=== PATIENT | female | born 1950 | race Caucasian/White ===

== ENCOUNTER 2021-05-24 07:11 | Inpatient (IN) | payer MEDICARE, OTHER ==
[2021-05-24 07:36] LABS: Glucose,Whole Blood 184 mg/dL (75-99)
--- NOTE | 2021-05-24 07:40 | ED ---
General Adult HPI - General Chief complaint: Weakness Stated complaint: L side numbness Time Seen by Provider: 05/24/21 07:21 Source: patient Mode of arrival: ambulatory Limitations: no limitations - History of Present Illness Initial comments: Dictation was produced using [employer] dictation software. please excuse any grammatical, word or spelling errors. Chief Complaint: 71-year-old female presents to the emergency department left-s ided weakness and paresthesias History of Present Illness: 71-year-old female she states she has history of stroke she suffered 2018. She states she was admitted to the ICU back in 2018 at [facility]. She states that last several days she has not been feeling well. This morning patient woke up 2 hours ago when she felt weakness to her left side. Shows complains of overlying paresthesias to the left upper extremity left lower extremity. Patient states she went to bed normal last nig ht at 12 AM. She denies any pain complaints at this time. The last couple days she's been having feelings of weakness mild episodes of headache intermittently. Patient denies any pain at this time. She states she has some very mild weakness residually from stroke in 2018 but nothing this bad. The ROS documented in this emergency department record has been reviewed and confirmed by me. Those systems with pertinent positive or negative responses have been documented in the HPI. All other systems are other negative and/or noncontributory. PHYSICAL EXAM: General Impression: Alert and oriented x3, not in acute distress HEENT: Normocephalic atraumatic, extra-ocular movements intact, pupils equal and reactive to light bilaterally, mucous membranes moist. Cardiovascular: Heart regular rate and rhythm Chest: Able to complete full sentences, no retractions, no tachypnea Abdomen: abdomen soft, non-tender, non-distended, no organomegaly Musculoskeletal: Pulses present and equal in all extremities, no peripheral edema Motor: no focal deficits noted Neurological: Mild left lower facial weakness, no movement towards gravity of the left lower extremity, no drift of left upper extremity, sensory abnormality to the left side of her body. Skin: Intact with no visualized rashes Psych: Normal affect and mood ED course: 71-year-old female with past medical history of stroke presents with strokelike symptoms. Patient woke up with symptoms. Vital signs upon arrival are within acceptable limits. NIH score of 6. Last known normal was 7-1/2 hours ago. Patient not a TPA candidate. Laboratory evaluation obtained. CBC, coag panel, both panels within acceptable limits. CT brain and CT angios of the head and neck shows no acute processes. Stroke neurologist did not have any specific recommendations. Patient given aspirin. She'll be admitted with neurology consultation. Patient reevaluated at bedside at 9 AM found to be stable medical condition. EKG interpretation: Ventricular rate 67, normal sinus rhythm, KS interval 146, QRS 86, QTC 443. No KS prolongation, no QTC prolongation, no ST or T-wave changes noted.. Overall, this EKG is unremarkable - Related Data Home Medications Medication Instructions Recorded Confirmed Ascorbic Acid [Vitamin C] 1,000 mg PO DAILY 05/24/21 05/24/21 Aspirin EC [Ecotrin Low Dose] 81 mg PO DAILY 05/24/21 05/24/21 Atorvastatin Calcium [Lipitor] 40 mg PO DAILY 05/24/21 05/24/21 Carvedilol [Coreg] 6.25 mg PO BID 05/24/21 05/24/21 Dailyvite 1 tab PO DAILY 05/24/21 05/24/21 Furosemide [Lasix] 80 mg PO DAILY 05/24/21 05/24/21 Isosorbide Mononitrate ER [Imdur] 60 mg PO DAILY 05/24/21 05/24/21 Levothyroxine Sodium [Synthroid] 75 mcg PO DAILY 05/24/21 05/24/21 Losartan Potassium 100 mg PO DAILY 05/24/21 05/24/21 Allergies Allergy/AdvReac Type Severity Reaction Status Date / Time Armenian walnut Allergy Anaphylaxis Verified 05/24/21 07:17 Sulfa (Sulfonamide AdvReac mouth sores Verified 05/24/21 07:17 Antibiotics) Review of Systems ROS Statement: Those systems with pertinent positive or pertinent negative responses have been documented in the HPI. ROS Other: All systems not noted in ROS Statement are negative. Past Medical History Past Medical History: Cancer, COPD, CVA/TIA, GERD/Reflux, Hypertension, Myocardial Infarction ([place]), Thyroid Disorder Additional Past Medical History / Comment(s): hx. cervical cancer, SOB w/activity, restless leg, TIA x 3 2012, tia 2014, personality disorder Last Myocardial Infarction Date:: February 26 2015 History of Any Multi-Drug Resistant Organisms: None Reported Past Surgical History: Section, Heart Catheterization, Tonsillectomy Additional Past Surgical History / Comment(s): cyst removed from ovary Past Anesthesia/Blood Transfusion Reactions: Postoperative Nausea & Vomiting (PONV) Past Psychological History: Anxiety, Depression Smoking Status: Never smoker Past Alcohol Use History: Occasional Past Drug Use History: None Reported - Past Family History Mother Family Medical History: Cancer Additional Family Medical History / Comment(s): aneurysm General Exam Limitations: no limitations Course Vital Signs 05/24/21 05/24/21 05/24/21 07:15 07:25 07:40 Temperature 98.2 F 99.1 F 99.1 F Pulse Rate 69 68 63 Respiratory 20 16 16 Rate Blood Pressure 150/86 150/91 149/93 O2 Sat by Pulse 96 98 97 Oximetry 05/24/21 05/24/21 05/24/21 07:55 08:00 08:01 Temperature 98.9 F 98.9 F Pulse Rate 63 60 60 Respiratory 16 16 16 Rate Blood Pressure 163/86 143/84 143/84 O2 Sat by Pulse 93 L 96 96 Oximetry 05/24/21 05/24/21 05/24/21 08:15 08:30 08:45 Temperature 98.9 F 98.8 F 98.8 F Pulse Rate 59 L 66 63 Respiratory 16 16 16 Rate Blood Pressure 138/83 135/83 140/82 O2 Sat by Pulse 96 98 94 L Oximetry Medical Decision Making - Lab Data Result diagrams: 05/24/21 07:27 05/24/21 07:27 Lab Results 05/24/21 05/24/21 05/24/21 Range/Units 07:27 07:27 07:27 WBC 7.2 (3.8-10.6) k/uL RBC 4.21 (3.80-5.40) m/uL Hgb 13.3 (11.4-16.0) gm/dL Hct 38.2 (34.0-46.0) % MCV 90.8 (80.0-100.0) fL MCH 31.6 (25.0-35.0) pg MCHC 34.7 (31.0-37.0) g/dL RDW 13.1 (11.5-15.5) % Plt Count 236 (150-450) k/uL MPV 6.9 Neutrophils % 55 % Lymphocytes % 35 % Monocytes % 5 % Eosinophils % 3 % Basophils % 1 % Neutrophils # 3.9 (1.3-7.7) k/uL Lymphocytes # 2.5 (1.0-4.8) k/uL Monocytes # 0.3 (0-1.0) k/uL Eosinophils # 0.2 (0-0.7) k/uL Basophils # 0.1 (0-0.2) k/uL PT 9.6 (9.0-12.0) sec INR 0.9 (<1.2) APTT 22.2 (22.0-30.0) sec Sodium 140 (137-145) mmol/L Potassium 3.8 (3.5-5.1) mmol/L Chloride 105 (98-107) mmol/L Carbon Dioxide 27 (22-30) mmol/L Anion Gap 8 mmol/L BUN 36 H (7-17) mg/dL Creatinine 0.98 (0.52-1.04) mg/dL Est GFR (CKD-EPI)AfAm 68 (>60 ml/min/1.73 sqM) Est GFR (CKD-EPI)NonAf 59 (>60 ml/min/1.73 sqM) Glucose 158 H (74-99) mg/dL POC Glucose (mg/dL) (75-99) mg/dL POC Glu Cdl Instructor ID Calcium 9.9 (8.4-10.2) mg/dL Total Bilirubin 0.2 (0.2-1.3) mg/dL AST 49 H (14-36) U/L ALT 52 H (4-34) U/L Alkaline Phosphatase 73 (38-126) U/L Troponin I (0.000-0.034) ng/mL Total Protein 6.6 (6.3-8.2) g/dL Albumin 4.0 (3.5-5.0) g/dL 05/24/21 05/24/21 Range/Units 07:27 07:30 WBC (3.8-10.6) k/uL RBC (3.80-5.40) m/uL Hgb (11.4-16.0) gm/dL Hct (34.0-46.0) % MCV (80.0-100.0) fL MCH (25.0-35.0) pg MCHC (31.0-37.0) g/dL RDW (11.5-15.5) % Plt Count (150-450) k/uL MPV Neutrophils % % Lymphocytes % % Monocytes % % Eosinophils % % Basophils % % Neutrophils # (1.3-7.7) k/uL Lymphocytes # (1.0-4.8) k/uL Monocytes # (0-1.0) k/uL Eosinophils # (0-0.7) k/uL Basophils # (0-0.2) k/uL PT (9.0-12.0) sec INR (<1.2) APTT (22.0-30.0) sec Sodium (137-145) mmol/L Potassium (3.5-5.1) mmol/L Chloride (98-107) mmol/L Carbon Dioxide (22-30) mmol/L Anion Gap mmol/L BUN (7-17) mg/dL Creatinine (0.52-1.04) mg/dL Est GFR (CKD-EPI)AfAm (>60 ml/min/1.73 sqM) Est GFR (CKD-EPI)NonAf (>60 ml/min/1.73 sqM) Glucose (74-99) mg/dL POC Glucose (mg/dL) 184 H (75-99) mg/dL POC Glu Cdl Instructor ID Sandra Harris Calcium (8.4-10.2) mg/dL Total Bilirubin (0.2-1.3) mg/dL AST (14-36) U/L ALT (4-34) U/L Alkaline Phosphatase (38-126) U/L Troponin I <0.012 (0.000-0.034) ng/mL Total Protein (6.3-8.2) g/dL Albumin (3.5-5.0) g/dL Critical Care Time Critical Care Time: Yes Total Critical Care Time: 33 Disposition Clinical Impression: Neurological deficit present Disposition: ADMITTED IP TO THIS [facility] Condition: Fair Referrals: None,Stated [Primary Care Provider] - 1-2 days
[2021-05-24 07:48] LABS: Basophils # (A) 0.1 k/uL (0-0.2); Basophils % (A) 1 %; Eosinophils # (A) 0.2 k/uL (0-0.7); Eosinophils % (A) 3 %; HCT 38.2 % (34.0-46.0); HGB 13.3 gm/dL (11.4-16.0); Lymphocytes # (A) 2.5 k/uL (1.0-4.8); Lymphocytes % (A) 35 %; MCH 31.6 pg (25.0-35.0); MCHC 34.7 g/dL (31.0-37.0); MCV 90.8 fL (80.0-100.0); Mean Platelet Volume 6.9; Monocytes # (A) 0.3 k/uL (0-1.0); Monocytes % (A) 5 %; Neutrophils # (A) 3.9 k/uL (1.3-7.7); Neutrophils % (A) 55 %; Platelet Count 236 k/uL (150-450); RBC 4.21 m/uL (3.80-5.40); RDW 13.1 % (11.5-15.5); WBC 7.2 k/uL (3.8-10.6)
[2021-05-24 07:53] LABS: Calcium 9.9 mg/dL (8.4-10.2); Potassium 3.8 mmol/L (3.5-5.1); Total Bilirubin 0.2 mg/dL (0.2-1.3); Total Protein 6.6 g/dL (6.3-8.2)
[2021-05-24 08:03] LABS: INR 0.9 (<1.2); Partial Thromboplastin Time 22.2 sec (22.0-30.0); Prothrombin Time 9.6 sec (9.0-12.0)
--- NOTE | 2021-05-24 08:15 | CT ---
EXAMINATION TYPE: CT brain wo con for TPA DATE OF EXAM: 05/24/2021 COMPARISON: 08/19/2015 HISTORY: 71-year-old female Left sided weakness TECHNIQUE: Examination was done in axial plane without intravenous contrast. Coronal and sagittal r econstructions performed. CT DLP: 1071.8 mGycm Automated exposure control for dose reduction was used. FINDINGS: There is no evidence of acute intracranial hemorrhage, acute ischemic changes, mass, mass-effect, or extra-axial fluid collection. There is no effacement of cerebral sulci or basal subarachnoid cister ns. There is no hydrocephalus. There is no midline shift. Medrano-white matter distinction is preserv ed. Mild patchy white matter hypodensities in both cerebral hemispheres. Stable mild fusiform prominence mid basilar artery at 5 mm compared back to 2014. Trace mucosal thickening left maxillary sinus. Mastoid air cells well pneumatized. Orbits and globes are intact. IMPRESSION: No acute intracranial abnormality seen. Mild patchy burden with chronic small vessel ischemic disease .
--- NOTE | 2021-05-24 08:22 | XR ---
EXAMINATION TYPE: XR chest 2V DATE OF EXAM: 05/24/2021 COMPARISON: 08/19/2015 HISTORY: Altered mental status TECHNIQUE: Frontal and lateral views of the chest are obtained. FINDINGS: Low lung volumes. Heart size is stable. No pleural effusion, focal consolidation or pneumo thorax. IMPRESSION: 1. No acute pulmonary disease.
--- NOTE | 2021-05-24 08:52 | CT ---
EXAMINATION TYPE: CT angio head neck DATE OF EXAM: 05/24/2021 COMPARISON: CT brain same day HISTORY: 71-year-old female Left sided weakness, left facial droop TECHNIQUE: Contiguous axial scanning of the head and neck performed with IV Contrast, patient injecte d with 65 mL of Isovue 370. Coronal/sagittal MIP reconstructions performed. 3-D reconstructions gener ated on a dedicated workstation. CT DLP: 517.8 mGycm Automated exposure control for dose reduction was used. FINDINGS: NECK: Conventional arch vessel branching anatomy. Both vertebral artery origins are patent. The vessels are codominant and patent throughout the course . The right common carotid artery is patent. Mild atherosclerotic change at the right bifurcation with mild, less than 40% narrowing by NASCET cri teria. Remainder of the right ICA is patent. Left common carotid artery is patent. Very mild eccentric atherosclerotic plaque and calcification causing mild, less than 25% narrowing at the level of the carotid bulb. Remainder of the left ICA is patent. HEAD: Mild atherosclerotic calcification proximal basilar artery with mild fusiform prominence at 5 mm note d to be unchanged from 2015. Bilateral posterior to indicating arteries are visualized. The internal carotid arteries are patent with mild atherosclerotic calcifications. The remainder of t he anterior circulation is patent. Otherwise, no saccular aneurysmal change is seen. IMPRESSION: 1. NECK: MILD ATHEROSCLEROTIC CHANGE AT THE RIGHT GREATER THAN LEFT CAROTID BIFURCATIONS WITH MILD, L ESS THAN 40% PROXIMAL RIGHT ICA NARROWING AND MINIMAL, LESS THAN 25% PROXIMAL LEFT ICA NARROWING. NO HEMODYNAMICALLY SIGNIFICANT ICA STENOSIS ON EITHER SIDE. 2. HEAD: NO LARGE VESSEL INTRACRANIAL ARTERIAL OCCLUSION OR SIGNIFICANT STENOSIS SEEN.
[2021-05-24] MEDS ORDERED: ASPIRIN 81 MG PO STA (09:05)
--- NOTE | 2021-05-24 10:50 | P.HPIM ---
<Poli Garcia - Last Filed: 05/24/21 11:02> History of Present Illness H&P Date: 05/24/21 History of Presenting Illness: Patient is a very pleasant 71-year-old female with a past medical history of CAD with previous ND, chronic diastolic heart failure, hypertension, hyperlipidemia, previous CVA in 2018 that resulted in left-sided deficits, history of PE, and COPD. Patient presented to the emergency department with reports of increased left-sided weakness. Patient states over the past 2-3 days she has been experiencing increased left-sided weakness, numbness, and a pins and needles tingling sensation throughout her left cheek, left arm, and left leg accompanied by intermittent blurred vision, headache, and photophobia. Patient states she first noticed this about 2-3 days ago when she felt as though her left leg was dragging and she was having intermittent paresthesias throughout her left leg. Patient states upon awakening this morning she was unable to move her left leg and felt increased paresthesias so she called a cab to take her to the ER for further evaluation. She denied having any recent infections or exposure to known ill contacts, fevers, chills, diaphoresis, difficulty with her changes in her speech, dysphasia, chest pain or palpitations, shortness of breath, dyspnea with exertion, abdominal pain, nausea, vomiting, or any difficulties with her changes in urinary or bowel function. Full workup was completed in the ED. CTA neck revealing mild atherosclerotic change at the right greater than left carotid bifurcations with mild less than 40% proximal right ICA narrowing and minimal less than 25% proximal left ICA narrowing, no significant ICA stenosis on either side. CTA head showing no large vessel intercranial arterial occlusion or sign ificant stenosis noted. Chest x-ray negative for acute cardiopulmonary process. EKG revealing normal sinus rhythm at 67 bpm with no noted T-wave or ST abnormality, showing no signs of acute ischemia. Initial NIH score of 6, patient not a TPA candidate. Patient given aspirin 325 mg in ED. Patient admitted under our services with consultation to neurology. Review of systems: Pertinent positives and negatives as discussed in HPI, a complete review of systems was performed and all other systems are negative. Physical exam: General: non toxic, no distress, appears at stated age Derm: warm, dry Head: atraumatic, normocephalic, symmetric Eyes: Pupils equal, round and reactive. EOMI, no lid lag, anicteric sclera Mouth: no lip lesion, mucus membranes moist Cardiovascular: S1-S2 normal with regular rate and rhythm. No murmurs, gallops, or rubs noted. Posterior tibial pulses palpated bilaterally. Cap refill less than 2 seconds. Lungs: Respirations even, regular, and unlabored on room air. Lungs clear to auscultation bilaterally with no wheezes, rhonchi, or rales noted. No accessory muscle usage. Abdominal: soft, nontender to palpation, no guarding, no appreciable organomegaly Ext: no gross muscle atrophy, no edema, no contractures Neuro: GCS 15. Speech clear. No facial droop noted. CN II-XI grossly intact, no arm drift. Patient did have abnormal finger to nose with left, positive weakness and inability to perform heel to harp with left lower extremity and reports of decreased sensation to left lower extremity. Psych: Alert, oriented, appropriate affect Assessment and Plan of Care: CVA with left-sided deficits -Initial NIH score of 6 -CT brain without contrast revealing no acute intercranial abnormality revealing only mild patchy white matter densities with chronic small vessel ischemic disease. -CTA neck revealing mild atherosclerotic change at the right greater than left carotid bifurcations with mild less than 40% proximal right ICA narrowing and minimal less than 25% proximal left ICA narrowing, no significant ICA stenosis on either side. CTA head showing no large vessel intercranial arterial occlusion or significant stenosis noted. -Consult neurology -MRI brain without contrast -Echocardiogram -Lipid profile and Hgb A1c -NIH stroke scale with neuro checks every 4 hours and as needed -Daily aspirin and atorvastatin. -PT/OT consult -Swallow evaluation. -Fall precautions and provide pt with assistance as needed. Hypertension -Resume BP medications this evening, as we will allow for permissive hypertension over next 12 hours. Hyperlipidemia -Continue daily medication regimen with atorvastatin -Lipid profile with a.m. labs Chronic diastolic heart failure -Continue daily medication regimen with Lasix. -We will obtain an echocardiogram this admission. History of PE -DVT prophylaxis with Lovenox History of CAD with previous ND -Continue daily medication regimen with aspirin, atorvastatin, carvedilol, Lasix, isosorbide mononitrate, and losartan Hypothyroidism -Continue daily medication management with Synthroid The patient is admitted with an anticipated greater than 2 midnight stay for evaluation of a CVA CODE STATUS: DO NOT RESUSCITATE/DO NOT INTUBATE DVT prophylaxis: Lovenox Discussed with: Patient and RN Anticipated discharge date: Clinical course to determine Anticipated discharge place: Home with home care versus SNF A total of 45 minutes was spent on the care of this complex patient more than 50% of the time was spent in counseling and care coordination. Past Medical History Past Medical History: Cancer, COPD, CVA/TIA, GERD/Reflux, Hypertension, Myocardial Infarction ([place]), Thyroid Disorder Additional Past Medical History / Comment(s): hx. cervical cancer, SOB w/activity, restless leg, TIA x 3 2012, tia 2014, personality disorder Last Myocardial Infarction Date:: February 26 2015 History of Any Multi-Drug Resistant Organisms: None Reported Past Surgical History: Section, Heart Catheterization, Tonsillectomy Additional Past Surgical History / Comment(s): cyst removed from ovary Past Anesthesia/Blood Transfusion Reactions: Postoperative Nausea & Vomiting (PONV) Past Psychological History: Anxiety, Depression Smoking Status: Never smoker Past Alcohol Use History: Occasional Past Drug Use History: None Reported - Past Family History Mother Family Medical History: Cancer Additional Family Medical History / Comment(s): aneurysm Medications and Allergies Home Medications Medication Instructions Recorded Confirmed Type Ascorbic Acid [Vitamin C] 1,000 mg PO DAILY 05/24/21 05/24/21 History Aspirin EC [Ecotrin Low Dose] 81 mg PO DAILY 05/24/21 05/24/21 History Atorvastatin Calcium [Lipitor] 40 mg PO DAILY 05/24/21 05/24/21 History Carvedilol [Coreg] 6.25 mg PO BID 05/24/21 05/24/21 History Dailyvite 1 tab PO DAILY 05/24/21 05/24/21 History Furosemide [Lasix] 80 mg PO DAILY 05/24/21 05/24/21 History Isosorbide Mononitrate ER [Imdur] 60 mg PO DAILY 05/24/21 05/24/21 History Levothyroxine Sodium [Synthroid] 75 mcg PO DAILY 05/24/21 05/24/21 History Losartan Potassium 100 mg PO DAILY 05/24/21 05/24/21 History Allergies Allergy/AdvReac Type Severity Reaction Status Date / Time Italian walnut Allergy Anaphylaxis Verified 05/24/21 07:17 Sulfa (Sulfonamide AdvReac mouth sores Verified 05/24/21 07:17 Antibiotics) Physical Exam Vitals: Vital Signs Temp Pulse Resp BP Pulse Ox 05/24/21 09:46 97.8 F 60 16 140/89 100 05/24/21 08:45 98.8 F 63 16 140/82 94 L 05/24/21 08:30 98.8 F 66 16 135/83 98 05/24/21 08:15 98.9 F 59 L 16 138/83 96 05/24/21 08:01 60 16 143/84 96 05/24/21 08:00 98.9 F 60 16 143/84 96 05/24/21 07:55 98.9 F 63 16 163/86 93 L 05/24/21 07:40 99.1 F 63 16 149/93 97 05/24/21 07:25 99.1 F 68 16 150/91 98 05/24/21 07:15 98.2 F 69 20 150/86 96 Intake and Output 05/23/21 05/24/21 05/24/21 22:59 06:59 14:59 Other: Weight 79.379 kg Results CBC & Chem 7: 05/24/21 07:27 05/24/21 07:27 Labs: Abnormal Lab Results - Last 24 Hours (Table) 05/24/21 05/24/21 Range/Units 07:27 07:30 BUN 36 H (7-17) mg/dL Glucose 158 H (74-99) mg/dL POC Glucose (mg/dL) 184 H (75-99) mg/dL AST 49 H (14-36) U/L ALT 52 H (4-34) U/L <Eddie Sena - Last Filed: 05/24/21 16:15> History of Present Illness Patient seen and examined independently. Patient was also seen by Poli Garcia NP and case was discussed. I am in agreement with subjective, physical exam, assessment and plan as written above and amended below. General: non toxic, no distress, appears at stated age, obese Derm: no unusual rashes/lesions no unusual ecchymoses, warm, dry Head: atraumatic, normocephalic, symmetric Eyes: EOMI, no lid lag, anicteric sclera, pupils equal round reactive to light ENT: Nose and ears atraumatic, no thrush, no pharyngeal erythema Neck: No thyromegaly, no cervical lymphadenopathy, trachea midline, supple Mouth: no lip lesion, mucus membranes moist Cardiovascular: S1S2 reg, no murmur, positive posterior tibial pulse bilateral, no edema, capillary refill less than 2 seconds Lungs: CTA bilateral, no rhonchi, no rales , no accessory muscle use Abdominal: soft, nontender to palpation, no guarding, no appreciable organomegaly, normal bowel sounds Ext: no gross muscle atrophy, muscle strength 3 out of 5 of left lower extre mity, strength 5 out of 5 in all other extremities, no contractures, Neuro: CN II-XI grossly intact, light touch intact all 4 extremities, finger to nose abnormal, left pronator drift noted Psych: Alert, oriented, appropriate affect Physical Exam Vitals: Vital Signs Temp Pulse Resp BP Pulse Ox 05/24/21 15:14 64 18 149/84 97 05/24/21 13:30 97.8 F 64 18 149/84 97 05/24/21 12:30 75 16 153/91 95 05/24/21 11:30 73 16 139/100 96 05/24/21 09:46 97.8 F 60 16 140/89 100 05/24/21 08:45 98.8 F 63 16 140/82 94 L 05/24/21 08:30 98.8 F 66 16 135/83 98 05/24/21 08:15 98.9 F 59 L 16 138/83 96 05/24/21 08:01 60 16 143/84 96 05/24/21 08:00 98.9 F 60 16 143/84 96 05/24/21 07:55 98.9 F 63 16 163/86 93 L 05/24/21 07:40 99.1 F 63 16 149/93 97 05/24/21 07:25 99.1 F 68 16 150/91 98 05/24/21 07:15 98.2 F 69 20 150/86 96 Intake and Output 05/24/21 05/24/21 05/24/21 06:59 14:59 22:59 Other: Weight 79.379 kg Results CBC & Chem 7: 05/24/21 07:27 05/24/21 07:27 Labs: Abnormal Lab Results - Last 24 Hours (Table) 05/24/21 05/24/21 05/24/21 Range/Units 07: 07:30 13:15 BUN 36 H (7-17) mg/dL Glucose 158 H (74-99) mg/dL POC Glucose (mg/dL) 184 H (75-99) mg/dL AST 49 H (14-36) U/L ALT 52 H (4-34) U/L TSH (0.465-4.680) mIU/L Ur Specific [place] >1.050 H (1.001-1.035) Urine Protein Trace H (Negative) Ur Leukocyte Esterase Moderate H (Negative) Urine WBC 7 H (0-5) /hpf Urine Bacteria Rare H (None) /hpf Urine Mucus Rare H (None) /hpf 05/24/21 Range/Units 14:42 BUN (7-17) mg/dL Glucose (74-99) mg/dL POC Glucose (mg/dL) (75-99) mg/dL AST (14-36) U/L ALT (4-34) U/L TSH 12.300 H (0.465-4.680) mIU/L Ur Specific [place] (1.001-1.035) Urine Protein (Negative) Ur Leukocyte Esterase (Negative) Urine WBC (0-5) /hpf Urine Bacteria (None) /hpf Urine Mucus (None) /hpf
[2021-05-24 14:23] LABS: Appearance,Urine Clear (Clear); Bacteria,Urine Rare /hpf; Bilirubin,Urine Negative (Negative); Blood,Urine Negative (Negative); Color,Urine Yellow; Glucose,Urine (UA) Negative (Negative); Ketones,Urine Negative (Negative); Leukocyte Esterase,Urine Moderate (Negative); Mucus,Urine Rare /hpf; Nitrite,Urine Negative (Negative); Protein,Urine Trace (Negative); RBC,Urine 4 /hpf (0-5); Squamous Epithelial Cell,Urine 2 /hpf (0-4); Urobilinogen,Urine <2.0 mg/dL (<2.0); WBC,Urine 7 /hpf (0-5)
[2021-05-24 14:30] LABS: Specific Gravity,Urine >1.050 (1.001-1.035)
[2021-05-24] MEDS ORDERED: CLOPIDOGREL 75 MG TAB PO STA (14:32)
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
[2021-05-24 17:05] LABS: T4, Free (Free Thyroxine) 0.86 ng/dL (0.78-2.19)
--- NOTE | 2021-05-24 19:19 | MR ---
EXAMINATION TYPE: MR brain wo con DATE OF EXAM: 05/24/2021 COMPARISON: None HISTORY: Left sided weakness, and left sided facial droop. Prior stroke. Evaluate for CVA. There is diffuse cerebral atrophy. There is no mass effect nor midline shift. The diffusion images sh ow no evidence of an acute infarct. Brainstem is intact. There is mild thinning of the corpus callosu m. There is fairly normal signal pattern of the periventricular white matter. There is no evidence of cerebral edema. Sella turcica appears normal. There is no evidence of a posterior fossa mass. IMPRESSION: There is cerebral atrophy. No acute intracranial abnormality.
[2021-05-24] MEDS: carvediloL 6.25 MG TAB PO SCH (20:54)
[2021-05-25] MEDS: LEVOTHYROXINE 75 MCG TAB PO SCH (06:05)
[2021-05-25 07:57] LABS: HCT 36.6 % (34.0-46.0); HGB 12.7 gm/dL (11.4-16.0); MCH 31.5 pg (25.0-35.0); MCHC 34.7 g/dL (31.0-37.0); MCV 90.9 fL (80.0-100.0); Mean Platelet Volume 6.9; Platelet Count 217 k/uL (150-450); RBC 4.03 m/uL (3.80-5.40); RDW 13.4 % (11.5-15.5); WBC 7.6 k/uL (3.8-10.6)
--- NOTE | 2021-05-25 07:58 | ECHOF ---
Referral Reason: MEASUREMENTS -------- HEIGHT: 157.5 cm WEIGHT: 79.4 kg BP: 140/89 RVIDd: 3.0 cm (< 3.3) IVSd: 1.4 cm (0.6 - 1.1) LVIDd: 3.3 cm (3.9 - 5.3) LVPWd: 1.3 cm (0.6 - 1.1) IVSs: 1.8 cm LVIDs: 2.0 cm LVPWs: 1.8 cm LAESV Index (A-L): 21.61 ml/m Ao Diam: 3.0 cm (2.0 - 3.7) AV Cusp: 1.7 cm (1.5 - 2.6) LA Diam: 4.6 cm (2.7 - 3.8) MV EXCURSION: 11.432 mm (> 18.000) MV EF SLOPE: 51 mm/s (70 - 150) EPSS: 0.8 cm MV E Khoa: 0.88 m/s MV DecT: 254 ms MV A Khoa: 0.93 m/s MV E/A Ratio: 0.95 RAP: 5.00 mmHg RVSP: 16.15 mmHg FINDINGS -------- Sinus rhythm. This was a technically difficult study with suboptimal views. The left ventricular size is normal. There is mild concentric left ventricular hypertrophy. Overa ll left ventricular systolic function is normal with, an EF between 55 - 60 %. The diastolic fillin g pattern is normal for the age of the patient 13.18. The right ventricle is normal in size. Normal LA size by volume 22+/-6 ml/m2. The right atrium was not well visualized. Lumason used Interatrial and interventricular septum intact. There is mild aortic valve sclerosis. There is no evidence of aortic regurgitation. There is no e vidence of aortic stenosis. Mild mitral annular calcification present. There is trace mitral regurgitation. Mild tricuspid regurgitation present. Right ventricular systolic pressure is normal at < 35 mmHg. The right ventricular systolic pressure, as measured by Doppler, is 16.15mmHg. The pulmonic valve was not well visualized. There is no pulmonic regurgitation present. The aortic root size is normal. IVC Not well visulized. There is no pericardial effusion. CONCLUSIONS -------- 1. This was a technically difficult study with suboptimal views. 2. There is mild concentric left ventricular hypertrophy. 3. Overall left ventricular systolic function is normal with, an EF between 55 - 60 %. 4. Normal LA size by volume 22+/-6 ml/m2. 5. There is mild aortic valve sclerosis. 6. There is trace mitral regurgitation. 7. Mild tricuspid regurgitation present. AOC DIRECTOR COMBAT PLANS OFFICER: Joelle Cobb RDCS
[2021-05-25 08:17] LABS: Calcium 9.3 mg/dL (8.4-10.2); Potassium 4.2 mmol/L (3.5-5.1)
[2021-05-25] MEDS: ATORVASTATIN 40 MG TAB PO SCH (10:06)
[2021-05-25] MEDS: CLOPIDOGREL 75 MG TAB PO SCH (10:06)
[2021-05-25] MEDS: ASCORBIC ACID 500 MG TAB PO SCH (10:06)
[2021-05-25] MEDS: ASPIRIN 81 MG PO SCH (10:06)
[2021-05-25] MEDS: ENOXAPARIN 40 MG/0.4 ML SYRINGE SQ SCH (10:07)
[2021-05-25] MEDS: LOSARTAN 50 MG TAB PO SCH (10:07)
[2021-05-25] MEDS: carvediloL 6.25 MG TAB PO SCH ×2 (10:07→20:27)
[2021-05-25] MEDS: ISOSORBIDE MONONITRATE ER 60 MG TAB.ER.24H PO SCH (10:07)
[2021-05-25] MEDS: FUROSEMIDE 80 MG TAB PO SCH (10:07)
--- NOTE | 2021-05-25 10:23 | P.PN ---
Subjective Progress Note Date: 05/25/21 History of Presenting Illness: Patient is a very pleasant 71-year-old female with a past medical history of CAD with previous ME, chronic diastolic heart failure, hypertension, hyperlipidemia, previous CVA in 2018 that resulted in left-sided deficits, history of PE, and COPD. Patient presented to the emergency department with reports of increased left-sided weakness. Patient states over the past 2-3 days she has been experiencing increased left-sided weakness, numbness, and a pins and needles tingling sensation throughout her left cheek, left arm, and left leg accompanied by intermittent blurred vision, headache, and photophobia. Patient states she first noticed this about 2-3 days ago when she felt as though her left leg was dragging and she was having intermittent paresthesias throughout her left leg. Patient states upon awakening this morning she was unable to move her left leg and felt increased paresthesias so she called a cab to take her to the ER for further evaluation. She denied having any recent infections or exposure to known ill contacts, fevers, chills, diaphoresis, difficulty with her changes in her speech, dysphasia, chest pain or palpitations, shortness of breath, dyspnea with exertion, abdominal pain, nausea, vomiting, or any difficulties with her changes in urinary or bowel function. Full workup was completed in the ED. CTA neck revealing mild atherosclerotic change at the right greater than left carotid bifurcations with mild less than 40% proximal right ICA narrowing and minimal less than 25% proximal left ICA narrowing, no significant ICA stenosis on either side. CTA head showing no large vessel intercranial arterial occlusion or significant stenosis noted. Chest x-ray negative for acute cardiopulmonary pr ocess. EKG revealing normal sinus rhythm at 67 bpm with no noted T-wave or ST abnormality, showing no signs of acute ischemia. Initial NIH score of 6, patient not a TPA candidate. Patient given aspirin 325 mg in ED. Patient admitted under our services with consultation to neurology. Physical exam: Patient was seen and fully evaluated at the bedside this morning. She reports previously reported paresthesias to her Left cheek, left arm, and left leg have resolved and she has regained sensation in her left lower extremity. However, she reports her left hip is very sore and she is still having increased weakness in her left lower extremity And unable to lift leg. Patient denies having any falls or injuries. Order placed for x-ray of left hip and [place] for pain management. Patient denies having headache, lightheadedness, dizziness, chest pain, palpitations, shortness of breath, or any other complaints at this time. General: non toxic, no distress, appears at stated age Derm: warm, dry Head: atraumatic, normocephalic, symmetric Eyes: Pupils equal, round and reactive. EOMI, no lid lag, anicteric sclera Mouth: no lip lesion, mucus membranes moist Cardiovascular: S1-S2 normal with regular rate and rhythm. No murmurs, gallops, or rubs noted. Posterior tibial pulses palpated bilaterally. Cap refill less than 2 seconds. Lungs: Respirations even, regular, and unlabored on room air. Lungs clear to auscultation bilaterally with no wheezes, rhonchi, or rales noted. No accessory muscle usage. Abdominal: soft, nontender to palpation, no guarding, no appreciable organomegaly Ext: no gross muscle atrophy, no edema, no contractures Neuro: GCS 15. Speech clear. No facial droop noted. CN II-XI grossly intact, no arm drift. Positive weakness and inability to perform heel to harp with left lower extremity. Sensation intact. Psych: Alert, oriented, appropriate affect Assessment and Plan of Care: Increased left-sided weakness with Paresthesias -Initial NIH score of 6 -CT brain without contrast revealing no acute intercranial abnormality revealing only mild patchy white matter densities with chronic small vessel ischemic disease. -CTA neck revealing mild atherosclerotic change at the right greater than left carotid bifurcations with mild less than 40% proximal right ICA narrowing and minimal less than 25% proximal left ICA narrowing, no significant ICA stenosis on either side. CTA head showing no large vessel intercranial arterial occlusion or significant stenosis noted. -MRI showing diffuse cerebral atrophy and is negative for acute intercranial abnormality. -Neurology following and appreciate further recommendations -Echocardiogram Showing normal EF of 55-60% with no significant valvular abnormalities. -Lipid profile and Hgb A1c Pending -Daily aspirin and atorvastatin. -PT/OT consult -Fall precautions and provide pt with assistance as needed. Hypertension -Monitor vital signs and continue daily medication management. Hyperlipidemia -Continue daily medication regimen with atorvastatin -Lipid profile with a.m. labs Chronic diastolic heart failure -Continue daily medication regimen with Lasix. -We will obtain an echocardiogram this admission. History of PE -DVT prophylaxis with Lovenox History of CAD with previous ME -Continue daily medication regimen with aspirin, atorvastatin, carvedilol, Lasix, isosorbide mononitrate, and losartan Hypothyroidism -Continue daily medication management with Synthroid -TSH 12.300 with free T4 of 0.86. CODE STATUS: DO NOT RESUSCITATE/DO NOT INTUBATE DVT prophylaxis: Lovenox Discussed with: Patient and RN Anticipated discharge date: Clinical course to determine Anticipated discharge place: Home with home care versus SNF A total of 45 minutes was spent on the care of this complex patient more than 50% of the time was spent in counseling and care coordination Objective - Vital Signs Vital signs: Vital Signs Temp 98.1 F 05/25/21 03:50 Pulse 61 05/25/21 03:50 Resp 17 05/25/21 03:50 BP 133/78 05/25/21 03:50 Pulse Ox 96 05/25/21 03:50 Intake & Output 05/24/21 05/25/21 05/25/21 18:59 06:59 18:59 Intake Total 260 Balance 260 Weight 79.379 kg 84.9 kg Intake: Oral 260 Other: Voiding Method Toilet # Voids 1 1 - Labs CBC & Chem 7: 05/25/21 07:28 05/25/21 07:28 Labs: Abnormal Lab Results - Last 24 Hours (Table) 05/24/21 05/24/21 05/25/21 Range/Units 13:15 14:42 07:28 BUN 28 H (7-17) mg/dL Glucose 101 H (74-99) mg/dL TSH 12.300 H (0.465-4.680) mIU/L Ur Specific [place] >1.050 H (1.001-1.035) Urine Protein Trace H (Negative) Ur Leukocyte Esterase Moderate H (Negative) Urine WBC 7 H (0-5) /hpf Urine Bacteria Rare H (None) /hpf Urine Mucus Rare H (None) /hpf
[2021-05-25] MEDS: HYDROcodone/APAP 5-325MG 1 EACH TAB PO PRN ×2 (12:09→17:23)
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
[2021-05-25 13:00] LABS: Chol/HDL Ratio 3.91; LDL Cholesterol,Calculated 97.6 mg/dL (0.0-131.0); VLDL Calculation 36.4 mg/dL (5.00-40.00)
--- NOTE | 2021-05-25 15:12 | XR ---
EXAMINATION TYPE: XR Hip LT and AP Pelvis DATE OF EXAM: 05/25/2021 COMPARISON: NONE HISTORY: Left hip pain TECHNIQUE: A single AP view of the pelvis is obtained. Two views of the left hip are obtained. FINDINGS: No evidence of fracture or dislocation of the left hip. There is moderate to severe osteoarthritis of the left hip with joint space narrowing and subchondral sclerosis of the acetabulum. Subchondral cys tic changes are seen at the left femoral head and acetabulum. Single view of the pelvis shows no acut e fracture. Milder degenerative changes of the right hip suggestive of osteoporosis. Degenerative asad nges of lower lumbar spine. IMPRESSION: 1. Moderate to severe osteoarthritis of the left hip. Subchondral cystic changes at the left femoral head and acetabulum. Consider early avascular necrosis.
[2021-05-25 19:11] LABS: Hemoglobin A1C 5.9 % (4.0-6.0)
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
[2021-05-26] MEDS: HYDROcodone/APAP 5-325MG 1 EACH TAB PO PRN ×2 (03:49→13:28)
[2021-05-26] MEDS: LEVOTHYROXINE 75 MCG TAB PO SCH (06:49)
[2021-05-26 09:46] VITALS: BP 139/73; PULSE 62; RESP 16; TEMP 98
[2021-05-26] MEDS: ATORVASTATIN 40 MG TAB PO SCH (09:55)
[2021-05-26] MEDS: FUROSEMIDE 80 MG TAB PO SCH (09:55)
[2021-05-26] MEDS: ASPIRIN 81 MG PO SCH (09:55)
[2021-05-26] MEDS: carvediloL 6.25 MG TAB PO SCH (09:55)
[2021-05-26] MEDS: CLOPIDOGREL 75 MG TAB PO SCH (09:55)
[2021-05-26] MEDS: ENOXAPARIN 40 MG/0.4 ML SYRINGE SQ SCH (09:55)
[2021-05-26] MEDS: ISOSORBIDE MONONITRATE ER 60 MG TAB.ER.24H PO SCH (09:56)
[2021-05-26] MEDS: LOSARTAN 50 MG TAB PO SCH (09:56)
[2021-05-26] MEDS: ASCORBIC ACID 500 MG TAB PO SCH (09:56)
--- NOTE | 2021-05-26 13:31 | P.DS ---
Providers Date of admission: 05/24/21 09:03 Expected date of discharge: 05/26/21 Attending physician: Eddie Sena MD Consults: 05/24/21 09:04 Consult Physician Routine Consulting Provider: Lv Gong Consult Reason/Comments: cva Do you want consulting provider notified?: Yes 05/25/21 09:09 Consult Physician Routine Consulting Provider: Domenic Lovett Consult Reason/Comments: psychosomatic stroke symptoms Do you want consulting provider notified?: Yes Primary care physician: Stated None Hospital Course: Left sided weakness with paresthesias HTN HLD CAD Chronic Diastolic Heart Failure Hx of PE Hypothyroidism Patient is a very pleasant 71-year-old female with a past medical history of CAD with previous WI, chronic diastolic heart failure, hypertension, hyperlipidemia, previous CVA in 2018 that resulted in left-sided deficits, history of PE, and COPD. Patient presented to the emergency department with reports of increased left-sided weakness. Full workup was completed in the ED. CTA neck revealing mild atherosclerotic change at the right greater than left carotid bifurcations with mild less than 40% proximal right ICA narrowing and minimal less than 25% proximal left ICA narrowing, no significant ICA stenosis on either side. CTA head showing no large vessel intercranial arterial occlusion or significant st enosis noted. Chest x-ray negative for acute cardiopulmonary process. EKG revealing normal sinus rhythm at 67 bpm with no noted T-wave or ST abnormality, showing no signs of acute ischemia. Initial NIH score of 6, patient not a TPA candidate. Patient given aspirin 325 mg in ED. Patient admitted under our services with consultation to neurology. Pt was started on ASA and Plavix with plan to continue DAPT for 21 days, then plavix 75mg daily in perpetuity. Patient was also seen by psychiatry in case of conversion component to left sided weakness, but this was not favored in lieu of organic cause. Patient was discharged home with PCP and neurology follow up. I spent 32 minutes coordinating this complex discharge. Assessment: Gen: awake, alert HEENT: normocephalic, atraumatic, good hearing acuity, moist mucous membranes Resp: good air exchange, breathing comfortably with no accessory muscle use CVS: good distal perfusion x 4, GI: soft, NTTP, ND : no SPT, no CVAT, marroquin catheter not present MSK: no pitting edema, no clubbing Neuro: non-focal, moving all extremities Psych: cooperative, euthymic mood Patient Condition at Discharge: Good Plan - Discharge Summary Discharge Rx Participant: No New Discharge Prescriptions: New Clopidogrel [Plavix] 75 mg PO DAILY #30 tab Continue Carvedilol [Coreg] 6.25 mg PO BID Furosemide [Lasix] 80 mg PO DAILY Isosorbide Mononitrate ER [Imdur] 60 mg PO DAILY Dailyvite 1 tab PO DAILY Ascorbic Acid [Vitamin C] 1,000 mg PO DAILY Atorvastatin Calcium [Lipitor] 40 mg PO DAILY Levothyroxine Sodium [Synthroid] 75 mcg PO DAILY Losartan Potassium 100 mg PO DAILY Aspirin EC [Ecotrin Low Dose] 81 mg PO DAILY 19 Days #0 Discharge Medication List Ascorbic Acid [Vitamin C] 1,000 mg PO DAILY 05/24/21 [History] Atorvastatin Calcium [Lipitor] 40 mg PO DAILY 05/24/21 [History] Carvedilol [Coreg] 6.25 mg PO BID 05/24/21 [History] Dailyvite 1 tab PO DAILY 05/24/21 [History] Furosemide [Lasix] 80 mg PO DAILY 05/24/21 [History] Isosorbide Mononitrate ER [Imdur] 60 mg PO DAILY 05/24/21 [History] Levothyroxine Sodium [Synthroid] 75 mcg PO DAILY 05/24/21 [History] Losartan Potassium 100 mg PO DAILY 05/24/21 [History] Aspirin EC [Ecotrin Low Dose] 81 mg PO DAILY 19 Days #0 05/26/21 [Rx] Clopidogrel [Plavix] 75 mg PO DAILY #30 tab 05/26/21 [Rx] Follow up Appointment(s)/Referral(s): Elmer Yarbrough MD [REFERRING] - 05/27/21 2:15 pm [facility], [NON-STAFF] - Activity/Diet/Wound Care/Special Instructions: Home care will follow at your home after you see Dr. Yarbrough in the office Discharge Disposition: HOME WITH HOME HEALTH SERVICES
== END 2021-05-26 14:20 | disposition home health service (06) | DRG 68 ==
LOC: EC 07:11 → 3SCARD 09:03
PROVIDERS: ADMIT Internal Medicine; ATTEND Internal Medicine
DX: I65.21 Occlusion and stenosis of right carotid artery (principal); I50.32 Chronic diastolic (congestive) heart failure; I69.354 Hemiplegia and hemiparesis following cerebral infarction affecting left non-dominant side; E03.9 Hypothyroidism, unspecified; E78.5 Hyperlipidemia, unspecified; F32.9 Major depressive disorder, single episode, unspecified; F43.10 Post-traumatic stress disorder, unspecified; F44.81 Dissociative identity disorder; F60.9 Personality disorder, unspecified; G25.81 Restless legs syndrome; I11.0 Hypertensive heart disease with heart failure; I25.10 Atherosclerotic heart disease of native coronary artery without angina pectoris; I25.2 Old myocardial infarction; Z86.711 Personal history of pulmonary embolism; Z85.41 Personal history of malignant neoplasm of cervix uteri; Z79.899 Other long term (current) drug therapy; Z79.890 Hormone replacement therapy; Z79.82 Long term (current) use of aspirin; Z66 Do not resuscitate; Z62.810 Personal history of physical and sexual abuse in childhood; J44.9 Chronic obstructive pulmonary disease, unspecified; R29.706 NIHSS score 6; K21.9 Gastro-esophageal reflux disease without esophagitis
CPT/HCPCS: 36415; 70450; 70496; 70498; 70551; 71046; 73502; 80048; 80053; 80061; 81001; 83036; 84439; 84443; 84484; 85025; 85027; 85610; 85730; 93005; 93306; 99285

== ENCOUNTER → 2021-06-21 | Outpatient (CLI) | payer MEDICARE, OTHER ==
--- NOTE | 2021-06-21 17:54 | XR ---
EXAMINATION TYPE: XR lumbosacral spine 5 views DATE OF EXAM: 06/21/2021 Comparison: 10/04/2015 Clinical History: 71-year-old female 715.90, M19.90 Findings: 5 lumbar type vertebral bodies. Moderate to advanced dislocation of the degenerative changes especial ly towards the left at L3-L4, progressed from 2014. There is vacuum phenomenon and endplate sclerosis and spondylosis here at this level. Mild degenerative disc disease at additional levels. Facet arthr opathy mid to lower lumbar spine. No pars interarticularis defect. Vertebral body heights are preserv ed and alignment is maintained. Impression: Moderate to advanced disc/endplate degenerative change especially towards the left at L3-L4, progress ed from 2014. Mild degenerative disc disease elsewhere within the lumbar spine and facet arthropathy mid to lower lumbar spine.
== END | disposition home or self-care (01) ==
LOC: RADXRMAIN 16:03
PROVIDERS: ATTEND Family Medicine
DX: M51.36 Other intervertebral disc degeneration, lumbar region (principal); M46.96 Unspecified inflammatory spondylopathy, lumbar region; M19.90 Unspecified osteoarthritis, unspecified site
CPT/HCPCS: 72110

== ENCOUNTER → 2021-06-24 | Outpatient (CLI) | payer MEDICARE, OTHER ==
--- NOTE | 2021-06-25 10:13 | US ---
EXAMINATION TYPE: US thyroid st tissue head/neck DATE OF EXAM: 06/24/2021 COMPARISON: Recent CT, 05/24/2021 CLINICAL HISTORY: R59.0 LYMPHADENOPATHY. Pt states swelling left supraclavicular area No abnormality visualized to account for pt's supraclavicular swelling IMPRESSION: 1. Negative soft tissue ultrasound
== END | disposition home or self-care (01) ==
LOC: RADUSWWP 16:15
PROVIDERS: ATTEND Family Medicine
DX: R59.0 Localized enlarged lymph nodes (principal)
CPT/HCPCS: 76536

== ENCOUNTER → 2021-07-19 | Outpatient (CLI) | payer MEDICARE, OTHER ==
--- NOTE | 2021-07-19 15:49 | XR ---
EXAMINATION TYPE: XR Hip Complete LT DATE OF EXAM: 07/19/2021 CLINICAL HISTORY: pain TECHNIQUE: AP and frogleg views of the left hip are obtained. COMPARISON: None. FINDINGS: There is no acute fracture/dislocation evident. The joint space appears moderate degener ative narrowing left hip joint space. The overlying soft tissue appears unremarkable. IMPRESSION: 1. There is no acute fracture or dislocation.ICD 10 NO FRACTURE, INITIAL EVALUATION
== END | disposition home or self-care (01) ==
LOC: RADXRMAIN 15:04
PROVIDERS: ATTEND Family Medicine
DX: M25.552 Pain in left hip (principal)
CPT/HCPCS: 73502

== ENCOUNTER → 2021-07-22 | Outpatient (CLI) | payer MEDICARE, OTHER ==
[2021-07-22 13:26] LABS: Prothrombin Time 10.3 sec (9.0-12.0)
[2021-07-22 15:34] LABS: Appearance,Urine Cloudy (Clear); Bilirubin,Urine Negative (Negative); Blood,Urine Negative (Negative); Color,Urine Yellow; Glucose,Urine (UA) Negative (Negative); Hyaline Casts,Urine 1 /lpf (0-2); Ketones,Urine Negative (Negative); Leukocyte Esterase,Urine Large (Negative); Mucus,Urine Rare /hpf; Nitrite,Urine Negative (Negative); Protein,Urine Trace (Negative); RBC,Urine 1 /hpf (0-5); Specific Gravity,Urine 1.022 (1.001-1.035); Squamous Epithelial Cell,Urine 4 /hpf (0-4); Urobilinogen,Urine <2.0 mg/dL (<2.0); WBC,Urine 29 /hpf (0-5)
[2021-07-22 21:19] LABS: Basophils # (A) 0.02 X 10*3/uL (0.00-0.10); Basophils % (A) 0.3 %; Eosinophils # (A) 0.06 X 10*3/uL (0.04-0.35); Eosinophils % (A) 0.8 %; HCT 40.6 % (37.2-46.3); HGB 13.5 g/dL (12.0-15.0); Lymphocytes # (A) 2.04 X 10*3/uL (0.90-5.00); Lymphocytes % (A) 26.4 %; MCH 30.9 pg (27.0-32.0); MCHC 33.3 g/dL (32.0-37.0); MCV 92.9 fL (80.0-97.0); Mean Platelet Volume 10.3 fL (9.5-12.2); Monocytes # (A) 0.32 X 10*3/uL (0.20-1.00); Monocytes % (A) 4.1 %; Neutrophils # (A) 5.26 X 10*3/uL (1.80-7.70); Neutrophils % (A) 68.1 %; Platelet Count 238 X 10*3/uL (140-440); RBC 4.37 X 10*6/uL (4.10-5.20); RDW 12.3 % (11.5-14.5); WBC 7.72 X 10*3/uL (4.50-10.00)
[2021-07-23 10:08] LABS: Protein C (Activity) >150 % (71-138)
[2021-07-23 11:29] LABS: Anti-Thrombin III Antigen 104 % (80 - 120); Protein S Antigen 105 % (50 - 140)
[2021-07-23 13:35] LABS: APTT 39 Sec(s) (<43); Dilute Russell Viper Venom 36 Sec(s) (<44)
== END | disposition home or self-care (01) ==
LOC: LABWHC1 11:43
PROVIDERS: ATTEND Psychiatry & Neurology Neurology
DX: I63.9 Cerebral infarction, unspecified (principal)
CPT/HCPCS: 36415; 80053; 81001; 81291; 85025; 85301; 85303; 85305; 85306; 85610; 85613; 85730; 87086

== ENCOUNTER → 2021-08-04 | Outpatient (CLI) | payer MEDICARE, OTHER | END | disposition home or self-care (01) | LOC: LABPAT 10:50 | PROVIDERS: ATTEND Orthopaedic Surgery | DX: Z01.812 Encounter for preprocedural laboratory examination (principal); M16.12 Unilateral primary osteoarthritis, left hip; Z22.322 Carrier or suspected carrier of Methicillin resistant Staphylococcus aureus | CPT/HCPCS: 87070 ==

== ENCOUNTER 2021-08-16 11:01 | Day surgery (SDC) | payer MEDICARE, OTHER ==
[2021-08-12 10:29] VITALS: BMI 31.1
--- NOTE | 2021-08-15 10:52 | HP ---
HISTORY AND PHYSICAL DATE OF SURGERY: 08/16/2021 Jennifer Manjarrez is a 71-year-old patient seen with symptomatic left hip osteoarthritis. We discussed options for treatment. She elected to proceed with left total hip arthroplasty. Consent regarding the procedure was obtained. Medical clearance was provided by Dr. Saenz. PAST MEDICAL HISTORY: Hypertension, hypothyroidism, hyperlipidemia. PAST SURGICAL HISTORY: Foot surgery. DAILY MEDICATIONS: Atorvastatin, carvedilol, furosemide, gabapentin, isosorbide, levothyroxine, losartan. ALLERGIES: NONE. SOCIAL HISTORY: She denies tobacco use. PHYSICAL EVALUATION OF THE LEFT HIP: There is diffuse tenderness about the hip girdle. Very limited range of motion. Severe pain. Positive hip impingement sign. Straight-leg raise is negative. Distal neurovascular exam is intact. RADIOGRAPHS: Left hip radiographs reveal severe osteoarthritic changes. IMPRESSION: 1. Left hip osteoarthritis. 2. Hypertension. 3. Hyperlipidemia. 4. Hypothyroidism. PLAN: Direct anterior left total hip arthroplasty. MMODL / IJN: [id number] /
[~2021-08-16 11:01] MED LIST: ACETAMINOPHEN TAB 500 MG TAB PO PRN; DEXAMETHASONE SOD PHOSPHATE 4 MG/ML 1 ML VIAL IV ONE; HYDROmorphone 0.5 MG/0.5 ML SYRINGE IVP PRN; LACTATED RINGERS 1,000 ML IV SCH; LIDOCAINE 1% (10MG/ML) FOR IV START INTRADERMA PRN; MELOXICAM 7.5 MG TAB PO PRN; MIDAZOLAM 2 MG/2 ML VIAL IV PRN; ONDANSETRON 4 MG/2 ML VIAL IVP ONE; ROPIVACAINE/EPI/CLONIDINE/KET 50 ML SYRINGE MISCELLANE PRN; TRANEXAMIC ACID 1,000 MG in SODIUM CHLORIDE 0.9% 100 ML IVPB PRN
[2021-08-16] MEDS ORDERED: SCOPOLAMINE 1.5MG/72HR PATCH TRANSDERM ONE (12:09)
[2021-08-16] MEDS ORDERED: ceFAZolin 1,000 MG in SODIUM CHLORIDE 0.9% 1,000 ML IRRIGATION ONE (13:26)
[2021-08-16] MEDS ORDERED: HYDROmorphone 0.2 MG/1 ML SYRINGE IVP PRN (14:36)
[2021-08-16] MEDS ORDERED: NALOXONE 0.4 MG/ML 1 ML VIAL IV PRN (14:36)
[2021-08-16] MEDS ORDERED: HYDROmorphone 0.5 MG/0.5 ML SYRINGE IVP PRN ×2 (14:36)
[2021-08-16] MEDS ORDERED: HYDROcodone/APAP 5-325MG 1 EACH TAB PO PRN ×2 (14:36)
[2021-08-16] MEDS ORDERED: traMADol 50 MG TAB PO PRN (14:36)
[2021-08-16] MEDS ORDERED: ONDANSETRON 4 MG/2 ML VIAL IVP PRN (14:36)
--- NOTE | 2021-08-16 14:36 | P.OP ---
Date of Procedure: 08/16/21 Preoperative Diagnosis: Left hip osteoarthritis Postoperative Diagnosis: Left hip osteoarthritis Procedure(s) Performed: Direct anterior left total hip arthroplasty Implants: 1. Depuy Corail KA size 12 standard collar press-fit femoral stem 2. Depuy pinnacle multi hole 54 mm press-fit acetabular shell 3. Depuy pinnacle neutral polyethylene acetabular liner 36 mm ID 54 mm OD 4. Biolox delta ceramic femoral head +1.5 36 mm Anesthesia: local, spinal Surgeon: Abbe Tabor Tool Design Draftsperson #1: Jony Melendez Estimated Blood Loss (ml): 195 Pathology: other (Femoral head) Condition: stable Disposition: PACU Indications for Procedure: 71-year-old patient seen with symptomatic left hip osteoarthritis. After having treatment options discussed, she elected to proceed with direct anterior left total hip arthroplasty. Operative Findings: see description of procedure Description of Procedure: The patient was taken to the operative suite. Patient underwent a spinal anes thetic by the department of anesthesia. Patient was then transferred to the Convoy table. Patient was given preoperative IV antibiotics and TXA. Both lower extremities were placed in standard leg spars. The hip was then prepped and draped in the normal sterile orthopedic fashion. A standard anterior incision was made beginning 3 cm lateral and 1 cm distal to the ASIS extending 10 cm. Dissection was then carried down through the subcutaneous soft tissues down to the fascia overlying the tensor fascia shabana. An incision was now made through the fascia. Careful dissection was taken down exposing the tensor fascia shabana muscle. A Cobra retractor was now placed along the medial femoral neck and a second one along the lateral femoral neck. The venous circumflex vessels were now identified, cauterized and clipped. We identified the anterior hip capsule. An incision was made through the hip capsule along the lateral border. I performed a partial anterior capsulectomy. Retractors were now placed around the femoral neck itself. A femoral neck cut was now made with a sagittal saw. It was completed with an osteotome at the lateral neck area. The femoral head was now removed without difficulty. The extremity was now rotated to 60 of external rotation. It was locked in position. Residual labrum was now debrided out. Serial reaming was performed of the acetabulum while Norm MIRZA assisted holding an anterior retractor for exposure. Once we reached the appropriate size and a trial was position and fit nicely. The appropriate size was now chosen opened and made available. It was introduced into the acetabulum without difficulty. The C-arm/fluoroscopy was now brought into the operative field. We made sure we had a true AP pelvic view. We now under direct C-arm /fluoroscopy introduced into the acetabular component with appropriate version and inclination. I held the cup in appropriate position well Norm MIRZA used a mallet to seat the acetabular component. I noted the component now to be well seated and stable. Acetabular cup introduce her was removed. The C-arm was pulled back. An appropriate liner was introduced and clicked into position. It was felt to be stable. At this point retractors were removed. The extremity was now placed into 135 external rotation with no traction. The leg was now dropped to the ground and adducted. Appropriate retractors were now positioned along the proximal femur. We also placed our femoral look into position. Additional capsular releasing was performed to gain access to the proximal femur. We now used a box osteotome. A canal finder was now utilized. Serial broaching was now performed with the assistance of Norm MIRZA tapping the broaches down with a mallet while held the broach in appropriate rotation and position. This was done until we reached the appropriate size with good overall rotational stability. Appropriate calcar planing was performed. A trial head/neck was placed into position. The hip was now reduced. The C- arm/fluoroscopy was brought back into the operative field. I can't AP pelvis demonstrating reasonable leg length alignment along with adequate sizing of the trial components The C-arm/fluoroscopy was pulled back. Retractors were repositioned and the hip was dislocated. The leg was again taken down to the ground and adducted. Appropriate retractors were repositioned as well as the femoral hook. All trial components were removed. The femoral implant was opened along with the femoral head. The femoral implant was introduced on the appropriate handle into our pre-broached area. I held the component position well Norm MIRZA used a mallet to seat the femoral component. The femoral component was now noted to be well seated and stable.. The femoral head was introduced with good positioning and fixation noted. Retractors were now removed. The hip was now reduced. There appeared be good positioning of the hip confirmed on intraoperative fluoroscopy. Spot films were obtained to document this. A second gram of TXA was given. The deep and superficial soft tissues were infiltrated with local analgesic. Bipolar cautery had been ut ilized intermittently through the procedure for hemostasis. The wound was irrigated copiously with pulse lavage mechanical irrigation. The fascia was repaired with Vicryl suture. The subcutaneous soft tissues were repaired in layers with Vicryl suture. The skin was approximated with pernio/Dermabond. Sterile dressings were applied. Patient was then awakened, transferred to a bed and taken to recovery in stable condition. Norm MIRZA assisted with the complex procedure.
--- NOTE | 2021-08-16 15:07 | XR ---
Fluoroscopy INDICATION: Pain FINDINGS: Fluoroscopy time: 13 seconds. Images obtained: 2. IMPRESSIONS: 1. Documentation of fluoroscopy.
[2021-08-16] MEDS: LACTATED RINGERS 1,000 ML IV SCH (16:20)
[2021-08-16] MEDS ORDERED: SENNOSIDES-DOCUSATE SODIUM 1 EACH TAB PO SCH (21:00)
--- NOTE | 2021-08-16 23:52 | P.CONS ---
History of Present Illness - Reason for Consult Consult date: 08/16/21 - History of Present Illness The patient is a 71-year-old female with a PMH of hypertension, hyperlipidemia, hypothyroidism, chronic diastolic CHF, hx of CVA who was admitted for an elective left total hip replacement which the patient underwent earlier today no immediate postoperative complications. The patient was seen in the surgical unit. She reported excellent control of her pain, currently is 0 out of 10. She reports being out of bed and having used the restroom to pass urine. Denied having a bowel movement as of yet or having passed gas. Further denied any additional complaints. She denied chest discomfort, shortness of breath, fever, chills, cough, nausea, vomiting, abdominal pain. Reports compliance with her medications at home. Review of systems: Pertinent positives and negatives as discussed in HPI, a complete review of systems was performed and all other systems are negative. Physical examination: General: non toxic, no distress, appears at stated age, obese Derm: no unusual rashes/lesions no unusual ecchymoses, warm, dry Head: atraumatic, normocephalic, symmetric Eyes: EOMI, no lid lag, anicteric sclera, pupils equal round reactive to light ENT: Nose and ears atraumatic, no thrush, no pharyngeal erythema Neck: No thyromegaly, no cervical lymphadenopathy, trachea midline, supple Mouth: no lip lesion, mucus membranes moist Cardiovascular: S1S2 reg, no murmur, positive posterior tibial pulse bilateral, no edema, capillary refill less than 2 seconds Lungs: CTA bilateral, no rhonchi, no rales , no accessory muscle use Abdominal: soft, nontender to palpation, no guarding, no appreciable organomegaly, normal bowel sounds Ext: no gross muscle atrophy, muscle strength 5 out of 5 in all 4 extremities grossly except left lower extremity postoperatively, no contractures, left hip postsurgical dressing intact and clean and dry Neuro: CN II-XI grossly intact, light touch intact all 4 extremities, finger to nose within normal limits, Psych: Alert, oriented, appropriate affect Assessment/plan Status post left total hip arthroplasty -Defer management including pain control to the surgery service Chronic conditions: Hypertension, hyperlipidemia, hx of CVA, chronic diastlic CHF, hypothyroidism -The patient was advised by her surgeons to stop plavix in preparation for surgery. She reportedly does NOT take ASA at home. -Will defer restarting of Plavix to the primary Orthopedics team -Resume remaining medications Past Medical History Past Medical History: Cancer, Heart Failure, COPD, CVA/TIA, GERD/Reflux, Hypertension, Myocardial Infarction ([place]), Pulmonary Embolus (PE), Thyroid Disorder Additional Past Medical History / Comment(s): hx. cervical cancer, SOB w/activity, restless leg, TIA x 3 2012, tia 2014, personality disorder. CVA and PE 2017. Last Myocardial Infarction Date:: February 26 2015 History of Any Multi-Drug Resistant Organisms: None Reported Past Surgical History: Section, Heart Catheterization, Tonsillectomy Additional Past Surgical History / Comment(s): cyst removed from ovary Past Anesthesia/Blood Transfusion Reactions: Postoperative Nausea & Vomiting (PONV) Past Psychological History: Anxiety, Depression Additional Psychological History / Comment(s): dissociative personality disorder Smoking Status: Never smoker Past Alcohol Use History: Occasional Past Drug Use History: None Reported - Past Family History Mother Family Medical History: Cancer, Congestive Heart Failure (CHF) Additional Family Medical History / Comment(s): aneurysm Medications and Allergies Home Medications Medication Instructions Recorded Confirmed Type Atorvastatin Calcium [Lipitor] 40 mg PO HS 05/24/21 08/16/21 History Carvedilol [Coreg] 6.25 mg PO BID 05/24/21 08/16/21 History Furosemide [Lasix] 80 mg PO DAILY 05/24/21 08/16/21 History Isosorbide Mononitrate ER [Imdur] 60 mg PO DAILY 05/24/21 08/16/21 History Losartan Potassium 100 mg PO DAILY 05/24/21 08/16/21 History Aspirin EC [Ecotrin Low Dose] 81 mg PO DAILY 19 Days #0 05/26/21 08/16/21 Rx Clopidogrel [Plavix] 75 mg PO DAILY #30 tab 05/26/21 08/16/21 Rx Gabapentin [Neurontin] 200 mg PO TID 08/12/21 08/16/21 History Inhaler(Name Unknown) 1 puff IH DIRECTED PRN 08/12/21 08/16/21 History Levothyroxine Sodium [Synthroid] 88 mcg PO DAILY 08/12/21 08/16/21 History Nitroglycerin Sl Tabs [Nitrostat] 0.4 mg SUBLINGUAL Q5M PRN 08/12/21 08/16/21 History Allergies Allergy/AdvReac Type Severity Reaction Status Date / Time Cambodian walnut Allergy Anaphylaxis Verified 08/16/21 11:26 walnut Allergy Anaphylaxis Verified 08/16/21 11:26 Sulfa (Sulfonamide AdvReac mouth sores Verified 08/16/21 11:26 Antibiotics) Physical Exam Vitals: Vital Signs Temp Pulse Resp BP Pulse Ox 08/16/21 19:43 97.6 F 81 15 107/63 92 L 08/16/21 17:30 79 122/76 08/16/21 17:15 90 08/16/21 17:00 77 08/16/21 16:45 55 L 116/70 91 L 08/16/21 16:30 97.5 F L 57 L 17 113/68 94 L 08/16/21 16:00 56 L 16 131/67 96 08/16/21 15:45 54 L 14 131/68 97 08/16/21 15:30 52 L 14 132/73 97 08/16/21 15:15 54 L 14 119/65 92 L 08/16/21 15:00 49 L 14 119/65 97 08/16/21 14:51 97.1 F L 50 L 16 116/65 6 L 08/16/21 11:38 98.0 F 66 18 135/77 95 Intake and Output 08/16/21 08/16/21 08/17/21 14:59 22:59 06:59 Intake Total 651 Output Total 195 Balance 456 Intake: IV 651 Output: Estimated Blood Loss 195 Other: # Voids 1 Weight 84.1 kg 84.1 kg
[2021-08-17] MEDS: carvediloL 6.25 MG TAB PO SCH ×2 (01:27→07:50)
[2021-08-17] MEDS: LACTATED RINGERS 1,000 ML IV SCH (01:30)
[2021-08-17] MEDS ORDERED: LEVOTHYROXINE 88 MCG TAB PO SCH (06:30)
[2021-08-17 08:25] LABS: African American GFR (CKD) 66 (>60 ml/min/1.73 sqM); Anion Gap 9 mmol/L; Blood Urea Nitrogen 24 mg/dL (7-17); Calcium 8.7 mg/dL (8.4-10.2); Carbon Dioxide 23 mmol/L (22-30); Chloride 103 mmol/L (98-107); Glucose 102 mg/dL (74-99); Non-African American GFR(CKD) 58 (>60 ml/min/1.73 sqM); Potassium 3.7 mmol/L (3.5-5.1); Sodium 135 mmol/L (137-145)
[2021-08-17 08:29] VITALS: PULSE 65; RESP 16; TEMP 98.2
[2021-08-17] MEDS ORDERED: ISOSORBIDE MONONITRATE ER 60 MG TAB.ER.24H PO SCH (09:00)
[2021-08-17] MEDS ORDERED: FUROSEMIDE 80 MG TAB PO SCH (09:00)
[2021-08-17] MEDS ORDERED: ENOXAPARIN 40 MG/0.4 ML SYRINGE SQ SCH (09:00)
[2021-08-17] MEDS ORDERED: MELOXICAM 7.5 MG TAB PO SCH (09:00)
[2021-08-17] MEDS ORDERED: LOSARTAN 50 MG TAB PO SCH (09:00)
[2021-08-17 09:50] LABS: Basophils # (A) 0.02 X 10*3/uL (0.00-0.10); Basophils % (A) 0.2 %; Eosinophils # (A) 0.01 X 10*3/uL (0.04-0.35); Eosinophils % (A) 0.1 %; HCT 33.5 % (37.2-46.3); HGB 11.6 g/dL (12.0-15.0); Lymphocytes # (A) 2.27 X 10*3/uL (0.90-5.00); Lymphocytes % (A) 17.9 %; MCH 31.6 pg (27.0-32.0); MCHC 34.6 g/dL (32.0-37.0); MCV 91.3 fL (80.0-97.0); Mean Platelet Volume 10.4 fL (9.5-12.2); Monocytes # (A) 0.87 X 10*3/uL (0.20-1.00); Monocytes % (A) 6.9 %; Neutrophils # (A) 9.43 X 10*3/uL (1.80-7.70); Neutrophils % (A) 74.4 %; Platelet Count 226 X 10*3/uL (140-440); RBC 3.67 X 10*6/uL (4.10-5.20); WBC 12.66 X 10*3/uL (4.50-10.00)
--- NOTE | 2021-08-17 10:41 | P.PN ---
Subjective Progress Note Date: 08/17/21 Principal diagnosis: Status post direct anterior left total hip arthroplasty Patient doing very well today, she is resting in her hospital bed. She's been ambulating well with a walker. She's passed all requested task with physical therapy. She currently denies any headaches, lightheadedness, chest pain or shortness of breath. Objective - Vital Signs Vital signs: Vital Signs Temp 98.2 F 08/17/21 08:00 Pulse 65 08/17/21 08:00 Resp 16 08/17/21 08:00 BP 139/80 08/17/21 08:00 Pulse Ox 95 08/17/21 08:00 Intake & Output 08/16/21 08/17/21 08/17/21 18:59 06:59 18:59 Intake Total 651 Output Total 195 Balance 456 Weight 84.1 kg Intake: IV 651 Output: Estimated Blood Loss 195 Other: # Voids 1 - Exam Left lower extremity: Incision is clean, dry, and intact. The foam dressing is in good condition. There is minimal soft tissue swelling and ecchymosis surrounding the medial and lateral aspects of the incision. Calf is soft, no tenderness with palpation. Plantar flexion, dorsiflexion, EHL, FHL are intact. Sensory exam to light touch throughout the extremity is intact, dorsal pedis pulses 2+. - Labs CBC & Chem 7: 08/17/21 06:06 08/17/21 06:06 Labs: Abnormal Lab Results - Last 24 Hours (Table) 08/17/21 08/17/21 Range/Units 06:06 06:06 WBC 12.66 H (4.50-10.00) X 10*3/uL RBC 3.67 L (4.10-5.20) X 10*6/uL Hgb 11.6 L (12.0-15.0) g/dL Hct 33.5 L (37.2-46.3) % Immature Gran # 0.06 H (0.00-0.04) X 10*3/uL Neutrophils # 9.43 H (1.80-7.70) X 10*3/uL Eosinophils # 0.01 L (0.04-0.35) X 10*3/uL Sodium 135 L (137-145) mmol/L BUN 24 H (7-17) mg/dL Glucose 102 H (74-99) mg/dL Assessment and Plan Assessment: Postoperative day #1 status post left total hip arthroplasty direct anterior approach Plan: Pain control, plan for discharge home on oral medication DVT prophylaxis, she will resume both aspirin and Plavix at discharge Wound care instructions were discussed Encourage incentive spirometer Icing and elevating techniques discussed Home health care after discharge Medical recommendations Discharge planning: Plan for discharge home today Time with Patient: Less than 30
--- NOTE | 2021-08-17 11:05 | P.PN ---
Subjective Patient was seen and evaluated this morning. She was up with physical therapy with no difficulty. No acute events overnight reported by nursing staff. Objective - Vital Signs Vital signs: Vital Signs Temp 98.2 F 08/17/21 08:00 Pulse 65 08/17/21 08:00 Resp 16 08/17/21 08:00 BP 139/80 08/17/21 08:00 Pulse Ox 95 08/17/21 08:00 Intake & Output 08/16/21 08/17/21 08/17/21 18:59 06:59 18:59 Intake Total 651 Output Total 195 Balance 456 Weight 84.1 kg Intake: IV 651 Output: Estimated Blood Loss 195 Other: # Voids 1 - Exam General: The patient is awake and alert, in no distress Eye: there is normal conjunctiva bilaterally. Neck: The neck is supple, there is no JVD. Cardiovascular: Normal S1-S2, no S3-S4, no murmurs. Respiratory: Lungs clear to auscultation bilaterally Gastrointestinal: Abdomen is soft, nontender Musculoskeletal: There is no pedal edema. Neurological:. Speech is normal. Skin: Skin is warm and dry - Labs CBC & Chem 7: 08/17/21 06:06 08/17/21 06:06 Labs: Abnormal Lab Results - Last 24 Hours (Table) 08/17/21 08/17/21 Range/Units 06:06 06:06 WBC 12.66 H (4.50-10.00) X 10*3/uL RBC 3.67 L (4.10-5.20) X 10*6/uL Hgb 11.6 L (12.0-15.0) g/dL Hct 33.5 L (37.2-46.3) % Immature Gran # 0.06 H (0.00-0.04) X 10*3/uL Neutrophils # 9.43 H (1.80-7.70) X 10*3/uL Eosinophils # 0.01 L (0.04-0.35) X 10*3/uL Sodium 135 L (137-145) mmol/L BUN 24 H (7-17) mg/dL Glucose 102 H (74-99) mg/dL Assessment and Plan Assessment: Assessment/plan Status post left total hip arthroplasty -Defer management including pain control to the surgery service Chronic conditions: Hypertension, hyperlipidemia, hx of CVA, chronic diastlic CHF, hypothyroidism Patient is medically cleared for discharge home. Resume home medications. Follow up as directed.
--- NOTE | 2021-08-17 12:17 | P.DS ---
Providers Date of admission: 08/16/2021 Expected date of discharge: 08/17/21 Attending physician: Abbe Tabor Consults: 08/16/21 14:36 Consult Physician Routine Consulting Provider: Nicky Sanders Consult Reason/Comments: Medical management Do you want consulting provider notified?: Yes Primary care physician: Carlos Manuel Dany [facility] Hospital Course: Date of admission: 08/16/2021 Date of discharge: 08/17/2021 Admission diagnosis: Status post direct anterior left total hip arthroplasty Discharge diagnosis: Same Attending physician: Dr. Tabor Surgical procedures: Direct anterior left total hip arthroplasty Brief history: Patient is a 71-year-old female with a history of progressive primary left hip osteoarthritis. At this point patient has failed conservative treatment measures and has opted to proceed with a elective direct anterior left total hip arthroplasty. Hospital course: Details of patient's surgery can be found in operative report. Patient tolerated the procedure well and was subsequently transported to orthopedic floor. Patient's orthopeidc and medical care was provided daily. Patient had daily laboratory tests performed for evaluation of overall blood counts. Patient had daily physical therapy to include strengthening range of motion as well as education with walker ambulation. Patient was treated with Lovenox for their postoperative DVT prophylaxis during their inpatient stay. Patient was noted to have a relatively uneventful postoperative course. Patient reported satisfactory pain control with oral pain medications by postoperative day 0. Patient showed satisfactory progress with physical therapy. Patient moved steadily through the program and had no difficulty meeting the goals by postoperative day 1. Given patient's otherwise satisfactory course and having met physical therapy goals, plan is to discharge patient home on postoperative day 1. Discharge condition/disposition: Patient will be discharged home in stable condition. Discharge medications: Instructions are given on resumption of patient's normal daily medications per primary care recommendation, in addition patient will be prescribed tramadol 50 mg, Colace 100 mg. Discharge instructions: 1. Wound care and infection precautions, keep incision dry and covered while showering, no lotions, creams, moisturizers. No soaking, tubs, pools, hottubs. Do not scrub over the incision. 2. Weight-bear as tolerated with walker / cane until follow-up. 3. Ice and elevate when necessary. Do not exceed 20 minutes per hour with ice pack. 4. Utilize compression sleeve until seen at first follow up appointment. 5. Visiting nursing care. 6. Home physical therapy. 7. Pain meds and anticoagulants per prescription. 8. Pain medication has potential to cause constipation. Increase oral fluid and fiber intake. Contact primary care provider if you have not had a bowel movement within 48 hours after discharge 9. No anti-inflammatory medication until discussed at first post operative visit, this including Motrin, Aleve, Mobic, Diclofenac. 10. Follow up in office at 2 weeks postop with Norm Melendez PA-C/Lonnie Ornelas 11. Follow up with your primary care doctor 7-10 days after discharge. 12. Contact [facility] with any questions, . Procedures: Direct anterior left total hip arthroplasty Patient Condition at Discharge: Good Plan - Discharge Summary Discharge Rx Participant: Yes New Discharge Prescriptions: New traMADol HCl [Ultram] 50 mg PO Q6H PRN #28 tab PRN Reason: Pain Docusate [Colace] 100 mg PO DAILY #21 cap Continue Carvedilol [Coreg] 6.25 mg PO BID Furosemide [Lasix] 80 mg PO DAILY Isosorbide Mononitrate ER [Imdur] 60 mg PO DAILY Clopidogrel [Plavix] 75 mg PO DAILY #30 tab Atorvastatin Calcium [Lipitor] 40 mg PO HS Losartan Potassium 100 mg PO DAILY Aspirin EC [Ecotrin Low Dose] 81 mg PO DAILY 19 Days #0 Levothyroxine Sodium [Synthroid] 88 mcg PO DAILY Nitroglycerin Sl Tabs [Nitrostat] 0.4 mg SUBLINGUAL Q5M PRN PRN Reason: Chest Pain Gabapentin [Neurontin] 200 mg PO TID Inhaler(Name Unknown) 1 puff IH DIRECTED PRN PRN Reason: sob Discharge Medication List Atorvastatin Calcium [Lipitor] 40 mg PO HS 05/24/21 [History] Carvedilol [Coreg] 6.25 mg PO BID 05/24/21 [History] Furosemide [Lasix] 80 mg PO DAILY 05/24/21 [History] Isosorbide Mononitrate ER [Imdur] 60 mg PO DAILY 05/24/21 [History] Losartan Potassium 100 mg PO DAILY 05/24/21 [History] Aspirin EC [Ecotrin Low Dose] 81 mg PO DAILY 19 Days #0 05/26/21 [Rx] Clopidogrel [Plavix] 75 mg PO DAILY #30 tab 05/26/21 [Rx] Gabapentin [Neurontin] 200 mg PO TID 08/12/21 [History] Inhaler(Name Unknown) 1 puff IH DIRECTED PRN 08/12/21 [History] Levothyroxine Sodium [Synthroid] 88 mcg PO DAILY 08/12/21 [History] Nitroglycerin Sl Tabs [Nitrostat] 0.4 mg SUBLINGUAL Q5M PRN 08/12/21 [History] Docusate [Colace] 100 mg PO DAILY #21 cap 08/17/21 [Rx] traMADol HCl [Ultram] 50 mg PO Q6H PRN #28 tab 08/17/21 [Rx] Follow up Appointment(s)/Referral(s): [facility], [NON-STAFF] - As Needed ([facility] will call you to schedule your first visit. Please call them with any home care questions. ) Jony Melendez PAC [PHYSICIAN DEMOLITION HAMMER OPERATOR] - 09/01/21 2:30 pm () Carlos Manuel Saenz [Primary Care Provider] - 08/24/21 4:00 pm Patient Instructions/Handouts: *Surgery [facility] - Scopalamine Patch Instructions, Anterior Hip Replacement (DC) Activity/Diet/Wound Care/Special Instructions: Orthopedic Discharge Instructions: 1. Wound care and infection precautions, keep incision dry and covered while showering, no lotions, creams, moisturizers. No soaking, pools, hot tubs. Do not scrub over incision. 2. Weight-bear as tolerated with walker / cane until follow-up. 3. Ice and elevate when necessary. Do not exceed 20 minutes per hour with ice pack. 4. Utilize compression sleeve until seen at first follow up appointment. 5. Pain meds and anticoagulants per prescription. 6. Pain medication has potential to cause constipation. Increase oral fluid and fiber intake. Contact primary care provider if you have not had a bowel movement within 48 hours after discharge. 7. No anti-inflammatory medication until discussed at first post operative visit, this including Motrin, Aleve, Mobic, Diclofenac. 8. Follow up in office at 2 weeks postop with Norm Melendez PA-C/Lonnie Augustine PA-C 9. Follow up with your primary care doctor 7-10 days after discharge. 10. Contact [facility] with any questions, . Dressing instructions: 1. Ok to remove foam dressing on 08/20/2021 2. Utilize basic gauze bandage over dressing 3. Incision covered and dry while showering Discharge Disposition: HOME WITH HOME HEALTH SERVICES
[2021-08-17 14:30] VITALS: BP 102/66
[2021-08-17] MEDS ORDERED: ATORVASTATIN 40 MG TAB PO SCH (21:00)
== END 2021-08-17 14:24 | disposition home health service (06) ==
LOC: OR 11:01 → 4SSUR 14:27 → OR 08-17 14:24
PROVIDERS: ATTEND Orthopaedic Surgery
DX: M16.12 Unilateral primary osteoarthritis, left hip (principal); E03.9 Hypothyroidism, unspecified; E78.5 Hyperlipidemia, unspecified; G25.81 Restless legs syndrome; I11.0 Hypertensive heart disease with heart failure; I25.2 Old myocardial infarction; I50.32 Chronic diastolic (congestive) heart failure; I50.9 Heart failure, unspecified; J44.9 Chronic obstructive pulmonary disease, unspecified; K21.9 Gastro-esophageal reflux disease without esophagitis; M25.552 Pain in left hip; R06.02 Shortness of breath; R07.9 Chest pain, unspecified; Z79.02 Long term (current) use of antithrombotics/antiplatelets; Z79.82 Long term (current) use of aspirin; Z82.49 Family history of ischemic heart disease and other diseases of the circulatory system; Z85.41 Personal history of malignant neoplasm of cervix uteri; Z86.711 Personal history of pulmonary embolism; Z86.73 Personal history of transient ischemic attack (TIA), and cerebral infarction without residual deficits; Z88.2 Allergy status to sulfonamides; Z90.721 Acquired absence of ovaries, unilateral
CPT/HCPCS: 27130; 97161; 86900; 86901; 80048; 85025; 86850; 87635; 73501; J1100; J0690 ×3; J2405; J1650

== ENCOUNTER → 2021-12-21 | Outpatient (CLI) | payer MEDICARE, OTHER ==
--- NOTE | 2021-12-22 09:11 | MM ---
Reason for exam: clinical finding. Last mammogram was performed 16 years and 3 months ago. History: Patient is postmenopausal and has history of endometrial cancer at age 23. Excisional biopsy of the right breast, 2016. Took hormonal contraceptives for 10 years. Physical Findings: Nurse did not find any significant physical abnormalities on exam. MG 3D Diag Mammo W/Cad TALIA Bilateral CC and MLO view(s) were taken. Prior study comparison: July 20, 2012, mammogram, performed at [facility]. July 12, 2011, mammogram, performed at [facility]. The breast tissue is heterogeneously dense. This may lower the sensitivity of mammography. There are benign appearing round calcifications bilaterally. There is no discrete abnormality. These results were verbally communicated with the patient and result sheet given to the patient on 12/21/21. ASSESSMENT: Benign, BI-RAD 2 RECOMMENDATION: Routine screening mammogram of both breasts in 1 year.
== END | disposition home or self-care (01) ==
LOC: RADMAMWWP 13:36
PROVIDERS: ATTEND Family Medicine
DX: Z00.00 Encounter for general adult medical examination without abnormal findings (principal); I10 Essential (primary) hypertension; N63.20 Unspecified lump in the left breast, unspecified quadrant; N63.10 Unspecified lump in the right breast, unspecified quadrant; E03.9 Hypothyroidism, unspecified
CPT/HCPCS: 77066; G0279; 77062

== ENCOUNTER 2022-02-02 19:42 | Observation (INO) | payer MEDICARE, OTHER ==
[2022-02-02] MEDS ORDERED: ASPIRIN 81 MG PO STA (20:06)
--- NOTE | 2022-02-02 20:12 | ED ---
General Adult HPI - General Chief complaint: Chest Pain Stated complaint: chest pain Time Seen by Provider: 02/02/22 19:52 Source: patient, RN notes reviewed Mode of arrival: ambulatory Limitations: no limitations - History of Present Illness Initial comments: Patient is a pleasant 71-year-old female presenting to the emergency department with complaints of chest discomfort. Onset of symptoms was an hour ago. Discomfort was sharp however now is more like pressure. Symptoms improved with 2 nitro glycerin. Patient does have nausea. No dyspnea. No diaphoresis. Patient does have history of similar symptoms previously. Patient has had previous heart attack. No leg pain or swelling. - Related Data Home Medications Medication Instructions Recorded Confirmed Atorvastatin Calcium [Lipitor] 40 mg PO HS 05/24/21 02/02/22 Carvedilol [Coreg] 6.25 mg PO BID 05/24/21 02/02/22 Furosemide [Lasix] 80 mg PO DAILY 05/24/21 02/02/22 Isosorbide Mononitrate ER [Imdur] 60 mg PO DAILY 05/24/21 02/02/22 Losartan Potassium 100 mg PO DAILY 05/24/21 02/02/22 Gabapentin [Neurontin] 200 mg PO TID PRN 08/12/21 02/02/22 Levothyroxine Sodium [Synthroid] 88 mcg PO DAILY 08/12/21 02/02/22 Nitroglycerin Sl Tabs [Nitrostat] 0.4 mg SUBLINGUAL Q5M PRN 08/12/21 02/02/22 Ascorbic Acid [Vitamin C] 500 mg PO DAILY 02/02/22 02/02/22 Clopidogrel [Plavix] 75 mg PO HS 02/02/22 02/02/22 Pantoprazole Sodium [Protonix] 20 mg PO HS 02/02/22 02/02/22 Allergies Allergy/AdvReac Type Severity Reaction Status Date / Time Lao walnut Allergy Anaphylaxis Verified 02/02/22 21:04 walnut Allergy Anaphylaxis Verified 02/02/22 21:04 Sulfa (Sulfonamide AdvReac mouth sores Verified 02/02/22 21:04 Antibiotics) Review of Systems ROS Statement: Those systems with pertinent positive or pertinent negative responses have been documented in the HPI. ROS Other: All systems not noted in ROS Statement are negative. Constitutional: Denies: fever Eyes: Denies: eye pain ENT: Denies: ear pain Respiratory: Denies: cough Cardiovascular: Reports: chest pain Endocrine: Denies: fatigue Gastrointestinal: Reports: nausea. Denies: abdominal pain Genitourinary: Denies: dysuria Musculoskeletal: Denies: back pain Skin: Denies: rash Neurological: Denies: headache Past Medical History Past Medical History: Cancer, Heart Failure, COPD, CVA/TIA, GERD/Reflux, Hypertension, Myocardial Infarction ([place]), Pulmonary Embolus (PE), Thyroid Disorder Additional Past Medical History / Comment(s): hx. cervical cancer, SOB w/activity, restless leg, TIA x 3 2012, tia 2014, personality disorder. CVA and PE 2018. Last Myocardial Infarction Date:: February 26 2015 History of Any Multi-Drug Resistant Organisms: None Reported Past Surgical History: Section, Heart Catheterization, Tonsillectomy Additional Past Surgical History / Comment(s): cyst removed from ovary Past Anesthesia/Blood Transfusion Reactions: Postoperative Nausea & Vomiting (PONV) Past Psychological History: Anxiety, Depression Smoking Status: Never smoker Past Alcohol Use History: Occasional Past Drug Use History: None Reported - Past Family History Mother Family Medical History: Cancer, Congestive Heart Failure (CHF) Additional Family Medical History / Comment(s): aneurysm General Exam Limitations: no limitations General appearance: alert, in no apparent distress Head exam: Present: normocephalic Eye exam: Present: normal appearance Neck exam: Present: normal inspection Respiratory exam: Present: normal lung sounds bilaterally Cardiovascular Exam: Present: regular rate, normal rhythm Expanded Peripheral pulses: 2+: Radial (R), Radial (L), Posterior Tibialis (R), Posterior Tibialis (L) GI/Abdominal exam: Present: soft. Absent: tenderness Extremities exam: Present: normal inspection. Absent: pedal edema, calf tenderness Neurological exam: Present: alert Psychiatric exam: Present: normal affect, normal mood Skin exam: Present: normal color Course Vital Signs 02/02/22 02/02/22 02/02/22 19:46 20:15 20:30 Temperature 98.3 F Pulse Rate 68 67 64 Respiratory 16 18 18 Rate Blood Pressure 173/94 152/87 143/92 O2 Sat by Pulse 96 97 95 Oximetry 02/02/22 02/02/22 02/02/22 20:45 21:00 21:15 Temperature Pulse Rate 63 70 65 Respiratory 16 16 16 Rate Blood Pressure 144/104 162/81 158/129 O2 Sat by Pulse 97 96 96 Oximetry EKG Findings - EKG Comments: EKG Findings:: Sinus rhythm 66. TN 155. QRS 98. QT 408. QTC 41. Normal axis. Normal QRS. No acute ST change. Medical Decision Making - Medical Decision Making Case discussed with Dr. rosalio vuong, who will admit, Dr. Rhodes. Patient is made aware. - Lab Data Result diagrams: 02/02/22 20:19 02/02/22 20:19 Lab Results 02/02/22 02/02/22 02/02/22 Range/Units 20:19 20:19 20:19 WBC 9.4 (3.8-10.6) k/uL RBC 4.57 (3.80-5.40) m/uL Hgb 13.7 (11.4-16.0) gm/dL Hct 40.9 (34.0-46.0) % MCV 89.6 (80.0-100.0) fL MCH 30.0 (25.0-35.0) pg MCHC 33.5 (31.0-37.0) g/dL RDW 14.0 (11.5-15.5) % Plt Count 271 (150-450) k/uL MPV 7.1 Neutrophils % 59 % Lymphocytes % 33 % Monocytes % 4 % Eosinophils % 1 % Basophils % 0 % Neutrophils # 5.5 (1.3-7.7) k/uL Lymphocytes # 3.1 (1.0-4.8) k/uL Monocytes # 0.4 (0-1.0) k/uL Eosinophils # 0.1 (0-0.7) k/uL Basophils # 0.0 (0-0.2) k/uL PT 10.2 (9.0-12.0) sec INR 0.9 (<1.2) APTT 22.7 (22.0-30.0) sec D-Dimer 2.06 H (<0.60) mg/L FEU Sodium 140 (137-145) mmol/L Potassium 3.6 (3.5-5.1) mmol/L Chloride 100 (98-107) mmol/L Carbon Dioxide 31 H (22-30) mmol/L Anion Gap 9 mmol/L BUN 21 H (7-17) mg/dL Creatinine 1.20 H (0.52-1.04) mg/dL Est GFR (CKD-EPI)AfAm 53 (>60 ml/min/1.73 sqM) Est GFR (CKD-EPI)NonAf 46 (>60 ml/min/1.73 sqM) Glucose 96 (74-99) mg/dL Calcium 9.5 (8.4-10.2) mg/dL Magnesium 1.9 (1.6-2.3) mg/dL Total Bilirubin 0.6 (0.2-1.3) mg/dL AST 24 (14-36) U/L ALT 12 (4-34) U/L Alkaline Phosphatase 84 (38-126) U/L Troponin I (0.000-0.034) ng/mL Total Protein 7.8 (6.3-8.2) g/dL Albumin 4.4 (3.5-5.0) g/dL 02/02/22 Range/Units 20:19 WBC (3.8-10.6) k/uL RBC (3.80-5.40) m/uL Hgb (11.4-16.0) gm/dL Hct (34.0-46.0) % MCV (80.0-100.0) fL MCH (25.0-35.0) pg MCHC (31.0-37.0) g/dL RDW (11.5-15.5) % Plt Count (150-450) k/uL MPV Neutrophils % % Lymphocytes % % Monocytes % % Eosinophils % % Basophils % % Neutrophils # (1.3-7.7) k/uL Lymphocytes # (1.0-4.8) k/uL Monocytes # (0-1.0) k/uL Eosinophils # (0-0.7) k/uL Basophils # (0-0.2) k/uL PT (9.0-12.0) sec INR (<1.2) APTT (22.0-30.0) sec D-Dimer (<0.60) mg/L FEU Sodium (137-145) mmol/L Potassium (3.5-5.1) mmol/L Chloride (98-107) mmol/L Carbon Dioxide (22-30) mmol/L Anion Gap mmol/L BUN (7-17) mg/dL Creatinine (0.52-1.04) mg/dL Est GFR (CKD-EPI)AfAm (>60 ml/min/1.73 sqM) Est GFR (CKD-EPI)NonAf (>60 ml/min/1.73 sqM) Glucose (74-99) mg/dL Calcium (8.4-10.2) mg/dL Magnesium (1.6-2.3) mg/dL Total Bilirubin (0.2-1.3) mg/dL AST (14-36) U/L ALT (4-34) U/L Alkaline Phosphatase (38-126) U/L Troponin I <0.012 (0.000-0.034) ng/mL Total Protein (6.3-8.2) g/dL Albumin (3.5-5.0) g/dL - Radiology Data Radiology results: report reviewed (CT chest shows no pulmonary embolism), image reviewed (Chest x-ray shows atelectasis.) Disposition Clinical Impression: Chest pain Disposition: ADMITTED IP TO THIS HOSP Is patient prescribed a controlled substance at d/c from ED?: No Referrals: Carlos Manuel Saenz [Primary Care Provider] - 1-2 days Decision Time: 22:24
[2022-02-02 20:29] LABS: Basophils % (A) 0 %; Eosinophils # (A) 0.1 k/uL (0-0.7); Eosinophils % (A) 1 %; HCT 40.9 % (34.0-46.0); HGB 13.7 gm/dL (11.4-16.0); Lymphocytes # (A) 3.1 k/uL (1.0-4.8); Lymphocytes % (A) 33 %; MCHC 33.5 g/dL (31.0-37.0); MCV 89.6 fL (80.0-100.0); Mean Platelet Volume 7.1; Monocytes # (A) 0.4 k/uL (0-1.0); Monocytes % (A) 4 %; Neutrophils # (A) 5.5 k/uL (1.3-7.7); Neutrophils % (A) 59 %; Platelet Count 271 k/uL (150-450); RBC 4.57 m/uL (3.80-5.40); WBC 9.4 k/uL (3.8-10.6)
[2022-02-02 20:38] LABS: Albumin 4.4 g/dL (3.5-5.0); Calcium 9.5 mg/dL (8.4-10.2); Magnesium 1.9 mg/dL (1.6-2.3); Potassium 3.6 mmol/L (3.5-5.1); Total Bilirubin 0.6 mg/dL (0.2-1.3); Total Protein 7.8 g/dL (6.3-8.2)
[2022-02-02 20:41] LABS: INR 0.9 (<1.2); Partial Thromboplastin Time 22.7 sec (22.0-30.0); Prothrombin Time 10.2 sec (9.0-12.0)
--- NOTE | 2022-02-02 20:48 | XR ---
EXAMINATION TYPE: XR chest 2V DATE OF EXAM: 02/02/2022 COMPARISON: 06/03/2021 HISTORY: Chest pain TECHNIQUE: FINDINGS: There is some linear density right lung base. The other lung porras are clear. Heart and me diastinum are normal. There are no hilar masses. There is no pleural effusion. Bony thorax appears in tact. IMPRESSION: There is some mild atelectasis at the right lung base that appears new compared to old ex am. Normal heart.
--- NOTE | 2022-02-02 22:11 | CT ---
EXAMINATION TYPE: CT angio chest DATE OF EXAM: 02/02/2022 COMPARISON: None HISTORY: Chest pain, Hx [place], PE CT DLP: 345 mGycm Automated exposure control for dose reduction was used. CONTRAST: Performed with IV Contrast, patient injected with 80 mL of Isovue 370. There are Three-D postprocessed images. There is some mild interstitial infiltrate in the posterior lung porras with subsegmental atelectasis . Heart size is normal. There is no pericardial effusion. There is no mediastinal adenopathy. There a re no hilar masses. There is normal contrast opacification of the pulmonary arteries. There are no fi lling defects. There is 3.9 cm ascending aorta. The thoracic spine is intact. There is no compression fracture. There is degenerative spurring in the lower thoracic spine. IMPRESSION: No evidence of pulmonary embolism. There is some mild atelectasis at the posterior lung bases. Border line aneurysm of the ascending aorta.
[2022-02-02] MEDS ORDERED: NALOXONE 0.4 MG/ML 1 ML VIAL IV PRN (22:24)
[2022-02-02] MEDS ORDERED: NITROGLYCERIN SL TABS 0.4 MG TAB SUBLINGUAL PRN (22:26)
--- NOTE | 2022-02-03 02:08 | P.HPIM ---
History of Present Illness H&P Date: 02/02/22 The patient is 71-year-old female with a PMH of diastolic CHF, hyperlipidemia, CVA with residual left-sided weakness, coronary artery disease status post multiple stents, COPD, hypertension, and hypothyroid rhythm who presents to the emergency room with complaints of chest discomfort. The patient reports that her pain started suddenly at around 7 PM when she was at home sitting on the couch. The pain was sharp and heavy, substernal, 8 out of 10, with associated left arm numbness, with no alleviating or exacerbating features, nonpleuritic in nature, with associated shortness of breath and nausea. She reports the pain lasted for roughly 30 minutes and then gradually improved. Reports no chest discomfort at the time of interview but stated it 10 out of 10 diffuse headache. Denied fever, chills, cough, abdominal pain, diarrhea. Chest CTA was negative for PE. EKG reveals sinus rhythm at 66 bpm. Chest x-ray was unremarkable. Laboratory evaluation was unremarkable for BUN 21, creatinine 1.0, troponin less than 0.012. Review of systems: Pertinent positives and negatives as discussed in HPI, a complete review of systems was performed and all other systems are negative. Physical examination: General: non toxic, no distress, appears at stated age, obese Derm: no unusual rashes/lesions no unusual ecchymoses, warm, dry Head: atraumatic, normocephalic, symmetric Eyes: EOMI, no lid lag, anicteric sclera, pupils equal round reactive to light ENT: Nose and ears atraumatic, no thrush, no pharyngeal erythema Neck: No thyromegaly, no cervical lymphadenopathy, trachea midline, supple Mouth: no lip lesion, mucus membranes moist Cardiovascular: S1S2 reg, grade 3 systolic murmur appreciated, positive posterior tibial pulse bilateral, no edema, capillary refill less than 2 seconds Lungs: CTA bilateral, no rhonchi, no rales , no accessory muscle use Abdominal: soft, nontender to palpation, no guarding, no appreciable organomegaly, normal bowel sounds Ext: no gross muscle atrophy, muscle strength 4 out of 5 of left upper and lower extremities, strength 5 out of 5 on the right side grossly, no contractures, Neuro: CN II-XI grossly intact, light touch intact all 4 extremities, finger to nose within normal limits, Psych: Alert, oriented, appropriate affect Assessment/plan Chest pain, rule out ACS -Cardiac monitoring -Cardiology consult -Trend troponin -Continue with aspirin Chronic conditions: Chronic CHF, hyperlipidemia, history of CVA, hypertension -Continue with home meds DVT prophylaxis -Heparin subcu The patient is admitted with an anticipated less than 2 midnight stay for evaluation of chest pain CODE STATUS: Full Code Discussed with: Patient Anticipated discharge date: in am Anticipated discharge place: Home Past Medical History Past Medical History: Cancer, Heart Failure, COPD, CVA/TIA, GERD/Reflux, Hypertension, Myocardial Infarction ([place]), Pulmonary Embolus (PE), Thyroid Disorder Additional Past Medical History / Comment(s): hx. cervical cancer, SOB w/activity, restless leg, TIA x 3 2012, tia 2014, personality disorder. CVA and PE 2017. Last Myocardial Infarction Date:: February 26 2015 History of Any Multi-Drug Resistant Organisms: None Reported Past Surgical History: Section, Heart Catheterization, Tonsillectomy Additional Past Surgical History / Comment(s): cyst removed from ovary Past Anesthesia/Blood Transfusion Reactions: Postoperative Nausea & Vomiting (PONV) Past Psychological History: Anxiety, Depression Smoking Status: Never smoker Past Alcohol Use History: Occasional Past Drug Use History: None Reported - Past Family History Mother Family Medical History: Cancer, Congestive Heart Failure (CHF) Additional Family Medical History / Comment(s): aneurysm Medications and Allergies Home Medications Medication Instructions Recorded Confirmed Type Atorvastatin Calcium [Lipitor] 40 mg PO HS 05/24/21 02/02/22 History Carvedilol [Coreg] 6.25 mg PO BID 05/24/21 02/02/22 History Furosemide [Lasix] 80 mg PO DAILY 05/24/21 02/02/22 History Isosorbide Mononitrate ER [Imdur] 60 mg PO DAILY 05/24/21 02/02/22 History Losartan Potassium 100 mg PO DAILY 05/24/21 02/02/22 History Gabapentin [Neurontin] 200 mg PO TID PRN 08/12/21 02/02/22 History Levothyroxine Sodium [Synthroid] 88 mcg PO DAILY 08/12/21 02/02/22 History Nitroglycerin Sl Tabs [Nitrostat] 0.4 mg SUBLINGUAL Q5M PRN 08/12/21 02/02/22 History Ascorbic Acid [Vitamin C] 500 mg PO DAILY 02/02/22 02/02/22 History Clopidogrel [Plavix] 75 mg PO HS 02/02/22 02/02/22 History Pantoprazole Sodium [Protonix] 20 mg PO HS 02/02/22 02/02/22 History Allergies Allergy/AdvReac Type Severity Reaction Status Date / Time Czech walnut Allergy Anaphylaxis Verified 02/02/22 21:04 walnut Allergy Anaphylaxis Verified 02/02/22 21:04 Sulfa (Sulfonamide AdvReac mouth sores Verified 02/02/22 21:04 Antibiotics) Physical Exam Vitals: Vital Signs Temp Pulse Resp BP Pulse Ox 02/02/22 23:10 58 L 22 126/84 96 02/02/22 23:00 59 L 17 114/89 95 02/02/22 22:45 58 L 16 140/99 95 02/02/22 22:30 60 16 159/112 97 02/02/22 22:00 63 16 158/98 95 02/02/22 21:30 64 16 155/115 96 02/02/22 21:15 65 16 158/129 96 02/02/22 21:00 70 16 162/81 96 02/02/22 20:45 63 16 144/104 97 02/02/22 20:30 64 18 143/92 95 02/02/22 20:15 67 18 152/87 97 02/02/22 19:46 98.3 F 68 16 173/94 96 Intake and Output 02/02/22 02/02/22 02/03/22 14:59 22:59 06:59 Other: Weight 79.379 kg Results CBC & Chem 7: 02/02/22 20:19 02/02/22 20:19 Labs: Abnormal Lab Results - Last 24 Hours (Table) 02/02/22 02/02/22 Range/Units 20:19 20:19 D-Dimer 2.06 H (<0.60) mg/L FEU Carbon Dioxide 31 H (22-30) mmol/L BUN 21 H (7-17) mg/dL Creatinine 1.20 H (0.52-1.04) mg/dL
[2022-02-03] MEDS ORDERED: GABAPENTIN 100 MG CAP PO PRN (03:00)
[2022-02-03] MEDS ORDERED: LEVOTHYROXINE 88 MCG TAB PO SCH (06:30)
[2022-02-03] MEDS ORDERED: carvediloL 6.25 MG TAB PO SCH (07:30)
[2022-02-03 07:39] VITALS: RESP 18
[2022-02-03] MEDS ORDERED: HEPARIN SODIUM,PORCINE/PF 5,000 UNIT/0.5 ML SYRINGE SQ SCH (08:00)
[2022-02-03] MEDS ORDERED: ISOSORBIDE MONONITRATE ER 60 MG TAB.ER.24H PO SCH (09:00)
[2022-02-03] MEDS ORDERED: LOSARTAN 50 MG TAB PO SCH (09:00)
[2022-02-03] MEDS ORDERED: ASCORBIC ACID 500 MG TAB PO SCH (09:00)
[2022-02-03] MEDS ORDERED: FUROSEMIDE 40 MG TAB PO SCH (09:00)
[2022-02-03] MEDS ORDERED: ASPIRIN 325 MG TAB PO SCH (09:00)
[2022-02-03] MEDS ORDERED: TRIAMTERENE-HCTZ 37.5-25MG 1 EACH TAB PO SCH (09:00)
[2022-02-03 09:07] LABS: Chol/HDL Ratio 3.58 Ratio; LDL Cholesterol,Calculated 94.8 mg/dL (0.0-131.0)
--- NOTE | 2022-02-03 12:10 | US ---
EXAMINATION TYPE: US renal artery duplex complet DATE OF EXAM: 02/03/2022 COMPARISON: NONE CLINICAL HISTORY: uncontrolled bp. MEASUREMENTS: RENAL SIZE: Rt Kidney: 10.3 x 4.2 x 4.5cm Lt Kidney: 9.8 x 4.5 x 4.4cm RESISTANCE INDEX Right: 0.56 Left: 0.61 RA/AO RATIO (< 3.5 ) Right: 1.7 Left: 2.0 RA VELOCITY ( < 180 cm/s) Right: 111cm/s Left: 123cm/s Patient of large body habitus, extensive overlying bowel gas on left. Left middle renal artery obscur ed by overlying bowel gas. No ultrasound evidence of renal artery stenosis on today's somewhat limite d study. IMPRESSION: No evidence for renal artery stenosis at this time.
--- NOTE | 2022-02-03 13:07 | P.DS ---
Providers Date of admission: 02/02/22 22:25 Expected date of discharge: 02/03/22 Attending physician: Eddie Sena MD Consults: 02/02/22 22:25 Consult Physician Urgent Consulting Provider: Rey Valle Consult Reason/Comments: cp Do you want consulting provider notified?: Yes Primary care physician: Carlos Manuel Dany [facility] Course: Discharge Diagnosis: Atypical chest pain, resolved. Acute coronary event ruled out. Prediabetes- A1C 6.1 History of CAD with stents, continue cardiac medication regimen and follow up outpatient with senior electronics technician as recommended. Hypertension, additional blood pressure medication added Maxide Hyperlipidemia Diastolic heart failure with EF of 55-60% History of CVA with left-sided residual deficits COPD Hypothyroidism Hospital Course: Patient is a very pleasant 71-year-old female with a past medical history of CAD status post multiple stents, hypertension, hyperlipidemia, diastolic heart failure with previously known EF of 55-60%, CVA with left-sided residual deficits, COPD, and hypothyroidism. She presented to the emergency department with a chief complaint of chest pain. Patient reports that her pain began to midsternal chest around 7 PM while she was at home sitting on the couch. Patient describes this pain as sharp and heavy to midsternal chest radiating into left arm with numbness and tingling. Patient denied anything making this pain better or worse but did report associated symptoms of shortness of breath and nausea. Patient reports this pain lasted approximately 30 minutes prior to spontaneously subsiding. Patient was fully evaluated in the emergency department. EKG showing normal sinus rhythm at 66 bpm with no noted T-wave or ST abnormalities. Troponin less than 0.012. D-dimer was slightly elevated at 2.06. CTA negative for PE revealing mild atelectasis at the posterior lung bases and borderline aneurysm of the ascending aorta. Patient was admitted under our services with consultation to cardiology. Troponins were trended and remained negative at less than 0.0123 draws. Hemoglobin A1c was drawn resulting at 6.1. Lipid profile unremarkable. Cardiology evaluated patient and recommending outpatient workup for her hypertension that she presented with upon arrival to the hospital. Initial blood pressure was 173/94. Patient underwent a renal artery duplex which revealed no evidence for renal artery stenosis. Cardiology added Maxide on to patient's daily medication regimen along with carvedilol, furosemide, isosorbide mononitrate, and losartan. Prescription sent to pharmacy and patient being sent home with prescription for repeat CMP to be completed in 3 days to monitor renal function and electrolytes as patient is already taking Lasix in addition to new diuretic being prescribed. Patient has had significant improvement in her blood pressure which is currently 126/77 with a heart rate of 54 and respiratory rate of 18. Patient is medically stable and reports continued full resolution of chest pain since arrival to the hospital. She denies having any headache, lightheadedness, dizziness, palpitations, shortness of breath, nausea, abdominal pain, back pain, or experiencing any numbness/tingling/weakness/swelling in her extremities. Patient is medically stable for discharge home at this time. Patient to follow up with PCP and cardiology as recommended. Physical examination: Vital signs reviewed and stable. General: Nontoxic, no distress and appears stated age. Derm: Skin warm and dry, normal coloration for ethnicity. Head: Atraumatic, normocephalic and symmetric. Eyes: EOMs intact, no lid lag, and anicteric sclera Mouth: no lip lesions, mucus membranes moist Cardiovascular: regular rate and rhythm with normal S1S2, systolic murmur, positive posterior tibial pulses bilaterally, and cap refill < 2 seconds. Lungs: Respirations even, regular, and unlabored on room air. Lungs CTA bilaterally, no rhonchi, no rales, no wheezing, and no accessory muscle usage. Abdominal: soft, nontender to palpation, no guarding, no appreciable organomegaly Ext: ROM intact. No gross muscle atrophy, no edema, no contractures Neuro: Speech clear, face symmetrical and CN II-XII grossly intact with no noted focal neuro deficits Psych: Alert and oriented to person, place, time, and situation. Appropriate and pleasant affect. A total of 41 minutes of time were spent preparing this complex discharge summary. Poli Garcia NP rendered care for this patient independently, reviewed the findings and plan as documented in the note above. I did not physically speak with or examine the patient on this date. added prediabetes. WIll communicate with PCP recommend repeat testing in 3 months. Patient Condition at Discharge: Stable Plan - Discharge Summary Discharge Rx Participant: Yes New Discharge Prescriptions: New Triamterene-Hctz 37.5-25Mg [Maxzide 37.5-25] 1 each PO DAILY 30 Days #30 tab Continue Carvedilol [Coreg] 6.25 mg PO BID Furosemide [Lasix] 80 mg PO DAILY Isosorbide Mononitrate ER [Imdur] 60 mg PO DAILY Clopidogrel [Plavix] 75 mg PO HS Atorvastatin Calcium [Lipitor] 40 mg PO HS Losartan Potassium 100 mg PO DAILY Levothyroxine Sodium [Synthroid] 88 mcg PO DAILY Nitroglycerin Sl Tabs [Nitrostat] 0.4 mg SUBLINGUAL Q5M PRN PRN Reason: Chest Pain Gabapentin [Neurontin] 200 mg PO TID PRN PRN Reason: restless legs Ascorbic Acid [Vitamin C] 500 mg PO DAILY Pantoprazole Sodium [Protonix] 20 mg PO HS Discharge Medication List Atorvastatin Calcium [Lipitor] 40 mg PO HS 05/24/21 [History] Carvedilol [Coreg] 6.25 mg PO BID 05/24/21 [History] Furosemide [Lasix] 80 mg PO DAILY 05/24/21 [History] Isosorbide Mononitrate ER [Imdur] 60 mg PO DAILY 05/24/21 [History] Losartan Potassium 100 mg PO DAILY 05/24/21 [History] Gabapentin [Neurontin] 200 mg PO TID PRN 08/12/21 [History] Levothyroxine Sodium [Synthroid] 88 mcg PO DAILY 08/12/21 [History] Nitroglycerin Sl Tabs [Nitrostat] 0.4 mg SUBLINGUAL Q5M PRN 08/12/21 [History] Ascorbic Acid [Vitamin C] 500 mg PO DAILY 02/02/22 [History] Clopidogrel [Plavix] 75 mg PO HS 02/02/22 [History] Pantoprazole Sodium [Protonix] 20 mg PO HS 02/02/22 [History] Triamterene-Hctz 37.5-25Mg [Maxzide 37.5-25] 1 each PO DAILY 30 Days #30 tab 02/03/22 [Rx] Follow up Appointment(s)/Referral(s): Carlos Manuel Saenz [Primary Care Provider] - 1-2 days Justus Siddiqui MD [STAFF PHYSICIAN] - 1 Week Ambulatory/Diagnostic Orders: Comprehensive Metabolic Panel [LAB.AMB] Time Frame: 3 Days, Location: None Selected Activity/Diet/Wound Care/Special Instructions: Activity: As tolerated. Take breaks as needed. Diet: Heart healthy and carb consistent diet. Avoid salts, or foods with hidden salts such as canned or boxed foods and frozen dinners. Extra salt makes your heart work harder and traps the fluid in your body for longer. Special Instructions: Take all of your medications as directed and remember to keep all of your doctor's appointments and follow-up as needed. Thank you for allowing us to participate in your care, it was truly a pleasure having you for our patient!!! Discharge Disposition: HOME SELF-CARE
[2022-02-03 15:11] VITALS: BP 112/71; PULSE 65; TEMP 98
--- NOTE | 2022-02-03 18:28 | P.CRDCN ---
History of Present Illness History of present illness: This is Dr. Siddiqui dictating a consult on Jennifer Loki The patient was interviewed and examined IMPRESSION / ASSESSMENT: Uncontrolled hypertension with fluctuating blood pressures associated with headache and twinges of chest pain for the last 3 days History of CVA/TIA in the past and on Plavix No evidence for acute myocardial infarction at this to PLAN: Add Maxide 37.5/25 g daily Continue losartan and carvedilol line renal artery Dopplers Serum metanephrines, serum cortisol Serum aldosterone and plasma renin activity, evaluate for secondary causes of hypertension Continue statins Lipid panel Hemoglobin A1c HPI Patient presented with chest discomfort starting 1 hour back, sharp, improvement 2 nitroglycerin associated nausea no shortness of breath no diaphoresis States she's had a previous PR Elevated blood pressure 173/90 452/87 and 143/92 mmHg normal heart rates afebril e on admission ROS: No fever chills or rigors, no cough, phlegm or expectoration, no nausea, vomiting or diarrhea, no hematuria, dysuria, no musculoskeletal complaints, no strokes or seizures, no skin lesions. EXAMINATION: Elevated blood pressure readings Normal heart sounds Normal breath sounds No carotid bruits Abdomen is soft Extremities warm REVIEW OF LABS, ECG & MEDICAL DATA CT of the chest no pulmonary embolism Mild aneurysm ascending aorta Twelve-lead EKG shows sinus rhythm normal ST segments normal ME interval narrow QRS Normal cardiac enzymes 3 Past Medical History Past Medical History: Cancer, Heart Failure, COPD, CVA/TIA, GERD/Reflux, Hypertension, Myocardial Infarction ([place]), Pulmonary Embolus ([place]), Thyroid Dis order Additional Past Medical History / Comment(s): hx. cervical cancer, SOB w/activity, restless leg, TIA x 3 2012, tia 2014, personality disorder. CVA and PE 2018. Last Myocardial Infarction Date:: February 26 2015 History of Any Multi-Drug Resistant Organisms: None Reported Past Surgical History: Section, Heart Catheterization, Tonsillectomy Additional Past Surgical History / Comment(s): cyst removed from ovary Past Anesthesia/Blood Transfusion Reactions: Postoperative Nausea & Vomiting (PONV) Past Psychological History: Anxiety, Depression Smoking Status: Never smoker Past Alcohol Use History: Occasional Past Drug Use History: None Reported - Past Family History Mother Family Medical History: Cancer, Congestive Heart Failure (CHF) Additional Family Medical History / Comment(s): aneurysm Medications and Allergies Home Medications Medication Instructions Recorded Confirmed Type Atorvastatin Calcium [Lipitor] 40 mg PO HS 05/24/21 02/02/22 History Carvedilol [Coreg] 6.25 mg PO BID 05/24/21 02/02/22 History Furosemide [Lasix] 80 mg PO DAILY 05/24/21 02/02/22 History Isosorbide Mononitrate ER [Imdur] 60 mg PO DAILY 05/24/21 02/02/22 History Losartan Potassium 100 mg PO DAILY 05/24/21 02/02/22 History Gabapentin [Neurontin] 200 mg PO TID PRN 08/12/21 02/02/22 History Levothyroxine Sodium [Synthroid] 88 mcg PO DAILY 08/12/21 02/02/22 History Nitroglycerin Sl Tabs [Nitrostat] 0.4 mg SUBLINGUAL Q5M PRN 08/12/21 02/02/22 History Ascorbic Acid [Vitamin C] 500 mg PO DAILY 02/02/22 02/02/22 History Clopidogrel [Plavix] 75 mg PO HS 02/02/22 02/02/22 History Pantoprazole Sodium [Protonix] 20 mg PO HS 02/02/22 02/02/22 History Triamterene-Hctz 37.5-25Mg 1 each PO DAILY 30 Days #30 tab 02/03/22 Rx [Maxzide 37.5-25] Allergies Allergy/AdvReac Type Severity Reaction Status Date / Time [place] Allergy Anaphylaxis Verified 02/02/22 21:04 walnut Allergy Anaphylaxis Verified 02/02/22 21:04 Sulfa (Sulfonamide AdvReac mouth sores Verified 02/02/22 21:04 Antibiotics) Physical Exam Vitals: Vital Signs Temp Pulse Pulse Resp BP BP Pulse Ox 02/03/22 07:00 97.9 F 54 L 18 126/77 97 02/03/22 02:00 55 L 14 02/03/22 00:15 97.7 F 55 L 14 136/81 96 02/02/22 23:10 58 L 22 126/84 96 02/02/22 23:00 59 L 17 114/89 95 02/02/22 22:45 58 L 16 140/99 95 02/02/22 22:30 60 16 159/112 97 02/02/22 22:00 63 16 158/98 95 02/02/22 21:30 64 16 155/115 96 02/02/22 21:15 65 16 158/129 96 02/02/22 21:00 70 16 162/81 96 02/02/22 20:45 63 16 144/104 97 02/02/22 20:30 64 18 143/92 95 02/02/22 20:15 67 18 152/87 97 02/02/22 19:46 98.3 F 68 16 173/94 96 Intake and Output 02/02/22 02/03/22 02/03/22 22:59 06:59 14:59 Other: # Voids 3 Weight 79.379 kg 79.379 kg Results 02/02/22 20:19 02/02/22 20:19 Cardiac Enzymes 02/02/22 02/02/22 02/02/22 Range/Units 20:19 20:19 22:49 AST 24 (14-36) U/L Troponin I <0.012 <0.012 (0.000-0.034) ng/mL 02/03/22 Range/Units 01:29 AST (14-36) U/L Troponin I <0.012 (0.000-0.034) ng/mL Coagulation 02/02/22 Range/Units 20:19 PT 10.2 (9.0-12.0) sec APTT 22.7 (22.0-30.0) sec CBC 02/02/22 Range/Units 20:19 WBC 9.4 (3.8-10.6) k/uL RBC 4.57 (3.80-5.40) m/uL Hgb 13.7 (11.4-16.0) gm/dL Hct 40.9 (34.0-46.0) % Plt Count 271 (150-450) k/uL Comprehensive Metabolic Panel 02/02/22 Range/Units 20:19 Sodium 140 (137-145) mmol/L Potassium 3.6 (3.5-5.1) mmol/L Chloride 100 (98-107) mmol/L Carbon Dioxide 31 H (22-30) mmol/L BUN 21 H (7-17) mg/dL Creatinine 1.20 H (0.52-1.04) mg/dL Glucose 96 (74-99) mg/dL Calcium 9.5 (8.4-10.2) mg/dL AST 24 (14-36) U/L ALT 12 (4-34) U/L Alkaline Phosphatase 84 (38-126) U/L Total Protein 7.8 (6.3-8.2) g/dL Albumin 4.4 (3.5-5.0) g/dL Current Medications Generic Name Dose Route Start Last Admin Trade Name Freq PRN Reason Stop Dose Admin Ascorbic Acid 500 mg 02/03/22 09:00 Ascorbic Acid 500 Mg Tab PO DAILY [facility] Aspirin 325 mg 02/03/22 09:00 Aspirin 325 Mg Tab PO DAILY [facility] Atorvastatin Calcium 40 mg 02/03/22 21:00 Atorvastatin 40 Mg Tab PO HS [facility] Carvedilol 6.25 mg 02/03/22 07:30 Carvedilol 6.25 Mg Tab PO BID-W/MEALS [facility] Clopidogrel Bisulfate 75 mg 02/03/22 21:00 Clopidogrel 75 Mg Tab PO HS [facility] Furosemide 80 mg 02/03/22 09:00 Furosemide 40 Mg Tab PO DAILY [facility] Gabapentin 200 mg 02/03/22 03:00 Gabapentin 100 Mg Cap PO TID PRN restless legs Heparin Sodium (Porcine) 5,000 unit 02/03/22 08:00 Heparin Sodium,Porcine/Pf 5,000 Unit/0.5 Ml Syringe SQ Q8HR [facility] Isosorbide Mononitrate 60 mg 02/03/22 09:00 Isosorbide Mononitrate Er 60 Mg Tab.Er.24h PO DAILY [facility] Levothyroxine Sodium 88 mcg 02/03/22 06:30 02/03/22 05:33 Levothyroxine 88 Mcg Tab PO 88 mcg DAILY@0630 [facility] Administration Losartan Potassium 100 mg 02/03/22 09:00 Losartan 50 Mg Tab PO DAILY [facility] Naloxone HCl 0.2 mg 02/02/22 22:24 Naloxone 0.4 Mg/Ml 1 Ml Vial IV Q2M PRN Opioid Reversal Nitroglycerin 0.4 mg 02/02/22 22:26 Nitroglycerin Sl Tabs 0.4 Mg Tab SUBLINGUAL Q5M PRN Chest Pain Pantoprazole Sodium 40 mg 02/03/22 21:00 Pantoprazole 40 Mg Tablet PO HS [facility] Intake and Output 02/02/2222 02/03/22 22:59 06:59 14:59 Other: # Voids 3 Weight 79.379 kg 79.379 kg 02/02/22 20:19 02/02/22 20:19
[2022-02-03] MEDS ORDERED: CLOPIDOGREL 75 MG TAB PO SCH (21:00)
[2022-02-03] MEDS ORDERED: PANTOPRAZOLE 40 MG TABLET PO SCH (21:00)
[2022-02-03] MEDS ORDERED: ATORVASTATIN 40 MG TAB PO SCH (21:00)
== END 2022-02-03 15:20 | disposition home or self-care (01) ==
LOC: EC 19:42 → 6NMEDSUR 22:25
PROVIDERS: ADMIT Internal Medicine; ATTEND Internal Medicine
DX: R07.89 Other chest pain (principal); R11.0 Nausea; R20.0 Anesthesia of skin; R07.2 Precordial pain; R51.9 Headache, unspecified; R73.03 Prediabetes; I25.2 Old myocardial infarction; J44.9 Chronic obstructive pulmonary disease, unspecified; K21.9 Gastro-esophageal reflux disease without esophagitis; I11.0 Hypertensive heart disease with heart failure; I50.32 Chronic diastolic (congestive) heart failure; I25.10 Atherosclerotic heart disease of native coronary artery without angina pectoris; E03.9 Hypothyroidism, unspecified; E78.5 Hyperlipidemia, unspecified; I71.2 Thoracic aortic aneurysm, without rupture; G25.81 Restless legs syndrome; I69.354 Hemiplegia and hemiparesis following cerebral infarction affecting left non-dominant side; F60.9 Personality disorder, unspecified; F32.A Depression, unspecified; F41.9 Anxiety disorder, unspecified; E66.9 Obesity, unspecified; Z68.32 Body mass index [BMI] 32.0-32.9, adult; Z79.899 Other long term (current) drug therapy; Z79.890 Hormone replacement therapy; Z88.2 Allergy status to sulfonamides; Z91.018 Allergy to other foods; Z86.711 Personal history of pulmonary embolism; Z85.41 Personal history of malignant neoplasm of cervix uteri; Z95.5 Presence of coronary angioplasty implant and graft; Z82.49 Family history of ischemic heart disease and other diseases of the circulatory system; Z80.9 Family history of malignant neoplasm, unspecified
CPT/HCPCS: 96372; 99285; 36415; 93005; 85379; 80061; 80053; 82533; 83735; 84484 ×2; 85025; 85610; 85730; 83036; 71046; 93975; 71275; G0378 ×2; Q9967; J1644

== ENCOUNTER 2022-02-08 16:48 | Observation (INO) | payer MEDICARE, OTHER ==
[2022-02-08 17:11] LABS: Glucose,Whole Blood 160 mg/dL (75-99)
--- NOTE | 2022-02-08 18:26 | ED ---
General Adult HPI - General Chief complaint: Chest Pain Stated complaint: hypotension, Dizziness, chest pain Time Seen by Provider: 02/08/22 17:54 Source: patient, EMS Mode of arrival: EMS - History of Present Illness Initial comments: Dictation was produced using [employer] dictation software. please excuse any grammatical, word or spelling errors. Chief Complaint: 71-year-old female presents to the emergency department for dizziness History of Present Illness: Patient is a 71-year-old female she was sent here from primary care physician's office per she had a follow-up appointment after being recently admitted for hypertensive urgency. She was started on new blood pressure medications that her last admission. She was discharged 5 days ago. He says since being discharged she is felt fine. She is was started on a new blood pressure medication for the last 4 days. She's felt fine up until today when she felt like she was feeling dizzy. She went to her primary care doctor and had low blood pressure. She does have some sharp pain to her left anterior chest. States that does not radiate. Associated with nausea, no diaphoresis. The ROS documented in this emergency department record has been reviewed and confirmed by me. Those systems with pertinent positive or negative responses have been documented in the HPI. All other systems are other negative and/or noncontributory. PHYSICAL EXAM: General Impression: Alert and oriented x3, not in acute distress HEENT: Normocephalic atraumatic, extra-ocular movements intact, pupils equal and reactive to light bilaterally, mucous membranes moist. Cardiovascular: Heart regular rate and rhythm Chest: Able to complete full sentences, no retractions, no tachypnea Abdomen: abdomen soft, non-tender, non-distended, no organomegaly Musculoskeletal: Pulses present and equal in all extremities, no peripheral edema Motor: no focal deficits noted Neurological: CN II-XII grossly intact, no focal motor or sensory deficits noted Skin: Intact with no visualized rashes Psych: Normal affect and mood ED course: 71-year-old female presents to the emergency department for low blood pressure chest pain. Vital signs upon arrival shows blood pressure 90/51, rest of vital signs within acceptable limits. Laboratory evaluation obtained. CBC unremarkable. Coag panel is negative. Creatinine is 2.09 which is increased compared to 5 days ago. Rest of metabolic panel is unremarkable. Troponins negative. Patient is given IV fluids. Her blood pressure improved slightly. Disposition options were discussed with patient she still feeling very dizzy and would prefer to be admitted to observation overnight. Patient be admitted to [facility]. Patient given fluids. She will need her renal markers were checked. EKG interpretation: Ventricular rate 56, sinus bradycardia,. 156, QS 105, QTc 434. No [place] prolongation, no QTC prolongation, no ST or T-wave changes noted. EKG compared to 02/02/2022 showing no changes. Overall, this EKG is unremarkable - Related Data Home Medications Medication Instructions Recorded Confirmed Atorvastatin Calcium [Lipitor] 40 mg PO HS 05/24/21 02/08/22 Carvedilol [Coreg] 6.25 mg PO BID 05/24/21 02/08/22 Furosemide [Lasix] 80 mg PO DAILY 05/24/21 02/08/22 Isosorbide Mononitrate ER [Imdur] 60 mg PO DAILY 05/24/21 02/08/22 Losartan Potassium 100 mg PO DAILY 05/24/21 02/08/22 Gabapentin [Neurontin] 200 mg PO TID PRN 08/12/21 02/08/22 Levothyroxine Sodium [Synthroid] 88 mcg PO DAILY 08/12/21 02/08/22 Nitroglycerin Sl Tabs [Nitrostat] 0.4 mg SUBLINGUAL Q5M PRN 08/12/21 02/08/22 Ascorbic Acid [Vitamin C] 500 mg PO DAILY 02/02/22 02/08/22 Clopidogrel [Plavix] 75 mg PO HS 02/02/22 02/08/22 Pantoprazole Sodium [Protonix] 20 mg PO HS 02/02/22 02/08/22 Triamterene-Hctz 37.5-25Mg 1 tab PO DAILY 02/08/22 02/08/22 [Maxzide 37.5-25] Allergies Allergy/AdvReac Type Severity Reaction Status Date / Time [place] walnut Allergy Anaphylaxis Verified 02/08/22 19:09 walnut Allergy Anaphylaxis Verified 02/08/22 19:09 Sulfa (Sulfonamide AdvReac mouth sores Verified 02/08/22 19:09 Antibiotics) Review of Systems ROS Statement: Those systems with pertinent positive or pertinent negative responses have been documented in the HPI. ROS Other: All systems not noted in ROS Statement are negative. Past Medical History Past Medical History: Cancer, Heart Failure, COPD, CVA/TIA, GERD/Reflux, Hypertension, Myocardial Infarction ([place]), Pulmonary Embolus ([place]), Thyroid Disorder Additional Past Medical History / Comment(s): hx. cervical cancer, SOB w/activity, restless leg, TIA x 3 2012, tia 2014, personality disorder. CVA and PE 2018. Last Myocardial Infarction Date:: February 26 2015 History of Any Multi-Drug Resistant Organisms: None Reported Past Surgical History: Section, Heart Catheterization, Tonsillectomy Additional Past Surgical History / Comment(s): cyst removed from ovary Past Anesthesia/Blood Transfusion Reactions: Postoperative Nausea & Vomiting (PONV) Past Psychological History: Anxiety, Depression Smoking Status: Never smoker Past Alcohol Use History: Occasional Past Drug Use History: None Reported - Past Family History Mother Family Medical History: Cancer, Congestive Heart Failure (CHF) Additional Family Medical History / Comment(s): aneurysm Course Vital Signs 02/08/22 02/08/22 02/08/22 17:10 19:47 21:06 Temperature 98.2 F Pulse Rate 60 55 L 55 L Respiratory 16 16 16 Rate Blood Pressure 93/51 94/62 105/62 O2 Sat by Pulse 96 96 99 Oximetry Medical Decision Making - Lab Data Result diagrams: 02/08/22 18:22 02/08/22 18:22 Lab Results 02/08/22 02/08/22 02/08/22 Range/Units 17:10 18:22 18:22 WBC 7.4 (3.8-10.6) k/uL RBC 4.40 (3.80-5.40) m/uL Hgb 13.5 (11.4-16.0) gm/dL Hct 40.0 (34.0-46.0) % MCV 90.9 (80.0-100.0) fL MCH 30.7 (25.0-35.0) pg MCHC 33.8 (31.0-37.0) g/dL RDW 13.4 (11.5-15.5) % Plt Count 260 (150-450) k/uL MPV 7.5 Neutrophils % 64 % Lymphocytes % 28 % Monocytes % 4 % Eosinophils % 1 % Basophils % 1 % Neutrophils # 4.7 (1.3-7.7) k/uL Lymphocytes # 2.1 (1.0-4.8) k/uL Monocytes # 0.3 (0-1.0) k/uL Eosinophils # 0.1 (0-0.7) k/uL Basophils # 0.1 (0-0.2) k/uL PT (9.0-12.0) sec INR (<1.2) APTT (22.0-30.0) sec Sodium 137 (137-145) mmol/L Potassium 3.8 (3.5-5.1) mmol/L Chloride 102 (98-107) mmol/L Carbon Dioxide 29 (22-30) mmol/L Anion Gap 6 mmol/L BUN 35 H (7-17) mg/dL Creatinine 2.09 H (0.52-1.04) mg/dL Est GFR (CKD-EPI)AfAm 27 (>60 ml/min/1.73 sqM) Est GFR (CKD-EPI)NonAf 24 (>60 ml/min/1.73 sqM) Glucose 161 H (74-99) mg/dL POC Glucose (mg/dL) 160 H (75-99) mg/dL POC Glu Otolaryngology Teacher ID Gladys Hatch Calcium 9.3 (8.4-10.2) mg/dL Troponin I (0.000-0.034) ng/mL 02/08/22 02/08/22 Range/Units 18:22 18:22 WBC (3.8-10.6) k/uL RBC (3.80-5.40) m/uL Hgb (11.4-16.0) gm/dL Hct (34.0-46.0) % MCV (80.0-100.0) fL MCH (25.0-35.0) pg MCHC (31.0-37.0) g/dL RDW (11.5-15.5) % Plt Count (150-450) k/uL MPV Neutrophils % % Lymphocytes % % Monocytes % % Eosinophils % % Basophils % % Neutrophils # (1.3-7.7) k/uL Lymphocytes # (1.0-4.8) k/uL Monocytes # (0-1.0) k/uL Eosinophils # (0-0.7) k/uL Basophils # (0-0.2) k/uL PT 10.7 (9.0-12.0) sec INR 1.0 (<1.2) APTT 22.7 (22.0-30.0) sec Sodium (137-145) mmol/L Potassium (3.5-5.1) mmol/L Chloride (98-107) mmol/L Carbon Dioxide (22-30) mmol/L Anion Gap mmol/L BUN (7-17) mg/dL Creatinine (0.52-1.04) mg/dL Est GFR (CKD-EPI)AfAm (>60 ml/min/1.73 sqM) Est GFR (CKD-EPI)NonAf (>60 ml/min/1.73 sqM) Glucose (74-99) mg/dL POC Glucose (mg/dL) (75-99) mg/dL POC Glu Otolaryngology Teacher ID Calcium (8.4-10.2) mg/dL Troponin I <0.012 (0.000-0.034) ng/mL Disposition Clinical Impression: NATA (acute kidney injury), Hypotension Disposition: ADMITTED IP TO THIS HOSP Condition: Fair Referrals: Carlos Manuel Saenz [Primary Care Provider] - 1-2 days
[2022-02-08 18:29] LABS: Basophils # (A) 0.1 k/uL (0-0.2); Basophils % (A) 1 %; Eosinophils # (A) 0.1 k/uL (0-0.7); Eosinophils % (A) 1 %; HGB 13.5 gm/dL (11.4-16.0); Lymphocytes # (A) 2.1 k/uL (1.0-4.8); Lymphocytes % (A) 28 %; MCH 30.7 pg (25.0-35.0); MCHC 33.8 g/dL (31.0-37.0); MCV 90.9 fL (80.0-100.0); Mean Platelet Volume 7.5; Monocytes # (A) 0.3 k/uL (0-1.0); Monocytes % (A) 4 %; Neutrophils # (A) 4.7 k/uL (1.3-7.7); Neutrophils % (A) 64 %; Platelet Count 260 k/uL (150-450); RDW 13.4 % (11.5-15.5); WBC 7.4 k/uL (3.8-10.6)
[2022-02-08 18:43] LABS: Calcium 9.3 mg/dL (8.4-10.2); Potassium 3.8 mmol/L (3.5-5.1)
[2022-02-08 18:44] LABS: Partial Thromboplastin Time 22.7 sec (22.0-30.0); Prothrombin Time 10.7 sec (9.0-12.0)
[2022-02-08] MEDS ORDERED: SODIUM CHLORIDE 0.9% 1,000 ML IV STA (19:28)
[2022-02-08] MEDS ORDERED: NALOXONE 0.4 MG/ML 1 ML VIAL IV PRN (21:11)
[2022-02-08] MEDS: SODIUM CHLORIDE 0.9% 1,000 ML IV SCH (21:46)
[2022-02-08] MEDS ORDERED: GABAPENTIN 100 MG CAP PO PRN (23:36)
--- NOTE | 2022-02-08 23:37 | P.HPIM ---
History of Present Illness H&P Date: 02/08/22 The patient is a 71-year-old female with a PMH of diastolic CHF, CVA with residual left hemiparesis, hyperlipidemia, CAD status post stents, hypertension, hypothyroidism, and COPD who presents to the emergency room for hypotension. The patient reports that following her discharge from the hospital roughly one week ago, that she gradually began feeling worse. She reports initiating her new diuretic triamterene-HCTZ in combination along with her Lasix. She reports feeling lightheaded, nauseous, and fatigued over the past 3-4 days, for which she was seen at her PCPs office earlier today where her blood pressure was noted to be low, and the patient was subsequently sent to the emergency room. In the emergency room, upon presentation the patient's BP was 93/51, pulse 60, respiratory rate 16, and SpO2 of 96% on room air. At time of interview, the patient reported feeling somewhat better since her presentation. She reports mild continued fatigue but denied any additional complaints. She denied experiencing chest discomfort, shortness of breath, abdominal pain, diarrhea, fever, chills, cough, focal weakness, numbness, or tingling. Laboratory evaluation also revealed a creatinine of 2.09, up from 1.20. EKG reveals sinus bradycardia at 56 bpm with no acute ST/T-wave changes noted as reviewed by me aside from flattened T waves in precordial leads V3 to V6. The patient was given 1 L IV fluids normal saline bolus in the emergency room and is being admitted for further management. Review of systems: Pertinent positives and negatives as discussed in HPI, a complete review of sy stems was performed and all other systems are negative. Physical examination: General: non toxic, no distress, appears at stated age, obese Derm: no unusual rashes/lesions no unusual ecchymoses, warm, dry Head: atraumatic, normocephalic, symmetric Eyes: EOMI, no lid lag, anicteric sclera, pupils equal round reactive to light ENT: Nose and ears atraumatic, no thrush, no pharyngeal erythema Neck: No thyromegaly, no cervical lymphadenopathy, trachea midline, supple Mouth: no lip lesion, mucus membranes moist Cardiovascular: S1S2 reg, no murmur, positive posterior tibial pulse bilateral, no edema, capillary refill less than 2 seconds Lungs: CTA bilateral, no rhonchi, no rales , no accessory muscle use Abdominal: soft, nontender to palpation, no guarding, no appreciable organomegaly, normal bowel sounds Ext: no gross muscle atrophy, muscle strength 4 out of 5 of LUE and LLE with 5/5 strength of R side grossly, no contractures, Neuro: CN II-XI grossly intact, light touch intact all 4 extremities, finger to nose within normal limits, Psych: Alert, oriented, appropriate affect Assessment/plan Symptomatic hypotension, likely secondary to combined diuretic use -Hold off on antihypertensives at this time and restart as needed -Cardiology consult -Fall precautions -Cardiac monitoring -IV fluids NATA, likely secondary to overdiuresis -Continue IV fluids and monitor BMP Chronic conditions: Chronic CHF, CVA, hypertension, hyperlipidemia, hypothyroidism, CAD, COPD -Continue with home meds DVT prophylaxis -Heparin subq The patient is admitted with an anticipated less than 2 midnight stay for evaluation of hypotension CODE STATUS: Full Code Discussed with: Patient Anticipated discharge date: in am Anticipated discharge place: Home Past Medical History Past Medical History: Cancer, Heart Failure, COPD, CVA/TIA, GERD/Reflux, Hypertension, Myocardial Infarction ([place]), Pulmonary Embolus ([place]), Thyroid Disorder Additional Past Medical History / Comment(s): hx. cervical cancer, SOB w/activity, restless leg, TIA x 3 2012, tia 2014, personality disorder. CVA and PE 2017. Last Myocardial Infarction Date:: February 26 2015 History of Any Multi-Drug Resistant Organisms: None Reported Past Surgical History: Section, Heart Catheterization, Tonsillectomy Additional Past Surgical History / Comment(s): cyst removed from ovary Past Anesthesia/Blood Transfusion Reactions: Postoperative Nausea & Vomiting (PONV) Past Psychological History: Anxiety, Depression Smoking Status: Never smoker Past Alcohol Use History: Occasional Past Drug Use History: None Reported - Past Family History Mother Family Medical History: Cancer, Congestive Heart Failure (CHF) Additional Family Medical History / Comment(s): aneurysm Medications and Allergies Home Medications Medication Instructions Recorded Confirmed Type Atorvastatin Calcium [Lipitor] 40 mg PO HS 05/24/21 02/08/22 History Carvedilol [Coreg] 6.25 mg PO BID 05/24/21 02/08/22 History Furosemide [Lasix] 80 mg PO DAILY 05/24/21 02/08/22 History Isosorbide Mononitrate ER [Imdur] 60 mg PO DAILY 05/24/21 02/08/22 History Losartan Potassium 100 mg PO DAILY 05/24/21 02/08/22 History Gabapentin [Neurontin] 200 mg PO TID PRN 08/12/21 02/08/22 History Levothyroxine Sodium [Synthroid] 88 mcg PO DAILY 08/12/21 02/08/22 History Nitroglycerin Sl Tabs [Nitrostat] 0.4 mg SUBLINGUAL Q5M PRN 08/12/21 02/08/22 History Ascorbic Acid [Vitamin C] 500 mg PO DAILY 02/02/22 02/08/22 History Clopidogrel [Plavix] 75 mg PO HS 02/02/22 02/08/22 History Pantoprazole Sodium [Protonix] 20 mg PO HS 02/02/22 02/08/22 History Triamterene-Hctz 37.5-25Mg 1 tab PO DAILY 02/08/22 02/08/22 History [Maxzide 37.5-25] Allergies Allergy/AdvReac Type Severity Reaction Status Date / Time [place] wal[place] Allergy Anaphylaxis Verified 02/08/22 19:09 [place] Allergy Anaphylaxis Verified 02/08/22 19:09 Sulfa (Sulfonamide AdvReac mouth sores Verified 02/08/22 19:09 Antibiotics) Physical Exam Vitals: Vital Signs Temp Pulse Resp BP Pulse Ox 02/08/22 21:06 55 L 16 105/62 99 02/08/22 19:47 55 L 16 94/62 96 02/08/22 17:10 98.2 F 60 16 93/51 96 Intake and Output 02/08/22 02/08/22 02/08/22 06:59 14:59 22:59 Other: Weight 81.193 kg Results CBC & Chem 7: 02/08/22 18:22 02/08/22 18:22 Labs: Abnormal Lab Results - Last 24 Hours (Table) 02/08/22 02/08/22 Range/Units 17:10 18: BUN 35 H (7-17) mg/dL Creatinine 2.09 H (0.52-1.04) mg/dL Glucose 161 H (74-99) mg/dL POC Glucose (mg/dL) 160 H (75-99) mg/dL
[2022-02-09] MEDS: HEPARIN SODIUM,PORCINE/PF 5,000 UNIT/0.5 ML SYRINGE SQ SCH ×4 (01:31→23:44)
[2022-02-09] MEDS: SODIUM CHLORIDE 0.9% 1,000 ML IV SCH ×3 (04:42→22:09)
[2022-02-09] MEDS: LEVOTHYROXINE 88 MCG TAB PO SCH (05:41)
[2022-02-09 07:29] LABS: Glucose,Whole Blood 99 mg/dL (75-99)
[2022-02-09] MEDS: INSULIN ASPART (NovoLOG) 100 UNIT/ML VIAL SQ SCH ×4 (07:50→22:10)
[2022-02-09 09:34] LABS: HCT 34.9 % (37.2-46.3); HGB 11.4 g/dL (12.0-15.0); MCH 29.8 pg (27.0-32.0); MCHC 32.7 g/dL (32.0-37.0); MCV 91.1 fL (80.0-97.0); Mean Platelet Volume 10.4 fL (9.5-12.2); NRBC Per 100 WBC 0 /100 WBCS (0.0-0.0); Platelet Count 211 X 10*3/uL (140-440); RBC 3.83 X 10*6/uL (4.10-5.20); RDW 13.8 % (11.5-14.5); WBC 6.59 X 10*3/uL (4.50-10.00)
[2022-02-09 09:51] LABS: African American GFR (CKD) 35.3 (60.0-200.0); Anion Gap 10.4 mmol/L (10.00-18.00); BUN/Creat Ratio 18.81 Ratio (12.00-20.00); Blood Urea Nitrogen 31.6 mg/dL (9.0-27.0); Carbon Dioxide 25.5 mmol/L (20.0-27.5); Non-African American GFR(CKD) 30.5 (60.0-200.0); Potassium 3.9 mmol/L (3.5-5.5)
--- NOTE | 2022-02-09 10:30 | P.CRDCN ---
History of Present Illness History of present illness: HISTORY OF PRESENTING ILLNESS This is a pleasant 71-year-old female past medical history significant for CVA 2018, multiple TIAs, hypothyroidism, hypertension, dyslipidemia. 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 Has seen Dr. Drummond in 2014. We have been asked to see in consultation for hypotension. Patient presents to the emergency department with complaints of dizziness, nausea, fatigue for the past 34 days. She states that she was seen by her PCP and was noted to have a low blood pressure and subsequently was sent to the emergency department. Patient was recently in the hospital on . At that time she was evaluated by cardiology for chest pain and hypertension. Acute coronary syndrome was ruled out. Patient was started on Maxzide 3 7. 525 daily and she was also on Lasix 80 mg daily, losartan 100 mg daily, carvedilol 6.25 mg twice a day. On admission patient was hypotensive with blood pressure 93/51, heart rate in the 60s. Patient seen at bedside, no acute distress. She denies any chest pain. Her dizziness has improved. No syncope or loss of consciousness. She denies symptoms of orthopnea or PND. DIAGNOSTICS EKG reveals sinus bradycardia, heart rate 56, no acute ST-T wave abnormalities. Patient not on telemetry Laboratory reviewed, WBC 6.5, hemoglobin 11.4, platelets 211, sodium 142, potassium 3.9, BUN 31, serum creatinine 1.7, troponin negative Current cardiac medications include Plavix 75 mg daily, atorvastatin 40 mg nightly, Maxzide 37.525 mg daily, losartan 100 mg daily, Synthroid, Imdur 60 mg daily, Lasix 80 mg daily, carvedilol 6.25 mg twice a day patient had an abnormal stress echo underwent cardiac catheterization wh ich revealed normal coronary arteries Echocardiogram 05/2021 revealed EF 5560%, trace mitral regurgitation, mild tricuspid regurgitation REVIEW OF SYSTEMS At the time of my exam: CONSTITUTIONAL: Denies fever or chills. CARDIOVASCULAR: Denies chest pain, shortness of breath, orthopnea, PND or palpi tations. RESPIRATORY: Denies cough. GASTROINTESTINAL: Denies abdominal pain, diarrhea, constipation, nausea or vomiting. MUSCULOSKELETAL: Denies myalgias. NEUROLOGIC: Denies numbness, tingling, headacbe or weakness. ENDOCRINE: Denies fatigue, weight change, polydipsia or polyurina. GENITOURINARY: Denies burning, hematuria or urgency with micturation. HEMATOLOGIC: Denies history of anemia or bleeding. PHYSICAL EXAMINATION Blood pressure 109/61, heart rate 55, afebrile, saturation 95% on room air CONSTITUTIONAL: No apparent distress. HEENT: Head is normocephalic. Pupils are equal, round. Sclerae anicteric. Mucous membranes of the mouth are moist. No JVD. No carotid bruit. CHEST EXAMINATION: Lungs are clear to auscultation. No chest wall tenderness is noted on palpation or with deep breathing. HEART EXAMINATION: Regular rate and rhythm. S1, S2 heard. No murmurs, gallops or rub. ABDOMEN: Soft, nontender. Positive bowel sounds. EXTREMITIES: 2+ peripheral pulses, no lower extremity edema and no calf tenderness. NEUROLOGIC EXAMINATION: Patient is awake, alert and oriented x3. ASSESSMENT Dizziness, likely related to hypotension and dehydration Acute kidney injury Hypotension History of CVA History of multiple TIAs History of hypertension Hypothyroidism PLAN Hold antihypertensive and diuretics and monitor BP Agree with IV fluids Obtain 2D echocardiogram and doppler study to assess cardiac structure and function. Monitor on telemetry Further recommendations based on clinical course Nurse practitioner note has been reviewed by physician. Signing provider agrees with the documented findings, assessment, and plan of care. Past Medical History Past Medical History: Cancer, Heart Failure, COPD, CVA/TIA, GERD/Reflux, Hypertension, Myocardial Infarction ([place]), Pulmonary Embolus ([place]), Thyroid Disorder Additional Past Medical History / Comment(s): hx. cervical cancer, SOB w/activity, restless leg, TIA x 3 2012, tia 2014, personality disorder. CVA and PE 2018. Last Myocardial Infarction Date:: February 26 2015 History of Any Multi-Drug Resistant Organisms: None Reported Past Surgical History: Section, Heart Catheterization, Tonsillectomy Additional Past Surgical History / Comment(s): cyst removed from ovary Past Anesthesia/Blood Transfusion Reactions: Postoperative Nausea & Vomiting (PONV) Past Psychological History: Anxiety, Depression Additional Psychological History / Comment(s): dissociative personality disorder Smoking Status: Never smoker Past Alcohol Use History: Occasional Past Drug Use History: None Reported - Past Family History Mother Family Medical History: Cancer, Congestive Heart Failure (CHF) Additional Family Medical History / Comment(s): aneurysm Medications and Allergies Home Medications Medication Instructions Recorded Confirmed Type Atorvastatin Calcium [Lipitor] 40 mg PO HS 05/24/21 02/08/22 History Carvedilol [Coreg] 6.25 mg PO BID 05/24/21 02/08/22 History Furosemide [Lasix] 80 mg PO DAILY 05/24/21 02/08/22 History Isosorbide Mononitrate ER [Imdur] 60 mg PO DAILY 05/24/21 02/08/22 History Losartan Potassium 100 mg PO DAILY 05/24/21 02/08/22 History Gabapentin [Neurontin] 200 mg PO TID PRN 08/12/21 02/08/22 History Levothyroxine Sodium [Synthroid] 88 mcg PO DAILY 08/12/21 02/08/22 History Nitroglycerin Sl Tabs [Nitrostat] 0.4 mg SUBLINGUAL Q5M PRN 08/12/21 02/08/22 History Ascorbic Acid [Vitamin C] 500 mg PO DAILY 02/02/22 02/08/22 History Clopidogrel [Plavix] 75 mg PO HS 02/02/22 02/08/22 History Pantoprazole Sodium [Protonix] 20 mg PO HS 02/02/22 02/08/22 History Triamterene-Hctz 37.5-25Mg 1 tab PO DAILY 02/08/22 02/08/22 History [Maxzide 37.5-25] Allergies Allergy/AdvReac Type Severity Reaction Status Date / Time [place] walnut Allergy Anaphylaxis Verified 02/08/22 19:09 walnut Allergy Anaphylaxis Verified 02/08/22 19:09 Sulfa (Sulfonamide AdvReac mouth sores Verified 02/08/22 19:09 Antibiotics) Physical Exam Vitals: Vital Signs Temp Pulse Pulse Resp BP BP Pulse Ox 02/09/22 07:00 97.6 F 55 L 18 109/61 95 02/09/22 04:00 97.9 F 60 16 123/77 96 02/09/22 03:48 97.3 F L 63 18 113/72 02/09/22 03:00 62 18 116/70 02/09/22 00:00 58 L 18 121/80 93 L 02/08/22 23:44 64 18 110/60 97 02/08/22 21:06 55 L 16 105/62 99 02/08/22 19:47 55 L 16 94/62 96 02/08/22 17:10 98.2 F 60 16 93/51 96 Intake and Output 02/08/22 02/09/22 02/09/22 22:59 06:59 14:59 Intake Total 120 Balance 120 Intake: Oral 120 Other: Weight 81.193 kg 81.193 kg Results 02/09/22 06:16 02/09/22 06:16 Cardiac Enzymes 02/08/22 Range/Units 18: Troponin I <0.012 (0.000-0.034) ng/mL Coagulation 02/08/22 Range/Units 18:22 PT 10.7 (9.0-12.0) sec APTT 22.7 (22.0-30.0) sec CBC 02/08/22 02/09/22 Range/Units 18: 06:16 WBC 7.4 6.59 (3.8-10.6) k/uL RBC 4.40 3.83 L (3.80-5.40) m/uL Hgb 13.5 11.4 L (11.4-16.0) gm/dL Hct 40.0 34.9 L (34.0-46.0) % Plt Count 260 211 (150-450) k/uL Comprehensive Metabolic Panel 02/08/22 02/09/22 Range/Units 18:22 06:16 Sodium 137 142 (137-145) mmol/L Potassium 3.8 3.9 (3.5-5.1) mmol/L Chloride 102 106 (98-107) mmol/L Carbon Dioxide 29 25.5 (22-30) mmol/L BUN 35 H 31.6 H (7-17) mg/dL Creatinine 2.09 H 1.7 H (0.52-1.04) mg/dL Glucose 161 H 104 (74-99) mg/dL Calcium 9.3 9.0 (8.4-10.2) mg/dL Current Medications Generic Name Dose Route Start Last Admin Trade Name Freq PRN Reason Stop Dose Admin Atorvastatin Calcium 40 mg 02/09/22 21:00 Atorvastatin 40 Mg Tab PO HS FRANCY Clopidogrel Bisulfate 75 mg 02/09/22 21:00 Clopidogrel 75 Mg Tab PO HS FRANCY Gabapentin 200 mg 02/08/22 23:36 02/09/22 01:02 Gabapentin 100 Mg Cap PO 200 mg TID PRN Administration restless legs Heparin Sodium (Porcine) 5,000 unit 02/09/22 00:00 02/09/22 08:05 Heparin Sodium,Porcine/Pf 5,000 Unit/0.5 Ml Syringe SQ 5,000 unit Q8HR FRANCY Administration Sodium Chloride 1,000 mls @ 130 mls/hr 02/08/22 21:15 02/09/22 04:42 Saline 0.9% IV Not Given .Q7H42M [facility] Insulin Aspart 0 unit 02/09/22 07:30 02/09/22 07:50 Insulin Aspart (Novolog) 100 Unit/Ml Vial SQ Not Given ACHS [facility] Protocol Levothyroxine Sodium 88 mcg 02/09/22 06:30 02/09/22 05:41 Levothyroxine 88 Mcg Tab PO 88 mcg 0630 FRANCY Administration Naloxone HCl 0.2 mg 02/08/22 21:11 Naloxone 0.4 Mg/Ml 1 Ml Vial IV Q2M PRN Opioid Reversal Pantoprazole Sodium 40 mg 02/09/22 21:00 Pantoprazole 40 Mg Tablet PO HS [facility] Intake and Output 02/08/22 02/09/22 02/09/22 22:59 06:59 14:59 Intake Total 120 Balance 120 Intake: Oral 120 Other: Weight 81.193 kg 81.193 kg 02/09/22 06:16 02/09/22 06:16
[2022-02-09 12:01] LABS: Glucose,Whole Blood 113 mg/dL (75-99)
[2022-02-09 15:34] LABS: African American GFR (CKD) 41 (>60 ml/min/1.73 sqM); Anion Gap 6 mmol/L; Blood Urea Nitrogen 28 mg/dL (7-17); Calcium 8.5 mg/dL (8.4-10.2); Carbon Dioxide 26 mmol/L (22-30); Chloride 106 mmol/L (98-107); Glucose 91 mg/dL (74-99); Non-African American GFR(CKD) 36 (>60 ml/min/1.73 sqM); Sodium 138 mmol/L (137-145)
--- NOTE | 2022-02-09 16:27 | P.PN ---
Subjective Progress Note Date: 02/09/22 Hospital course: The patient is a 71-year-old female with a PMH of diastolic CHF, CVA with residual left hemiparesis, hyperlipidemia, CAD status post stents, hypertension, hypothyroidism, and COPD who presents to the emergency room for dizziness and hypotension. The patient reports that following her discharge from the hospital roughly one week ago, that she gradually began feeling worse. She reports initiating her new diuretic triamterene-HCTZ in combination along with her Lasi x. She reports feeling lightheaded, nauseous, and fatigued over the past 3-4 days, for which she was seen at her PCPs office earlier today where her blood pressure was noted to be low, and the patient was subsequently sent to the emergency room. In the emergency room, upon presentation the patient's BP was 93/51, pulse 60, respiratory rate 16, and SpO2 of 96% on room air. At time of interview, the patient reported feeling somewhat better since her presentation. She reports mild continued fatigue but denied any additional complaints. She denied experiencing chest discomfort, shortness of breath, abdominal pain, diarrhea, fever, chills, cough, focal weakness, numbness, or tingling. Labor atory evaluation also revealed a creatinine of 2.09, up from 1.20. EKG reveals sinus bradycardia at 56 bpm with no acute ST/T-wave changes noted as reviewed by me aside from flattened T waves in precordial leads V3 to V6. The patient was given 1 L IV fluids normal saline bolus in the emergency room and is being admitted for further management. Physical examination: Patient seen and fully evaluated at bedside this morning. She reports dizziness/lightheadedness has resolved and denies having any other complaints including chest pain, palpitations, shortness of breath, or experiencing any nu mbness/T-wave/weakness in her extremities. Blood pressure and renal function improving. We will repeat BMP this afternoon to monitor for further improvement and plans for discharge home. Upon reevaluation this afternoon, renal function continues to improve with IV fluid hydration and holding of antihypertensives and diuretics however blood pressure remains slightly soft with blood pressure of 99/59 despite hydration and holding of these medications. We will continue to monitor patient overnight for improvement of renal function and blood pressure. Echocardiogram was completed and currently pending results. Vital signs reviewed and stable. General: Nontoxic, no distress and appears stated age. Derm: Skin warm and dry, normal coloration for ethnicity. Head: Atraumatic, normocephalic and symmetric. Eyes: EOMs intact, no lid lag, and anicteric sclera Mouth: no lip lesions, mucus membranes moist Cardiovascular: regular rate and rhythm with normal S1S2, systolic murmur, positive posterior tibial pulses bilaterally, and cap refill < 2 seconds. Lungs: Respirations even, regular, and unlabored on room air. Lungs CTA bilaterally, no rhonchi, no rales, no wheezing, and no accessory muscle usage. Abdominal: soft, nontender to palpation, no guarding, no appreciable organomegaly Ext: ROM intact. No gross muscle atrophy, no edema, no contractures Neuro: Speech clear, face symmetrical and CN II-XII grossly intact with no noted focal neuro deficits Psych: Alert and oriented to person, place, time, and situation. Appropriate and pleasant affect. Assessment/plan Symptomatic hypotension, likely secondary to combined diuretic use -Hold off on antihypertensives at this time and restart as needed -Cardiology following, appreciate further recommendations. -Fall precautions -Cardiac monitoring -IV fluids NATA, likely secondary to overdiuresis, improving with IV fluid hydration -Continue IV fluids and monitor BMP Chronic conditions: Chronic CHF, CVA, hypertension, hyperlipidemia, hypothyroidism, CAD, COPD -Continue with home meds DVT prophylaxis: Heparin subq CODE STATUS: Full Code Discussed with: Patient and RN Anticipated discharge date: Likely tomorrow morning as patient was going to be discharged this afternoon however blood pressure remains slightly low despite hydration and holding of antihypertensive and diuretics Anticipated discharge place: Home Objective - Vital Signs Vital signs: Vital Signs Temp 97.6 F 02/09/22 07:00 Pulse 55 L 02/09/22 07:00 Resp 18 02/09/22 07:00 BP 109/61 02/09/22 07:00 Pulse Ox 95 02/09/22 07:00 Intake & Output 02/08/22 02/09/22 02/09/22 18:59 06:59 18:59 Intake Total 120 Balance 120 Weight 81.193 kg 81.193 kg Intake: Oral 120 - Labs CBC & Chem 7: 02/09/22 06:16 02/09/22 15:02 Labs: Abnormal Lab Results - Last 24 Hours (Table) 02/08/22 02/08/22 02/09/22 Range/Units 17:10 18:22 06:16 RBC 3.83 L (4.10-5.20) X 10*6/uL Hgb 11.4 L (12.0-15.0) g/dL Hct 34.9 L (37.2-46.3) % BUN 35 H (7-17) mg/dL Creatinine 2.09 H (0.52-1.04) mg/dL Est GFR (CKD-EPI)AfAm (60.0-200.0) Est GFR (CKD-EPI)NonAf (60.0-200.0) Glucose 161 H (74-99) mg/dL POC Glucose (mg/dL) 160 H (75-99) mg/dL 02/09/22 Range/Units 06:16 RBC (4.10-5.20) X 10*6/uL Hgb (12.0-15.0) g/dL Hct (37.2-46.3) % BUN 31.6 H (7-17) mg/dL Creatinine 1.7 H (0.52-1.04) mg/dL Est GFR (CKD-EPI)AfAm 35.3 L (60.0-200.0) Est GFR (CKD-EPI)NonAf 30.5 L (60.0-200.0) Glucose (74-99) mg/dL POC Glucose (mg/dL) (75-99) mg/dL
[2022-02-09 17:10] LABS: Glucose,Whole Blood 95 mg/dL (75-99)
[2022-02-09 20:31] LABS: Glucose,Whole Blood 124 mg/dL (75-99)
[2022-02-09 20:46] VITALS: PULSE 67
[2022-02-09] MEDS ORDERED: PANTOPRAZOLE 40 MG TABLET PO SCH (21:00)
[2022-02-09] MEDS ORDERED: ATORVASTATIN 40 MG TAB PO SCH (21:00)
[2022-02-09] MEDS ORDERED: CLOPIDOGREL 75 MG TAB PO SCH (21:00)
[2022-02-10] MEDS: LEVOTHYROXINE 88 MCG TAB PO SCH (05:31)
[2022-02-10] MEDS: SODIUM CHLORIDE 0.9% 1,000 ML IV SCH (05:31)
--- NOTE | 2022-02-10 07:13 | ECHOF ---
Referral Reason:LV function MEASUREMENTS -------- HEIGHT: 157.5 cm WEIGHT: 81.2 kg BP: RVIDd: 3.3 cm (< 3.3) IVSd: 1.2 cm (0.6 - 1.1) LVIDd: 3.1 cm (3.9 - 5.3) LVPWd: 1.0 cm (0.6 - 1.1) IVSs: 1.9 cm LVIDs: 1.8 cm LVPWs: 1.6 cm Ao Diam: 3.3 cm (2.0 - 3.7) AV Cusp: 1.5 cm (1.5 - 2.6) LA Diam: 3.1 cm (2.7 - 3.8) MV EXCURSION: 10.090 mm (> 18.000) MV EF SLOPE: 68 mm/s (70 - 150) EPSS: 0.5 cm MV E Khoa: 0.63 m/s MV DecT: 216 ms MV A Khoa: 0.75 m/s MV E/A Ratio: 0.84 RAP: 5.00 mmHg RVSP: 22.98 mmHg FINDINGS -------- This was a technically difficult study with suboptimal views. The left ventricular size is normal. There is mild concentric left ventricular hypertrophy. Overa ll left ventricular systolic function is normal with, an EF between 55 - 60 %. The right ventricle is mildly enlarged. The left atrial size is normal. The right atrial size is normal. The aortic valve is trileaflet and appears structurally normal. The mitral valve is normal. There is trace mitral regurgitation. The tricuspid valve appears structurally normal. Trace tricuspid regurgitation present. Right issa tricular systolic pressure is normal at < 35 mmHg. The pulmonic valve was not well visualized. The aortic root size is normal. Normal inferior vena cava with normal inspiratory collapse consistent with estimated right atrial pre ssure of 5 mmHg. There is no pericardial effusion. CONCLUSIONS -------- 1. The left ventricular size is normal. 2. There is mild concentric left ventricular hypertrophy. 3. Overall left ventricular systolic function is normal with, an EF between 55 - 60 %. 4. The right ventricle is mildly enlarged. 5. There is trace mitral regurgitation. 6. Trace tricuspid regurgitation present. 7. There is no pericardial effusion. PLASTIC FIXTURE BUILDER: Jen Doe RDCS
[2022-02-10 07:33] LABS: Glucose,Whole Blood 92 mg/dL (75-99)
[2022-02-10] MEDS: INSULIN ASPART (NovoLOG) 100 UNIT/ML VIAL SQ SCH ×2 (07:57→12:10)
[2022-02-10] MEDS: HEPARIN SODIUM,PORCINE/PF 5,000 UNIT/0.5 ML SYRINGE SQ SCH (09:03)
[2022-02-10 09:08] LABS: HCT 35.3 % (37.2-46.3); HGB 11.6 g/dL (12.0-15.0); MCHC 32.9 g/dL (32.0-37.0); MCV 91.2 fL (80.0-97.0); Mean Platelet Volume 10.4 fL (9.5-12.2); NRBC Per 100 WBC 0 /100 WBCS (0.0-0.0); Platelet Count 181 X 10*3/uL (140-440); RBC 3.87 X 10*6/uL (4.10-5.20); RDW 13.4 % (11.5-14.5); WBC 6.75 X 10*3/uL (4.50-10.00)
[2022-02-10 09:13] VITALS: RESP 16; TEMP 97.7
[2022-02-10 09:26] LABS: ALT 9 U/L (8-44); AST 10 U/L (13-35); African American GFR (CKD) 66.1 (60.0-200.0); Albumin 3.4 g/dL (3.8-4.9); Albumin/Globulin Ratio 1.79 (1.60-3.17); Alkaline Phosphatase 74 U/L (41-126); Blood Urea Nitrogen 19.8 mg/dL (9.0-27.0); Calcium 8.8 mg/dL (8.7-10.3); Carbon Dioxide 23.2 mmol/L (20.0-27.5); Chloride 110 mmol/L (96-109); Globulin 1.9 g/dL (1.6-3.3); Glucose 92 mg/dL (70-110); Potassium 3.7 mmol/L (3.5-5.5); Sodium 142 mmol/L (135-145); Total Bilirubin <0.15 mg/dL (0.30-1.20); Total Protein 5.3 g/dL (6.2-8.2)
--- NOTE | 2022-02-10 10:13 | P.DS ---
Providers Date of admission: 02/08/22 21:12 Expected date of discharge: 02/10/22 Attending physician: Eddie Sena MD Consults: 02/08/22 23:36 Consult Physician Urgent Consulting Provider: Rey Valle Consult Reason/Comments: Hypotension, CHF Do you want consulting provider notified?: Yes Primary care physician: Carlos Manuel [facility] Hospital Course: Discharge Diagnosis: Symptomatic hypotension, likely secondary to combined diuretic use. Diuretics discontinued and blood pressure medication changes were made. -Patient started back on blood pressure medication regimen with carvedilol and isosorbide mononitrate. She was also started on losartan 25 mg daily which was decreased from previous dose of 100 mg daily. Lasix and Maxide discontinued at this time. NATA, likely secondary to overdiuresis, resolved after IV fluid hydration Chronic diastolic CHF with EF 55-60%. CVA Hypertension Hyperlipidemia Hypothyroidism CAD COPD Hospital Course: The patient is a 71-year-old female with a PMH of diastolic CHF, CVA with residual left hemiparesis, hyperlipidemia, CAD status post stents, hypertension, hypothyroidism, and COPD who presents to the emergency room for dizziness and hypotension. The patient reports that following her discharge from the hospital roughly one week ago, that she gradually began feeling worse. She reports initiating her new diuretic triamterene-HCTZ in combination along with her Lasix. She reports feeling lightheaded, nauseous, and fatigued over the past 3- 4 days, for which she was seen at her PCPs office earlier today where her blood pressure was noted to be low, and the patient was subsequently sent to the emergency room. In the emergency room, upon presentation the patient's BP was 93/51, pulse 60, respiratory rate 16, and SpO2 of 96% on room air. At time of interview, the patient reported feeling somewhat better since her presentation. She reports mild continued fatigue but denied any additional complaints. She denied experiencing chest discomfort, shortness of breath, abdominal pain, diarrhea, fever, chills, cough, focal weakness, numbness, or tingling. Laboratory evaluation also revealed a creatinine of 2.09, up from 1.20. EKG reveals sinus bradycardia at 56 bpm with no acute ST/T-wave changes noted as reviewed by me aside from flattened T waves in precordial leads V3 to V6. The patient was given 1 L IV fluids normal saline bolus in the emergency room and was admitted under our services with consult to cardiology for continued medical management. Diuretics and blood pressure medications initially held. Echocardiogram was completed revealing a normal EF between 55 and 60% with no significant valvular abnormalities. Acute kidney injury fully resolved and patient back to baseline creatinine levels. Electrolytes unremarkable. Patient started back on blood pressure medication regimen with carvedilol and isosorbide mononitrate. She was also started on losartan 25 mg daily which was decreased from previous dose of 100 mg daily. Lasix and Maxide discontinued at this time. Patient's vital signs reviewed and stabilized. Patient reports full resolution of lightheadedness, nausea, and fatigue. Patient reports feeling great and denies having any chest pain, palpitations, or shortness of breath. Patient is medically stable for discharge home at this time and recommended to follow up outpatient with PCP in 1-2 days and cardiology in 1 week. Physical examination: Vital signs reviewed and stable. General: Nontoxic, no distress and appears stated age. Derm: Skin warm and dry, normal coloration for ethnicity. Head: Atraumatic, normocephalic and symmetric. Eyes: EOMs intact, no lid lag, and anicteric sclera Mouth: no lip lesions, mucus membranes moist Cardiovascular: regular rate and rhythm with normal S1S2, systolic murmur, positive posterior tibial pulses bilaterally, and cap refill < 2 seconds. Lungs: Respirations even, regular, and unlabored on room air. Lungs CTA bilaterally, no rhonchi, no rales, no wheezing, and no accessory muscle usage. Abdominal: soft, nontender to palpation, no guarding, no appreciable organomegaly Ext: ROM intact. No gross muscle atrophy, no edema, no contractures Neuro: Speech clear, face symmetrical and CN II-XII grossly intact with no noted focal neuro deficits Psych: Alert and oriented to person, place, time, and situation. Appropriate and pleasant affect. A total of 35 minutes of time were spent preparing this complex discharge summary. Patient Condition at Discharge: Stable Plan - Discharge Summary New Discharge Prescriptions: New Losartan [Cozaar] 25 mg PO DAILY 30 Days #30 tab Continue Carvedilol [Coreg] 6.25 mg PO BID Isosorbide Mononitrate ER [Imdur] 60 mg PO DAILY Clopidogrel [Plavix] 75 mg PO HS Atorvastatin Calcium [Lipitor] 40 mg PO HS Levothyroxine Sodium [Synthroid] 88 mcg PO DAILY Nitroglycerin Sl Tabs [Nitrostat] 0.4 mg SUBLINGUAL Q5M PRN PRN Reason: Chest Pain Gabapentin [Neurontin] 200 mg PO TID PRN PRN Reason: restless legs Ascorbic Acid [Vitamin C] 500 mg PO DAILY Pantoprazole Sodium [Protonix] 20 mg PO HS Discontinued Furosemide [Lasix] 80 mg PO DAILY Losartan Potassium 100 mg PO DAILY Triamterene-Hctz 37.5-25Mg [Maxzide 37.5-25] 1 tab PO DAILY Discharge Medication List Atorvastatin Calcium [Lipitor] 40 mg PO HS 05/24/21 [History] Carvedilol [Coreg] 6.25 mg PO BID 05/24/21 [History] Isosorbide Mononitrate ER [Imdur] 60 mg PO DAILY 05/24/21 [History] Gabapentin [Neurontin] 200 mg PO TID PRN 08/12/21 [History] Levothyroxine Sodium [Synthroid] 88 mcg PO DAILY 08/12/21 [History] Nitroglycerin Sl Tabs [Nitrostat] 0.4 mg SUBLINGUAL Q5M PRN 08/12/21 [History] Ascorbic Acid [Vitamin C] 500 mg PO DAILY 02/02/22 [History] Clopidogrel [Plavix] 75 mg PO HS 02/02/22 [History] Pantoprazole Sodium [Protonix] 20 mg PO HS 02/02/22 [History] Losartan [Cozaar] 25 mg PO DAILY 30 Days #30 tab 02/10/22 [Rx] Follow up Appointment(s)/Referral(s): Reji Drummond MD [STAFF PHYSICIAN] - 1 Week Carlos Manuel Saenz [Primary Care Provider] - 1-2 days Activity/Diet/Wound Care/Special Instructions: Activity: As tolerated. Take breaks as needed. Diet: Heart healthy and carb consistent diet. Avoid salts, or foods with hidden salts such as canned or boxed foods and frozen dinners. Extra salt makes your heart work harder and traps the fluid in your body for longer. Special Instructions: Take all of your medications as directed and remember to keep all of your doctor's appointments and follow-up as needed. Thank you for allowing us to participate in your care, it was truly a pleasure having you for our patient!!! Discharge Disposition: HOME SELF-CARE
[2022-02-10] MEDS ORDERED: LOSARTAN 25 MG TAB PO SCH (10:30)
[2022-02-10] MEDS ORDERED: carvediloL 6.25 MG TAB PO SCH (10:30)
[2022-02-10] MEDS ORDERED: ISOSORBIDE MONONITRATE ER 60 MG TAB.ER.24H PO SCH (10:30)
--- NOTE | 2022-02-10 11:31 | PN ---
PROGRESS NOTE FOLLOW-UP NOTE: Jennifer is a 71-year-old lady who is admitted to hospital with dizziness and hypotension secondary to over-diuresis and aggressive treatment of her hypertension. We held her diuretics and blood pressure medications. This morning she is doing well. Blood pressure has improved. She is on IV fluids, which I am going to stop, Hep-Lock her IV and observe her. She is already back on her Lipitor, Plavix, Synthroid. Will continue to hold the Maxzide on discharge. Please hold the Imdur. We can resume the Coreg at 3.25 b.i.d. and the losartan can be resumed as an outpatient, probably at a lower dose of 25 mg, and gradually escalate the dose as needed. On exam, comfortable at rest. Vital signs are stable. Chest exam reveals good air entry bilaterally. Heart exam reveals first and second heart sounds. No gallop. No murmur. No rub. Abdomen is soft, nontender. Examination of extremities did not reveal any edema. Peripheral pulses are felt. Echocardiogram shows normal LV systolic function. ASSESSMENT AND PLAN: Dizziness and hypotension secondary to over-diuresis and aggressive treatment of the blood pressures. Will hold her medications at this time and resume them as tolerated in the outpatient setup. MMODL / IJN: [id number] /
[2022-02-10 12:01] LABS: Glucose,Whole Blood 88 mg/dL (75-99)
[2022-02-10 12:56] VITALS: BP 122/72
== END 2022-02-10 13:34 | disposition home or self-care (01) ==
LOC: EC 16:48 → 6NMEDSUR 21:12
PROVIDERS: ADMIT Internal Medicine; ATTEND Internal Medicine
DX: I95.9 Hypotension, unspecified (principal); N17.9 Acute kidney failure, unspecified; I11.0 Hypertensive heart disease with heart failure; I50.32 Chronic diastolic (congestive) heart failure; E78.5 Hyperlipidemia, unspecified; E03.9 Hypothyroidism, unspecified; I25.10 Atherosclerotic heart disease of native coronary artery without angina pectoris; E86.0 Dehydration; I69.354 Hemiplegia and hemiparesis following cerebral infarction affecting left non-dominant side; J44.9 Chronic obstructive pulmonary disease, unspecified; R00.1 Bradycardia, unspecified; K21.9 Gastro-esophageal reflux disease without esophagitis; I25.2 Old myocardial infarction; G25.81 Restless legs syndrome; F41.9 Anxiety disorder, unspecified; F32.A Depression, unspecified; F44.9 Dissociative and conversion disorder, unspecified; E66.9 Obesity, unspecified; Z68.32 Body mass index [BMI] 32.0-32.9, adult; Z95.5 Presence of coronary angioplasty implant and graft; Z86.711 Personal history of pulmonary embolism; Z85.41 Personal history of malignant neoplasm of cervix uteri; Z79.899 Other long term (current) drug therapy; Z79.01 Long term (current) use of anticoagulants; Z79.890 Hormone replacement therapy; Z88.2 Allergy status to sulfonamides; Z91.018 Allergy to other foods; Z82.49 Family history of ischemic heart disease and other diseases of the circulatory system; Z80.9 Family history of malignant neoplasm, unspecified
CPT/HCPCS: 96361 ×4; 96372 ×3; 96360; 99285; 36415; 93005; 93306; 80053; 80048 ×2; 83735; 84484; 85025; 85027 ×2; 85610; 85730; G0378 ×3; J1644 ×2

== ENCOUNTER 2022-02-14 23:19 | Emergency (ER) | payer MEDICARE, OTHER ==
[2022-02-15 00:10] VITALS: BP 170/85; PULSE 70; RESP 18; TEMP 98.7
--- NOTE | 2022-02-15 00:18 | ED ---
General Adult HPI - General Chief complaint: Recheck/Abnormal Lab/Rx Stated complaint: High BP Time Seen by Provider: 02/15/22 00:14 Source: patient, RN notes reviewed Mode of arrival: ambulatory - History of Present Illness Initial comments: 71-year-old female presents to the emergency department for evaluation of hypertension. Patient states she checks her blood pressure periodically throughout the day and found it to be elevated earlier with a reading of 200/114. Patient states she does take her blood pressure medication twice daily and has not missed a dose. Upon arrival, patient denies any symptoms including fever, chills, headache, dizziness, chest discomfort, shortness of breath, difficulty breathing, abdominal pain, nausea, vomiting, diarrhea, or dysuria. - Related Data Home Medications Medication Instructions Recorded Confirmed Atorvastatin Calcium [Lipitor] 40 mg PO HS 05/24/21 02/08/22 Carvedilol [Coreg] 6.25 mg PO BID 05/24/21 02/08/22 Isosorbide Mononitrate ER [Imdur] 60 mg PO DAILY 05/24/21 02/08/22 Gabapentin [Neurontin] 200 mg PO TID PRN 08/12/21 02/08/22 Levothyroxine Sodium [Synthroid] 88 mcg PO DAILY 08/12/21 02/08/22 Nitroglycerin Sl Tabs [Nitrostat] 0.4 mg SUBLINGUAL Q5M PRN 08/12/21 02/08/22 Ascorbic Acid [Vitamin C] 500 mg PO DAILY 02/02/22 02/08/22 Clopidogrel [Plavix] 75 mg PO HS 02/02/22 02/08/22 Pantoprazole Sodium [Protonix] 20 mg PO HS 02/02/22 02/08/22 Previous Rx's Medication Instructions Recorded Losartan [Cozaar] 25 mg PO DAILY 30 Days #30 tab 02/10/22 Allergies Allergy/AdvReac Type Severity Reaction Status Date / Time Japanese walnut Allergy Anaphylaxis Verified 02/15/22 00:11 walnut Allergy Anaphylaxis Verified 02/15/22 00:11 Sulfa (Sulfonamide AdvReac mouth sores Verified 02/15/22 00:11 Antibiotics) Review of Systems ROS Statement: Those systems with pertinent positive or pertinent negative responses have been documented in the HPI. ROS Other: All systems not noted in ROS Statement are negative. Past Medical History Past Medical History: Cancer, Heart Failure, COPD, CVA/TIA, GERD/Reflux, Hypertension, Myocardial Infarction ([place]), Pulmonary Embolus ([place]), Thyroid Disorder Additional Past Medical History / Comment(s): hx. cervical cancer, SOB w/activity, restless leg, TIA x 3 2012, tia 2014, personality disorder. CVA and PE 2018. Last Myocardial Infarction Date:: February 26 2015 History of Any Multi-Drug Resistant Organisms: None Reported Past Surgical History: Section, Heart Catheterization, Tonsillectomy Additional Past Surgical History / Comment(s): cyst removed from ovary Past Anesthesia/Blood Transfusion Reactions: Postoperative Nausea & Vomiting (PONV) Past Psychological History: Anxiety, Depression Smoking Status: Never smoker Past Alcohol Use History: Occasional Past Drug Use History: None Reported - Past Family History Mother Family Medical History: Cancer, Congestive Heart Failure (CHF) Additional Family Medical History / Comment(s): aneurysm General Exam Limitations: no limitations (Well-developed, well-nourished female in no acute distress. Initial temperature 98.7, pulse 70, respirations 18, blood pressure 170/85, pulse ox 98% on room air.) General appearance: alert, in no apparent distress Eye exam: Present: normal appearance, PERRL, EOMI. Absent: scleral icterus, conjunctival injection, periorbital swelling Neck exam: Present: normal inspection. Absent: tenderness, meningismus, lymphadenopathy Respiratory exam: Present: normal lung sounds bilaterally. Absent: respiratory distress, wheezes, rales, rhonchi, stridor Cardiovascular Exam: Present: regular rate, normal rhythm, normal heart sounds. Absent: systolic murmur, diastolic murmur, rubs, gallop, clicks GI/Abdominal exam: Present: soft, normal bowel sounds. Absent: distended, tenderness, guarding, rebound, rigid Neurological exam: Present: alert, oriented X3, CN II-XII intact Psychiatric exam: Present: normal affect, normal mood Skin exam: Present: warm, dry, intact, normal color. Absent: rash Course Vital Signs 02/15/22 00:06 Temperature 98.7 F Pulse Rate 70 Respiratory 18 Rate Blood Pressure 170/85 O2 Sat by Pulse 98 Oximetry Medical Decision Making - Medical Decision Making 71-year-old female with a past medical history of CVA and hypertension presents to the emergency department for evaluation of elevated blood pressure reading per her home monitor. Upon exam, patient is well-appearing and in no acute distress. Initial blood pressure is 170/85. Patient states that this blood pressure is excellent for her. Her physical exam findings are unremarkable. She does not have a headache, blurry vision, weakness, chest pain, difficulty breathing, or any other concerning findings. Discussed further workup versus discharge home with careful monitoring and strict return precautions. Patient elects discharge home. Encouraged to continue monitoring and logging blood pressure readings at home. Instructed to keep appointment with cardiology as scheduled for this week. Return parameters were discussed in detail. Patient verbalizes understanding and agrees with this plan. Attending: Yousif. Disposition Clinical Impression: Hypertension Disposition: HOME SELF-CARE Condition: Stable Instructions (If sedation given, give patient instructions): Chronic Hypertension (ED) Additional Instructions: Continue taking your home medications as prescribed. Consider moving your evening dose up 2 to 3 hours. 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 Check your blood pressure 2-3 times daily and log those readings. Return to the emergency department with any new, worsening, or concerning symptoms. Is patient prescribed a controlled substance at d/c from ED?: No Referrals: Carlos Manuel Saenz [Primary Care Provider] - 1-2 days Time of Disposition: 00:18
== END 2022-02-15 00:48 | disposition home or self-care (01) ==
LOC: EC 23:19
DX: I10 Essential (primary) hypertension (principal); J44.9 Chronic obstructive pulmonary disease, unspecified; K21.9 Gastro-esophageal reflux disease without esophagitis; Z79.1 Long term (current) use of non-steroidal anti-inflammatories (NSAID); Z86.73 Personal history of transient ischemic attack (TIA), and cerebral infarction without residual deficits; Z91.018 Allergy to other foods; Z88.2 Allergy status to sulfonamides
CPT/HCPCS: 99283

== ENCOUNTER → 2022-06-08 | Outpatient (CLI) | payer MEDICARE, OTHER ==
--- NOTE | 2022-06-08 13:44 | P.BASOAP ---
Subjective Progress Note Date: 06/08/22 He has bilateral foot boots. He lost 20 pounds in 1 year. This is his lowest weight. Hgb 4.8. Diabetes type II. Satisfied with results. Lost 100 pounds. Assessment/Plan Plan: Date: Initial Weight: Initial BMI: Current Weight: Current BMI: Type of Surgery: Total Volume in Band: Previous Volume: Volume Removed: Volume Added: Band Size:
[2022-06-08 14:53] VITALS: BP 130/82; PULSE 70; TEMP 98.3; BMI 34.7
--- NOTE | 2022-06-08 15:21 | P.HPBAR ---
Bariatric H&P - History & Physicial H&P Date: 06/08/22 History & Physicial: Visit/CC: new patient Patient initial contact: Initial weight: Initial weight in pounds: Height: 5 ft 1.25 in Initial BMI: Last weight: Current weight: 83.915 kg Current weight in pounds: 185.00 Current BMI: 34.7 [place] body weight (based on NIH guidelines): 48.194 kg Excess body weight loss: The patient is a 72 year-old F who presents for Bariatric Assessment. She lost 50 pounds. She wants panniculectomy. She reports panniculitis. No troubles with grooming. She wants to lose another 20 pounds. Highest weight 235 pounds. No prior treatment. She has not seen a cardiographer. ERx Nystatin, get labs. Six months for treatment. Past Medical History Past Medical History: Cancer, Heart Failure, COPD, CVA/TIA, GERD/Reflux, Hypertension, Myocardial Infarction ([place]), Pulmonary Embolus ([place]), Thyroid Disorder Additional Past Medical History / Comment(s): hx. cervical cancer, SOB w/activity, restless leg, TIA x 3 2012, tia 2014, personality disorder. CVA and PE 2017. Last Myocardial Infarction Date:: February 26 2015 History of Any Multi-Drug Resistant Organisms: None Reported Past Surgical History: Section, Heart Catheterization, Tonsillectomy Additional Past Surgical History / Comment(s): cyst removed from ovary Past Anesthesia/Blood Transfusion Reactions: Postoperative Nausea & Vomiting (PONV) Past Psychological History: Anxiety, Depression Additional Psychological History / Comment(s): dissociative personality disorder Smoking Status: Never smoker Past Alcohol Use History: Occasional Past Drug Use History: None Reported - Past Family History Mother Family Medical History: Cancer, Congestive Heart Failure (CHF) Additional Family Medical History / Comment(s): aneurysm Surgical - Exam Vital Signs Temp Pulse BP 98.3 F 70 130/82 06/08/22 14:43 06/08/22 14:43 06/08/22 14:43 Bariatric Checklist Checklist: Plan: Checklist: EGD: 1. Hiatal hernia: 2. H. Pylori: HgbA1c: Vitamin D: Smoking: Never smoker Primary care physician referral: Dr. Gallegos Psychiatry clearance: Cardiology clearance: Sleep study: Diet journal: VTE risk score: VTE risk level: Rehab needs at discharge:
== END | disposition home or self-care (01) ==
LOC: BARWHC3 13:59
PROVIDERS: ATTEND Surgery Plastic and Reconstructive Surgery
DX: Z48.814 Encounter for surgical aftercare following surgery on the teeth or oral cavity (principal)
CPT/HCPCS: 99211

== ENCOUNTER → 2022-06-24 | Outpatient (CLI) | payer MEDICARE, OTHER ==
--- NOTE | 2022-06-24 13:21 | US ---
EXAMINATION TYPE: US thyroid st tissue head/neck DATE OF EXAM: 06/24/2022 COMPARISON: Prior neck ultrasound June 24, 2021 CLINICAL HISTORY: D48.1 NEOPLASM SOFT TISSUE. Bulge in left lat neck/ shoulder area, recently diagnos ed with cancer No obvious abnormalities seen on today's exam. Right contralateral area scanned no obvious abnormalit ies seen. IMPRESSION: Bilateral neck scanned, no evidence of concerning mass or lymphadenopathy. No significa nt change from prior. Patient noted to have same day CT neck exam with contrast scheduled. This is mo re sensitive than ultrasound to evaluate.
--- NOTE | 2022-06-24 14:53 | CT ---
EXAMINATION TYPE: CT soft tissue neck w con CT DLP: 643.50 mGycm, Automated exposure control for dose reduction was used. DATE OF EXAM: 06/24/2022 2:42 PM COMPARISON: None. CLINICAL INDICATION:Female, 72 years old with history of D48.1 NEOPLASM SOFT TISSUE; , lump on both s ides of neck. TECHNIQUE: Standard enhanced CT of the neck. Axial sections with coronal and sagittal reformats were obtained. Palpable markers placed at the discretion of the patient. Contrast used:70 mL of Isovue 300 with IV Contrast, Oral contrast used: None FINDINGS: Brain: Visualized portions are grossly unremarkable. Orbits: Unremarkable Sinuses: Grossly unremarkable. Spaces of the neck: Clear and symmetric. Musculoskeletal: No acute osseous pathology. Degenerative disc disease changes of the visualized spin e are present. Lymph nodes: Multiple nonenlarged lymph nodes are seen along both anterior chains of the neck. Vascular structures: Patent with atherosclerotic plaque of the internal carotid arteries at the bifur cation. Thoracic Inlet/airway: Airway is patent. The lung apices are clear. Soft tissues/Thyroid: Soft tissue markers correlate with normal subcutaneous soft tissues including l ipomatous tissues. No organizing fluid collection, mass or enlarged lymph nodes in these areas of pal pable abnormality. Thyroid and remainder of the soft tissues are unremarkable. Other: none. IMPRESSION Palpable abnormality correlates with normal appearing underlying subcutaneous tissues including lipom atous tissue without definitive lipoma as vessels cross through these palpable areas. No organizing f luid collection, no mass or adenopathy.
== END | disposition home or self-care (01) ==
LOC: RADUSWWP 12:22
PROVIDERS: ATTEND Surgery Plastic and Reconstructive Surgery
DX: D48.1 Neoplasm of uncertain behavior of connective and other soft tissue (principal)
CPT/HCPCS: 82565; 84520; 76536; 70491; 36415; Q9967

== ENCOUNTER 2023-03-16 07:38 | Day surgery (SDC) | payer MEDICARE, OTHER ==
[2023-03-10 16:22] VITALS: BMI 31.1
--- NOTE | 2023-03-16 07:08 | P.GSHP ---
History of Present Illness H&P Date: 03/16/23 CHIEF COMPLAINT: GERD HISTORY OF PRESENT ILLNESS: The patient is a 72-year-old female who presents reports gastroesophageal reflux disease. Upper endoscopy was offered for further evaluation and management. PAST MEDICAL HISTORY: Please see list. PAST SURGICAL HISTORY: Please see list. MEDICATIONS: Please see list. ALLERGIES: Please see list. SOCIAL HISTORY: No illicit drug use FAMILY HISTORY: No reports of Crohn disease or ulcerative colitis. REVIEW OF ORGAN SYSTEMS: CONSTITUTIONAL: No reports of fevers or chills. GI: Denies any blood in stools or constipation. PHYSICAL EXAM: VITAL SIGNS: Stable GENERAL: Well-developed and pleasant in no acute distress. HEENT: No scleral icterus. Extraocular movements grossly intact. Moist buccal mucosa. NECK: Supple without lymphadenopathy. CHEST: Unlabored respirations. Equal bilateral excursions. CARDIOVASCULAR: Regular rate and rhythm. Distal 2+ pulses. ABDOMEN: Soft, nondistended. MUSCULOSKELETAL: No clubbing, cyanosis, or edema. ASSESSMENT: 1. Gastroesophageal reflux disease PLAN: 1. Recommend proceeding with an upper endoscopy Past Medical History Past Medical History: Cancer, Heart Failure, COPD, CVA/TIA, GERD/Reflux, Hypertension, Myocardial Infarction ([place]), Pulmonary Embolus ([place]), Thyroid Disorder Additional Past Medical History / Comment(s): hx. cervical cancer, SOB w/activity, restless leg, TIA x 3 2012, tia 2014, personality disorder, CVA and PE 2018 Last Myocardial Infarction Date:: 2017 History of Any Multi-Drug Resistant Organisms: None Reported Past Surgical History: Section, Heart Catheterization, Tonsillectomy Additional Past Surgical History / Comment(s): cyst removed from ovary, left hip replacement 2020, bilateral catarct removal, cancer removed from chest in june 2022 Past Anesthesia/Blood Transfusion Reactions: Postoperative Nausea & Vomiting (PONV) Past Psychological History: Anxiety, Depression Additional Psychological History / Comment(s): dissociative personality disorder Smoking Status: Never smoker Past Alcohol Use History: None Reported Past Drug Use History: None Reported - Past Family History Mother Family Medical History: Cancer, Congestive Heart Failure (CHF) Additional Family Medical History / Comment(s): aneurysm Medications and Allergies Home Medications Medication Instructions Recorded Confirmed Type Atorvastatin Calcium [Lipitor] 40 mg PO HS 05/24/21 03/10/23 History Isosorbide Mononitrate ER [Imdur] 60 mg PO DAILY 05/24/21 03/10/23 History carvediloL [Coreg] 6.25 mg PO BID 05/24/21 03/10/23 History Gabapentin [Neurontin] 300 mg PO TID PRN 08/12/21 03/10/23 History Levothyroxine Sodium [Synthroid] 88 mcg PO DAILY 08/12/21 03/10/23 History Nitroglycerin Sl Tabs [Nitrostat] 0.4 mg SUBLINGUAL Q5M PRN 08/12/21 03/10/23 History Ascorbic Acid [Vitamin C] 500 mg PO DAILY 02/02/22 03/10/23 History Clopidogrel [Plavix] 75 mg PO HS 02/02/22 03/10/23 History Pantoprazole Sodium [Protonix] 20 mg PO HS 02/02/22 03/10/23 History Cholecalciferol (Vitamin D3) 75 mcg PO HS 01/10/23 03/10/23 History [Vitamin D3 (3000 Iu)] Triamterene/Hydrochlorothiazid 1 cap PO DAILY 01/10/23 03/10/23 History [Triamterene-Hctz 37.5-25 mg Cp] Losartan [Cozaar] 50 mg PO HS 30 Days #60 tab 01/12/23 03/10/23 Rx Allergies Allergy/AdvReac Type Severity Reaction Status Date / Time walnut Allergy Anaphylaxis Verified 03/10/23 16:16 walnut Allergy Anaphylaxis Verified 03/10/23 16:16 Sulfa (Sulfonamide AdvReac mouth sores Verified 03/10/23 16:16 Antibiotics)
[2023-03-16] MEDS ORDERED: LACTATED RINGERS 1,000 ML IV ONE (08:04)
[2023-03-16] MEDS ORDERED: LACTATED RINGERS 1,000 ML IV SCH (08:05)
[2023-03-16 08:20] VITALS: TEMP 97.8
[2023-03-16] MEDS ORDERED: PROPOFOL 10 MG/ML 20 ML VIAL IV ONE (09:39)
[2023-03-16] MEDS ORDERED: LIDOCAINE 2% INJ 20 MG/ML (2 ML VIAL) ONE (09:39)
[2023-03-16 10:31] VITALS: BP 118/73; PULSE 63; RESP 16
--- NOTE | 2023-03-16 10:35 | P.PCN ---
Date of Procedure: 03/16/23 Description of Procedure: PREOPERATIVE DIAGNOSIS: Gastroesophageal reflux disease Dysphagia POSTOPERATIVE DIAGNOSIS: Upper esophageal stenosis Diaphragmatic hiatal hernia Gastritis OPERATION: Esophagogastroduodenoscopy with rigid dilator over the guidewire 51 Fr with dilation Esophagogastroduodenoscopy with cold forceps biopsies stomach/antrum and duodenum SURGEON: Emilie Riggs MD ANESTHESIA: MAC. INDICATIONS: The patient is a 72-year-old female who presents with gastroesophageal reflux d isease with abdominal pain. Benefits and risks of the procedure were described. Informed consent was obtained. DESCRIPTION: The patient was brought into the endoscopy suite and laid in the left lateral decubitus position. After a timeout was confirmed, the procedure was initiated. An Olympus gastroscope was passed into the posterior oropharynx where an upper esophageal stenosis was identified. The scope was passed down to the distal esophagus. To address the upper esophageal stenosis, rigid dilator over guidewire was selected. Next using an Luxembourger rigid dilator, a guidewire was placed through the gastroscope. Next the scope was withdrawn. A 51-[place] rigid Luxembourger dilator was passed carefully along the posterior oropharynx to 45 cm and left in place for 2-3 minutes stretch. The dilator was withdrawn including the guidewire. The scope was reentered along the posterior oropharynx with no findings of full- thickness tear of the upper esophageal sphincter. Additional findings below. Within the stomach, acute gastritis were identified along the body of the stomach with cold forceps biopsies obtained. The large esophageal valve was evaluated with Hill grade 2 lower esophageal valve. LA grade A erosive esophagitis was identified. No full-thickness injury was encountered. The GI tract was desufflated. The patient tolerated the procedure well. FINDINGS: Upper esophageal stenosis dilated 51-[place] rigid dilator Diaphragmatic hiatus at 35 cm from the incisors Squamocolumnar junction 38 cm from the incisors. Gastritis along the gastric body and fundus cold forceps biopsies obtained Duodenum with mild duodenitis LA grade A erosive esophagitis Hill grade 2 lower esophageal valve. RECOMMENDATIONS: Omeprazole 40 mg daily Plan - Discharge Summary Discharge Rx Participant: No New Discharge Prescriptions: Continue carvediloL [Coreg] 6.25 mg PO BID Isosorbide Mononitrate ER [Imdur] 60 mg PO DAILY Clopidogrel [Plavix] 75 mg PO HS Triamterene/Hydrochlorothiazid [Triamterene-Hctz 37.5-25 mg Cp] 1 cap PO DAILY Cholecalciferol (Vitamin D3) [Vitamin D3 (3000 Iu)] 75 mcg PO HS Atorvastatin Calcium [Lipitor] 40 mg PO HS Levothyroxine Sodium [Synthroid] 88 mcg PO DAILY Nitroglycerin Sl Tabs [Nitrostat] 0.4 mg SUBLINGUAL Q5M PRN PRN Reason: Chest Pain Gabapentin [Neurontin] 300 mg PO TID PRN PRN Reason: restless legs Ascorbic Acid [Vitamin C] 500 mg PO DAILY Pantoprazole Sodium [Protonix] 20 mg PO HS Losartan [Cozaar] 50 mg PO HS 30 Days #60 tab Discharge Medication List Atorvastatin Calcium [Lipitor] 40 mg PO HS 05/24/21 [History] Isosorbide Mononitrate ER [Imdur] 60 mg PO DAILY 05/24/21 [History] carvediloL [Coreg] 6.25 mg PO BID 05/24/21 [History] Gabapentin [Neurontin] 300 mg PO TID PRN 08/12/21 [History] Levothyroxine Sodium [Synthroid] 88 mcg PO DAILY 08/12/21 [History] Nitroglycerin Sl Tabs [Nitrostat] 0.4 mg SUBLINGUAL Q5M PRN 08/12/21 [History] Ascorbic Acid [Vitamin C] 500 mg PO DAILY 02/02/22 [History] Clopidogrel [Plavix] 75 mg PO HS 02/02/22 [History] Pantoprazole Sodium [Protonix] 20 mg PO HS 02/02/22 [History] Cholecalciferol (Vitamin D3) [Vitamin D3 (3000 Iu)] 75 mcg PO HS 01/10/23 [History] Triamterene/Hydrochlorothiazid [Triamterene-Hctz 37.5-25 mg Cp] 1 cap PO DAILY 01/10/23 [History] Losartan [Cozaar] 50 mg PO HS 30 Days #60 tab 01/12/23 [Rx] Follow up Appointment(s)/Referral(s): Emilie Riggs MD [STAFF PHYSICIAN] - 04/04/23 4:00 pm Patient Instructions/Handouts: *Surgery [facility] - (Anesthesia) Discharge Instructions Outpatient Surgery, Hiatal Hernia (DC), Esophageal Dilation (GEN) Discharge Disposition: HOME SELF-CARE
== END 2023-03-16 10:53 | disposition home or self-care (01) ==
LOC: ORWHC2ENDO 07:38
PROVIDERS: ATTEND Surgery Plastic and Reconstructive Surgery
DX: K29.50 Unspecified chronic gastritis without bleeding (principal); K22.2 Esophageal obstruction; K21.9 Gastro-esophageal reflux disease without esophagitis; K29.80 Duodenitis without bleeding; K44.9 Diaphragmatic hernia without obstruction or gangrene; I11.0 Hypertensive heart disease with heart failure; I50.9 Heart failure, unspecified; K91.0 Vomiting following gastrointestinal surgery; F41.8 Other specified anxiety disorders; J44.9 Chronic obstructive pulmonary disease, unspecified; I25.2 Old myocardial infarction; E07.9 Disorder of thyroid, unspecified; Z86.73 Personal history of transient ischemic attack (TIA), and cerebral infarction without residual deficits; Z90.89 Acquired absence of other organs; Z95.5 Presence of coronary angioplasty implant and graft; Z98.891 History of uterine scar from previous surgery; Z90.721 Acquired absence of ovaries, unilateral; Z85.43 Personal history of malignant neoplasm of ovary; Z82.49 Family history of ischemic heart disease and other diseases of the circulatory system; Z79.890 Hormone replacement therapy; Z79.899 Other long term (current) drug therapy; Z88.2 Allergy status to sulfonamides; Z91.018 Allergy to other foods
CPT/HCPCS: 88305; 43239; 43248; J2704; J2001; 43249

== ENCOUNTER → 2023-04-05 | Outpatient (CLI) | payer MEDICARE, OTHER ==
[2023-04-05 13:25] VITALS: BP 120/78; PULSE 80; TEMP 98.5; BMI 37.1
--- NOTE | 2023-04-05 14:53 | P.BASOAP ---
Subjective Progress Note Date: 04/05/23 SHe had medical supervised weight loss with her doctors where she was under calories. She reports panniculitis. She has tried OTC weight loss. No prior medication for weight. She has not tried weight watchers. Recommend hiatal hernia repair. She has cardiac clearance from Dec 2022 hospitalization. Recomme nd labs and correction of nutrition. Objective - Vital Signs Vital signs: Vital Signs Temp 98.5 F 04/05/23 13:20 Pulse 80 04/05/23 13:20 Resp BP 120/78 04/05/23 13:20 Pulse Ox FiO2 Intake & Output 04/04/23 04/05/23 04/05/23 18:59 06:59 18:59 Weight 89.267 kg Assessment/Plan Plan: Date: 04/05/23 Initial Weight: Initial BMI: Current Weight: 89.267 kg Current BMI: 37.1 Type of Surgery: Total Volume in Band: Previous Volume: Volume Removed: Volume Added: Band Size:
== END ==
LOC: BARWHC3 13:03
PROVIDERS: ATTEND Surgery Plastic and Reconstructive Surgery
DX: E66.01 Morbid (severe) obesity due to excess calories (principal); Z68.37 Body mass index [BMI] 37.0-37.9, adult; Z91.018 Allergy to other foods; Z88.2 Allergy status to sulfonamides
CPT/HCPCS: 99211

== ENCOUNTER → 2023-04-06 | Outpatient (CLI) | payer MEDICARE, OTHER ==
[2023-04-06 14:43] LABS: Partial Thromboplastin Time 22.4 sec (22.0-30.0); Prothrombin Time 10.4 sec (9.0-12.0)
[2023-04-06 20:52] LABS: HCT 41.7 % (37.2-46.3); HGB 13.3 g/dL (12.0-15.0); MCH 29.4 pg (27.0-32.0); MCHC 31.9 g/dL (32.0-37.0); MCV 92.3 fL (80.0-97.0); Mean Platelet Volume 10.3 fL (9.5-12.2); NRBC Per 100 WBC 0 /100 WBCS (0.0-0.0); Platelet Count 202 X 10*3/uL (140-440); RBC 4.52 X 10*6/uL (4.10-5.20); RDW 12.8 % (11.5-14.5); WBC 8.14 X 10*3/uL (4.50-10.00)
[2023-04-06 21:35] LABS: % Iron Saturation 32.94 (12.00-45.00); ALT 13 U/L (8-44); AST 15 U/L (13-35); African American GFR (CKD) 52.1 (60.0-200.0); Albumin 4.3 g/dL (3.8-4.9); Albumin/Globulin Ratio 1.76 (1.60-3.17); Alkaline Phosphatase 62 U/L (41-126); BUN/Creat Ratio 22.56 Ratio (12.00-20.00); Blood Urea Nitrogen 27.3 mg/dL (9.0-27.0); Calcium 9.9 mg/dL (8.7-10.3); Carbon Dioxide 26.5 mmol/L (20.0-27.5); Chloride 102 mmol/L (96-109); Ferritin 63.8 ng/mL (10.0-291.0); Globulin 2.4 g/dL (1.6-3.3); Glucose 112 mg/dL (70-110); Iron 107 ug/dL (50-170); Magnesium 2.1 mg/dL (1.5-2.4); Phosphorus 3.5 mg/dL (2.4-5.1); Potassium 4.5 mmol/L (3.5-5.5); Sodium 140 mmol/L (135-145); Total Iron Binding Capacity 325 ug/dL (228-460); Total Protein 6.7 g/dL (6.2-8.2)
[2023-04-06 21:56] LABS: Chol/HDL Ratio 3.02 Ratio; LDL Cholesterol,Calculated 83.4 mg/dL (0.0-131.0); Prealbumin 27.8 mg/dL (18.0-42.0)
[2023-04-06 22:54] LABS: Urine Alcohol Negative (Negative); Urine Barbiturate Negative (Negative); Urine Cocaine Negative (Negative); Urine Methadone Negative (Negative); Urine Opiates Negative (Negative); Urine Phencyclidine Negative (Negative)
[2023-04-07 12:46] LABS: Zinc, Serum 64 ug/dL (60-130)
== END | disposition home or self-care (01) ==
LOC: LABWHC1 13:30
PROVIDERS: ATTEND Surgery Plastic and Reconstructive Surgery
DX: Z71.51 Drug abuse counseling and surveillance of drug abuser (principal); E66.01 Morbid (severe) obesity due to excess calories; E89.1 Postprocedural hypoinsulinemia; D50.8 Other iron deficiency anemias; K91.2 Postsurgical malabsorption, not elsewhere classified; E44.0 Moderate protein-calorie malnutrition; E44.1 Mild protein-calorie malnutrition; E45 Retarded development following protein-calorie malnutrition; E46 Unspecified protein-calorie malnutrition; E55.9 Vitamin D deficiency, unspecified; K74.1 Hepatic sclerosis; N19 Unspecified kidney failure; T56.894A Toxic effect of other metals, undetermined, initial encounter; K50.90 Crohn's disease, unspecified, without complications
CPT/HCPCS: 84255; 84134; 84425; 80061; 80053; 82607; 82728; 82525; 82746; 83540; 83550; 83735; 84100; 84443; 84590; 84630; 85027; 85610; 85730; 82306; 80306; 83970; 83036; 36415; G0480; 80323

== ENCOUNTER → 2023-07-12 | Outpatient (CLI) | payer MEDICARE, OTHER ==
--- NOTE | 2023-07-12 20:24 | XR ---
EXAMINATION TYPE: XR chest 2V DATE OF EXAM: 07/12/2023 COMPARISON: 01/10/2023 INDICATION: Breath TECHNIQUE: Frontal and lateral views of the chest are obtained. FINDINGS: The heart size is normal. The pulmonary vasculature is normal. The lungs are clear. IMPRESSION: 1. No acute pulmonary process.
== END | disposition home or self-care (01) ==
LOC: RADXRMAIN 12:43
PROVIDERS: ATTEND Internal Medicine
DX: J45.20 Mild intermittent asthma, uncomplicated (principal)
CPT/HCPCS: 71046

== ENCOUNTER → 2023-08-02 | Outpatient (CLI) | payer MEDICARE, OTHER ==
[2023-08-02 15:34] LABS: Basophils % (A) 0 %; Eosinophils # (A) 0.1 k/uL (0-0.7); Eosinophils % (A) 2 %; HCT 40.3 % (34.0-46.0); HGB 13.4 gm/dL (11.4-16.0); Lymphocytes # (A) 2.9 k/uL (1.0-4.8); Lymphocytes % (A) 36 %; MCH 30.4 pg (25.0-35.0); MCHC 33.2 g/dL (31.0-37.0); MCV 91.6 fL (80.0-100.0); Mean Platelet Volume 7.2; Monocytes # (A) 0.3 k/uL (0-1.0); Monocytes % (A) 4 %; Neutrophils # (A) 4.6 k/uL (1.3-7.7); Neutrophils % (A) 56 %; Platelet Count 213 k/uL (150-450); WBC 8.2 k/uL (3.8-10.6)
[2023-08-02 15:43] LABS: ALT 13 U/L (4-34); AST 21 U/L (14-36); African American GFR (CKD) 62 (>60 ml/min/1.73 sqM); Albumin/Globulin Ratio 1.3; Alkaline Phosphatase 63 U/L (38-126); Anion Gap 5 mmol/L; Blood Urea Nitrogen 22 mg/dL (7-17); Calcium 9.5 mg/dL (8.4-10.2); Carbon Dioxide 28 mmol/L (22-30); Chloride 106 mmol/L (98-107); Creatine Kinase 76 U/L (30-135); Glucose 97 mg/dL (74-99); Non-African American GFR(CKD) 54 (>60 ml/min/1.73 sqM); Potassium 4.7 mmol/L (3.5-5.1); Sodium 139 mmol/L (137-145); Total Bilirubin 0.4 mg/dL (0.2-1.3)
== END | disposition home or self-care (01) ==
LOC: LABWHC1 14:35
PROVIDERS: ATTEND Nurse Practitioner Family
DX: R07.89 Other chest pain (principal); Z86.711 Personal history of pulmonary embolism
CPT/HCPCS: 36415; 80053; 82550; 84484; 85025; 85379

== ENCOUNTER 2023-10-30 03:59 | Observation (INO) | payer MEDICARE, OTHER ==
--- NOTE | 2023-10-30 04:16 | ED ---
Chest Pain HPI - General Chief Complaint: Chest Pain Stated Complaint: Chest pain Time Seen by Provider: 10/30/23 04:10 Source: patient, EMS Mode of arrival: EMS Limitations: no limitations - History of Present Illness Initial Comments: This patient is 73-year-old woman who presents to have evaluation for constellation of symptoms that started last night into this morning. The patient states that she was trying to go to sleep and noticed that her left arm was feeling "funny." She tried to sleep but was not able she then began having pressure feeling in the upper chest. She felt nauseated as well. MD Complaint: chest pain -: hour(s) Onset: during rest Pain Location: substernal Pain Radiation: LUE Severity: mild Quality: tightness Consistency: now resolved Improves With: nothing Worsens With: nothing Anginal Symptoms: nausea Treatments Prior to Arrival: aspirin, oxygen, other (Antiemetic) - Related Data Home Medications Medication Instructions Recorded Confirmed Isosorbide Mononitrate ER [Imdur] 60 mg PO DAILY 05/24/21 10/30/23 carvediloL [Coreg] 6.25 mg PO BID 05/24/21 10/30/23 Gabapentin [Neurontin] 300 mg PO TID 08/12/21 10/30/23 Levothyroxine Sodium [Synthroid] 88 mcg PO DAILY 08/12/21 10/30/23 Nitroglycerin Sl Tabs [Nitrostat] 0.4 mg SUBLINGUAL Q5M PRN 08/12/21 10/30/23 Ascorbic Acid [Vitamin C] 500 mg PO DAILY 02/02/22 10/30/23 Clopidogrel [Plavix] 75 mg PO HS 02/02/22 10/30/23 Pantoprazole Sodium [Protonix] 20 mg PO HS 02/02/22 10/30/23 Triamterene/Hydrochlorothiazid 1 cap PO DAILY 01/10/23 10/30/23 [Triamterene-Hctz 37.5-25 mg Cp] Citalopram Hydrobromide [CeleXA] 10 mg PO DAILY 10/30/23 10/30/23 Losartan Potassium 50 mg PO HS 10/30/23 10/30/23 Rosuvastatin Calcium [Crestor] 40 mg PO HS 10/30/23 10/30/23 Allergies Allergy/AdvReac Type Severity Reaction Status Date / Time [place] walnut Allergy Anaphylaxis Verified 10/30/23 06:47 walnut Allergy Anaphylaxis Verified 10/30/23 06:47 Sulfa (Sulfonamide AdvReac mouth sores Verified 10/30/23 06:47 Antibiotics) Review of Systems ROS Statement: Those systems with pertinent positive or pertinent negative responses have been documented in the HPI. ROS Other: All systems not noted in ROS Statement are negative. Constitutional: Denies: fever, chills Respiratory: Denies: cough, dyspnea, wheezes Cardiovascular: Reports: chest pain. Denies: palpitations, orthopnea, edema, syncope Gastrointestinal: Reports: nausea. Denies: abdominal pain, vomiting Genitourinary: Denies: dysuria, hematuria Musculoskeletal: Denies: back pain Skin: Denies: rash Neurological: Denies: headache, weakness, numbness EKG Findings - EKG Results: EKG: interpreted by HERMAN, sinus rhythm, normal axis, normal QRS EKG shows: bradycardia (Rate 54 bpm) - Blocks, [place], Hypertrophy, ST Abn: Repolarization changes or abnormalities: nonspecific abnormality, ST segment, and/or T wave Past Medical History Past Medical History: Cancer, Heart Failure, COPD, CVA/TIA, GERD/Reflux, Hypertension, Myocardial Infarction ([place]), Pulmonary Embolus (PE), Thyroid Disorder Additional Past Medical History / Comment(s): hx. cervical cancer, SOB w/activity, restless leg, TIA x 3 2012, tia 2014, personality disorder. CVA and PE 2017. Last Myocardial Infarction Date:: 2017 History of Any Multi-Drug Resistant Organisms: None Reported Past Surgical History: Section, Heart Catheterization, Tonsillectomy Additional Past Surgical History / Comment(s): cyst removed from ovary, left hip replacement 2020, bilateral catarct removal, cancer removed from chest in june 2022 Past Anesthesia/Blood Transfusion Reactions: Postoperative Nausea & Vomiting (PONV) Past Psychological History: Anxiety, Depression Smoking Status: Never smoker Past Alcohol Use History: Rare Past Drug Use History: None Reported - Past Family History Mother Family Medical History: Cancer, Congestive Heart Failure (CHF) Additional Family Medical History / Comment(s): aneurysm General Exam Limitations: no limitations General appearance: alert, in no apparent distress Head exam: Present: atraumatic, normocephalic Eye exam: Present: normal appearance. Absent: scleral icterus, conjunctival injection ENT exam: Present: normal oropharynx Neck exam: Present: normal inspection Respiratory exam: Present: normal lung sounds bilaterally. Absent: respiratory distress, wheezes, rales, rhonchi, stridor Cardiovascular Exam: Present: regular rate, normal rhythm, normal heart sounds. Absent: systolic murmur, diastolic murmur, rubs, gallop GI/Abdominal exam: Present: soft. Absent: distended, tenderness, guarding, rebound, rigid, mass Extremities exam: Present: normal inspection, normal capillary refill. Absent: pedal edema, calf tenderness Back exam: Present: normal inspection. Absent: CVA tenderness (R), CVA tenderness (L) Neurological exam: Present: alert Skin exam: Present: warm, dry, intact, normal color. Absent: rash Course Vital Signs 10/30/23 10/30/23 10/30/23 04:00 06:03 07:56 Temperature 98.1 F 97.8 F Pulse Rate 64 61 52 L Respiratory 18 18 17 Rate Blood Pressure 99/70 111/92 107/69 O2 Sat by Pulse 94 L 94 L 95 Oximetry Disposition Clinical Impression: Chest pain Disposition: ADMITTED IP TO THIS HOSP Condition: Fair Is patient prescribed a controlled substance at d/c from ED?: No
[2023-10-30 04:20] LABS: Basophils % (A) 0 %; Eosinophils # (A) 0.1 k/uL (0-0.7); Eosinophils % (A) 1 %; HCT 38.5 % (34.0-46.0); HGB 13.4 gm/dL (11.4-16.0); Lymphocytes # (A) 3.2 k/uL (1.0-4.8); Lymphocytes % (A) 31 %; MCH 30.9 pg (25.0-35.0); MCHC 34.9 g/dL (31.0-37.0); MCV 88.5 fL (80.0-100.0); Mean Platelet Volume 7.6; Monocytes # (A) 0.6 k/uL (0-1.0); Monocytes % (A) 6 %; Neutrophils # (A) 6.3 k/uL (1.3-7.7); Neutrophils % (A) 61 %; Platelet Count 215 k/uL (150-450); RBC 4.35 m/uL (3.80-5.40); RDW 12.5 % (11.5-15.5); WBC 10.3 k/uL (3.8-10.6)
[2023-10-30 04:40] LABS: INR 0.9 (<1.2); Prothrombin Time 10.4 sec (10.0-12.5)
[2023-10-30 04:46] LABS: ALT 15 U/L (4-34); AST 21 U/L (14-36); African American GFR (CKD) 60 (>60 ml/min/1.73 sqM); Alkaline Phosphatase 67 U/L (38-126); Anion Gap 9 mmol/L; Blood Urea Nitrogen 40 mg/dL (7-17); Calcium 9.6 mg/dL (8.4-10.2); Carbon Dioxide 30 mmol/L (22-30); Chloride 99 mmol/L (98-107); Glucose 95 mg/dL (74-99); Magnesium 2.2 mg/dL (1.6-2.3); Non-African American GFR(CKD) 52 (>60 ml/min/1.73 sqM); Potassium 3.2 mmol/L (3.5-5.1); Sodium 138 mmol/L (137-145); Total Bilirubin 0.4 mg/dL (0.2-1.3); Total Protein 6.9 g/dL (6.3-8.2)
[2023-10-30 05:19] LABS: Partial Thromboplastin Time 21.6 sec (22.0-30.0)
[2023-10-30] MEDS ORDERED: NITROGLYCERIN SL TABS 0.4 MG TAB SUBLINGUAL PRN ×2 (06:58→10:58)
[2023-10-30] MEDS ORDERED: diazePAM 5 MG TAB PO STA (08:05)
--- NOTE | 2023-10-30 08:22 | XR ---
EXAM: XR Chest, 2 Views CLINICAL HISTORY: Chest pain TECHNIQUE: Frontal and lateral views of the chest. COMPARISON: No relevant prior studies available. FINDINGS: Lungs: Scarring or atelectasis seen in the right lung base. No evidence of airspace consolidation. No pulmonary edema. Pleural space: Unremarkable. No pneumothorax. Heart: Unremarkable. No cardiomegaly. Mediastinum: Unremarkable. Normal mediastinal contour. Bones/joints: Unremarkable. No acute fracture. IMPRESSION: There is no evidence of acute cardiopulmonary abnormality.
[2023-10-30] MEDS ORDERED: POTASSIUM CHLORIDE ER 20 MEQ TAB.ER PO STA (08:27)
[2023-10-30] MEDS ORDERED: carvediloL 6.25 MG TAB PO SCH (09:00)
--- NOTE | 2023-10-30 09:43 | CT ---
CT CHEST FOR PULMONARY EMBOLISM. EXAMINATION TYPE: CT angio chest DATE OF EXAM: 10/30/2023 INDICATION: Elevated d-dimer, chest pain, hx IA, PE, stroke. CT DLP: 382 mGycm, Automated exposure control for dose reduction was used. CONTRAST: Patient injected with 80 mL of Isovue 370. COMPARISON: 02/02/2022 TECHNIQUE: CT of the chest is performed on a spiral scan at 2 mm thick sections. Study is performed with intravenous contrast timed for evaluation for pulmonary embolism. This will limit additional po rtions of the evaluation. 3-D MIP images reconstructed by the technologist are reviewed on the compu ter in the coronal and sagittal planes. FINDINGS: No persistent filling defects are evident to suggest an acute pulmonary embolism. No mediastinal or hilar adenopathy enlarged by CT criteria is evident. The ascending aorta diameter at the level of the main pulmonary artery is 3.7 cm. The main pulmonary artery diameter at the bifur cation is 3.4 cm. Lung windows are clear. Limited CT section through the upper abdomen are unremarkable. IMPRESSION: 1. No acute pulmonary embolism. 2. No acute pulmonary process.
--- NOTE | 2023-10-30 11:02 | P.CRDCN ---
History of Present Illness Consult date: 10/30/23 Consult reason: chest pain History of present illness: History of present illness: This is a 73 year old female patient of Dr. Siddiqui with past medical history of uncontrolled hypertension, dyslipidemia, prediabetes, carotid atherosclerosis, history of CVA in 2018 on Plavix, history of pulmonary embolism. We have been asked to evaluate the patient for chest pain. Patient states that she has been feeling poorly for the past week starting with increased lightheadedness and dizziness. She states she saw her PCP last week for the same and also happen again last night. It starts with tingling and needles and pins in her left arm. She also has experienced chest pain but this is gone right now. Patient complains of nausea. She states at home her blood pressure was 182/102. She states she has chronic shortness of breath and can only walk one block. She states she had a hospitalization in February and her blood pressure was fluctuating at that time. Patient states that she has been taking all of her medications as directed and has not taken any extra medications. Patient is seen today in the emergency center waiting for a bed on the observation unit. Blood pressure readings have been on the soft side. Heart rate is in the 50s. She states she has very rare alcohol intake, no marijuana use, no smoking history. EKG sinus rhythm, low voltage Chest x-ray: No acute finding CTA of the chest: No acute pulmonary embolism. No acute pulmonary process. CBC within normal limits. INR 0.9. D-dimer 0.74. Potassium 3.2 and was replaced otherwise electrolytes are normal. BUN 40 creatinine 1.07. Liver function tests are normal. Troponin negative 2. Home cardiac medications: Coreg 6.25 mg twice daily, Plavix 75 mg daily, Imdur extended milligrams daily, losartan 50 mg daily, Nitrostat as needed, Crestor 40 mg at bedtime. Also on levothyroxine 88 g daily. Review Of Systems: At the time of my exam: CONSTITUTIONAL: Denies fever or chills. CARDIOVASCULAR: Denies chest pain, Denies shortness of breath, no orthopnea, PND or palpitations. RESPIRATORY: Denies cough. GASTROINTESTINAL: Denies abdominal pain, diarrhea, constipation, + nausea, no vomiting. MUSCULOSKELETAL: Denies myalgias. NEUROLOGIC: Denies numbness, tingling or weakness. ENDOCRINE: Denies fatigue, weight change, polydipsia or polyurina. GENITOURINARY: Denies burning, hematuria or urgency with micturation. HEMATOLOGIC: Denies history of anemia or bleeding. Physical examination: Gen: This is a 73-year-old female. She is resting in the ER and appears to be comfortable. VS: reviewed HEENT: Head is atraumatic, normocephalic. Pupils equal, round. Sclerae is anicteric. NECK: Supple. No JVD. LUNGS: Clear to auscultation. No wheezes or rhonchi. No intercostal retractions. HEART: Regular rate and rhythm. No murmur. ABDOMEN: Soft No tenderness. EXTREMITIES: No pedal edema. No calf tenderness. NEUROLOGICAL: Patient is awake, alert and oriented x3. Assessment: Chest pain acute coronary syndrome ruled out Hypertension, accelerated hypertension Dyslipidemia History of CVA History of multiple TIAs History of hypertension Hypothyroidism Plan: Resume patient's home cardiac medications of atorvastatin, Plavix Hold Coreg, Imdur, losartan due to hypotension Monitor blood pressure closely. Obtain third troponin Obtain TSH and free T4 Obtain 2-D echocardiogram and Doppler study to assess cardiac structure and function Further recommendations to follow based upon clinical course Thank you kindly for this consultation. Nurse practitioner note has been reviewed, I agree with documented findings and plan of care. Patient was seen and examined. Past Medical History Past Medical History: Cancer, Heart Failure, COPD, CVA/TIA, GERD/Reflux, Hypertension, Myocardial Infarction ([place]), Pulmonary Embolus (PE), Thyroid Disorder Additional Past Medical History / Comment(s): hx. cervical cancer, SOB w/activity, restless leg, TIA x 3 2012, tia 2014, personality disorder. CVA and PE 2018. Last Myocardial Infarction Date:: 2018 History of Any Multi-Drug Resistant Organisms: None Reported Past Surgical History: Section, Heart Catheterization, Tonsillectomy Additional Past Surgical History / Comment(s): cyst removed from ovary, left hip replacement 2020, bilateral catarct removal, cancer removed from chest in june 2022 Past Anesthesia/Blood Transfusion Reactions: Postoperative Nausea & Vomiting (PONV) Past Psychological History: Anxiety, Depression Smoking Status: Never smoker Past Alcohol Use History: Rare Past Drug Use History: None Reported - Past Family History Mother Family Medical History: Cancer, Congestive Heart Failure (CHF) Additional Family Medical History / Comment(s): aneurysm Medications and Allergies Home Medications Medication Instructions Recorded Confirmed Type Isosorbide Mononitrate ER [Imdur] 60 mg PO DAILY 05/24/21 10/30/23 History carvediloL [Coreg] 6.25 mg PO BID 05/24/21 10/30/23 History Gabapentin [Neurontin] 300 mg PO TID 08/12/21 10/30/23 History Levothyroxine Sodium [Synthroid] 88 mcg PO DAILY 08/12/21 10/30/23 History Nitroglycerin Sl Tabs [Nitrostat] 0.4 mg SUBLINGUAL Q5M PRN 08/12/21 10/30/23 History Ascorbic Acid [Vitamin C] 500 mg PO DAILY 02/02/22 10/30/23 History Clopidogrel [Plavix] 75 mg PO HS 02/02/22 10/30/23 History Pantoprazole Sodium [Protonix] 20 mg PO HS 02/02/22 10/30/23 History Triamterene/Hydrochlorothiazid 1 cap PO DAILY 01/10/23 10/30/23 History [Triamterene-Hctz 37.5-25 mg Cp] Citalopram Hydrobromide [CeleXA] 10 mg PO DAILY 10/30/23 10/30/23 History Losartan Potassium 50 mg PO HS 10/30/23 10/30/23 History Rosuvastatin Calcium [Crestor] 40 mg PO HS 10/30/23 10/30/23 History Allergies Allergy/AdvReac Type Severity Reaction Status Date / Time [place] walnut Allergy Anaphylaxis Verified 10/30/23 06:47 walnut Allergy Anaphylaxis Verified 10/30/23 06:47 Sulfa (Sulfonamide AdvReac mouth sores Verified 10/30/23 06:47 Antibiotics) Physical Exam Vitals: Vital Signs Temp Pulse Resp BP Pulse Ox 10/30/23 07:56 97.8 F 52 L 17 107/69 95 10/30/23 06:03 61 18 111/92 94 L 10/30/23 04:00 98.1 F 64 18 99/70 94 L Intake and Output 10/29/23 10/30/23 10/30/23 22:59 06:59 14:59 Other: Weight 77.111 kg Results 10/30/23 04:14 10/30/23 04:14 Cardiac Enzymes 10/30/23 10/30/23 Range/Units 04:14 04:14 AST 21 (14-36) U/L Troponin I <0.012 (0.000-0.034) ng/mL Coagulation 10/30/23 Range/Units 04:14 PT 10.4 (10.0-12.5) sec APTT 21.6 L (22.0-30.0) sec CBC 10/30/23 Range/Units 04:14 WBC 10.3 (3.8-10.6) k/uL RBC 4.35 (3.80-5.40) m/uL Hgb 13.4 (11.4-16.0) gm/dL Hct 38.5 (34.0-46.0) % Plt Count 215 (150-450) k/uL Comprehensive Metabolic Panel 10/30/23 Range/Units 04:14 Sodium 138 (137-145) mmol/L Potassium 3.2 L (3.5-5.1) mmol/L Chloride 99 (98-107) mmol/L Carbon Dioxide 30 (22-30) mmol/L BUN 40 H (7-17) mg/dL Creatinine 1.07 H (0.52-1.04) mg/dL Glucose 95 (74-99) mg/dL Calcium 9.6 (8.4-10.2) mg/dL AST 21 (14-36) U/L ALT 15 (4-34) U/L Alkaline Phosphatase 67 (38-126) U/L Total Protein 6.9 (6.3-8.2) g/dL Albumin 4.0 (3.5-5.0) g/dL Current Medications Generic Name Dose Route Start Last Admin Trade Name Freq PRN Reason Stop Dose Admin Aspirin 325 mg 10/31/23 09:00 Aspirin 325 Mg Tab PO DAILY FRANCY Carvedilol 6.25 mg 10/30/23 09:00 Carvedilol 6.25 Mg Tab PO BID FRANCY Clopidogrel Bisulfate 75 mg 10/30/23 21:00 Clopidogrel 75 Mg Tab PO HS FRANCY Nitroglycerin 0.4 mg 10/30/23 06:58 Nitroglycerin Sl Tabs 0.4 Mg Tab SUBLINGUAL Q5M PRN Chest Pain Non-Formulary Medication 40 mg 10/30/23 21:00 Rosuvastatin Calcium [Crestor] PO HS [facility] Intake and Output 10/29/23 10/30/23 10/30/23 22:59 06:59 14:59 Other: Weight 77.111 kg 10/30/23 04:14 10/30/23 04:14
[2023-10-30] MEDS: GABAPENTIN 300 MG CAP PO SCH ×3 (11:23→21:16)
[2023-10-30] MEDS: CITALOPRAM HYDROBROMIDE 10 MG TAB PO SCH (11:23)
--- NOTE | 2023-10-30 15:01 | P.HPIM ---
History of Present Illness H&P Date: 10/30/23 HISTORY OF PRESENT ILLNESS This is a 73-year-old female with past medical history of mild intermittent asthma, ALLERGIC rhinitis, CVA, coronary arteriosclerosis, hyperlipidemia, pulmonary embolism. Patient states that she has been feeling poorly for the past week starting with increased lightheadedness and dizziness. She states she saw her PCP last week for the same and also happen again last night. It starts with tingling and needles and pins in her left arm. She also has experienced chest pain but this is gone right now. Patient complains of nausea. She states at home her blood pressure was 182/102. She states she has chronic shortness of breath and can only walk one block. She states she had a hospitalization in February and her blood pressure was fluctuating at that time. Patient states that she has been taking all of her medications as directed and has not taken any extra medications. Patient is seen today in the emergency center waiting for a bed on the observation unit. Blood pressure readings have been on the soft side. Heart rate is in the 50s. EKG sinus rhythm, low voltage. Chest x-ray: No acute finding. CTA of the chest: No acute pulmonary embolism. No acute pul monary process. CBC within normal limits. INR 0.9. D-dimer 0.74. Potassium 3.2 and was replaced otherwise electrolytes are normal. BUN 40 creatinine 1.07. Liver function tests are normal. Troponin negative 2. She has been seen by cardiology and advised to hold antihypertensives as patient's blood pressures are now soft. REVIEW OF SYSTEMS Constitutional: No fever, no chills, no night sweats. No weight change. No weakness, fatigue or lethargy. No daytime sleepiness. EENT: No headache. No blurred vision or double vision, no loss of vision. No loss of Hearing, no ringing in the ears, + dizziness. No nasal drainage or congestion. No epistaxis. No sore throat. Lungs: No shortness of breath, cough, no sputum production. No wheezing. Cardiovascular: + chest pain, no lower extremity edema. No palpitations. No paroxysmal nocturnal dyspnea. No orthopnea. + lightheadedness or dizziness. No syncopal episodes. Abdominal: No abdominal pain. + nausea, no vomiting. No diarrhea. No constipation. No bloody or tarry stools. No loss of appetite. Genitourinary: No dysuria, increased frequency, urgency. No urinary retention. Musculoskeletal: No myalgias. No muscle weakness, no gait dysfunction, no frequent falls. No back pain. No neck pain. Integumentary: No wounds, no lesions. No rash or pruritus. No unusual bruising. No change in hair or nails. Neurologic: No aphasia. No facial droop. No change in mentation. No head injury. No headache. No paralysis. No paresthesia. Psychiatric: No depression. No anxiety. No mood swings. Endocrine: No abnormal blood sugars. No weight change. No excessive sweating or thirst. No cold intolerance. MEDICAL HISTORY Mild intermittent asthma ALLERGIC rhinitis CVA Coronary arteriosclerosis Hyperlipidemia Pulmonary embolism SURGICAL HISTORY Bilateral cataract removal and intraocular lens implant in 2020 Left hip replacement 2020 tonsillectomy Tubal ligation D&C Left heart catheterization 2014 Squamous cell cancer right chest resection SOCIAL HISTORY Patient has no smoking history, no marijuana use. She drinks alcohol rarely. FAMILY HISTORY father at age 88 from urinary tract infection and sepsis. Mother at age 77 status post 3 brain aneurysm, tobacco use. Patient has 4 brothers with no major medical problems. 2 sisters and one has hypothyroidism. Patient has one daughter with brain aneurysm. PHYSICAL EXAMINATION Gen: This is a 3-year-old female. She is resting on ER stretcher and appears to be comfortable and in no acute distress. HEENT: Head is atraumatic, normocephalic. Pupils equal, round. Sclerae is anicteric. NECK: Supple. No JVD. No lymphadenopathy. No thyromegaly. LUNGS: Clear to auscultation. No wheezes or rhonchi. No intercostal retractions. HEART: Regular rate and rhythm. 2/6 systolic murmur at the left sternal border. ABDOMEN: Soft. Bowel sounds are present. No masses. No tenderness. EXTREMITIES: No pedal edema. No calf tenderness. dorsalis pedis +2 bilaterally. NEUROLOGICAL: Patient is awake, alert and oriented x3. Cranial nerves 2 through 12 are grossly intact. ASSESSMENT AND PLAN 1. Chest pain. Acute coronary syndrome has been ruled out. Cardiology consult is appreciated. 2-D echocardiogram is pending. 2. Hypertension with labile blood pressure readings. Coreg,Imdur, Losartan are on hold. Continue to monitor blood pressure closely. 3. Mild intermittent asthmastable without exacerbation. Suspect better 4. History of CVA. No new symptoms. Continue patient on statin, Plavix.. 5. Coronary arteriosclerosis. Continue patient on atorvastatin 40 mg at bedtime, Plavix 75 mg daily. 6. Hyperlipidemia. Continue statin. 7. History of pulmonary embolism. CTA of the chest negative. 8. GI prophylaxis and GERD. Continue Protonix 40 mg at bedtime. 9. DVT prophylaxis. Lovenox 400 mg subcu daily. Patient will be admitted to the hospital for a minimum of 2 night stay. DISCHARGE PLAN return home. Impression and plan of care have been directed as dictated by the signing physician. Fernanda Montgomery nurse practitioner acting as scribe for signing physician. Past Medical History Past Medical History: Cancer, Heart Failure, COPD, CVA/TIA, GERD/Reflux, Hypertension, Myocardial Infarction ([place]), Pulmonary Embolus (PE), Thyroid Disorder Additional Past Medical History / Comment(s): hx. cervical cancer, SOB w/activity, restless leg, TIA x 3 2012, tia 2014, personality disorder. CVA and PE 2018. Last Myocardial Infarction Date:: 2017 History of Any Multi-Drug Resistant Organisms: None Reported Past Surgical History: Section, Heart Catheterization, Tonsillectomy Additional Past Surgical History / Comment(s): cyst removed from ovary, left hip replacement 2020, bilateral catarct removal, cancer removed from chest in june 2022 Past Anesthesia/Blood Transfusion Reactions: Postoperative Nausea & Vomiting (PONV) Past Psychological History: Anxiety, Depression Smoking Status: Never smoker Past Alcohol Use History: Rare Past Drug Use History: None Reported - Past Family History Mother Family Medical History: Cancer, Congestive Heart Failure (CHF) Additional Family Medical History / Comment(s): aneurysm Medications and Allergies Home Medications Medication Instructions Recorded Confirmed Type Isosorbide Mononitrate ER [Imdur] 60 mg PO DAILY 05/24/21 10/30/23 History carvediloL [Coreg] 6.25 mg PO BID 05/24/21 10/30/23 History Gabapentin [Neurontin] 300 mg PO TID 08/12/21 10/30/23 History Levothyroxine Sodium [Synthroid] 88 mcg PO DAILY 08/12/21 10/30/23 History Nitroglycerin Sl Tabs [Nitrostat] 0.4 mg SUBLINGUAL Q5M PRN 08/12/21 10/30/23 History Ascorbic Acid [Vitamin C] 500 mg PO DAILY 02/02/22 10/30/23 History Clopidogrel [Plavix] 75 mg PO HS 02/02/22 10/30/23 History Pantoprazole Sodium [Protonix] 20 mg PO HS 02/02/22 10/30/23 History Triamterene/Hydrochlorothiazid 1 cap PO DAILY 01/10/23 10/30/23 History [Triamterene-Hctz 37.5-25 mg Cp] Citalopram Hydrobromide [CeleXA] 10 mg PO DAILY 10/30/23 10/30/23 History Losartan Potassium 50 mg PO HS 10/30/23 10/30/23 History Rosuvastatin Calcium [Crestor] 40 mg PO HS 10/30/23 10/30/23 History Allergies Allergy/AdvReac Type Severity Reaction Status Date / Time [place] Allergy Anaphylaxis Verified 10/30/23 06:47 [place]nut Allergy Anaphylaxis Verified 10/30/23 06:47 Sulfa (Sulfonamide AdvReac mouth sores Verified 10/30/23 06:47 Antibiotics) Physical Exam Vitals: Vital Signs Temp Pulse Resp BP Pulse Ox 10/30/23 07:56 97.8 F 52 L 17 107/69 95 10/30/23 06:03 61 18 111/92 94 L 10/30/23 04:00 98.1 F 64 18 99/70 94 L Intake and Output 10/29/23 10/30/23 10/30/23 22:59 06:59 14:59 Other: Weight 77.111 kg Results CBC & Chem 7: 10/30/23 04:14 10/30/23 04:14 Labs: Abnormal Lab Results - Last 24 Hours (Table) 10/30/23 10/30/23 10/30/23 Range/Units 04:14 04:14 04:32 APTT 21.6 L (22.0-30.0) sec D-Dimer 0.74 H (<0.60) mg/L FEU Potassium 3.2 L (3.5-5.1) mmol/L BUN 40 H (7-17) mg/dL Creatinine 1.07 H (0.52-1.04) mg/dL
[2023-10-30] MEDS: ATORVASTATIN 40 MG TAB PO SCH (20:12)
[2023-10-30] MEDS: PANTOPRAZOLE 40 MG TABLET PO SCH (20:12)
[2023-10-30] MEDS: CLOPIDOGREL 75 MG TAB PO SCH (20:12)
[2023-10-30] MEDS ORDERED: ATORVASTATIN 80 MG TAB PO SCH (21:00)
[2023-10-31] MEDS: LEVOTHYROXINE 88 MCG TAB PO SCH (05:42)
[2023-10-31] MEDS: ENOXAPARIN 40 MG/0.4 ML SYRINGE SQ SCH (08:23)
[2023-10-31] MEDS: ASPIRIN 81 MG PO SCH (08:23)
[2023-10-31] MEDS: GABAPENTIN 300 MG CAP PO SCH ×3 (08:23→20:06)
[2023-10-31] MEDS ORDERED: LOSARTAN 25 MG TAB PO SCH (09:00)
[2023-10-31] MEDS ORDERED: ASPIRIN 325 MG TAB PO SCH (09:00)
[2023-10-31] MEDS: CITALOPRAM HYDROBROMIDE 10 MG TAB PO SCH (09:10)
--- NOTE | 2023-10-31 10:29 | P.PN ---
Subjective Progress Note Date: 10/31/23 History of present illness: This is a 73 year old female patient of Dr. Siddiqui with past medical history of uncontrolled hypertension, dyslipidemia, prediabetes, carotid atherosclerosis, history of CVA in 2018 on Plavix, history of pulmonary embolism. We have been asked to evaluate the patient for chest pain. Patient states that she has been feeling poorly for the past week starting with increased lightheadedness and dizziness. She states she saw her PCP last week for the same and also happen again last night. It starts with tingling and needles and pins in her left arm. She also has experienced chest pain but this is gone right now. Patient complains of nausea. She states at home her blood pressure was 182/102. She states she has chronic shortness of breath and can only walk one block. She states she had a hospitalization in February and her blood pressure was fluctuating at that time. Patient states that she has been taking all of her medications as directed and has not taken any extra medications. Patient is seen today in the emergency center waiting for a bed on the observation unit. Blood pressure readings have been on the soft side. Heart rate is in the 50s. She states she has very rare alcohol intake, no marijuana use, no smoking history. EKG sinus rhythm, low voltage Chest x-ray: No acute finding CTA of the chest: No acute pulmonary embolism. No acute pulmonary process. CBC within normal limits. INR 0.9. D-dimer 0.74. Potassium 3.2 and was replaced otherwise electrolytes are normal. BUN 40 creatinine 1.07. Liver function tests are normal. Troponin negative 2. Home cardiac medications: Coreg 6.25 mg twice daily, Plavix 75 mg daily, Imdur extended milligrams daily, losartan 50 mg daily, Nitrostat as needed, Crestor 40 mg at bedtime. Also on levothyroxine 88 g daily. 10/31 Patient is seen today in follow-up. Heart rate is in the 50s, blood pressure is improving but still on the lower side. Patient states she is feeling very tired but denies any other symptoms. Echocardiogram is pending. Physical examination: Gen: This is a 73-year-old female. She is resting in the ER and appears to be comfortable. VS: reviewed HEENT: Head is atraumatic, normocephalic. Pupils equal, round. Sclerae is anicteric. NECK: Supple. No JVD. LUNGS: Clear to auscultation. No wheezes or rhonchi. No intercostal retractions. HEART: Regular rate and rhythm. No murmur. ABDOMEN: Soft No tenderness. EXTREMITIES: No pedal edema. No calf tenderness. NEUROLOGICAL: Patient is awake, alert and oriented x3. Assessment: Chest pain acute coronary syndrome ruled out Hypertension, presented with hypotension T[place]gling left arm Dyslipidemia History of CVA History of multiple TIAs History of hypertension Hypothyroidism Plan: Resume patient's home cardiac medications of atorvastatin, Plavix Hold Coreg, Imdur, Resume losartan and a lower dose 25 mg daily to start this morning Obtain orthostatic vital signs after patient receives losartan Obtain echocardiogram report Plan for 7 day event monitor from [facility]. This requires preau thorization from her insurance and [facility] will contact her when this is available. Recommend consult with neurology Further recommendations to follow based upon clinical course Nurse practitioner note has been reviewed, I agree with documented findings and plan of care. Patient was seen and examined. Objective - Vital Signs Vital signs: Vital Signs Temp 97.8 F 10/31/23 05:28 Pulse 54 L 10/31/23 05:30 Resp 19 10/31/23 05:28 BP 125/77 10/31/23 05:28 Pulse Ox 98 10/31/23 05:28 FiO2 Intake & Output 10/30/23 10/31/23 10/31/23 18:59 06:59 18:59 Weight 77.111 kg Other: # Voids 1 - Labs CBC & Chem 7: 10/30/23 04:14 10/30/23 04:14
[2023-10-31 11:29] LABS: Chol/HDL Ratio 2.93 Ratio; LDL Cholesterol,Calculated 65.6 mg/dL (0.0-131.0)
--- NOTE | 2023-10-31 11:52 | CA ---
Transthoracic Echo Report Name: Jennifer Manjarrez Age: 73 Gender: F : 1950 Exam Date: 10/30/2023 15:32 Exam Location: [facility] Ht (in): 62 Wt (lb): 170 Ordering Physician: Fernanda Montgomery Attending/Referring Phys: [id number], [employer] Viral Blunt Procedure CPT: Indications: LVF Cardiac Hx: Technical Quality: Technically difficult study Contrast 1: Definity Total Dose (mL): 2 Contrast 2: Total Dose (mL): MEASUREMENTS (Male / Female) Normal Values 2D ECHO LV Diastolic Diameter PLAX 3.4 cm 4.2 - 5.9 / 3.9 - 5.3 cm LV Systolic Diameter PLAX 2.6 cm IVS Diastolic Thickness 1.3 cm 0.6 - 1.0 / 0.6 - 0.9 cm LVPW Diastolic Thickness 1.0 cm 0.6 - 1.0 / 0.6 - 0.9 cm LV Relative Wall Thickness 0.7 RV Internal Dim ED PLAX 2.7 cm LVOT Diameter 2.0 cm Aortic Root Diameter 3.0 cm LA Systolic Diameter LX 2.8 cm 3.0 - 4.0 / 2.7 - 3.8 cm LV Diastolic Volume MOD BP 46.6 cm??? 67 - 155 / 56 - 104 cm??? LV Systolic Volume MOD BP 18.5 cm??? 22 - 58 / 19 - 49 cm??? LV Ejection Fraction MOD BP 60.4 % >= 55 % LV Cardiac Index MOD BP 785.3 cm???/min???m??? LV Diastolic Volume MOD 4C 50.6 cm??? LV Systolic Volume MOD 4C 21.1 cm??? LV Ejection Fraction MOD 4C 58.2 % LV Cardiac Index MOD 4C 820.8 cm???/min???m??? LV Diastolic Length 4C 6.5 cm LV Systolic Length 4C 5.5 cm LV Diastolic Volume MOD 2C 40.7 cm??? LV Systolic Volume MOD 2C 15.5 cm??? LV Ejection Fraction MOD 2C 62.0 % LV Cardiac Index MOD 2C 704.6 cm???/min???m??? LV Diastolic Length 2C 6.1 cm LV Systolic Length 2C 5.3 cm LA Volume 37.6 cm??? 18 - 58 / 22 - 52 cm??? LA Volume Index 20.2 cm???/m??? 16 - 28 cm???/m??? DOPPLER AV Peak Velocity 141.3 cm/s AV Peak Gradient 8.0 mmHg LVOT Peak Velocity 111.0 cm/s LVOT Peak Gradient 4.9 mmHg LVOT Velocity Time Integral 31.4 cm LVOT Stroke Volume 102.9 cm??? LVOT Stroke Volume Index 57.7 ml/m??? LVOT Cardiac Index 2867.9 cm???/min???m??? AV Area Cont Eq pk 2.6 cm??? MV Peak Velocity 117.0 cm/s MV Peak Gradient 5.5 mmHg MV Mean Velocity 50.8 cm/s MV Mean Gradient 1.3 mmHg MV Velocity Time Integral 43.6 cm MR Peak Velocity 331.0 cm/s MR Peak Gradient 43.8 mmHg Mitral E Point Velocity 95.0 cm/s Mitral A Point Velocity 92.8 cm/s Mitral E to A Ratio 1.0 MV Deceleration Time 246.2 ms TR Peak Velocity 102.6 cm/s TR Peak Gradient 4.2 mmHg Right Ventricular Systolic Press 9.2 mmHg PV Peak Velocity 87.9 cm/s PV Peak Gradient 3.1 mmHg FINDINGS Left Ventricle Normal LV size and wall thickness. Left ventricular ejection fraction is estimated at 55-60 %. No obvious regional wall motion abnormality. No significant diastolic dysfunction dysfunction Right Ventricle Normal right ventricular size. Right Atrium Normal right atrial size. Left Atrium Normal left atrial size. LA volume index= 21ml/m2 Mitral Valve Mild mitral annulus calcification. Trace MR. Aortic Valve Aortic valve not well visualized. No aortic regurgitation. No aortic stenosis. Tricuspid Valve Structurally normal tricuspid valve. Trace TR. Pulmonic Valve Pulmonic valve not well visualized. No pulmonic regurgitation. Pericardium Normal pericardium. Aorta Normal size aortic root. CONCLUSIONS Normal LV size and wall thickness. Left ventricular ejection fraction is estimated at 55-60 %. No obvious regional wall motion abnormality. No significant diastolic dysfunction dysfunction Normal chamber size and no significant valvular dysfunction No pericardial effusion RVSP estimated less than 25 mmHg Previewed by: Dr Mika Wang (Electronically Signed) Final Date: 31 October 2023 11:51
[2023-10-31] MEDS: ACETAMINOPHEN TAB 325 MG TAB PO PRN ×2 (12:55→20:06)
--- NOTE | 2023-10-31 16:56 | P.PN ---
Subjective Progress Note Date: 10/31/23 HISTORY OF PRESENT ILLNESS This is a 73-year-old female with past medical history of mild intermittent ast hma, ALLERGIC rhinitis, CVA, coronary arteriosclerosis, hyperlipidemia, pulmonary embolism. Patient states that she has been feeling poorly for the past week starting with increased lightheadedness and dizziness. She states she saw her PCP last week for the same and also happen again last night. It starts with tingling and needles and pins in her left arm. She also has experienced chest pain but this is gone right now. Patient complains of nausea. She states at home her blood pressure was 182/102. She states she has chronic shortness of breath and can only walk one block. She states she had a hospitalization in February and her blood pressure was fluctuating at that time. Patient states that she has been taking all of her medications as directed and has not taken any extra medications. Patient is seen today in the emergency center waiting for a bed on the observation unit. Blood pressure readings have been on the soft side. Heart rate is in the 50s. EKG sinus rhythm, low voltage. Chest x-ray: No acute finding. CTA of the chest: No acute pulmonary embolism. No acute pulmonar y process. CBC within normal limits. INR 0.9. D-dimer 0.74. Potassium 3.2 and was replaced otherwise electrolytes are normal. BUN 40 creatinine 1.07. Liver function tests are normal. Troponin negative 2. She has been seen by cardiology and advised to hold antihypertensives as patient's blood pressures are now soft. 10/31: patient has been seen by cardiology and advised to hold Coreg and Imdur. Losartan was resumed at a lower dose of 25 mg daily. heart rate has been in the 50s, blood pressure 122/75, pulse ox 95% on room air. echocardiogram reveals EF 55-60%, RVSP 25 mmHg, no pericardial effusion. patient is feeling tired today but other symptoms have resolved. Consult was added for neurology. REVIEW OF SYSTEMS Constitutional: No fever, no chills, no night sweats. No weight change. No weakness, fatigue or lethargy. No daytime sleepiness. EENT: No headache. No blurred vision or double vision, no loss of vision. No loss of Hearing, no ringing in the ears, + dizziness. No nasal drainage or congestion. No epistaxis. No sore throat. Lungs: No shortness of breath, cough, no sputum production. No wheezing. Cardiovascular: + chest pain, no lower extremity edema. No palpitations. No paroxysmal nocturnal dyspnea. No orthopnea. + lightheadedness or dizziness. No syncopal episodes. Abdominal: No abdominal pain. + nausea, no vomiting. No diarrhea. No constipation. No bloody or tarry stools. No loss of appetite. Genitourinary: No dysuria, increased frequency, urgency. No urinary retention. Musculoskeletal: No myalgias. No muscle weakness, no gait dysfunction, no frequent falls. No back pain. No neck pain. Integumentary: No wounds, no lesions. No rash or pruritus. No unusual bruising. Neurologic: No aphasia. No facial droop. No change in mentation. No head injury. No headache. No paralysis. No paresthesia. Psychiatric: No depression. No anxiety. No mood swings. Endocrine: No abnormal blood sugars. No weight change. No excessive sweating or thirst. No cold intolerance. PHYSICAL EXAMINATION Gen: This is a 3-year-old female. She is resting on ER stretcher and appears to be comfortable and in no acute distress. HEENT: Head is atraumatic, normocephalic. Pupils equal, round. Sclerae is anicteric. NECK: Supple. No JVD. No lymphadenopathy. No thyromegaly. LUNGS: Clear to auscultation. No wheezes or rhonchi. No intercostal retractions. HEART: Regular rate and rhythm. 2/6 systolic murmur at the left sternal border. ABDOMEN: Soft. Bowel sounds are present. No masses. No tenderness. EXTREMITIES: No pedal edema. No calf tenderness. dorsalis pedis +2 bilaterally. NEUROLOGICAL: Patient is awake, alert and oriented x3. Cranial nerves 2 through 12 are grossly intact. ASSESSMENT AND PLAN 1. Chest pain. Acute coronary syndrome has been ruled out. Cardiology consult is appreciated. 2-D echocardiogram is pending. 2. Hypertension with labile blood pressure readings. Coreg,Imdur on hold. losartan resumed at 25 mg daily. Continue to monitor blood pressure closely. 3. tingling in the left arm concerning for TIA. Consult with neurology.continue patient on aspirin 81 mg daily, atorvastatin 40 mg daily, Lasix 75 mg daily. 4. Mild intermittent asthmastable without exacerbation. 5. History of CVA. No new symptoms. Continue patient on statin, Plavix. 6. Coronary arteriosclerosis. Continue patient on atorvastatin 40 mg at bedtime, Plavix 75 mg daily. 7. Hyperlipidemia. Continue statin. 8. History of pulmonary embolism. CTA of the chest negative. 9. GI prophylaxis and GERD. Continue Protonix 40 mg at bedtime. 10. DVT prophylaxis. Lovenox 400 mg subcu daily. DISCHARGE PLAN return home. Impression and plan of care have been directed as dictated by the signing physician. Fernanda Montgomery nurse practitioner acting as scribe for signing physician. Objective - Vital Signs Vital signs: Vital Signs Temp 97.8 F 10/31/23 05:28 Pulse 80 10/31/23 10:25 Resp 19 10/31/23 08:00 BP 109/76 10/31/23 10:25 Pulse Ox 98 10/31/23 05:28 FiO2 Intake & Output 10/30/23 10/31/23 10/31/23 18:59 06:59 18:59 Weight 77.111 kg Other: # Voids 1 1 - Labs CBC & Chem 7: 10/30/23 04:14 10/30/23 04:14
[2023-10-31] MEDS: ATORVASTATIN 40 MG TAB PO SCH (20:06)
[2023-10-31] MEDS: CLOPIDOGREL 75 MG TAB PO SCH (20:06)
[2023-10-31] MEDS: PANTOPRAZOLE 40 MG TABLET PO SCH (20:07)
[2023-11-01] MEDS: LEVOTHYROXINE 88 MCG TAB PO SCH (05:50)
[2023-11-01] MEDS: ENOXAPARIN 40 MG/0.4 ML SYRINGE SQ SCH (07:57)
[2023-11-01] MEDS: CITALOPRAM HYDROBROMIDE 10 MG TAB PO SCH (07:58)
[2023-11-01] MEDS: ASPIRIN 81 MG PO SCH (07:58)
[2023-11-01] MEDS: GABAPENTIN 300 MG CAP PO SCH (08:03)
[2023-11-01] MEDS ORDERED: FOLIC ACID 1 MG TAB PO SCH (12:15)
--- NOTE | 2023-11-01 14:26 | MR ---
EXAMINATION TYPE: MR brain wo con DATE OF EXAM: 11/01/2023 COMPARISON: 05/24/2021 HISTORY: Left side numbness, dizziness CONTRAST: Performed utilizing 0 mL intravenous Gadavist gadolinium contrast. TECHNIQUE: Multiplanar, multiecho imaging on a 3.0 Sara magnet is performed through the brain. Stud y is performed within 24 hours of arrival to the hospital. The craniovertebral junction is normal. The pituitary is normal. Optic chiasm is visualized is norm al. Diffusion-weighted imaging is performed. No abnormal hyperintensity is present to suggest an acute i ntracranial infarct or acute ischemic change. Is a punctate hyperintensity within the centrum semiovale on the left. This is nonspecific and relate d to microvascular ischemic change. No significant interval change is evident. Ventricles and sulci are appropriate for the patient age. Mucosal thickening is within maxillary sinuses and mild mucosal thickening within ethmoid air cells. Correlate for chronic sinusitis. Remaining paranasal sinuses and mastoid air cells are clear IMPRESSION: 1. Minimal nonspecific white matter ischemic-type change. Correlate for microvascular ischemic change , migraine headaches, vasculitis within the differential.
[2023-11-01 14:35] VITALS: BP 147/81; PULSE 63; RESP 19; TEMP 98
--- NOTE | 2023-11-01 14:47 | P.CNNES ---
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 Patient states that her symptoms started on Monday night 10/29/2023, as she developed some weakness and pain in the left arm, could not raise it up. Also noticed tingling in the left side of the face, that also lasted for about 2 or 3 hours. Her symptoms went away. Monday morning, 2 days ago, she woke up due to symptoms of her restless legs, and legs are bothering, but also noticed her left arm was hurting, blurred vision, nausea. Also noticed numbness of the left arm, left facial numbness, did not feel right. As the symptoms reappeared, she decided to come to the hospital. She also felt some pressure in the chest. She also felt off balance. She denied any symptoms in the lower extremities. As per EMS flow sheet, when they arrived, patient was sitting upright in chair. Patient states she has been experiencing "chest tightness" for 2 hours. Patient also complains of nausea, left arm pain. Patient was alert and oriented 4 upon arrival. EKG shows normal sinus rhythm. Patient was given aspirin 324 mg. One dose of nitro 0.5 mg sublingual. Vital signs at the scene was blood pressure 132/68, pulse rate 61 respirations 16, saturation 95%. EKG shows sinus bradycardia with heart rate of 54. Chest x-ray normal. CTA of the chest was negative for pulmonary embolism or any acute process. At present patient states she still feels slightly nauseous, she gets blurred vision which is out of focus in and out bilaterally. Also noticing some intermittent diplopia. She still has headache 4/10 involving the right back of the head which also comes and goes. She denies any numbness or tingling or weakness of the extremities. No further facial numbness. Speech is back to normal. Patient has been seen by myself on 01/12/2023 for acute onset of cephalgia, left arm paresthesias, chest pain likely due to accelerated hypertension. Rule out TIA. Patient also has hypertension, hyperlipidemia and previous history of CVA with very minimal left-sided residual weakness. Patient has prediabetes.. Patient has hypertension, hyperlipidemia, borderline diabetes, never smoked. Patient's home medications include Coreg, isosorbide, levothyroxine, and n itroglycerin, gabapentin 300 mg 3 times a day, Protonix, Plavix 75 mg, triamterene/HCTZ, Crestor 40 mg, Celexa 10 mg and losartan. Review of Systems Constitutional: Reports weight loss (Intentional), Denies chills, Denies fever Eyes: bilateral blurred vision, bilateral diplopia (off and on), denies loss of peripheral vision, denies loss of vision Ears: deny: decreased hearing, ear discharge Ears, nose, mouth and throat: Reports headache, Denies sinus pressure, Denies sore throat Cardiovascular: Reports shortness of breath, Denies chest pain (not now but gets it) Respiratory: Denies cough, Denies excessive sputum Gastrointestinal: Reports nausea, Denies abdominal pain, Denies diarrhea, Denies vomiting Genitourinary: Denies dysuria, Denies hematuria, Denies mixed incontinence, Denies urinary frequency Musculoskeletal: Denies low back pain, Denies myalgias, Denies neck pain Integumentary: Denies pruritus, Denies rash Neurological: Reports as per HPI Psychiatric: Reports depression, Denies anxiety Endocrine: Reports fatigue, Reports weight change Hematologic/Lymphatic: Reports easy bruising, Denies easy bleeding Past Medical History Past Medical History: Cancer, Heart Failure, COPD, CVA/TIA, GERD/Reflux, Hypertension, Myocardial Infarction (IA), Pulmonary Embolus (PE), Thyroid D isorder Additional Past Medical History / Comment(s): hx. cervical cancer, SOB w/activity, restless leg, TIA x 3 2012, tia 2014, personality disorder. CVA and PE 2018. Last Myocardial Infarction Date:: 2018 History of Any Multi-Drug Resistant Organisms: None Reported Past Surgical History: Section, Heart Catheterization, Tonsillectomy Additional Past Surgical History / Comment(s): cyst removed from ovary, left hip replacement 2020, bilateral catarct removal, cancer removed from chest in june 2022 Past Anesthesia/Blood Transfusion Reactions: Postoperative Nausea & Vomiting (PONV) Past Psychological History: Anxiety, Depression Smoking Status: Never smoker Past Alcohol Use History: Rare Past Drug Use History: None Reported - Past Family History Mother Family Medical History: Cancer, Congestive Heart Failure (CHF) Additional Family Medical History / Comment(s): aneurysm Medications and Allergies Home Medications Medication Instructions Recorded Confirmed Type Isosorbide Mononitrate ER [Imdur] 60 mg PO DAILY 05/24/21 10/30/23 History carvediloL [Coreg] 6.25 mg PO BID 05/24/21 10/30/23 History Gabapentin [Neurontin] 300 mg PO TID 08/12/21 10/30/23 History Levothyroxine Sodium [Synthroid] 88 mcg PO DAILY 08/12/21 10/30/23 History Nitroglycerin Sl Tabs [Nitrostat] 0.4 mg SUBLINGUAL Q5M PRN 08/12/21 10/30/23 History Ascorbic Acid [Vitamin C] 500 mg PO DAILY 02/02/22 10/30/23 History Clopidogrel [Plavix] 75 mg PO HS 02/02/22 10/30/23 History Pantoprazole Sodium [Protonix] 20 mg PO HS 02/02/22 10/30/23 History Triamterene/Hydrochlorothiazid 1 cap PO DAILY 01/10/23 10/30/23 History [Triamterene-Hctz 37.5-25 mg Cp] Citalopram Hydrobromide [CeleXA] 10 mg PO DAILY 10/30/23 10/30/23 History Losartan Potassium 50 mg PO HS 10/30/23 10/30/23 History Rosuvastatin Calcium [Crestor] 40 mg PO HS 10/30/23 10/30/23 History Allergies Allergy/AdvReac Type Severity Reaction Status Date / Time [place] walnut Allergy Anaphylaxis Verified 10/30/23 06:47 walnut Allergy Anaphylaxis Verified 10/30/23 06:47 Sulfa (Sulfonamide AdvReac mouth sores Verified 10/30/23 06:47 Antibiotics) Physical Examination - Vital Signs Vital Signs: Vital Signs Temp Pulse Pulse Pulse Pulse Resp BP 11/01/23 08:00 67 65 57 L 52 L 18 11/01/23 07:00 97.8 F 67 65 57 L 18 147/84 11/01/23 02:00 97.8 F 52 L 16 10/31/23 20:00 98.1 F 60 18 10/31/23 15:15 98.3 F 62 16 10/31/23 14:00 57 L 80 57 L 62 16 BP BP BP Pulse Ox 11/01/23 08:00 11/01/23 07:00 153/90 144/75 97 11/01/23 02:00 146/84 94 L 10/31/23 20:00 107/50 94 L 10/31/23 15:15 126/78 95 10/31/23 14:00 Intake and Output 10/31/23 11/01/23 11/01/23 22:59 06:59 14:59 Intake Total 180 Balance 180 Intake: Oral 180 Other: Voiding Method Toilet Toilet # Voids 1 2 Patient is an elderly female, in no acute distress. Patient is alert awake oriented to time place and person. Speech and language functions are normal. Patient can name and repeat very well. No aphasia or dysarthria. Attention, concentration and fund of knowledge is adequate. On cranial nerve examination, pupils are equal, round and reacting to light, visual porras are full on confrontation, with no neglect on double simultaneous stimulation. Extraocular muscles are intact with no nystagmus. Face is symmetric, tongue protrudes to the midline. Palatal elevation and sensation normal, hearing and shoulder shrug normal, facial sensation normal. On muscle strength testing, there is very mild left pronator drift about 20. The muscle strength is (right/left) deltoid 5/5-, biceps 5/5-4+, triceps 5/5- with a lot of give way weakness on the left, test clerk 5/5-, hip flexion 5/4 (left hip pain from previous replacement), ankle dorsiflexion 5/4+, toe extension 5/5 Deep tendon reflexes are symmetric biceps 1+, brachioradialis 2+, knees 3, ankles 2+ and plantars downgoing bilaterally Sensory to touch was decreased in the left arm and left leg as compared to the right side but equal on the face. Temperature sensation was decreased in the left lower extremity as compared to the right, but equal in the upper extremities. There is no neglect on double simultaneous stimulation. Cerebellar function showed no ataxia for [id number] testing. No dysdiado chokinesia. No ataxia for [id number] testing on either side. Tone and bulk of muscles normal. Gait deferred.. On general examination, there is no carotid bruit or murmur, S1-S2 audible. Chest is clear on consultation. Abdomen is soft nontender. No organomegaly, bowel sounds present. Peripheral pulses are present. No peripheral edema. Results - Laboratory Findings CBC and BMP: 10/30/23 04:14 10/30/23 04:14 Abnormal Lab Findings: Abnormal Labs 10/30/23 10/30/23 10/30/23 04:14 04:14 04:32 APTT 21.6 L D-Dimer 0.74 H Potassium 3.2 L BUN 40 H Creatinine 1.07 H Assessment and Plan Assessment: * Possible stroke/TIA, manifesting with visual disturbance, nausea, left arm weakness and left facial brachial numbness. Examination reveals quite giveaway weakness on the left side. Uncertain if new or old. * Hypertension * Hyperlipidemia * Previous history of CVA 2017, with very minimal left-sided residual weakness * Prediabetes * History of folate deficiency Plan: * MRI of the brain without contrast, evaluate for an acute stroke * Patient was taking Plavix 75 mg daily, recommend adding aspirin 81 mg daily. Continue DAPT. * 2-D echo revealed normal left ventricular size, wall thickness and EF 55-60%. No obvious regional wall motion abnormality. No significant diastolic dysfunction. Left atrium and right atrial size normal. * Carotid Doppler showed no significant flow limiting stenosis. Antegrade flow in both vertebral arteries. * Hemoglobin A1c 6.1 on 04/06/2023 * Lipid panel with cholesterol 136, LDL 65, HDL 46 and triglycerides 120. Continue Lipitor 40 mg daily. * B12 444, folate 8.70. We will start folate 1 mg daily. * Neurologically clear, then MRI of the brain comes back normal. * Thank you for the consult. Addendum: MRI of the brain revealed minimal nonspecific white matter ischemic Change. Correlate for microvascular ischemic change, migraine headache, vasculitis within the differential. I personally reviewed MRI, agree with the findings. No evidence of an acute or subacute, or chronic CVA or any acute process. Neurologically clear for discharge.
[2023-11-01] MEDS ORDERED: LOSARTAN 25 MG TAB PO SCH (21:00)
--- NOTE | 2023-11-02 14:22 | P.DS ---
Providers Date of admission: 10/30/23 06:59 Expected date of discharge: 11/01/23 Attending physician: Zoey Salazar Consults: 10/30/23 06:58 Consult Physician Routine Consulting Provider: Ronda Valenzuela Consult Reason/Comments: chest pain Do you want consulting provider notified?: Yes 10/31/23 10:25 Consult Physician Routine Consulting Provider: Lv Gong Consult Reason/Comments: tingling in left arm, r/o TIA, hx CVA Do you want consulting provider notified?: Yes Primary care physician: Zoey Salazar Hospital Course: HISTORY OF PRESENT ILLNESS This is a 73-year-old female with past medical history of mild intermittent asthma, ALLERGIC rhinitis, CVA, coronary arteriosclerosis, hyperlipidemia, pulmonary embolism. Patient states that she has been feeling poorly for the past week starting with increased lightheadedness and dizziness. She states she saw her PCP last week for the same and also happen again last night. It starts with tingling and needles and pins in her left arm. She also has experienced chest pain but this is gone right now. Patient complains of nausea. She states at home her blood pressure was 182/102. She states she has chronic shortness of breath and can only walk one block. She states she had a hospitalization in February and her blood pressure was fluctuating at that time. Patient states that she has been taking all of her medications as directed and has not taken any extra medications. Patient is seen today in the emergency center waiting for a bed on the observation unit. Blood pressure readings have been on the soft side. Heart rate is in the 50s. EKG sinus rhythm, low voltage. Chest x-ray: No acute finding. CTA of the chest: No acute pulmonary embolism. No acute pulmonary process. CBC within normal limits. INR 0.9. D-dimer 0.74. Potassium 3.2 and was replaced otherwise electrolytes are normal. BUN 40 creatinine 1.07. Liver function tests are normal. Troponin negative 2. She has been seen by cardiology and advised to hold antihypertensives as patient's blood pressures are now soft. 10/31: patient has been seen by cardiology and advised to hold Coreg and Imdur. Losartan was resumed at a lower dose of 25 mg daily. heart rate has been in the 50s, blood pressure 122/75, pulse ox 95% on room air. echocardiogram reveals EF 55-60%, RVSP 25 mmHg, no pericardial effusion. patient is feeling tired today bu t other symptoms have resolved. Consult was added for neurology. 11/01: Orthostatic vital signs performed this morning are negative. Heart rate remains in the 50s and 60s, afebrile, pulse ox 97% on room air. Blood pressure supine is 144/75. elkin of the brain revealed minimal nonspecific white matter ischemic type change. Correlate for microvascular ischemic change, migraine headaches, vasculitis within the differential. Patient has been seen by neurology and cleared for discharge. Patient will be discharged home today in stable condition. ASSESSMENT AND PLAN 1. Chest pain. Acute coronary syndrome has been ruled out. 2. Hypertension with labile blood pressure readings. 3. Tingling in the left arm concerning for TIA. 4. Mild intermittent asthmastable without exacerbation. 5. History of CVA. 6. Coronary arteriosclerosis. 7. Hyperlipidemia. 8. History of pulmonary embolism. DISCHARGE PLAN return home. Greater than 35 minutes was utilized and coordinating patient's discharge. Impression and plan of care have been directed as dictated by the signing physician. Fernanda Montgomery nurse practitioner acting as scribe for signing physician. Patient Condition at Discharge: Stable Plan - Discharge Summary New Discharge Prescriptions: New Aspirin 81 mg PO DAILY #0 tab Folic Acid 1 mg PO DAILY tab Continue Clopidogrel [Plavix] 75 mg PO HS Citalopram Hydrobromide [CeleXA] 10 mg PO DAILY Levothyroxine Sodium [Synthroid] 88 mcg PO DAILY Nitroglycerin Sl Tabs [Nitrostat] 0.4 mg SUBLINGUAL Q5M PRN PRN Reason: Chest Pain Gabapentin [Neurontin] 300 mg PO TID Ascorbic Acid [Vitamin C] 500 mg PO DAILY Pantoprazole Sodium [Protonix] 20 mg PO HS Changed Losartan Potassium 25 mg PO HS #0 Discontinued carvediloL [Coreg] 6.25 mg PO BID Isosorbide Mononitrate ER [Imdur] 60 mg PO DAILY Triamterene/Hydrochlorothiazid [Triamterene-Hctz 37.5-25 mg Cp] 1 cap PO DAILY Rosuvastatin Calcium [Crestor] 40 mg PO HS Discharge Medication List Gabapentin [Neurontin] 300 mg PO TID 08/12/21 [History] Levothyroxine Sodium [Synthroid] 88 mcg PO DAILY 08/12/21 [History] Nitroglycerin Sl Tabs [Nitrostat] 0.4 mg SUBLINGUAL Q5M PRN 08/12/21 [History] Ascorbic Acid [Vitamin C] 500 mg PO DAILY 02/02/22 [History] Clopidogrel [Plavix] 75 mg PO HS 02/02/22 [History] Pantoprazole Sodium [Protonix] 20 mg PO HS 02/02/22 [History] Citalopram Hydrobromide [CeleXA] 10 mg PO DAILY 10/30/23 [History] Aspirin 81 mg PO DAILY #0 tab 11/01/23 [Rx] Folic Acid 1 mg PO DAILY tab 11/01/23 [Rx] Losartan Potassium 25 mg PO HS #0 11/01/23 [Rx] Follow up Appointment(s)/Referral(s): Justus Siddiqui MD [STAFF PHYSICIAN] - 2 Weeks Zoey Salazar MD [Primary Care Provider] - 1 Week Discharge Disposition: HOME SELF-CARE
== END 2023-11-01 15:10 | disposition home or self-care (01) ==
LOC: EC 03:59 → 6NMEDSUR 06:59 → 5NMEDONC 21:16 → 6NMEDSUR 21:18
PROVIDERS: ADMIT Internal Medicine; ATTEND Internal Medicine
DX: R07.89 Other chest pain (principal); I11.0 Hypertensive heart disease with heart failure; J45.20 Mild intermittent asthma, uncomplicated; I50.9 Heart failure, unspecified; I25.10 Atherosclerotic heart disease of native coronary artery without angina pectoris; E78.5 Hyperlipidemia, unspecified; K21.9 Gastro-esophageal reflux disease without esophagitis; R73.03 Prediabetes; I65.29 Occlusion and stenosis of unspecified carotid artery; E03.9 Hypothyroidism, unspecified; R20.2 Paresthesia of skin; M79.602 Pain in left arm; R11.0 Nausea; R00.1 Bradycardia, unspecified; R20.0 Anesthesia of skin; H53.2 Diplopia; J30.9 Allergic rhinitis, unspecified; I69.954 Hemiplegia and hemiparesis following unspecified cerebrovascular disease affecting left non-dominant side; G25.81 Restless legs syndrome; E53.8 Deficiency of other specified B group vitamins; I25.2 Old myocardial infarction; F41.9 Anxiety disorder, unspecified; F60.9 Personality disorder, unspecified; F32.A Depression, unspecified; Z79.02 Long term (current) use of antithrombotics/antiplatelets; Z79.890 Hormone replacement therapy; Z79.899 Other long term (current) drug therapy; Z88.2 Allergy status to sulfonamides; Z91.018 Allergy to other foods; Z86.711 Personal history of pulmonary embolism; Z85.41 Personal history of malignant neoplasm of cervix uteri; Z98.42 Cataract extraction status, left eye; Z98.41 Cataract extraction status, right eye; Z96.1 Presence of intraocular lens; Z96.642 Presence of left artificial hip joint; Z98.51 Tubal ligation status; Z87.42 Personal history of other diseases of the female genital tract; Z98.891 History of uterine scar from previous surgery; Z98.890 Other specified postprocedural states; Z82.49 Family history of ischemic heart disease and other diseases of the circulatory system; Z80.9 Family history of malignant neoplasm, unspecified; Z83.1 Family history of other infectious and parasitic diseases; Z83.49 Family history of other endocrine, nutritional and metabolic diseases; Z81.2 Family history of tobacco abuse and dependence
CPT/HCPCS: 96372 ×2; 99285; 36415; 93005; 85379; 80061; 80053; 84443; 83735; 84484; 85025; 85610; 85730; 71046; 71275; 70551; G0378 ×3; C8929; J1650 ×2; Q9957; Q9967; 93306

== ENCOUNTER → 2023-11-30 | Outpatient (CLI) | payer MEDICARE, OTHER ==
[~2023-11-30] MED LIST changes: -ACETAMINOPHEN TAB 500 MG TAB PO PRN; -DEXAMETHASONE SOD PHOSPHATE 4 MG/ML 1 ML VIAL IV ONE; -HYDROmorphone 0.5 MG/0.5 ML SYRINGE IVP PRN; -LACTATED RINGERS 1,000 ML IV SCH; -LIDOCAINE 1% (10MG/ML) FOR IV START INTRADERMA PRN; -MELOXICAM 7.5 MG TAB PO PRN; -MIDAZOLAM 2 MG/2 ML VIAL IV PRN; -ONDANSETRON 4 MG/2 ML VIAL IVP ONE; +REGADENOSON 0.4 MG/5 ML SYRINGE IV PRN; -ROPIVACAINE/EPI/CLONIDINE/KET 50 ML SYRINGE MISCELLANE PRN; -TRANEXAMIC ACID 1,000 MG in SODIUM CHLORIDE 0.9% 100 ML IVPB PRN
--- NOTE | 2023-11-30 12:10 | CA ---
Lexiscan Nuclear Stress Test Report Name: Jennifer Manjarrez Exam Date: 11/30/2023 11:01 Exam Location: [facility] Ht (in): 62 Wt (lb): 180 BSA: 1.83 Ordering Phys: Zoey Salazar MD Referring Phys: Zoey Salazar MD Technologist: Brayan Lund Age: 73 Gender: F : 1950 Procedure CPT: Indications: I63.39 HEART DISEASE ICD-10 Codes: Patient History: DIFFICULTY IN BREATHING, PALPITATIONS, ANGINA, NUMBNESS IN FACE/NECK, HTN, CVA, ELEVATED CHOLESTEROL LEVELS, FAMILY HX OF HEART DISEASE, COPD, ASTHMA Medications: F???L???, LEVOTHYROXINE Meds past 24 hrs: Pretest Chest Pain: STRESS TEST Lexiscan Protocol Exercise Duration (min:sec): 01:[address] Depressions (mm): Angina Score: Clemens Score: Resting HR (bpm): 61 Peak HR (bpm): 85 Resting BP (mmHg): 144 / 93 Peak BP (mmHg): 146 / 88 MPHR: 148 Target HR: 126 % MPHR: 57 METS: 1.0 Total Dose: Peak Dose: Atropine: Double Product: 37708 BP Response: Stress Termination: INFUSION COMPLETE Stress Symptoms: HEADACHE Stress Summary: ECG ANALYSIS Resting ECG: Normal sinus rhythm normal normal interval Stress ECG: Negative stress test by EKG criteria CONCLUSIONS Negative stress test Cardiolite portion of the stress test will be reported separately Dr. Reji Drummond MD (Electronically Signed) Final Date: 30 November 2023 12:10
--- NOTE | 2023-12-01 12:56 | NM ---
EXAMINATION TYPE: NM stress lexiscan cardiolite DATE OF EXAM: 11/30/2023 COMPARISON: None HISTORY: Heart disease TECHNIQUE: After the intravenous administration of 9.9 mCi Tc 99m Sestamibi - Cardiolite resting SPE CT images acquired 45 minutes post injection. At peak stress 25.2 mCi Tc 99m Sestamibi - Stress images obtained 90 minutes post injection The patient was stressed with 0.4mg Lexiscan. FINDINGS: Some mild stress-induced ischemic change with diminished radiotracer stress images were reversal on r esting images may be within the distal anterior wall. Polar maps however do not identify this defect. Small reversible apical defect may be present over maps. There is dyskinesia of the cardiac apex. Ejection fraction is calculated to be 59 %. IMPRESSION: 1. Small area of Stress-induced ischemic change along the distal anterior wall near cardiac apex. Str ess-induced ischemic change at the cardiac apex is also present. There is dyskinesia of the cardiac a pex.
== END | disposition home or self-care (01) ==
LOC: RADNMMAIN 08:46
PROVIDERS: ATTEND Internal Medicine
DX: I63.39 Cerebral infarction due to thrombosis of other cerebral artery (principal); I25.10 Atherosclerotic heart disease of native coronary artery without angina pectoris; G24.9 Dystonia, unspecified; I10 Essential (primary) hypertension; E78.00 Pure hypercholesterolemia, unspecified; J44.89 Other specified chronic obstructive pulmonary disease; R00.2 Palpitations; R06.02 Shortness of breath
CPT/HCPCS: 93017; 78452; A9500; J2785

== ENCOUNTER → 2023-12-01 | Outpatient (CLI) | payer MEDICARE, OTHER ==
--- NOTE | 2023-12-02 20:34 | US ---
EXAMINATION TYPE: US carotid duplex BILAT DATE OF EXAM: 12/01/2023 COMPARISON: NONE CLINICAL INDICATION: Female, 73 years old with history of I63.39 CEREBRAL INFARCTION; h/o stroke, MS, PE's, no symptoms today TECHNIQUE: Carotid duplex ultrasound examination. Indirect Doppler criteria was utilized. FINDINGS: EXAM MEASUREMENTS: RIGHT: Peak Systolic Velocity (PSV) cm/sec ----- Right CCA: 41.3 ----- Right ICA: 82.8 ----- Right ECA: 96.6 ICA/CCA ratio: 2.0 RIGHT: End Diastole cm/sec ----- Right CCA: 15.4 ----- Right ICA: 29.9 ----- Right ECA: 9.8 LEFT: Peak Systolic Velocity (PSV) cm/sec ----- Left CCA: 51.5 ----- Left ICA: 87.2 ----- Left ECA: 51.5 ICA/CCA ratio: 1.7 LEFT: End Diastole cm/sec ----- Left CCA: 12.1 ----- Left ICA: 31.6 ----- Left ECA: 10.2 VERTEBRALS (direction of flow): Right Vertebral: Antegrade Left Vertebral: Antegrade Rhythm: Normal MARGIN ANALYST NOTES: Heterogeneous plaque seen bilaterally, no significant stenosis, tortuous left ICA IMPRESSION: Atheromatous plaquing without significant flow-limiting stenosis based on velocities. Criteria for Assigning % of Stenosis / Diameter reduction (Estimation based on the indirect measurements of the internal carotid artery velocities (ICA PSV). 1. Normal (no stenosis)=ICA PSV < 125 cm/s: ratio < 2.0: ICA EDV<40 cm/s. 2. Less than 50% stenosis=ICA PSV < 125 cm/s: ratio < 2.0: ICA EDV<40 cm/s. 3. 50 to 69% stenosis=ICA PSV of 125 to 230 cm/s: ration 2.0 ? 4.0: ICA EDV 40-100 cm/s. 4. Greater than 70% stenosis to near occlusion= ICA PSV > 230 cm/s: ratio > 4.0: ICA EDV > 100 cm/s. 5. Near occlusion= ICA PSV velocities may be low or undetectable: variable ratio and ICA EDV. 6. Total occlusion=unable to detect flow.
== END | disposition home or self-care (01) ==
LOC: RADUSWWP 14:09
PROVIDERS: ATTEND Internal Medicine
DX: I65.23 Occlusion and stenosis of bilateral carotid arteries (principal); M85.851 Other specified disorders of bone density and structure, right thigh; I63.39 Cerebral infarction due to thrombosis of other cerebral artery
CPT/HCPCS: 93880

== ENCOUNTER 2023-12-10 10:48 | Emergency (ER) | payer MEDICARE, OTHER ==
--- NOTE | 2023-12-10 11:47 | ED ---
Recheck HPI - General Chief Complaint: Recheck/Abnormal Lab/Rx Stated Complaint: high blood pressure Time Seen by Provider: 12/10/23 11:35 Source: patient, RN notes reviewed Mode of arrival: EMS Limitations: no limitations - History of Present Illness Initial Comments: Patient is a 73-year-old female presented ER with a chief complaint of hypertension. Past medical history of VT, CVA and pulmonary embolism. Patient states she woke up this morning with epistaxis. Patient also states that she had a tightness sensation in her chest and mild shortness of breath. She is scheduled for cardiac catheterization on 12/12/[address] Drummond with a known blockage. She states that she is taking Coreg, losartan, Plavix. She reports her BP has been high lately running high 170-180s systolic and high 90-low 100s diastolic. She states bleeding is now controlled at this time and it did not last long. Patient also reports she is feeling dizzy which brought her to the ER. She is also report mild peripheral edema. Patient denies any fevers, chills, night sweats, abdominal pain. - Related Data Home Medications Medication Instructions Recorded Confirmed Gabapentin [Neurontin] 300 mg PO TID 08/12/21 10/30/23 Levothyroxine Sodium [Synthroid] 88 mcg PO DAILY 08/12/21 10/30/23 Nitroglycerin Sl Tabs [Nitrostat] 0.4 mg SUBLINGUAL Q5M PRN 08/12/21 10/30/23 Ascorbic Acid [Vitamin C] 500 mg PO DAILY 02/02/22 10/30/23 Clopidogrel [Plavix] 75 mg PO HS 02/02/22 10/30/23 Pantoprazole Sodium [Protonix] 20 mg PO HS 02/02/22 10/30/23 Citalopram Hydrobromide [CeleXA] 10 mg PO DAILY 10/30/23 10/30/23 Previous Rx's Medication Instructions Recorded Aspirin 81 mg PO DAILY #0 tab 11/01/23 Folic Acid 1 mg PO DAILY tab 11/01/23 Losartan Potassium 25 mg PO HS #0 11/01/23 Allergies Allergy/AdvReac Type Severity Reaction Status Date / Time Czech walnut Allergy Anaphylaxis Verified 12/10/23 11:27 walnut Allergy Anaphylaxis Verified 12/10/23 11:27 Sulfa (Sulfonamide AdvReac mouth sores Verified 12/10/23 11:27 Antibiotics) Review of Systems ROS Statement: Those systems with pertinent positive or pertinent negative responses have been documented in the HPI. ROS Other: All systems not noted in ROS Statement are negative. Past Medical History Past Medical History: Cancer, Heart Failure, COPD, CVA/TIA, GERD/Reflux, Hype rtension, Myocardial Infarction (VT), Pulmonary Embolus (PE), Thyroid Disorder Additional Past Medical History / Comment(s): hx. cervical cancer, SOB w/activity, restless leg, TIA x 3 2012, tia 2014, personality disorder. CVA and PE 2018. Last Myocardial Infarction Date:: 2018 History of Any Multi-Drug Resistant Organisms: None Reported Past Surgical History: Section, Heart Catheterization, Tonsillectomy Additional Past Surgical History / Comment(s): cyst removed from ovary, left hip replacement 2020, bilateral catarct removal, cancer removed from chest in [facility] 2021 Past Anesthesia/Blood Transfusion Reactions: Postoperative Nausea & Vomiting (PONV) Past Psychological History: Anxiety, Depression Smoking Status: Never smoker Past Alcohol Use History: Rare Past Drug Use History: None Reported - Past Family History Mother Family Medical History: Cancer, Congestive Heart Failure (CHF) Additional Family Medical History / Comment(s): aneurysm General Exam Limitations: no limitations General appearance: alert, in no apparent distress Head exam: Present: atraumatic, normocephalic, normal inspection ENT exam: Present: normal exam, normal oropharynx, mucous membranes moist Respiratory exam: Present: normal lung sounds bilaterally. Absent: respiratory distress, wheezes, rales, rhonchi, stridor Cardiovascular Exam: Present: regular rate, normal rhythm, normal heart sounds. Absent: systolic murmur, diastolic murmur, rubs, gallop, clicks GI/Abdominal exam: Present: soft, normal bowel sounds. Absent: distended, tenderness, guarding, rebound, rigid Extremities exam: Present: normal inspection, full ROM, normal capillary refill, other (mild non pitting pretibial edema bilaterally). Absent: tenderness, pedal edema, joint swelling, calf tenderness Neurological exam: Present: alert, oriented X3, CN II-XII intact Psychiatric exam: Present: normal affect, normal mood Skin exam: Present: warm, dry, intact, normal color. Absent: rash Course Vital Signs 12/10/23 11:21 Temperature 98.1 F Pulse Rate 75 Respiratory 20 Rate Blood Pressure 173/98 O2 Sat by Pulse 95 Oximetry Medical Decision Making - Medical Decision Making Was pt. sent in by a medical professional or institution (, PA, ONLINE SERVICES MANAGER, urgent care, hospital, or skilled nursing...) When possible be specific @ -No Did you speak to anyone other than the patient for history (EMS, parent, family, police, friend...)? What history was obtained from this source @ -No Did you review nursing and triage notes (agree or disagree)? Why? @ -I reviewed and agree with nursing and triage notes Were old charts reviewed (outside hosp., previous admission, EMS record, old EKG, old radiological studies, urgent care reports/EKG's, skilled nursing records)? Report findings @ -No old charts were reviewed Differential Diagnosis (chest pain, altered mental status, abdominal pain women, abdominal pain men, vaginal bleeding, weakness, fever, dyspnea, syncope, headache, dizziness, GI bleed, back pain, seizure, CVA, palpatations, mental health, musculoskeletal)? @ -Differential Chest Pain: Stable Angina, Unstable Angina, STEMI, NSTEMI Aortic Dissection, Pneumothorax, Musculoskeletal, Esophageal Spasm GERD, Chol ecystitis, Pancreatitis, Zoster, this is not meant to be an all-inclusive list. EKG interpreted by me (3pts min.). @ -As above X-rays interpreted by me (1pt min.). @ -Chest x-ray interpreted by me shows no acute cardiopulmonary process. CT interpreted by me (1pt min.). @ -None done U/S interpreted by me (1pt. min.). @ -None done What testing was considered but not performed or refused? (CT, X-rays, U/S, labs )? Why? @ -None What meds were considered but not given or refused? Why? @ -None Did you discuss the management of the patient with other professionals (professionals i.e. , HERMES, ONLINE SERVICES MANAGER, lab, RT, psych nurse, social media editor, special education administrator, teacher, infantry officer, piano case and bench assembler)? Give summary @ -No Was smoking cessation discussed for >3mins.? @ -No Was critical care preformed (if so, how long)? @ -No Were there social determinants of health that impacted care today? How? (Homelessness, low income, unemployed, alcoholism, drug addiction, transportation, low edu. Level, literacy, decrease access to med. care, assisted, rehab)? @ -No Was there de-escalation of care discussed even if they declined (Discuss DNR or withdrawal of care, Hospice)? DNR status @ -No What co-morbidities impacted this encounter? (DM, HTN, Smoking, COPD, CAD, Cancer, CVA, ARF, Chemo, Hep., AIDS, mental health diagnosis, sleep apnea, morbid obesity)? @ -Hypertension, CAD, thyroid disorder Was patient admitted / discharged? Hospital course, mention meds given and route, prescriptions, significant lab abnormalities, going to OR and other pertinent info. @ -Discharge. Patient is 73-year-old female presented ER with chief complaint epistaxis and hypertension. Upon examination, BP was 173/98, vitals otherwise stable. History and physical exam were completed. Patient was in no signs of acute distress. Bleeding controlled at this time. Labs obtained in the ER unremarkable. troponin <0.012, BNP 361. EKG without signs of acute ischemia or infarct. Chest xray shows no signs of acute process. Patient received PO tylenol for symptom control. I discussed lab and imaging findings with patient. I advised her to follow-up with Dr. Drummond on 12/12/23 as scheduled. Strict return parameters were discussed. I advised to her continue to take her medication as prescribed. Patient will be discharged in stable condition with follow-up to PCP/ Dr. Drummond. Patient expressed understanding and agreement with care plan. Undiagnosed new problem with uncertain prognosis? @ -No Drug Therapy requiring intensive monitoring for toxicity (Heparin, Nitro, Insulin, Cardizem)? @ -No Were any procedures done? @ -No Diagnosis/symptom? @ -Epistaxis, hypertension Acute, or Chronic, or Acute on Chronic? @ -Acute Uncomplicated (without systemic symptoms) or Complicated (systemic symptoms)? @ -Uncomplicated Side effects of treatment? @ -No Exacerbation, Progression, or Severe Exacerbation? @ -No Poses a threat to life or bodily function? How? (Chest pain, USA, VT, pneumonia, PE, COPD, DKA, ARF, appy, cholecystitis, CVA, Diverticulitis, Homicidal, Suicidal, threat to staff... and all critical care pts) @ -No - Lab Data Result diagrams: 12/10/23 11:51 12/10/23 11:51 Lab Results 12/10/23 12/10/23 12/10/23 Range/Units 11:51 11:51 11:51 WBC 5.9 (3.8-10.6) k/uL RBC 4.42 (3.80-5.40) m/uL Hgb 13.9 (11.4-16.0) gm/dL Hct 40.0 (34.0-46.0) % MCV 90.6 (80.0-100.0) fL MCH 31.5 (25.0-35.0) pg MCHC 34.8 (31.0-37.0) g/dL RDW 13.0 (11.5-15.5) % Plt Count 175 (150-450) k/uL MPV 7.6 Neutrophils % 64 % Lymphocytes % 28 % Monocytes % 4 % Eosinophils % 2 % Basophils % 1 % Neutrophils # 3.8 (1.3-7.7) k/uL Lymphocytes # 1.7 (1.0-4.8) k/uL Monocytes # 0.2 (0-1.0) k/uL Eosinophils # 0.1 (0-0.7) k/uL Basophils # 0.0 (0-0.2) k/uL PT 10.4 (10.0-12.5) sec INR 0.9 (<1.2) APTT 23.2 (22.0-30.0) sec Sodium 141 (137-145) mmol/L Potassium 4.1 (3.5-5.1) mmol/L Chloride 110 H (98-107) mmol/L Carbon Dioxide 26 (22-30) mmol/L Anion Gap 5 mmol/L BUN 20 H (7-17) mg/dL Creatinine 0.80 (0.52-1.04) mg/dL Est GFR (CKD-EPI)AfAm 85 (>60 ml/min/1.73 sqM) Est GFR (CKD-EPI)NonAf 74 (>60 ml/min/1.73 sqM) Glucose 108 H (74-99) mg/dL Calcium 9.4 (8.4-10.2) mg/dL Magnesium 2.1 (1.6-2.3) mg/dL Total Bilirubin 0.5 (0.2-1.3) mg/dL AST 21 (14-36) U/L ALT 14 (4-34) U/L Alkaline Phosphatase 58 (38-126) U/L Troponin I (0.000-0.034) ng/mL NT-Pro-B Natriuret Pep 361 pg/mL Total Protein 6.5 (6.3-8.2) g/dL Albumin 3.8 (3.5-5.0) g/dL 12/10/23 Range/Units 11:51 WBC (3.8-10.6) k/uL RBC (3.80-5.40) m/uL Hgb (11.4-16.0) gm/dL Hct (34.0-46.0) % MCV (80.0-100.0) fL MCH (25.0-35.0) pg MCHC (31.0-37.0) g/dL RDW (11.5-15.5) % Plt Count (150-450) k/uL MPV Neutrophils % % Lymphocytes % % Monocytes % % Eosinophils % % Basophils % % Neutrophils # (1.3-7.7) k/uL Lymphocytes # (1.0-4.8) k/uL Monocytes # (0-1.0) k/uL Eosinophils # (0-0.7) k/uL Basophils # (0-0.2) k/uL PT (10.0-12.5) sec INR (<1.2) APTT (22.0-30.0) sec Sodium (137-145) mmol/L Potassium (3.5-5.1) mmol/L Chloride (98-107) mmol/L Carbon Dioxide (22-30) mmol/L Anion Gap mmol/L BUN (7-17) mg/dL Creatinine (0.52-1.04) mg/dL Est GFR (CKD-EPI)AfAm (>60 ml/min/1.73 sqM) Est GFR (CKD-EPI)NonAf (>60 ml/min/1.73 sqM) Glucose (74-99) mg/dL Calcium (8.4-10.2) mg/dL Magnesium (1.6-2.3) mg/dL Total Bilirubin (0.2-1.3) mg/dL AST (14-36) U/L ALT (4-34) U/L Alkaline Phosphatase (38-126) U/L Troponin I <0.012 (0.000-0.034) ng/mL NT-Pro-B Natriuret Pep pg/mL Total Protein (6.3-8.2) g/dL Albumin (3.5-5.0) g/dL - EKG Data -: EKG Interpreted by Me EKG Comments: EKG taken at 12:46 shows normal sinus rhythm with no acute ST segment or T-wave abnormalities. Ventricular rate 64, [place] interval 164, QRS duration 85, QT/QTC 402/412. - Radiology Data Radiology results: report reviewed, image reviewed Disposition Clinical Impression: Chest pain Disposition: HOME SELF-CARE Condition: Stable Additional Instructions: Please return to the ER for any new or worsening symptoms. Follow-up with Dr. Drummond as scheduled. Is patient prescribed a controlled substance at d/c from ED?: No Referrals: Zoey Salazar MD [Primary Care Provider] - 1-2 days Reji Drummnod MD [STAFF PHYSICIAN] - 1-2 days Time of Disposition: 13:02
[2023-12-10 12:21] LABS: INR 0.9 (<1.2); Partial Thromboplastin Time 23.2 sec (22.0-30.0); Prothrombin Time 10.4 sec (10.0-12.5)
--- NOTE | 2023-12-10 12:22 | XR ---
EXAMINATION TYPE: XR chest 2V DATE OF EXAM: 12/10/2023 COMPARISON: 10/30/2023 HISTORY: Chest pain TECHNIQUE: Frontal and lateral views of the chest are obtained. FINDINGS: There is no focal air space opacity, pleural effusion, or pneumothorax seen. The cardiac silhouette size is within normal limits. The osseous structures are intact. IMPRESSION: No acute cardiopulmonary process.
[2023-12-10 12:26] LABS: Basophils % (A) 1 %; Eosinophils # (A) 0.1 k/uL (0-0.7); Eosinophils % (A) 2 %; HGB 13.9 gm/dL (11.4-16.0); Lymphocytes # (A) 1.7 k/uL (1.0-4.8); Lymphocytes % (A) 28 %; MCH 31.5 pg (25.0-35.0); MCHC 34.8 g/dL (31.0-37.0); MCV 90.6 fL (80.0-100.0); Mean Platelet Volume 7.6; Monocytes # (A) 0.2 k/uL (0-1.0); Monocytes % (A) 4 %; Neutrophils # (A) 3.8 k/uL (1.3-7.7); Neutrophils % (A) 64 %; Platelet Count 175 k/uL (150-450); RBC 4.42 m/uL (3.80-5.40); WBC 5.9 k/uL (3.8-10.6)
[2023-12-10 12:31] LABS: ALT 14 U/L (4-34); AST 21 U/L (14-36); African American GFR (CKD) 85 (>60 ml/min/1.73 sqM); Albumin 3.8 g/dL (3.5-5.0); Alkaline Phosphatase 58 U/L (38-126); Anion Gap 5 mmol/L; Blood Urea Nitrogen 20 mg/dL (7-17); Calcium 9.4 mg/dL (8.4-10.2); Carbon Dioxide 26 mmol/L (22-30); Chloride 110 mmol/L (98-107); Glucose 108 mg/dL (74-99); Magnesium 2.1 mg/dL (1.6-2.3); Non-African American GFR(CKD) 74 (>60 ml/min/1.73 sqM); Potassium 4.1 mmol/L (3.5-5.1); Sodium 141 mmol/L (137-145); Total Bilirubin 0.5 mg/dL (0.2-1.3); Total Protein 6.5 g/dL (6.3-8.2)
[2023-12-10 12:36] LABS: NT-Pro-B-Type Natriuretic Pept 361 pg/mL
[2023-12-10] MEDS ORDERED: ACETAMINOPHEN TAB 325 MG TAB PO STA (13:00)
[2023-12-10] MEDS ORDERED: LOSARTAN 25 MG TAB PO STA (14:11)
[2023-12-10 14:37] VITALS: BP 186/110; PULSE 69; RESP 18; TEMP 97.8
== END 2023-12-10 14:24 | disposition home or self-care (01) ==
LOC: EC 10:48
DX: R07.89 Other chest pain (principal); R04.0 Epistaxis; I50.9 Heart failure, unspecified; I11.0 Hypertensive heart disease with heart failure; J44.9 Chronic obstructive pulmonary disease, unspecified; I25.2 Old myocardial infarction; E07.9 Disorder of thyroid, unspecified; F41.9 Anxiety disorder, unspecified; F32.A Depression, unspecified; K21.9 Gastro-esophageal reflux disease without esophagitis; Z86.73 Personal history of transient ischemic attack (TIA), and cerebral infarction without residual deficits; Z86.711 Personal history of pulmonary embolism; Z79.890 Hormone replacement therapy; Z79.899 Other long term (current) drug therapy; Z79.01 Long term (current) use of anticoagulants; Z88.2 Allergy status to sulfonamides; Z91.018 Allergy to other foods
CPT/HCPCS: 36415; 71046; 80053; 83735; 83880; 84484; 85025; 85610; 85730; 93005; 99284

== ENCOUNTER 2023-12-12 06:19 | Day surgery (SDC) | payer MEDICARE, OTHER ==
[~2023-12-12 06:19] MED LIST changes: +ALPRAZolam 0.25 MG TAB PO PRN; +ALPRAZolam 0.5 MG TAB PO PRN; +ASPIRIN 325 MG TAB PO STA; +NITROGLYCERIN SL TABS 0.4 MG TAB SUBLINGUAL PRN; -REGADENOSON 0.4 MG/5 ML SYRINGE IV PRN; +SODIUM CHLORIDE 0.9% 1,000 ML in EMPTY BAG 1 BAG IV SCH
[2023-12-12 06:59] VITALS: RESP 18; TEMP 97.9
[2023-12-12] MEDS ORDERED: LIDOCAINE 1% INJ 10MG/ML (20 ML MDV) ONE (07:15)
[2023-12-12] MEDS ORDERED: fentaNYL (PF) 50 MCG/ML 2 ML AMP ONE (07:15)
[2023-12-12] MEDS ORDERED: VERAPAMIL 2.5 MG/ML 2 ML AMP ONE (07:15)
[2023-12-12] MEDS ORDERED: fentaNYL (PF) 50 MCG/ML 2 ML AMP IVP ONE (07:40)
[2023-12-12] MEDS ORDERED: LIDOCAINE 1% INJ 10MG/ML (10 ML MDV) SQ ONE (07:40)
[2023-12-12] MEDS ORDERED: MIDAZOLAM 2 MG/2 ML VIAL IVP ONE (07:40)
[2023-12-12] MEDS ORDERED: VERAPAMIL 2.5 MG/ML 4 ML VIAL INTRAARTER ONE (07:43)
[2023-12-12] MEDS ORDERED: HEPARIN SODIUM 1,000 UN/ML (10ML VL) ONE (07:43)
[2023-12-12] MEDS ORDERED: HEPARIN SODIUM 1,000 UN/ML (10ML VL) IVP ONE (07:44)
[2023-12-12] MEDS ORDERED: IOPAMIDOL-370 50ML BTL IVP ONE (07:56)
[2023-12-12] MEDS ORDERED: RX INFO: IV CONTRAST WAS GIVEN 1 EACH MISC MISCELLANE PRN (07:59)
[2023-12-12] MEDS ORDERED: SODIUM CHLORIDE 0.9% 1,000 ML IV SCH (08:00)
--- NOTE | 2023-12-12 08:36 | CC ---
CARDIAC CATHETERIZATION REPORT INDICATIONS: Chest pain with abnormal stress test showing ischemia in LAD distribution. PROCEDURE NOTE: After obtaining informed consent, left heart catheterization and coronary angiogram were performed via the right radial artery using standard Oh catheters. The patient tolerated the procedure well without any obvious immediate complications. The patient received moderate conscious sedation. Total sedation time was 15 minutes. Right radial artery access was obtained using Seldinger technique. A 6-Tunisian sheath was placed. Catheters and wires were floated into the ascending aorta under fluoroscopic guidance. The patient received verapamil and heparin per protocol. FINDINGS: 1. Hemodynamics: Left ventricular end-diastolic pressure is 18 mm. There is no significant gradient across the aortic valve. 2. Left ventriculogram: Left ventriculogram is not performed. 3. Angiographic data: a.Right coronary artery: Right coronary artery is a small nondominant vessel and is free of significant stenosis. Left main coronary artery is a short vessel and is free of disease, divides into left anterior descending coronary artery and circumflex coronary artery. LAD and its branches are free of significant stenosis. Circumflex coronary artery is a large dominant vessel that shows mild atherosclerotic plaque in its proximal portion. The arteries look unchanged compared to cardiac catheterization in 2015. CONCLUSION: 1. Mild nonobstructive disease involving circumflex coronary artery. 2. False-positive stress test. PLAN: I reviewed angiographic data with the patient and told her that her management is going to be in the form of risk factor modification. MMRAMONL / IJN: [id number] /
[2023-12-12] MEDS ORDERED: ACETAMINOPHEN TAB 325 MG TAB ONE (11:06)
[2023-12-12 11:14] VITALS: BP 157/81; PULSE 54
== END 2023-12-12 11:51 | disposition home or self-care (01) ==
LOC: CATHCVL 06:19
PROVIDERS: ATTEND Internal Medicine Cardiovascular Disease
DX: I25.10 Atherosclerotic heart disease of native coronary artery without angina pectoris (principal); I10 Essential (primary) hypertension; E78.5 Hyperlipidemia, unspecified; Z86.73 Personal history of transient ischemic attack (TIA), and cerebral infarction without residual deficits; Z86.711 Personal history of pulmonary embolism; Z79.899 Other long term (current) drug therapy; Z79.02 Long term (current) use of antithrombotics/antiplatelets; Z88.1 Allergy status to other antibiotic agents; Z88.2 Allergy status to sulfonamides
CPT/HCPCS: 93458; C1769; C1894; J2250; J3010; J1644; J2001; Q9967

== ENCOUNTER 2024-02-04 12:27 | Emergency (ER) | payer MEDICARE, OTHER ==
[2024-02-04 12:52] VITALS: TEMP 98.4
--- NOTE | 2024-02-04 13:09 | ED ---
General Adult HPI - General Chief complaint: Recheck/Abnormal Lab/Rx Stated complaint: High blood pressure Time Seen by Provider: 02/04/24 12:45 Source: patient, RN notes reviewed, old records reviewed Mode of arrival: ambulatory Limitations: no limitations - History of Present Illness Initial comments: This is a 73-year-old female who presents to the emergency department complaining that her blood pressures been high lately and she just had her blood pressure medicines increased recently but today her blood pressure was high she was having some blurred vision and some right-sided headache so she came to the emergency department. Patient denies any chest pain difficulty breathing or shortness of breath. Patient denies any recent fever chills or cough or patient has abdominal pain patient has nausea vomiting or diarrhea. - Related Data Home Medications Medication Instructions Recorded Confirmed Gabapentin [Neurontin] 300 mg PO TID 08/12/21 12/12/23 Levothyroxine Sodium [Synthroid] 88 mcg PO QAM 08/12/21 12/12/23 Nitroglycerin Sl Tabs [Nitrostat] 0.4 mg SUBLINGUAL Q5M PRN 08/12/21 12/12/23 Ascorbic Acid [Vitamin C] 500 mg PO QAM 02/02/22 12/12/23 Clopidogrel [Plavix] 75 mg PO HS 02/02/22 12/12/23 Pantoprazole Sodium [Protonix] 20 mg PO HS 02/02/22 12/12/23 Citalopram Hydrobromide [CeleXA] 10 mg PO QAM 10/30/23 12/12/23 Aspirin 81 mg PO QAM 12/11/23 12/12/23 Folic Acid 1 mg PO QAM 12/11/23 12/12/23 carvediloL [Coreg] 3.125 mg PO HS 12/11/23 12/12/23 Atorvastatin [Lipitor] 80 mg PO HS 12/12/23 12/12/23 Previous Rx's Medication Instructions Recorded Losartan Potassium 25 mg PO HS #0 11/01/23 Allergies Allergy/AdvReac Type Severity Reaction Status Date / Time Guatemalan walnut Allergy Anaphylaxis Verified 02/04/24 12:36 walnut Allergy Anaphylaxis Verified 02/04/24 12:36 Sulfa (Sulfonamide AdvReac mouth sores Verified 02/04/24 12:36 Antibiotics) Review of Systems ROS Statement: Those systems with pertinent positive or pertinent negative responses have been documented in the HPI. ROS Other: All systems not noted in ROS Statement are negative. Past Medical History Past Medical History: Cancer, Heart Failure, COPD, CVA/TIA, GERD/Reflux, Hypertension, Myocardial Infarction (TX), Pulmonary Embolus (PE), Thyroid Disorder Additional Past Medical History / Comment(s): hx. cervical cancer, SOB w/activity, restless leg, TIA x 3 2012, tia 2014, personality disorder. CVA and PE 2018. Last Myocardial Infarction Date:: 2017 History of Any Multi-Drug Resistant Organisms: None Reported Past Surgical History: Section, Heart Catheterization, Tonsillectomy Additional Past Surgical History / Comment(s): cyst removed from ovary, left hip replacement 2020, bilateral catarct removal, cancer removed from chest in june 2022 Past Anesthesia/Blood Transfusion Reactions: Postoperative Nausea & Vomiting (PONV) Past Psychological History: Anxiety, Depression Smoking Status: Never smoker Past Alcohol Use History: None Reported Past Drug Use History: None Reported - Past Family History Mother Family Medical History: Cancer, Congestive Heart Failure (CHF), Vascular Disorde r Additional Family Medical History / Comment(s): aneurysm General Exam - General Exam Comments Initial Comments: GENERAL: Patient is well-developed and well-nourished. Patient is nontoxic and well-hydrated and is in mild distress. ENT: Neck is soft and supple. No significant lymphadenopathy is noted. Oropharynx is clear. Moist mucous membranes. Neck has full range of motion without eliciting any pain. EYES: The sclera were anicteric and conjunctiva were pink and moist. Extraocular movements were intact and pupils were equal round and reactive to light. Eyelids were unremarkable. PULMONARY: Unlabored respirations. Good breath sounds bilaterally. No audible rales rhonchi or wheezing was noted. CARDIOVASCULAR: There is a regular rate and rhythm without any murmurs gallops or rubs. ABDOMEN: Soft and nontender with normal bowel sounds. SKIN: Skin is clear with no lesions or rashes and otherwise unremarkable. NEUROLOGIC: Patient is alert and oriented x3. Cranial nerves II through XII are grossly intact. Motor and sensory are also intact. Normal speech, volume and content. Symmetrical smile. MUSCULOSKELETAL: Normal extremities with adequate strength and full range of motion. No lower extremity swelling or edema. No calf tenderness. LYMPHATICS: No significant lymphadenopathy is noted PSYCHIATRIC: Normal psychiatric evaluation. Limitations: no limitations Course Vital Signs 02/04/24 02/04/24 02/04/24 12:32 12:51 13:00 Temperature 98.4 F Pulse Rate 82 74 74 Respiratory 18 16 16 Rate Blood Pressure 169/95 153/94 144/82 O2 Sat by Pulse 96 95 95 Oximetry 02/04/24 02/04/24 02/04/24 13:15 13:30 13:45 Temperature Pulse Rate 80 72 69 Respiratory 18 18 16 Rate Blood Pressure 136/88 142/80 136/88 O2 Sat by Pulse 96 96 95 Oximetry 02/04/24 14:01 Temperature Pulse Rate 71 Respiratory 18 Rate Blood Pressure 133/80 O2 Sat by Pulse 95 Oximetry Medical Decision Making - Medical Decision Making EKG is interpreted by myself. EKG shows a sinus rhythm at 69 bpm parables 158 QRS is 85 QT interval 362 QTc is 381. Patient's EKG shows no ST segment ovation or depression Was pt. sent in by a medical professional or institution (, PA, [employer], urgent care, hospital, or usp...) When possible be specific @ -No Did you speak to anyone other than the patient for history (EMS, parent, family, police, friend...)? What history was obtained from this source @ -No Did you review nursing and triage notes (agree or disagree)? Why? @ -I reviewed and agree with nursing and triage notes Were old charts reviewed (outside hosp., previous admission, EMS record, old EKG, old radiological studies, urgent care reports/EKG's, usp records)? Report findings @ -I reviewed prior charts on this patient Differential Diagnosis (chest pain, altered mental status, abdominal pain women, abdominal pain men, vaginal bleeding, weakness, fever, dyspnea, syncope, h eadache, dizziness, GI bleed, back pain, seizure, CVA, palpatations, mental health, musculoskeletal)? @ -Differential Headache: Migraine, tension, cluster, carbon monoxide, central venous thrombosis, pension karma temporal arteritis, acute closure glaucoma, intercranial hemorrhage, mastoiditis, sinusitis, head injury, this is not meant to be an all-inclusive list. EKG interpreted by me (3pts min.). @ -As above X-rays interpreted by me (1pt min.). @ -Chest x-ray showed no acute abnormality CT interpreted by me (1pt min.). @ -CT of the brain showed no acute abnormality U/S interpreted by me (1pt. min.). @ -None done What testing was considered but not performed or refused? (CT, X-rays, U/S, labs)? Why? @ -None What meds were considered but not given or refused? Why? @ -None Did you discuss the management of the patient with other professionals (professionals i.e. , PA, [employer], lab, RT, psych nurse, professor of social work, lidder, teacher, sewage reticulation drafting officer, case specialist)? Give summary @ -No Was smoking cessation discussed for >3mins.? @ -No Was critical care preformed (if so, how long)? @ -No Were there social determinants of health that impacted care today? How? (Homelessness, low income, unemployed, alcoholism, drug addiction, transportation, low edu. Level, literacy, decrease access to med. care, long-term, rehab)? @ -No Was there de-escalation of care discussed even if they declined (Discuss DNR or withdrawal of care, Hospice)? DNR status @ -No What co-morbidities impacted this encounter? (DM, HTN, Smoking, COPD, CAD, Cancer, CVA, ARF, Chemo, Hep., AIDS, mental health diagnosis, sleep apnea, morbid obesity)? @ -None Was patient admitted / discharged? Hospital course, mention meds given and route, prescriptions, significant lab abnormalities, going to OR and other pertinent info. @ -Patient received hydralazine and brought her pressure down into a normal range. Patient was feeling much better. Patient will follow-up with the primary medical care doctor Undiagnosed new problem with uncertain prognosis? @ -No Drug Therapy requiring intensive monitoring for toxicity (Heparin, Nitro, Insulin, Cardizem)? @ -No Were any procedures done? @ -No Diagnosis/symptom? @ -Hypertension Acute, or Chronic, or Acute on Chronic? @ -Acute Uncomplicated (without systemic symptoms) or Complicated (systemic symptoms)? @ -Complicated Side effects of treatment? @ -No Exacerbation, Progression, or Severe Exacerbation? @ -No Poses a threat to life or bodily function? How? (Chest pain, [place], [place], pneumonia, PE, COPD, DKA, ARF, appy, cholecystitis, CVA, Diverticulitis, Homicidal, Suicidal, threat to staff... and all critical care pts) @ -No - Lab Data Result diagrams: 02/04/24 13:33 02/04/24 13:33 Lab Results 02/04/24 02/04/24 02/04/24 Range/Units 13:33 13:33 13:33 WBC 7.4 (3.8-10.6) k/uL RBC 4.72 (3.80-5.40) m/uL Hgb 14.3 (11.4-16.0) gm/dL Hct 43.6 (34.0-46.0) % MCV 92.4 (80.0-100.0) fL MCH 30.4 (25.0-35.0) pg MCHC 32.9 (31.0-37.0) g/dL RDW 13.2 (11.5-15.5) % Plt Count 191 (150-450) k/uL MPV 7.4 Neutrophils % 64 % Lymphocytes % 27 % Monocytes % 4 % Eosinophils % 2 % Basophils % 1 % Neutrophils # 4.7 (1.3-7.7) k/uL Lymphocytes # 2.0 (1.0-4.8) k/uL Monocytes # 0.3 (0-1.0) k/uL Eosinophils # 0.2 (0-0.7) k/uL Basophils # 0.1 (0-0.2) k/uL PT 10.2 (10.0-12.5) sec INR 0.9 (<1.2) APTT 23.7 (22.0-30.0) sec Sodium 140 (137-145) mmol/L Potassium 4.1 (3.5-5.1) mmol/L Chloride 105 (98-107) mmol/L Carbon Dioxide 27 (22-30) mmol/L Anion Gap 8 mmol/L BUN 20 H (7-17) mg/dL Creatinine 0.97 (0.52-1.04) mg/dL Est GFR (CKD-EPI)AfAm 68 (>60 ml/min/1.73 sqM) Est GFR (CKD-EPI)NonAf 59 (>60 ml/min/1.73 sqM) Glucose 94 (74-99) mg/dL Calcium 9.7 (8.4-10.2) mg/dL Magnesium 2.2 (1.6-2.3) mg/dL Total Bilirubin 0.6 (0.2-1.3) mg/dL AST 24 (14-36) U/L ALT 15 (4-34) U/L Alkaline Phosphatase 76 (38-126) U/L Troponin I (0.000-0.034) ng/mL Total Protein 6.9 (6.3-8.2) g/dL Albumin 4.0 (3.5-5.0) g/dL 02/04/24 Range/Units 13:33 WBC (3.8-10.6) k/uL RBC (3.80-5.40) m/uL Hgb (11.4-16.0) gm/dL Hct (34.0-46.0) % MCV (80.0-100.0) fL MCH (25.0-35.0) pg MCHC (31.0-37.0) g/dL RDW (11.5-15.5) % Plt Count (150-450) k/uL MPV Neutrophils % % Lymphocytes % % Monocytes % % Eosinophils % % Basophils % % Neutrophils # (1.3-7.7) k/uL Lymphocytes # (1.0-4.8) k/uL Monocytes # (0-1.0) k/uL Eosinophils # (0-0.7) k/uL Basophils # (0-0.2) k/uL PT (10.0-12.5) sec INR (<1.2) APTT (22.0-30.0) sec Sodium (137-145) mmol/L Potassium (3.5-5.1) mmol/L Chloride (98-107) mmol/L Carbon Dioxide (22-30) mmol/L Anion Gap mmol/L BUN (7-17) mg/dL Creatinine (0.52-1.04) mg/dL Est GFR (CKD-EPI)AfAm (>60 ml/min/1.73 sqM) Est GFR (CKD-EPI)NonAf (>60 ml/min/1.73 sqM) Glucose (74-99) mg/dL Calcium (8.4-10.2) mg/dL Magnesium (1.6-2.3) mg/dL Total Bilirubin (0.2-1.3) mg/dL AST (14-36) U/L ALT (4-34) U/L Alkaline Phosphatase (38-126) U/L Troponin I <0.012 (0.000-0.034) ng/mL Total Protein (6.3-8.2) g/dL Albumin (3.5-5.0) g/dL Disposition Clinical Impression: Hypertension Disposition: HOME SELF-CARE Condition: Good Instructions (If sedation given, give patient instructions): Hypertension (ED) Additional Instructions: Patient needs to monitor and document her blood pressure. Patient needs to follow-up with Dr. Salazar about her pressures being elevated Is patient prescribed a controlled substance at d/c from ED?: No Referrals: Zoey Salazar MD [Primary Care Provider] - 1-2 days Time of Disposition: 14:47
--- NOTE | 2024-02-04 13:24 | XR ---
EXAMINATION TYPE: XR chest 2V DATE OF EXAM: 02/04/2024 1:10 PM CLINICAL INDICATION:Female, 73 years old with history of Chest Pain; COMPARISON: Chest radiographs from 12/10/2023 TECHNIQUE: XR chest 2V Frontal and lateral views of the chest. FINDINGS: Lungs/Pleura: There is no evidence of pleural effusion, focal consolidation, or pneumothorax. Pulmonary vascularity: Unremarkable. Heart/mediastinum: Cardiomediastinal silhouette is unremarkable. Musculoskeletal: No acute osseous pathology. IMPRESSION: No acute cardiopulmonary disease/process.
--- NOTE | 2024-02-04 13:24 | CT ---
EXAMINATION TYPE: CT brain wo con CT DLP: 1152.4 mGycm, Automated exposure control for dose reduction was used. DATE OF EXAM: 02/04/2024 1:08 PM COMPARISON: 01/10/2023 CLINICAL INDICATION:Female, 73 years old with history of Headache, hypertension, Headache, HTN, recen tly change in meds. TECHNIQUE: Brain: Axial CT images of the brain were obtained with coronal and sagittal reformats created and rev iewed. Contrast used: None. Oral contrast used: None. FINDINGS: Brain: Extra-axial spaces: No abnormal extra-axial fluid collections. Ventricular system: Dilatation in proportion to cerebral atrophy. Cerebral parenchyma: Cerebral atrophy. No acute intraparenchymal hemorrhage or mass effect. The pritchard -white junction is well differentiated. Scattered hypoattenuating areas are seen within the white mat ter. Cerebellum: Unremarkable. Mass effect: No evidence of midline shift. Intracranial vasculature: Atherosclerotic calcifications of the intracranial vessels. Soft tissues: Normal. Calvarium/osseous structures: No depressed skull fracture. Paranasal sinuses and mastoid air cells: Mild scattered paranasal sinus disease. Visualized orbits: Orbital contents are intact. IMPRESSION: 1. No acute intracranial process. 2. Nonspecific white matter changes, likely secondary to chronic small vessel ischemic disease.
[2024-02-04] MEDS: hydrALAZINE HCL 20 MG/ML 1 ML VIAL IVP STA (13:39)
[2024-02-04 13:45] LABS: Basophils # (A) 0.1 k/uL (0-0.2); Basophils % (A) 1 %; Eosinophils # (A) 0.2 k/uL (0-0.7); Eosinophils % (A) 2 %; HCT 43.6 % (34.0-46.0); HGB 14.3 gm/dL (11.4-16.0); Lymphocytes % (A) 27 %; MCH 30.4 pg (25.0-35.0); MCHC 32.9 g/dL (31.0-37.0); MCV 92.4 fL (80.0-100.0); Mean Platelet Volume 7.4; Monocytes # (A) 0.3 k/uL (0-1.0); Monocytes % (A) 4 %; Neutrophils # (A) 4.7 k/uL (1.3-7.7); Neutrophils % (A) 64 %; Platelet Count 191 k/uL (150-450); RBC 4.72 m/uL (3.80-5.40); RDW 13.2 % (11.5-15.5); WBC 7.4 k/uL (3.8-10.6)
[2024-02-04 14:00] LABS: INR 0.9 (<1.2); Partial Thromboplastin Time 23.7 sec (22.0-30.0); Prothrombin Time 10.2 sec (10.0-12.5)
[2024-02-04 14:11] LABS: ALT 15 U/L (4-34); AST 24 U/L (14-36); African American GFR (CKD) 68 (>60 ml/min/1.73 sqM); Alkaline Phosphatase 76 U/L (38-126); Anion Gap 8 mmol/L; Blood Urea Nitrogen 20 mg/dL (7-17); Calcium 9.7 mg/dL (8.4-10.2); Carbon Dioxide 27 mmol/L (22-30); Chloride 105 mmol/L (98-107); Glucose 94 mg/dL (74-99); Magnesium 2.2 mg/dL (1.6-2.3); Non-African American GFR(CKD) 59 (>60 ml/min/1.73 sqM); Potassium 4.1 mmol/L (3.5-5.1); Sodium 140 mmol/L (137-145); Total Bilirubin 0.6 mg/dL (0.2-1.3); Total Protein 6.9 g/dL (6.3-8.2)
[2024-02-04 14:35] VITALS: RESP 18
[2024-02-04 15:09] VITALS: BP 144/85; PULSE 73
== END 2024-02-04 15:00 | disposition home or self-care (01) ==
LOC: EC 12:27
DX: I10 Essential (primary) hypertension (principal); Z88.2 Allergy status to sulfonamides; Z91.018 Allergy to other foods
CPT/HCPCS: 36415; 93005; 80053; 83735; 84484; 85025; 85610; 85730; 71046; 70450; 99284; 96374; J0360

== ENCOUNTER 2024-02-07 16:23 | Inpatient (IN) | payer MEDICARE, OTHER ==
--- NOTE | 2024-02-07 17:24 | ED ---
General Adult HPI - General Chief complaint: Headache Stated complaint: high bp 196/115 Time Seen by Provider: 02/07/24 17:09 Source: patient Mode of arrival: ambulatory Limitations: no limitations - History of Present Illness Initial comments: This 73-year-old female presents with a complaint of high blood pressure. She states that her blood pressure got up to 196/113 earlier today. She was seen 3 days ago for elevated blood pressure and headache as well. She is having a generalized headache once again today. She complains of some left-sided chest pressure. She has had occasional nausea. She states that she feels somewhat foggy in her brain. She denies any difficulty in breathing. She states that she does have chronic high blood pressure. Her losartan was increased from daily to twice daily by primary care about 2 weeks ago. She denies any changes in her diet. She does relate a history of coronary artery disease with history of MN but just had a negative heart catheterization 3 weeks ago. She denies any other complaints or modifying factors. She was unable to get into her primary care until Monday, 3 days from now. No other complaints or modifying factors. - Related Data Home Medications Medication Instructions Recorded Confirmed Gabapentin [Neurontin] 300 mg PO TID 08/12/21 12/12/23 Levothyroxine Sodium [Synthroid] 88 mcg PO QAM 08/12/21 12/12/23 Nitroglycerin Sl Tabs [Nitrostat] 0.4 mg SUBLINGUAL Q5M PRN 08/12/21 12/12/23 Ascorbic Acid [Vitamin C] 500 mg PO QAM 02/02/22 12/12/23 Clopidogrel [Plavix] 75 mg PO HS 02/02/22 12/12/23 Pantoprazole Sodium [Protonix] 20 mg PO HS 02/02/22 12/12/23 Citalopram Hydrobromide [CeleXA] 10 mg PO QAM 10/30/23 12/12/23 Aspirin 81 mg PO QAM 12/11/23 12/12/23 Folic Acid 1 mg PO QAM 12/11/23 12/12/23 carvediloL [Coreg] 3.125 mg PO HS 12/11/23 12/12/23 Atorvastatin [Lipitor] 80 mg PO HS 12/12/23 12/12/23 Previous Rx's Medication Instructions Recorded Losartan Potassium 25 mg PO HS #0 11/01/23 Allergies Allergy/AdvReac Type Severity Reaction Status Date / Time [place] walnut Allergy Anaphylaxis Verified 02/07/24 16:27 walnut Allergy Anaphylaxis Verified 02/07/24 16:27 Sulfa (Sulfonamide AdvReac mouth sores Verified 02/07/24 16:27 Antibiotics) Review of Systems ROS Statement: Those systems with pertinent positive or pertinent negative responses have been documented in the HPI. ROS Other: All systems not noted in ROS Statement are negative. Past Medical History Past Medical History: Cancer, Heart Failure, COPD, CVA/TIA, GERD/Reflux, Hypertension, Myocardial Infarction ([place]), Pulmonary Embolus (PE), Thyroid Disorder Additional Past Medical History / Comment(s): hx. cervical cancer, SOB w/activ ity, restless leg, TIA x 3 2012, tia 2014, personality disorder. CVA and PE 2017. Last Myocardial Infarction Date:: 2017 History of Any Multi-Drug Resistant Organisms: None Reported Past Surgical History: Section, Heart Catheterization, Tonsillectomy Additional Past Surgical History / Comment(s): cyst removed from ovary, left hip replacement 2020, bilateral catarct removal, cancer removed from chest in june 2022 Past Anesthesia/Blood Transfusion Reactions: Postoperative Nausea & Vomiting (PONV) Past Psychological History: Anxiety, Depression Smoking Status: Never smoker Past Alcohol Use History: None Reported Past Drug Use History: None Reported - Past Family History Mother Family Medical History: Cancer, Congestive Heart Failure (CHF), Vascular Disorder Additional Family Medical History / Comment(s): aneurysm General Exam - General Exam Comments Initial Comments: CONSTITUTIONAL: Patient is well-nourished and well-hydrated. No signs of acute distress. Patient is nontoxic appearing. VITAL SIGNS: These are reviewed and documented in the nurse's records. EYES: Pupils are equal round and reactive. Noninjected conjunctiva. HEENT: Head is normocephalic/atraumatic. No external lesions are noted. NECK: Supple. Trachea is midline. No meningeal signs. LUNGS: Clear to auscultation bilaterally. No wheezes. No rhonchi. No rales. CARDIOVASCULAR: Regular rate and rhythm. No murmurs. No peripheral edema. Distal pulses intact. ABDOMEN: Soft and nontender. No palpable masses. No palpable organomegaly. EXTREMITIES: Normal muscle tone. No joint swelling or tenderness. All compartments are soft. NEUROLOGICAL: Facies symmetrical. Tongue is midline. Speech is clear. No lateralizing deficits were appreciated. SKIN: No rashes, petechia, or purpura. Good skin turgor. PSYCHIATRIC: Patient is awake and alert. No acute psychosis. Appropriate behavior and judgment. Limitations: no limitations Course Vital Signs 02/07/24 02/07/24 02/07/24 16:24 18:50 19:00 Temperature 98.8 F Pulse Rate 66 64 62 Respiratory 18 18 18 Rate Blood Pressure 202/116 175/101 165/92 O2 Sat by Pulse 95 94 L 93 L Oximetry Medical Decision Making - Medical Decision Making The patient was seen and examined. All diagnostics reviewed. IV is established patient is placed on the awake overnight monitor. No ectopy is identified. The EKG shows a normal sinus rhythm with occasional PVC. There is no acute ST or T wave changes noted per my interpretation. Intervals are normal. Patient received Zofran, Toradol, and labetalol intravenously. Aspirin also was given. The laboratory does not show any overt significant abnormalities. Chest x-ray is normal per my interpretation and radiologist interpretation. Patient's blood pressure initially does come down nicely and is 142/82 on recheck. She states that her symptoms have resolved. She was going to be discharged home but repeat blood pressures prior to discharge are once again elevated at 174 systolic and 184 systolic. She states that her symptoms are starting to return and she does not feel safe to be discharged home. She appears somewhat anxious on recheck. Ativan 1 mg IV is given. She is strongly requesting to be admitted as she has nobody home with her this evening and is very scared. It is felt as though some of her symptoms may potentially be related to anxiety. Case is discussed with Dr. Salazar and he relates that he sees her on almost a weekly basis and has made significant changes in her medications for blood pressure recently. He is agreeable to admission with cardiology to consult. Was pt. sent in by a medical professional or institution (, [facility], POLITICAL SCIENTIST, urgent care, hospital, or long term...) When possible be specific @ -No Did you speak to anyone other than the patient for history (EMS, parent, family, police, friend...)? What history was obtained from this source @ -No Did you review nursing and triage notes (agree or disagree)? Why? @ -I reviewed and agree with nursing and triage notes Were old charts reviewed (outside hosp., previous admission, EMS record, old EKG, old radiological studies, urgent care reports/EKG's, long term records)? Report findings @ -Old records were reviewed. It appears as though she was just here 3 days ago for similar. Differential Diagnosis (chest pain, altered mental status, abdominal pain women, abdominal pain men, vaginal bleeding, weakness, fever, dyspnea, syncope, headache, dizziness, GI bleed, back pain, seizure, CVA, palpatations, mental health, musculoskeletal)? @ -Hypertension, chest pain, acute coronary syndrome, cephalgia, nausea. EKG interpreted by me (3pts min.). @ -As above X-rays interpreted by me (1pt min.). @ -As above CT interpreted by me (1pt min.). @ -None done U/S interpreted by me (1pt. min.). @ -None done What testing was considered but not performed or refused? (CT, X-rays, U/S, la bs)? Why? @ -None What meds were considered but not given or refused? Why? @ -None Did you discuss the management of the patient with other professionals (professionals i.e. , PA, POLITICAL SCIENTIST, lab, RT, psych nurse, foster care social worker, commodities requirements analyst, teacher, liaison officer, case preparer and liner)? Give summary @ -Case is discussed with her primary care and he is agreeable with admission. Was smoking cessation discussed for >3mins.? @ -No Was critical care preformed (if so, how long)? @ -No Were there social determinants of health that impacted care today? How? (Homelessness, low income, unemployed, alcoholism, drug addiction, transportation, low edu. Level, literacy, decrease access to med. care, prison, rehab)? @ -No Was there de-escalation of care discussed even if they declined (Discuss DNR or withdrawal of care, Hospice)? DNR status @ -No What co-morbidities impacted this encounter? (DM, HTN, Smoking, COPD, CAD, Cancer, CVA, ARF, Chemo, Hep., AIDS, mental health diagnosis, sleep apnea, morbid obesity)? @ -Hypertension Was patient admitted / discharged? Hospital course, mention meds given and route, prescriptions, significant lab abnormalities, going to OR and other pertinent info. @ -Patient was admitted, please see above. Undiagnosed new problem with uncertain prognosis? @ -No Drug Therapy requiring intensive monitoring for toxicity (Heparin, Nitro, Insulin, Cardizem)? @ -No Were any procedures done? @ -No Diagnosis/symptom? @ -Hypertension, chest pain, possible acute coronary syndrome, cephalgia. Acute, or Chronic, or Acute on Chronic? @ -Acute on chronic Uncomplicated (without systemic symptoms) or Complicated (systemic symptoms)? @ -Uncomplicated Side effects of treatment? @ -No Exacerbation, Progression, or Severe Exacerbation? @ -Exacerbation Poses a threat to life or bodily function? How? (Chest pain, [place], [place], pneumonia, PE, COPD, DKA, ARF, appy, cholecystitis, CVA, Diverticulitis, Homicidal, Suicidal, threat to staff... and all critical care pts) @ -No - Lab Data Result diagrams: 02/07/24 18:23 02/07/24 18:23 Lab Results 02/07/24 02/07/24 02/07/24 Range/Units 18:23 18:23 18:23 WBC 7.0 (3.8-10.6) k/uL RBC 4.38 (3.80-5.40) m/uL Hgb 13.3 (11.4-16.0) gm/dL Hct 40.1 (34.0-46.0) % MCV 91.6 (80.0-100.0) fL MCH 30.3 (25.0-35.0) pg MCHC 33.1 (31.0-37.0) g/dL RDW 13.1 (11.5-15.5) % Plt Count 172 (150-450) k/uL MPV 7.3 Neutrophils % 53 % Lymphocytes % 39 % Monocytes % 5 % Eosinophils % 1 % Basophils % 0 % Neutrophils # 3.7 (1.3-7.7) k/uL Lymphocytes # 2.7 (1.0-4.8) k/uL Monocytes # 0.3 (0-1.0) k/uL Eosinophils # 0.1 (0-0.7) k/uL Basophils # 0.0 (0-0.2) k/uL PT 10.3 (10.0-12.5) sec INR 0.9 (<1.2) APTT 24.0 (22.0-30.0) sec Sodium 138 (137-145) mmol/L Potassium 4.1 (3.5-5.1) mmol/L Chloride 106 (98-107) mmol/L Carbon Dioxide 27 (22-30) mmol/L Anion Gap 5 mmol/L BUN 26 H (7-17) mg/dL Creatinine 0.89 (0.52-1.04) mg/dL Est GFR (CKD-EPI)AfAm 75 (>60 ml/min/1.73 sqM) Est GFR (CKD-EPI)NonAf 65 (>60 ml/min/1.73 sqM) Glucose 89 (74-99) mg/dL Calcium 9.3 (8.4-10.2) mg/dL Magnesium 2.0 (1.6-2.3) mg/dL Total Bilirubin 0.4 (0.2-1.3) mg/dL AST 22 (14-36) U/L ALT 14 (4-34) U/L Alkaline Phosphatase 74 (38-126) U/L Troponin I (0.000-0.034) ng/mL Total Protein 6.3 (6.3-8.2) g/dL Albumin 3.7 (3.5-5.0) g/dL 02/07/24 Range/Units 18:23 WBC (3.8-10.6) k/uL RBC (3.80-5.40) m/uL Hgb (11.4-16.0) gm/dL Hct (34.0-46.0) % MCV (80.0-100.0) fL MCH (25.0-35.0) pg MCHC (31.0-37.0) g/dL RDW (11.5-15.5) % Plt Count (150-450) k/uL MPV Neutrophils % % Lymphocytes % % Monocytes % % Eosinophils % % Basophils % % Neutrophils # (1.3-7.7) k/uL Lymphocytes # (1.0-4.8) k/uL Monocytes # (0-1.0) k/uL Eosinophils # (0-0.7) k/uL Basophils # (0-0.2) k/uL PT (10.0-12.5) sec INR (<1.2) APTT (22.0-30.0) sec Sodium (137-145) mmol/L Potassium (3.5-5.1) mmol/L Chloride (98-107) mmol/L Carbon Dioxide (22-30) mmol/L Anion Gap mmol/L BUN (7-17) mg/dL Creatinine (0.52-1.04) mg/dL Est GFR (CKD-EPI)AfAm (>60 ml/min/1.73 sqM) Est GFR (CKD-EPI)NonAf (>60 ml/min/1.73 sqM) Glucose (74-99) mg/dL Calcium (8.4-10.2) mg/dL Magnesium (1.6-2.3) mg/dL Total Bilirubin (0.2-1.3) mg/dL AST (14-36) U/L ALT (4-34) U/L Alkaline Phosphatase (38-126) U/L Troponin I <0.012 (0.000-0.034) ng/mL Total Protein (6.3-8.2) g/dL Albumin (3.5-5.0) g/dL Disposition Clinical Impression: Hypertension, Cephalgia, Nausea, Chest pain, Anxiety Disposition: ADMITTED IP TO THIS HOSP Condition: Good Is patient prescribed a controlled substance at d/c from ED?: No Referrals: Zoey Salazar MD [Primary Care Provider] - 1-2 days Time of Disposition: 19:37 Decision Date: 02/07/24 Decision Time: 20:10
[2024-02-07] MEDS: KETOROLAC 15 MG/ML 1 ML VIAL IVP STA (18:21)
[2024-02-07] MEDS: ONDANSETRON 4 MG/2 ML VIAL IVP STA (18:21)
[2024-02-07] MEDS: LABETALOL 5 MG/ML VIAL MDV IVP STA (18:21)
[2024-02-07] MEDS: ASPIRIN 81 MG PO STA (18:22)
[2024-02-07 18:48] LABS: INR 0.9 (<1.2); Prothrombin Time 10.3 sec (10.0-12.5)
[2024-02-07 18:50] LABS: ALT 14 U/L (4-34); AST 22 U/L (14-36); African American GFR (CKD) 75 (>60 ml/min/1.73 sqM); Albumin 3.7 g/dL (3.5-5.0); Alkaline Phosphatase 74 U/L (38-126); Anion Gap 5 mmol/L; Blood Urea Nitrogen 26 mg/dL (7-17); Calcium 9.3 mg/dL (8.4-10.2); Carbon Dioxide 27 mmol/L (22-30); Chloride 106 mmol/L (98-107); Glucose 89 mg/dL (74-99); Non-African American GFR(CKD) 65 (>60 ml/min/1.73 sqM); Potassium 4.1 mmol/L (3.5-5.1); Sodium 138 mmol/L (137-145); Total Bilirubin 0.4 mg/dL (0.2-1.3); Total Protein 6.3 g/dL (6.3-8.2)
[2024-02-07 18:56] LABS: Basophils % (A) 0 %; Eosinophils # (A) 0.1 k/uL (0-0.7); Eosinophils % (A) 1 %; HCT 40.1 % (34.0-46.0); HGB 13.3 gm/dL (11.4-16.0); Lymphocytes # (A) 2.7 k/uL (1.0-4.8); Lymphocytes % (A) 39 %; MCH 30.3 pg (25.0-35.0); MCHC 33.1 g/dL (31.0-37.0); MCV 91.6 fL (80.0-100.0); Mean Platelet Volume 7.3; Monocytes # (A) 0.3 k/uL (0-1.0); Monocytes % (A) 5 %; Neutrophils # (A) 3.7 k/uL (1.3-7.7); Neutrophils % (A) 53 %; Platelet Count 172 k/uL (150-450); RBC 4.38 m/uL (3.80-5.40); RDW 13.1 % (11.5-15.5)
--- NOTE | 2024-02-07 19:27 | XR ---
EXAMINATION TYPE: XR chest 2V DATE OF EXAM: 02/07/2024 6:26 PM CLINICAL INDICATION:Female, 73 years old with history of Chest Pain; [facility] COMPARISON: 02/04/2024 TECHNIQUE: XR chest 2V. Frontal and lateral views of the chest.. FINDINGS: Lines/Tubes/Devices: No indwelling lines are seen. Heart/mediastinum: Heart size is normal. Mediastinum appears normal. Pulmonary vascularity: Not increased, Lungs/Pleura: Lung volumes are slightly greater than before. There is no evidence of pleural effusion , focal consolidation, or pneumothorax. Musculoskeletal: No acute osseous abnormality demonstrated in the limits of the exam. Other findings: None. IMPRESSION: No acute cardiopulmonary abnormality.
[2024-02-07] MEDS: LORazepam 2 MG/ML INJ IV STA (21:35)
[2024-02-07] MEDS ORDERED: NITROGLYCERIN SL TABS 0.4 MG TAB SUBLINGUAL PRN (23:19)
[2024-02-07] MEDS ORDERED: tiZANidine 4 MG TAB PO PRN (23:19)
[2024-02-07] MEDS ORDERED: ALBUTEROL NEBULIZED 2.5 MG/3 ML INHALATION PRN (23:19)
[2024-02-08] MEDS: NITROGLYCERIN OINT 1 INCH/GM PACKET TOPICAL SCH (00:22)
[2024-02-08] MEDS: ALPRAZolam 0.5 MG TAB PO PRN (03:24)
[2024-02-08] MEDS: LEVOTHYROXINE 88 MCG TAB PO SCH (06:37)
[2024-02-08] MEDS: ASPIRIN 325 MG TAB PO SCH (07:52)
[2024-02-08] MEDS: GABAPENTIN 300 MG CAP PO SCH (07:52)
[2024-02-08] MEDS: FOLIC ACID 1 MG TAB PO SCH (07:52)
[2024-02-08] MEDS: carvediloL 6.25 MG TAB PO SCH (07:52)
[2024-02-08] MEDS: ENOXAPARIN 40 MG/0.4 ML SYRINGE SQ SCH (07:52)
[2024-02-08] MEDS: ASCORBIC ACID 500 MG TAB PO SCH (07:52)
[2024-02-08] MEDS: CITALOPRAM HYDROBROMIDE 20 MG TAB PO SCH (07:52)
[2024-02-08 09:03] LABS: Chol/HDL Ratio 3.34 Ratio; LDL Cholesterol,Calculated 76.7 mg/dL (0.0-131.0)
--- NOTE | 2024-02-08 12:37 | P.CRDCN ---
History of Present Illness History of present illness: HISTORY OF PRESENT ILLNESS: This is a 73-year-old female with a past medical history significant for hypertension, hyperlipidemia, prediabetes, carotid stenosis, CVA, pulmonary embolism, and minimal coronary artery disease. Patient follows in the office with Dr. Siddiqui. We have been asked to see the patient in consultation for hypertension. Patient examined at the bedside. Patient states yesterday at home she was having a severe headache. She states this occurred while she was just sitting down watching TV. She states that she took some Excedrin Migraine and went to lay down for a little bit. When she got up she took her blood pressure which was noted to be 189/73. She presented to the hospital for further evaluation. Blood pressure upon admission was 202/116. The patient was given labetalol and Ativan. Most recent blood pressure is 108/66. She currently denies any chest pain or pressure. She denies any shortness of breath. DIAGNOSTICS: - EKG reveals sinus mechanism with no signs of acute ischemia - Chest xray negative for acute process - Laboratory data: WBC 7.0. Hemoglobin 13.3. Platelet count 172. Sodium 138. Potassium 4.1. BUN 26. Creatinine 0.89. Magnesium 2.0. Troponin negative x 3 - Current home cardiac medications include carvedilol 6.25 mg twice a day, losartan 100 mg at night, Plavix 75 mg daily, Lipitor 40 mg at night, aspirin 81 mg daily. - Most recent echocardiogram obtained in 10/2023 revealing ejection fraction 55 to 60%, trace MR, trace TR - Cardiac catheterization history: November 2023 revealing mild nonobstructive disease involving the left circumflex artery, false positive stress test. REVIEW OF SYSTEMS: At the time of my exam: CONSTITUTIONAL: Denies fever or chills. HEENT: Denies blurred vision, vision changes, or eye pain. Denies hemoptysis CARDIOVASCULAR: Denies chest pain. Denies orthopnea. Denies PND. Denies palpitations RESPIRATORY: Denies shortness of breath. GASTROINTESTINAL: Denies abdominal pain. Denies nausea or vomiting. HEMATOLOGIC: Denies bleeding disorders. GENITOURINARY: Denies any blood in urine. SKIN: Denies pruitis. Denies rash. PHYSICAL EXAM: VITAL SIGNS: Reviewed. GENERAL: Well-developed in no acute distress. HEENT: Head is normocephalic. Pupils are equal, round. Sclerae anicteric. Mucous membranes of the mouth are moist. Neck supple. No JVD or thyromegaly LUNGS: Respirations even and unlabored. Lungs essentially clear to auscultation bilaterally. HEART: Regular rate and rhythm. S1 and S2 heard. ABDOMEN: Soft. Nondistended. Nontender. EXTREMITIES: Normal range of motion. No clubbing or cyanosis. Peripheral pulses intact. No lower extremity edema NEUROLOGIC: Awake and alert. Oriented x 3. ASSESSMENT: Hypertensive emergency, resolved Mild nonobstructive CAD History of hypertension History of hyperlipidemia Prediabetes Carotid atherosclerosis History of CVA, on antiplatelet therapy History of pulmonary embolism PLAN: Continue current cardiac medications Continue to monitor blood pressure Obtain cortisol level. Patient was noted to have cortisol level of 5 in January 2022. If cortisol remains low, patient may require further evaluation for adrenal insufficiency Patient may be discharged home this afternoon if blood pressure remains stable Further recommendations pending patient course Nurse practitioner note has been reviewed by physician. Signing provider agrees with the documented findings, assessment, and plan of care documented by LIGHTING SPECIALIST as a scribe. Past Medical History Past Medical History: Cancer, Heart Failure, COPD, CVA/TIA, GERD/Reflux, Hypertension, Myocardial Infarction ([place]), Pulmonary Embolus (PE), Thyroid Disorder Additional Past Medical History / Comment(s): hx. cervical cancer, SOB w/activity, restless leg, TIA x 3 2012, tia 2014, personality disorder. CVA and PE 2017. Last Myocardial Infarction Date:: 2017 History of Any Multi-Drug Resistant Organisms: None Reported Past Surgical History: Section, Heart Catheterization, Tonsillectomy Additional Past Surgical History / Comment(s): cyst removed from ovary, left hip replacement 2020, bilateral catarct removal, cancer removed from chest in june 2022 Past Anesthesia/Blood Transfusion Reactions: Postoperative Nausea & Vomiting (PONV) Past Psychological History: Anxiety, Depression Additional Psychological History / Comment(s): dissociative personality disorder Smoking Status: Never smoker Past Alcohol Use History: None Reported Past Drug Use History: None Reported - Past Family History Mother Family Medical History: Cancer, Congestive Heart Failure (CHF), Vascular Disorder Additional Family Medical History / Comment(s): aneurysm Medications and Allergies Home Medications Medication Instructions Recorded Confirmed Type Gabapentin [Neurontin] 300 mg PO TID 08/12/21 02/07/24 History Levothyroxine Sodium [Synthroid] 88 mcg PO DAILY 08/12/21 02/07/24 History Nitroglycerin Sl Tabs [Nitrostat] 0.4 mg SL Q5M PRN 08/12/21 02/07/24 History Ascorbic Acid [Vitamin C] 500 mg PO DAILY 02/02/22 02/07/24 History Clopidogrel [Plavix] 75 mg PO HS@1900 02/02/22 02/07/24 History Pantoprazole Sodium [Protonix] 20 mg PO HS@1900 02/02/22 02/07/24 History Aspirin 81 mg PO MOWEFR@0800 12/11/23 02/07/24 History Albuterol Inhaler [Ventolin Hfa 2 puff INHALATION RT-Q4H PRN 02/07/24 02/07/24 History Inhaler] Atorvastatin Calcium [Lipitor] 40 mg PO HS@1900 02/07/24 02/07/24 History Citalopram Hydrobromide [CeleXA] 20 mg PO DAILY 02/07/24 02/07/24 History Folic Acid 0.4 mg PO DAILY 02/07/24 02/07/24 History Losartan Potassium 100 mg PO HS@1900 02/07/24 02/07/24 History Semaglutide [Wegovy] 0.25 mg SQ MO 02/07/24 02/07/24 History carvediloL [Coreg] 6.25 mg PO BID@0800,1900 02/07/24 02/07/24 History tiZANidine [Zanaflex] 4 mg PO DAILY PRN 02/07/24 02/07/24 History Allergies Allergy/AdvReac Type Severity Reaction Status Date / Time [place] walnut Allergy Anaphylaxis Verified 02/07/24 16:27 walnut Allergy Anaphylaxis Verified 02/07/24 16:27 Sulfa (Sulfonamide AdvReac mouth sores Verified 02/07/24 16:27 Antibiotics) Physical Exam Vitals: Vital Signs Temp Pulse Pulse Resp BP BP Pulse Ox 02/08/24 07:49 97.4 F L 62 16 108/66 96 02/08/24 03:47 70 16 106/66 95 02/08/24 00:00 70 16 112/75 91 L 02/07/24 21:59 68 17 154/89 93 L 02/07/24 21:10 147/94 02/07/24 21:00 97.9 F 67 75 16 176/88 184/103 91 L 02/07/24 20:00 66 21 185/104 93 L 02/07/24 19:00 62 18 165/92 93 L 02/07/24 18:50 64 18 175/101 94 L 02/07/24 16:24 98.8 F 66 18 202/116 95 Intake and Output 02/07/24 02/08/24 02/08/24 22:59 06:59 14:59 Intake Total 10 Balance 10 Intake: IV 10 Invasive Line 1 10 Other: Weight 83.915 kg Results 02/07/24 18:23 02/07/24 18:23 Cardiac Enzymes 02/07/24 02/07/24 02/07/24 Range/Units 18:23 18:23 23:23 AST 22 (14-36) U/L Troponin I <0.012 <0.012 (0.000-0.034) ng/mL 02/08/24 Range/Units 04:51 AST (14-36) U/L Troponin I <0.012 (0.000-0.034) ng/mL Coagulation 02/07/24 Range/Units 18:23 PT 10.3 (10.0-12.5) sec APTT 24.0 (22.0-30.0) sec Lipids 02/08/24 Range/Units 04:51 Triglycerides 170.00 H (0.00-149.00) mg/dL Cholesterol 158.00 (0.00-200.00) mg/dL HDL Cholesterol 47.30 (40.00-60.00) mg/dL Cholesterol/HDL Ratio 3.34 Ratio CBC 02/07/24 Range/Units 18:23 WBC 7.0 (3.8-10.6) k/uL RBC 4.38 (3.80-5.40) m/uL Hgb 13.3 (11.4-16.0) gm/dL Hct 40.1 (34.0-46.0) % Plt Count 172 (150-450) k/uL Comprehensive Metabolic Panel 02/07/24 Range/Units 18:23 Sodium 138 (137-145) mmol/L Potassium 4.1 (3.5-5.1) mmol/L Chloride 106 (98-107) mmol/L Carbon Dioxide 27 (22-30) mmol/L BUN 26 H (7-17) mg/dL Creatinine 0.89 (0.52-1.04) mg/dL Glucose 89 (74-99) mg/dL Calcium 9.3 (8.4-10.2) mg/dL AST 22 (14-36) U/L ALT 14 (4-34) U/L Alkaline Phosphatase 74 (38-126) U/L Total Protein 6.3 (6.3-8.2) g/dL Albumin 3.7 (3.5-5.0) g/dL Current Medications Generic Name Dose Route Start Last Admin Trade Name Freq PRN Reason Stop Dose Admin Acetaminophen 650 mg 02/07/24 20:28 Acetaminophen Tab 325 Mg Tab PO Q4HR PRN Pain Albuterol Sulfate 2.5 mg 02/07/24 23:19 Albuterol Nebulized 2.5 Mg/3 Ml INHALATION RT-Q4H PRN Shortness Of Breath Alprazolam 0.5 mg 02/07/24 20:28 02/08/24 03:24 Alprazolam 0.5 Mg Tab PO 0.5 mg QID PRN Administration Anxiety Ascorbic Acid 500 mg 02/08/24 09:00 02/08/24 07:52 Ascorbic Acid 500 Mg Tab PO 500 mg DAILY [facility] Administration Aspirin 81 mg 02/09/24 09:00 Aspirin 81 Mg PO DAILY [facility] Atorvastatin Calcium 40 mg 02/08/24 21:00 Atorvastatin 40 Mg Tab PO HS [facility] Carvedilol 6.25 mg 02/08/24 09:00 02/08/24 07:52 Carvedilol 6.25 Mg Tab PO 6.25 mg BID [facility] Administration Citalopram Hydrobromide 20 mg 02/08/24 09:00 02/08/24 07:52 Citalopram Hydrobromide 20 Mg Tab PO 20 mg DAILY [facility] Administration Clopidogrel Bisulfate 75 mg 02/08/24 21:00 Clopidogrel 75 Mg Tab PO HS [facility] Enoxaparin Sodium 40 mg 02/08/24 09:00 02/08/24 07:52 Enoxaparin 40 Mg/0.4 Ml Syringe SQ 40 mg DAILY [facility] Administration Folic Acid 0.5 mg 02/08/24 09:00 02/08/24 07:52 Folic Acid 1 Mg Tab PO 0.5 mg DAILY [facility] Administration Gabapentin 300 mg 02/08/24 09:00 02/08/24 07:52 Gabapentin 300 Mg Cap PO 300 mg TID [facility] Administration Labetalol HCl 20 mg 02/07/24 20:32 Labetalol 5 Mg/Ml Vial Mdv IVP Q4H PRN Hypertension Levothyroxine Sodium 88 mcg 02/08/24 06:30 02/08/24 06:37 Levothyroxine 88 Mcg Tab PO 88 mcg DAILY@0630 [facility] Administration Losartan Potassium 100 mg 02/08/24 21:00 Losartan 50 Mg Tab PO HS [facility] Nitroglycerin 0.4 mg 02/07/24 23:19 Nitroglycerin Sl Tabs 0.4 Mg Tab SUBLINGUAL Q5M PRN Chest Pain Non-Formulary Medication 0.25 mg 02/12/24 09:00 Semaglutide [Wegovy] SQ MO [facility] Pantoprazole Sodium 40 mg 02/08/24 21:00 Pantoprazole 40 Mg Tablet PO HS [facility] Tizanidine HCl 4 mg 02/07/24 23:19 Tizanidine 4 Mg Tab PO DAILY PRN Muscle Spasm Intake and Output 02/07/24 02/08/24 02/08/24 22:59 06:59 14:59 Intake Total 10 Balance 10 Intake: IV 10 Invasive Line 1 10 Other: Weight 83.915 kg 02/07/24 18:23 02/07/24 18:23
--- NOTE | 2024-02-08 12:58 | CA ---
Transthoracic Echo Report Name: Jennifer Manjarrez Age: 73 Gender: F : 1950 Exam Date: 02/08/2024 08:28 Exam Location: [facility] Ht (in): 62 Wt (lb): 185 Ordering Physician: Dinesh Whipple DO Attending/Referring Phys: GAGE, Sole Engagement Mgr Joelle Cobb RDCS Procedure CPT: Indications: CP Cardiac Hx: Technical Quality: Fair Contrast 1: Total Dose (mL): Contrast 2: Total Dose (mL): MEASUREMENTS (Male / Female) Normal Values 2D ECHO LV Diastolic Diameter PLAX 3.8 cm 4.2 - 5.9 / 3.9 - 5.3 cm LV Systolic Diameter PLAX 1.8 cm IVS Diastolic Thickness 1.2 cm 0.6 - 1.0 / 0.6 - 0.9 cm LVPW Diastolic Thickness 1.1 cm 0.6 - 1.0 / 0.6 - 0.9 cm LV Relative Wall Thickness 0.6 RV Internal Dim ED PLAX 3.7 cm LA Volume 67.4 cm??? 18 - 58 / 22 - 52 cm??? LA Volume Index 34.5 cm???/m??? 16 - 28 cm???/m??? M-MODE Aortic Root Diameter MM 3.4 cm LA Systolic Diameter MM 3.7 cm LA Ao Ratio MM 1.1 AV Cusp Separation MM 1.6 cm DOPPLER AV Peak Velocity 173.8 cm/s AV Peak Gradient 12.1 mmHg AV Mean Velocity 107.2 cm/s AV Mean Gradient 5.4 mmHg AV Velocity Time Integral 35.9 cm LVOT Peak Velocity 109.2 cm/s LVOT Peak Gradient 4.8 mmHg LVOT Velocity Time Integral 26.6 cm MV Area PHT 2.6 cm??? Mitral E Point Velocity 72.4 cm/s Mitral A Point Velocity 100.2 cm/s Mitral E to A Ratio 0.7 MV Deceleration Time 289.6 ms MV E' Velocity 5.1 cm/s Mitral E to MV E' Ratio 14.3 TR Peak Velocity 188.7 cm/s TR Peak Gradient 14.2 mmHg Right Ventricular Systolic Press 19.2 mmHg FINDINGS Left Ventricle Mildly increased left ventricular wall thickness. Left ventricular cavity size normal. Normal left ventricular systolic function. No obvious regional wall motion abnormalities. Left ventricular ejection fraction is estimated at 55-60 %. Right Ventricle Mild right ventricular dilatation. Right ventricular systolic pressure within normal limits. Right Atrium Mild right atrial dilatation. Left Atrium Moderately increased left atrial volume. Mildly increased left atrial area. Mitral Valve Structurally normal mitral valve. Mitral valve thickened. Mild mitral annular calcification. Mmqu-[id number]-[id number] mitral regurgitation. Aortic Valve Trileaflet aortic valve. Thickened aortic valve without stenosis. No aortic valve stenosis or regurgitation. Tricuspid Valve Structurally normal tricuspid valve. Mild tricuspid regurgitation. Pulmonic Valve Structurally normal pulmonic valve. Pericardium No pericardial effusion. Aorta Normal size aortic root and proximal ascending aorta. CONCLUSIONS Left ventricular ejection fraction is estimated at 55-60 %. No obvious regional wall motion abnormalities. Mild concentric LVH Mild RA and RV dilatation. Normal RV systolic function Mild LA dilatation Mild MR, mitral annular calcification Previewed by: Dr Mika Wang (Electronically Signed) Final Date: 08 February 2024 12:57
[2024-02-08 15:41] LABS: Glucose,Whole Blood 113 mg/dL (70-110)
--- NOTE | 2024-02-08 19:11 | P.HPIM ---
History of Present Illness H&P Date: 02/08/24 Chief Complaint: chest pain HISTORY OF PRESENT ILLNESS This is a 73-year-old female with past medical history of mild intermittent asthma, ALLERGIC rhinitis, CVA, coronary arteriosclerosis, hyperlipidemia, pulmonary embolism, hypertension and hypertensive cardiovascular disease, patient recently was having issues with her blood pressure control has been visiting the emergency department at [facility] multiple times, as a matter fact have seen in the office or twice and I adjusted her antihypertensive medication, she is currently on losartan 100 mg once every day, and she has been doing fine up till yesterday when she went home and she was sitting down also an d developed to have a significant headache and all of a sudden had chest pressure across her chest radiating to the back of the neck associated with minimal shortness of breath, so she ended up coming to the emergency department at [facility], she was seen in the ER, she had her blood pressure checked and was around 200/110, she was given labetalol 20 mg IV push, she had a battery of testing including CT scan and chest x-ray and EKG and the blood work that came back all negative, patient blood pressure started to creep up again before the patient was going to be discharged and she was scared about getting discharged, stated that the patient does not have anybody at home and her frien ds are not available so she wanted to stay in the hospital for further evaluation, patient was admitted to the hospital for evaluation and recommendation by cardiology as well. REVIEW OF SYSTEMS Constitutional: No fever, no chills, no night sweats. No weight change. No weakness, fatigue or lethargy. No daytime sleepiness. EENT: positive for headache. No blurred vision positive for double vision, no loss of vision. No loss of Hearing, no ringing in the ears, + dizziness. No nasal drainage or congestion. No epistaxis. No sore throat. Lungs: No shortness of breath, cough, no sputum production. No wheezing. Cardiovascular: + chest pain, no lower extremity edema. No palpitations. No p aroxysmal nocturnal dyspnea. No orthopnea. + lightheadedness or dizziness. No syncopal episodes. Abdominal: No abdominal pain. + nausea, no vomiting. No diarrhea. No constipation. No bloody or tarry stools. No loss of appetite. Genitourinary: No dysuria, increased frequency, urgency. No urinary retention. Musculoskeletal: No myalgias. No muscle weakness, no gait dysfunction, no frequent falls. No back pain. No neck pain. Integumentary: No wounds, no lesions. No rash or pruritus. No unusual bruising. No change in hair or nails. Neurologic: No aphasia. No facial droop. No change in mentation. No head injury. No headache. No paralysis. No paresthesia. Psychiatric: No depression. No anxiety. No mood swings. Endocrine: No abnormal blood sugars. No weight change. No excessive sweating or thirst. No cold intolerance. MEDICAL HISTORY Mild intermittent asthma ALLERGIC rhinitis CVA Coronary arteriosclerosis Hyperlipidemia Pulmonary embolism Hypertension and hypertensive cardiovascular disease. SURGICAL HISTORY Bilateral cataract removal and intraocular lens implant in 2020 Left hip replacement 2020 tonsillectomy Tubal ligation D&C Left heart catheterization 2014 Squamous cell cancer right chest resection SOCIAL HISTORY Patient has no smoking history, no marijuana use. She drinks alcohol rarely. FAMILY HISTORY father at age 88 from urinary tract infection and sepsis. Mother at age 77 status post 3 brain aneurysm, tobacco use. Patient has 4 brothers with no major medical problems. 2 sisters and one has hypothyroidism. Patient has one daughter with brain aneurysm. PHYSICAL EXAMINATION Gen: This is a 73-year-old female. She is resting on ER stretcher and appears to be comfortable and in no acute distress. HEENT: Head is atraumatic, normocephalic. Pupils equal, round. Sclerae is anicteric. NECK: Supple. No JVD. No lymphadenopathy. No thyromegaly. LUNGS: Clear to auscultation. No wheezes or rhonchi. No intercostal re tractions. HEART: Regular rate and rhythm. 2/6 systolic murmur at the left sternal border. ABDOMEN: Soft. Bowel sounds are present. No masses. No tenderness. EXTREMITIES: No pedal edema. No calf tenderness. dorsalis pedis +2 bilaterally. NEUROLOGICAL: Patient is awake, alert and oriented x3. Cranial nerves 2 through 12 are grossly intact. ASSESSMENT AND PLAN 1. Chest pain. Acute coronary syndrome has been ruled out. Cardiology consult is appreciated, this is likely due to uncontrolled hypertension, continue current cardiac medication including losartan 100 mg once every day, carvedilol 6.25 mg orally twice every day, monitor the patient blood pressure very closely. 2. Hypertension and hypertensive cardiovascular disease. Continue losartan 100 mg at bedtime, carvedilol 6.25 mg orally twice every day, monitor the patient blood pressure very closely. 3. Mild intermittent asthmastable without exacerbation. Stable at this time. 4. History of CVA. No new symptoms. Continue patient on atorvastatin 40 mg once every day, as well as Plavix 75 mg once every day for secondary stroke prevention. 5. Coronary arteriosclerosis. Continue patient on atorvastatin 40 mg at bedtim e, Plavix 75 mg daily, continue patient on carvedilol 6.25 mg orally twice every day.. 6. Hyperlipidemia. Continue atorvastatin 40 mg once every day, monitor lipid panel, keep LDL 55-70. 7. History of pulmonary embolism. CTA of the chest negative. 8. GI prophylaxis and GERD. Continue Protonix 40 mg at bedtime. 9. DVT prophylaxis. Lovenox 40 mg subcu daily. 10. Admit to inpatient. Estimated length of stay 2 midnights. 11. Full code. Past Medical History Past Medical History: Cancer, Heart Failure, COPD, CVA/TIA, GERD/Reflux, Hypertension, Myocardial Infarction (CO), Pulmonary Embolus (PE), Thyroid Disorder Additional Past Medical History / Comment(s): hx. cervical cancer, SOB w/activity, restless leg, TIA x 3 2012, tia 2014, personality disorder. CVA and PE 2017. Last Myocardial Infarction Date:: 2017 History of Any Multi-Drug Resistant Organisms: None Reported Past Surgical History: Section, Heart Catheterization, Tonsillectomy Additional Past Surgical History / Comment(s): cyst removed from ovary, left hip replacement 2020, bilateral catarct removal, cancer removed from chest in june 2022 Past Anesthesia/Blood Transfusion Reactions: Postoperative Nausea & Vomiting (P ONV) Past Psychological History: Anxiety, Depression Additional Psychological History / Comment(s): dissociative personality disorder Smoking Status: Never smoker Past Alcohol Use History: None Reported Past Drug Use History: None Reported - Past Family History Mother Family Medical History: Cancer, Congestive Heart Failure (CHF), Vascular Disorder Additional Family Medical History / Comment(s): aneurysm Medications and Allergies Home Medications Medication Instructions Recorded Confirmed Type Gabapentin [Neurontin] 300 mg PO TID 08/12/21 02/07/24 History Levothyroxine Sodium [Synthroid] 88 mcg PO DAILY 08/12/21 02/07/24 History Nitroglycerin Sl Tabs [Nitrostat] 0.4 mg SL Q5M PRN 08/12/21 02/07/24 History Ascorbic Acid [Vitamin C] 500 mg PO DAILY 02/02/22 02/07/24 History Clopidogrel [Plavix] 75 mg PO HS@1900 02/02/22 02/07/24 History Pantoprazole Sodium [Protonix] 20 mg PO HS@1900 02/02/22 02/07/24 History Aspirin 81 mg PO MOWEFR@0800 12/11/23 02/07/24 History Albuterol Inhaler [Ventolin Hfa 2 puff INHALATION RT-Q4H PRN 02/07/24 02/07/24 History Inhaler] Atorvastatin Calcium [Lipitor] 40 mg PO HS@1900 02/07/24 02/07/24 History Citalopram Hydrobromide [CeleXA] 20 mg PO DAILY 02/07/24 02/07/24 History Folic Acid 0.4 mg PO DAILY 02/07/24 02/07/24 History Losartan Potassium 100 mg PO HS@1900 02/07/24 02/07/24 History Semaglutide [Wegovy] 0.25 mg SQ MO 02/07/24 02/07/24 History carvediloL [Coreg] 6.25 mg PO BID@0800,1900 02/07/24 02/07/24 History tiZANidine [Zanaflex] 4 mg PO DAILY PRN 02/07/24 02/07/24 History Allergies Allergy/AdvReac Type Severity Reaction Status Date / Time Indonesian walnut Allergy Anaphylaxis Verified 02/07/24 16:27 walnut Allergy Anaphylaxis Verified 02/07/24 16:27 Sulfa (Sulfonamide AdvReac mouth sores Verified 02/07/24 16:27 Antibiotics) Physical Exam Vitals: Vital Signs Temp Pulse Pulse Resp BP BP Pulse Ox 02/08/24 07:49 97.4 F L 62 16 108/66 96 02/08/24 03:47 70 16 106/66 95 02/08/24 00:00 70 16 112/75 91 L 02/07/24 21:59 68 17 154/89 93 L 02/07/24 21:10 147/94 02/07/24 21:00 97.9 F 67 75 16 176/88 184/103 91 L 02/07/24 20:00 66 21 185/104 93 L 02/07/24 19:00 62 18 165/92 93 L 02/07/24 18:50 64 18 175/101 94 L 02/07/24 16:24 98.8 F 66 18 202/116 95 Intake and Output 02/07/24 02/08/24 02/08/24 22:59 06:59 14:59 Intake Total 10 Balance 10 Intake: IV 10 Invasive Line 1 10 Other: Weight 83.915 kg Results CBC & Chem 7: 02/07/24 18:23 02/07/24 18:23 Labs: Abnormal Lab Results - Last 24 Hours (Table) 02/07/24 02/08/24 Range/Units 18:23 04:51 BUN 26 H (7-17) mg/dL Triglycerides 170.00 H (0.00-149.00) mg/dL Thrombosis Risk Factor Assmnt - Choose All That Apply Any of the Below Risk Factors Present?: Yes Each Factor Represents 1 point: Abnormal pulmonary function (COPD) Each Risk Factor Represents 2 Points: Age 61-74 years Thrombosis Risk Factor Assessment Total Risk Factor Score: 3 Thrombosis Risk Factor Assessment Level: Moderate Risk
[2024-02-08] MEDS: CLOPIDOGREL 75 MG TAB PO SCH (21:34)
[2024-02-08] MEDS: ACETAMINOPHEN TAB 325 MG TAB PO PRN (21:34)
[2024-02-08] MEDS: ATORVASTATIN 40 MG TAB PO SCH (21:34)
[2024-02-08] MEDS: PANTOPRAZOLE 40 MG TABLET PO SCH (21:34)
[2024-02-08] MEDS: LOSARTAN 50 MG TAB PO SCH (21:34)
[2024-02-09] MEDS: ASPIRIN 81 MG PO SCH (09:03)
--- NOTE | 2024-02-09 12:39 | P.PN ---
Subjective HISTORY OF PRESENT ILLNESS: This is a 73-year-old female with a past medical history significant for hypertension, hyperlipidemia, prediabetes, carotid stenosis, CVA, pulmonary embolism, and minimal coronary artery disease. Patient follows in the office with Dr. Siddiqui. We have been asked to see the patient in consultation for hypertension. Patient examined at the bedside. Patient states yesterday at home she was having a severe headache. She states this occurred while she was just sitting down watching TV. She states that she took some Excedrin Migraine and went to lay down for a little bit. When she got up she took her blood pressure which was noted to be 189/73. She presented to the hospital for further evaluation. Blood pressure upon admission was 202/116. The patient was given labetalol and Ativan. Most recent blood pressure is 108/66. She currently denies any chest pain or pressure. She denies any shortness of breath. DIAGNOSTICS: - EKG reveals sinus mechanism with no signs of acute ischemia - Chest xray negative for acute process - Laboratory data: WBC 7.0. Hemoglobin 13.3. Platelet count 172. Sodium 138. Potassium 4.1. BUN 26. Creatinine 0.89. Magnesium 2.0. Troponin negative x 3 - Current home cardiac medications include carvedilol 6.25 mg twice a day, losartan 100 mg at night, Plavix 75 mg daily, Lipitor 40 mg at night, aspirin 81 mg daily. - Most recent echocardiogram obtained in 10/2023 revealing ejection fraction 55 to 60%, trace MR, trace TR - Cardiac catheterization history: November 2023 revealing mild nonobstructive disease involving the left circumflex artery, false positive stress test. 02/09/2024 Patient examined this morning at bedside. Patient denies chest pain or pressure. She denies shortness of breath. Blood pressure this morning is 124/85. She reports feeling dizzy upon standing and feels off balance. She states that she developed double vision yesterday around 1500 and she continues to have double vision this morning. She does have nystagmus upon examination. Cortisol level remains pending. PHYSICAL EXAM: VITAL SIGNS: Reviewed. GENERAL: Well-developed in no acute distress. HEENT: Head is normocephalic. Pupils are equal, round. Sclerae anicteric. Mucous membranes of the mouth are moist. Neck supple. No JVD or thyromegaly LUNGS: Respirations even and unlabored. Lungs essentially clear to auscultation bilaterally. HEART: Regular rate and rhythm. S1 and S2 heard. ABDOMEN: Soft. Nondistended. Nontender. EXTREMITIES: Normal range of motion. No clubbing or cyanosis. Peripheral pulses intact. No lower extremity edema NEUROLOGIC: Awake and alert. Oriented x 3. ASSESSMENT: Hypertensive emergency, resolved Mild nonobstructive CAD History of hypertension History of hyperlipidemia Prediabetes Carotid atherosclerosis History of CVA, with tPA administration, with residual left-sided weakness, on antiplatelet therapy History of pulmonary embolism Dizziness Double vision PLAN: Continue current cardiac medications Continue to monitor blood pressure Obtain cortisol level. Patient was noted to have cortisol level of 5 in January 2022. If cortisol remains low, patient may require further evaluation for adrenal insufficiency Consult neurology for further evaluation of double vision Further recommendations pending patient course Nurse practitioner note has been reviewed by physician. Signing provider agrees with the documented findings, assessment, and plan of care documented by COMPUTER NETWORKER as a scribe. Objective - Vital Signs Vital signs: Vital Signs Temp 97.7 F 02/09/24 04:00 Pulse 65 02/09/24 04:00 Resp 16 02/09/24 04:00 BP 124/85 02/09/24 04:00 Pulse Ox 95 02/09/24 04:00 FiO2 Intake & Output 02/08/24 02/09/24 02/09/24 18:59 06:59 18:59 Intake Total 260 118 Balance 260 118 Intake: IV 20 Invasive Line 1 20 Oral 240 118 Other: # Voids 0 2 # Bowel Movements 0 - Labs CBC & Chem 7: 02/07/24 18:23 02/07/24 18:23 Labs: Abnormal Lab Results - Last 24 Hours (Table) 02/08/24 Range/Units 15:38 POC Glucose (mg/dL) 113 H (70-110) mg/dL
[2024-02-09] MEDS: LABETALOL 5 MG/ML VIAL MDV IVP PRN (12:52)
[2024-02-09] MEDS: amLODIPine 5 MG TAB PO SCH ×2 (13:58→20:10)
[2024-02-09 14:51] LABS: Glucose,Whole Blood 98 mg/dL (70-110)
--- NOTE | 2024-02-09 15:17 | CT ---
EXAMINATION TYPE: CODE STROKE: CT brain wo contr CT DLP: 1113.6 mGycm, Automated exposure control for dose reduction was used. DATE OF EXAM: 02/09/2024 3:08 PM COMPARISON: CLINICAL INDICATION:Female, 73 years old with history of Neuro deficit, acute, stroke suspected, Neur o deficit, acute, stroke suspected TECHNIQUE: Brain: Axial CT images of the brain were obtained with coronal and sagittal reformats created and rev iewed. Contrast used: None. Oral contrast used: None. FINDINGS: Brain: Extra-axial spaces: No abnormal extra-axial fluid collections. Ventricular system: Within normal limits Cerebral parenchyma: No acute intraparenchymal hemorrhage or mass effect. The pritchard-white junction is well differentiated. Cerebellum: Unremarkable. Mass effect: No evidence of midline shift. Intracranial vasculature: unremarkable Soft tissues: Normal. Calvarium/osseous structures: No depressed skull fracture. Paranasal sinuses and mastoid air cells: Mild scattered paranasal sinus disease. Visualized orbits: Bilateral aphakia IMPRESSION: No acute intracranial process.
--- NOTE | 2024-02-09 15:36 | CT ---
EXAMINATION TYPE: CODE STROKE: CTA head neck CT DLP: 570.2 mGycm, Automated exposure control for dose reduction was used. DATE OF EXAM: 02/09/2024 3:22 PM COMPARISON: None. CLINICAL INDICATION:Female, 73 years old with history of Neuro deficit, acute, stroke suspected, Neur o deficit, acute, stroke suspected TECHNIQUE: Axially acquired helical CT angiogram of the head and neck was obtained with contrast. Axi al images are supplemented with 3D reconstructions and MIP images which were post-processed at an in dependent workstation. NASCET criteria used. Contrast used:65 cc mL of Isovue 370 with IV Contrast, Oral contrast used: None. FINDINGS: CTA HEAD: No evidence of acute intracranial hemorrhage, mass effect, or midline shift. The ventricles, sulci, a nd cisterns are unremarkable. The visualized portions of the internal carotid arteries, middle cerebral arteries, anterior cerebral arteries, and posterior cerebral arteries are patent. The basilar and vertebral arteries are patent. CTA NECK: Right Carotid System: The common carotid and external carotid arteries are patent. There is 50% stenosis at the carotid bif urcation secondary to calcified plaque. The rest of the internal carotid artery is patent. Left Carotid System: The common carotid and external carotid arteries are patent. There is less than 25% stenosis at the c arotid bifurcation secondary to calcified/noncalcified plaque. The rest of the internal carotid arter y is patent. Vertebral arteries are patent without evidence hemodynamically significant stenosis. There is a three-vessel aortic arch. The origins of the great vessels are patent. No evidence of hemo dynamically significant stenosis. Upper thorax: IMPRESSION: 1. No evidence of dissection of the cervical internal carotid arteries or vertebral arteries or any e vidence of significant stenosis at the carotid bifurcations. 2. No evidence of intracranial high-grade stenosis or intracranial aneurysm.
[2024-02-09 16:05] LABS: Basophils % (A) 0 %; Eosinophils # (A) 0.1 k/uL (0-0.7); Eosinophils % (A) 2 %; HCT 38.4 % (34.0-46.0); HGB 12.5 gm/dL (11.4-16.0); Lymphocytes # (A) 2.5 k/uL (1.0-4.8); Lymphocytes % (A) 41 %; MCH 30.2 pg (25.0-35.0); MCHC 32.6 g/dL (31.0-37.0); MCV 92.5 fL (80.0-100.0); Mean Platelet Volume 7.7; Monocytes # (A) 0.3 k/uL (0-1.0); Monocytes % (A) 4 %; Neutrophils % (A) 49 %; Platelet Count 175 k/uL (150-450); RBC 4.15 m/uL (3.80-5.40); RDW 13.1 % (11.5-15.5); WBC 6.1 k/uL (3.8-10.6)
[2024-02-09 16:16] LABS: INR 0.9 (<1.2); Partial Thromboplastin Time 25.9 sec (22.0-30.0); Prothrombin Time 10.3 sec (10.0-12.5)
[2024-02-09] MEDS: TICAGRELOR 90 MG TAB PO SCH (20:10)
[2024-02-10 04:37] LABS: Glucose,Whole Blood 96 mg/dL (70-110)
[2024-02-10] MEDS: SPIRONOLACTONE 25 MG TAB PO SCH (08:27)
--- NOTE | 2024-02-10 09:47 | P.PN ---
Subjective Progress Note Date: 02/09/24 HISTORY OF PRESENT ILLNESS This is a 73-year-old female with past medical history of mild intermittent ast hma, ALLERGIC rhinitis, CVA, coronary arteriosclerosis, hyperlipidemia, pulmonary embolism, hypertension and hypertensive cardiovascular disease, patient recently was having issues with her blood pressure control has been visiting the emergency department at [facility] multiple times, as a m atter fact have seen in the office or twice and I adjusted her antihypertensive medication, she is currently on losartan 100 mg once every day, and she has been doing fine up till yesterday when she went home and she was sitting down also and developed to have a significant headache and all of a sudden had chest pressure across her chest radiating to the back of the neck associated with minimal shortness of breath, so she ended up coming to the emergency department at [facility], she was seen in the ER, she had her blood pressure checked and was around 200/110, she was given labetalol 20 mg IV push, she had a battery of testing including CT scan and chest x-ray and EKG and the blood work that came back all negative, patient blood pressure started to creep up again before the patient was going to be discharged and she was scared about getting discharged, stated that the patient does not have anybody at home and her friends are not available so she wanted to stay in the hospital for further evaluation, patient was admitted to the hospital for evaluation and recommendation by cardiology as well. 02/08: Patient has been complaining of increased nystagmus and double vision we have consulted neurology yesterday, this episode started yesterday, continues to be an issue today, her blood pressure appears to be better today, she has been taking her medication, will continue to monitor the patient very closely, awaiting neurology input to rule out any ischemic cerebrovascular accident, CT scan of the brain was negative, patient may need to go for CT angiography of the neck and the brain along with possible MRI of the brain with and without cyndi. REVIEW OF SYSTEMS Constitutional: No fever, no chills, no night sweats. No weight change. No weakness, fatigue or lethargy. No daytime sleepiness. EENT: positive for headache. No blurred vision positive for double vision, no loss of vision. No loss of Hearing, no ringing in the ears, + dizziness. No nasal drainage or congestion. No epistaxis. No sore throat. Lungs: No shortness of breath, cough, no sputum production. No wheezing. Cardiovascular: + chest pain, no lower extremity edema. No palpitations. No paroxysmal nocturnal dyspnea. No orthopnea. + lightheadedness or dizziness. No syncopal episodes. Abdominal: No abdominal pain. + nausea, no vomiting. No diarrhea. No constipation. No bloody or tarry stools. No loss of appetite. Genitourinary: No dysuria, increased frequency, urgency. No urinary retention. Musculoskeletal: No myalgias. No muscle weakness, no gait dysfunction, no frequent falls. No back pain. No neck pain. Integumentary: No wounds, no lesions. No rash or pruritus. No unusual bruising. No change in hair or nails. Neurologic: No aphasia. No facial droop. No change in mentation. No head injury. No headache. No paralysis. No paresthesia. Psychiatric: No depression. No anxiety. No mood swings. Endocrine: No abnormal blood sugars. No weight change. No excessive sweating or thirst. No cold intolerance. PHYSICAL EXAMINATION Gen: This is a 73-year-old female. She is resting on ER stretcher and appears to be comfortable and in no acute distress. HEENT: Head is atraumatic, normocephalic. Pupils equal, round. Sclerae is anicteric. NECK: Supple. No JVD. No lymphadenopathy. No thyromegaly. LUNGS: Clear to auscultation. No wheezes or rhonchi. No intercostal retractions. HEART: Regular rate and rhythm. 2/6 systolic murmur at the left sternal border. ABDOMEN: Soft. Bowel sounds are present. No masses. No tenderness. EXTREMITIES: No pedal edema. No calf tenderness. dorsalis pedis +2 bilaterally. NEUROLOGICAL: Patient is awake, alert and oriented x3. Cranial nerves 2 through 12 are grossly intact. ASSESSMENT AND PLAN 1. Chest pain. Acute coronary syndrome has been ruled out. Cardiology consult is appreciated, this is likely due to uncontrolled hypertension, continue current cardiac medication including losartan 100 mg once every day, carvedilol 6.25 mg orally twice every day, monitor the patient blood pressure very closely. 2. Hypertension and hypertensive cardiovascular disease. Continue losartan 100 mg at bedtime, carvedilol 6.25 mg orally twice every day, patient has been getting labetalol 20 mg IV push as needed, added amlodipine 5 mg orally once every day. 3. Mild intermittent asthmastable without exacerbation. Stable at this time. 4. History of CVA. No new symptoms. Continue patient on atorvastatin 40 mg once every day, as well as Plavix 75 mg once every day for secondary stroke prevention, with her uncontrolled hypertension, consult to neurology especially in the view of her nystagmus as well as double vision for possible acute or impending CVA. 5. Coronary arteriosclerosis. Continue patient on atorvastatin 40 mg at bedtime, Plavix 75 mg daily, continue patient on carvedilol 6.25 mg orally twice every day.. 6. Hyperlipidemia. Continue atorvastatin 40 mg once every day, monitor lipid panel, keep LDL 55-70. 7. History of pulmonary embolism. CTA of the chest negative. 8. GI prophylaxis and GERD. Continue Protonix 40 mg at bedtime. 9. DVT prophylaxis. Lovenox 40 mg subcu daily. 10. Guarded prognosis. Objective - Vital Signs Vital signs: Vital Signs Temp 98.3 F 02/09/24 08:00 Pulse 70 02/09/24 08:00 Resp 18 02/09/24 08:00 BP 156/80 02/09/24 08:00 Pulse Ox 95 02/09/24 08:00 FiO2 Intake & Output 02/08/24 02/09/24 02/09/24 18:59 06:59 18:59 Intake Total 260 118 118 Balance 260 118 118 Intake: IV 20 Invasive Line 1 20 Oral 240 118 118 Other: # Voids 0 2 # Bowel Movements 0 - Labs CBC & Chem 7: 02/07/24 18:23 02/07/24 18:23 Labs: Abnormal Lab Results - Last 24 Hours (Table) 02/08/24 Range/Units 15:38 POC Glucose (mg/dL) 113 H (70-110) mg/dL
--- NOTE | 2024-02-10 10:50 | P.CNNES ---
History of Present Illness Consult date: 02/09/24 Requesting physician: Zoey Salazar Reason for Consult: Blurred vision History of Present Illness: Patient is a 73-year-old right-handed female, who states that for last 6 months she has not been feeling well, getting dizzy, tired, stressed. Her blood pressures has been running high about 196/115. Patient states that for last couple weeks, she has been having blurred vision off and on. Patient states that her left side of the body is falling asleep "now and then", lasting for about couple hours to half a day. This has been going on for last 3 months. Sometimes arm, and sometimes the whole left side of the body gets numb. Patient has been having headache all this week. She spoke to her primary physician abou kaylie it. Yesterday she developed diplopia at around 1 to 2 PM. This continued overnight. Therefore she came to the hospital. Today at 2:30 PM, patient had a stroke code activated. She was sitting on the side of the bed, when she suddenly felt dizzy, nauseated, felt will vomit. She certainly would not answer questions, was lethargic. Stroke code was activated. Initial NIH stroke scale reported was 22. Patient was sent for a stat CT head, CTA head and neck. When she returned, she is significantly improved. By 3:11 PM, her MA stroke scale was down to 7. Patient's symptoms slowly resolved in about half an hour. Case was discussed with neurointervention Dr. Pang, and patient was considered not a candidate for tPA or any intervention. Vitals on arrival blood pressure 202/116, pulse rate 66 temperature 98.8. Blood test shows normal CBC PT PTT, normal CMP, troponin. Patient has history of hypertension, hyperlipidemia, denies diabetes. She has never smoked, or does any drugs. She drinks alcohol socially, once every 3 months. Patient's home medications include Coreg, Imdur, Lipitor 40 mg, levothyroxine, nitroglycerin, gabapentin 300 mg 3 times a day, Protonix 20 mg, Plavix 75 mg losartan 25 mg triamterene/HCTZ and vitamin D. She does not take any aspirin, only Plavix. She is very compliant with medications. Patient states that she had history of stroke in 2018 which affected her left side of the body, which had slight residual weakness. She was admitted to [facility]. Patient had an acute VT in 2014, also had PE in October 2018. She had CHF diagnosis of the time. Patient states that one year ago she was admitted to the hospital in February 2022 with very fluctuating blood pressure. Her blood pressure medications were changed at that time. Patient has history of migraines in her 20s. She has not had any migraine since then. She denies any regular headaches. Patient has been seen by myself on 01/12/2023 for acute cephalgia, left arm paresthesias, chest pain which was felt to be related to accelerated hypertension. Rule out TIA. Also was seen on 11/01/2023 for possible stroke/TIA manifesting with visual disturbance, nausea, left arm weakness and left facial brachial numbness. MRI of the brain was normal at that time. Patient was placed on dual antiplatelet medication including aspirin 81 mg and Plavix 75 mg. 2-D echo revealed normal left ventricular size, wall thickness and EF 55-60%. No obvious regional wall motion abnormality. No significant diastolic dysfunction. Left atrium and right atrial size normal. Carotid Doppler showed no significant flow limiting stenosis. Antegrade flow in both vertebral arteries. Hemoglobin A1c 6.1 on 04/06/2023. Lipid panel with cholesterol 136, LDL 65, HDL 46 and triglycerides 120. Continue Lipitor 40 mg daily.. B12 444, folate 8.70. Patient was placed on folate 1 mg daily. Review of Systems Constitutional: Reports weight loss (Intentional), Denies chills, Denies fever Eyes: As per HPI Ears: deny: decreased hearing, ear discharge Ears, nose, mouth and throat: Reports headache, Denies sinus pressure, Denies sore throat Cardiovascular: Reports shortness of breath, Denies chest pain (not now but gets it) Respiratory: Denies cough, Denies excessive sputum Gastrointestinal: Reports nausea, Denies abdominal pain, Denies diarrhea, Denies vomiting Genitourinary: Denies dysuria, Denies hematuria, Denies mixed incontinence, Denies urinary frequency Musculoskeletal: Denies low back pain, Denies myalgias, Denies neck pain Integumentary: Denies pruritus, Denies rash Neurological: Reports as per HPI Psychiatric: Reports depression, Denies anxiety Endocrine: Reports fatigue, Reports weight change Hematologic/Lymphatic: Reports easy bruising, Denies easy bleeding Past Medical History Past Medical History: Cancer, Heart Failure, COPD, CVA/TIA, GERD/Reflux, Hypertension, Myocardial Infarction (VT), Pulmonary Embolus (PE), Thyroid Disorder Additional Past Medical History / Comment(s): hx. cervical cancer, SOB w/activity, restless leg, TIA x 3 2012, tia 2014, personality disorder. CVA and PE 2017. Last Myocardial Infarction Date:: 2017 History of Any Multi-Drug Resistant Organisms: None Reported Past Surgical History: Section, Heart Catheterization, Tonsillectomy Additional Past Surgical History / Comment(s): cyst removed from ovary, left hip replacement 2020, bilateral catarct removal, cancer removed from chest in june 2022 Past Anesthesia/Blood Transfusion Reactions: Postoperative Nausea & Vomiting (PONV) Past Psychological History: Anxiety, Depression Additional Psychological History / Comment(s): dissociative personality disorder Smoking Status: Never smoker Past Alcohol Use History: None Reported Past Drug Use History: None Reported - Past Family History Mother Family Medical History: Cancer, Congestive Heart Failure (CHF), Vascular Disorder Additional Family Medical History / Comment(s): aneurysm Medications and Allergies Home Medications Medication Instructions Recorded Confirmed Type Gabapentin [Neurontin] 300 mg PO TID 08/12/21 02/07/24 History Levothyroxine Sodium [Synthroid] 88 mcg PO DAILY 08/12/21 02/07/24 History Nitroglycerin Sl Tabs [Nitrostat] 0.4 mg SL Q5M PRN 08/12/21 02/07/24 History Ascorbic Acid [Vitamin C] 500 mg PO DAILY 02/02/22 02/07/24 History Clopidogrel [Plavix] 75 mg PO HS@1900 02/02/22 02/07/24 History Pantoprazole Sodium [Protonix] 20 mg PO HS@1900 02/02/22 02/07/24 History Aspirin 81 mg PO MOWEFR@0800 12/11/23 02/07/24 History Albuterol Inhaler [Ventolin Hfa 2 puff INHALATION RT-Q4H PRN 02/07/24 02/07/24 History Inhaler] Atorvastatin Calcium [Lipitor] 40 mg PO HS@1900 02/07/24 02/07/24 History Citalopram Hydrobromide [CeleXA] 20 mg PO DAILY 02/07/24 02/07/24 History Folic Acid 0.4 mg PO DAILY 02/07/24 02/07/24 History Losartan Potassium 100 mg PO HS@1900 02/07/24 02/07/24 History Semaglutide [Wegovy] 0.25 mg SQ MO 02/07/24 02/07/24 History carvediloL [Coreg] 6.25 mg PO BID@0800,1900 02/07/24 02/07/24 History tiZANidine [Zanaflex] 4 mg PO DAILY PRN 02/07/24 02/07/24 History Allergies Allergy/AdvReac Type Severity Reaction Status Date / Time Wever walnut Allergy Anaphylaxis Verified 02/07/24 16:27 walnut Allergy Anaphylaxis Verified 02/07/24 16:27 Sulfa (Sulfonamide AdvReac mouth sores Verified 02/07/24 16:27 Antibiotics) Physical Examination - Vital Signs Vital Signs: Vital Signs Temp Pulse Resp BP BP Pulse Ox 02/09/24 13:39 163/91 02/09/24 12:30 183/117 02/09/24 12:00 98.0 F 67 18 168/101 95 02/09/24 08:00 98.3 F 70 18 156/80 95 02/09/24 04:00 97.7 F 65 16 124/85 95 02/09/24 01:30 137/91 02/09/24 00:00 98.3 F 73 18 165/103 165/94 93 L 02/08/24 19:28 97.9 F 70 16 125/76 94 L 02/08/24 18:12 15 02/08/24 16:38 68 16 137/84 02/08/24 16:05 68 16 123/82 92 L 02/08/24 15:52 137/84 02/08/24 15:47 140/82 02/08/24 15:37 69 16 148/90 93 L Intake and Output 02/08/24 02/09/24 02/09/24 22:59 06:59 14:59 Intake Total 120 118 118 Balance 120 118 118 Intake: Oral 120 118 118 Other: # Voids 0 2 # Bowel Movements 0 Patient is an elderly female, in no acute distress. Patient is alert awake oriented to time place and person. Speech and language functions are normal. Patient can name and repeat very well. No aphasia or dysarthria. Attention, concentration and fund of knowledge is adequate. On cranial nerve examination, pupils are equal, round and reacting to light, visual porras are full on confrontation, with no neglect on double simultaneous stimulation. Extraocular muscles are intact with no nystagmus. Face is symmetric, tongue protrudes to the midline. Palatal elevation and sensation normal, hearing and shoulder shrug normal, facial sensation normal. On muscle strength testing, there is very mild left pronator drift about 15. The muscle strength is (right/left) deltoid 5/5-, biceps 5/5-, triceps 5/5-with a lot of give way weakness on the left, outbound call center representative 5/5-, hip flexion 5/3 (left hip pain from previous replacement), ankle dorsiflexion 5/5, toe extension 5/5 Deep tendon reflexes are symmetric biceps 1+, brachioradialis 2+, knees 3, ankles 2+ and plantars downgoing bilaterally Sensory to touch was decreased in the left arm and left leg as compared to the right side but equal on the face. Temperature sensation was decreased in the left lower extremity as compared to the right, but equal in the upper extremities. There is no neglect on double simultaneous stimulation. Cerebellar function showed no ataxia for [id number] testing. No dysdiadochokinesia. No ataxia for [id number] testing on either side. Tone and bulk of muscles normal. Gait deferred.. On general examination, there is no carotid bruit or murmur, S1-S2 audible. Chest is clear on consultation. Abdomen is soft nontender. No organomegaly, bowel sounds present. Peripheral pulses are present. No peripheral edema. Results - Laboratory Findings CBC and BMP: 02/09/24 14:49 02/07/24 18:23 Abnormal Lab Findings: Abnormal Labs 02/07/24 02/08/24 02/08/24 18:23 04:51 15:38 BUN 26 H POC Glucose (mg/dL) 113 H Triglycerides 170.00 H Assessment and Plan Assessment: * Patient presented with vague, numerous neurological symptoms including blurred vision, diplopia, left-sided paresthesias, headaches. Apparently she has been having the symptoms for quite some time and has been seen in the hospital twice before for similar symptomatology. Patient had a stroke code activated just now, and her initial NIH stroke scale was 22, then came back to 7, then 4. She does have some mild residual left-sided weakness, therefore probably back to baseline. Patient not a candidate for tPA or any thrombectomy. * Accelerated hypertension * Hyperlipidemia * Previous history of CVA 2017, with very minimal left-sided residual weakness * Prediabetes * History of folate deficiency Plan: * Patient keeps on having recurrent neurological symptoms. Cardiology is already on board. Recommend ROBERT to rule out any embolic source. * Patient is currently on aspirin and Plavix, compliant with medication. We will stop Plavix and start her on Brilinta 90 mg twice daily. Continue aspirin. * Lipid panel with cholesterol 158, LDL 76, HDL 47, triglycerides 170. Continue Lipitor 40 mg daily. * CTA of head and neck revealed no evidence of dissection of the cervical inter nal carotid arteries or vertebral arteries or any evidence of significant stenosis at the carotid bifurcations. No evidence of intracranial high-grade stenosis or intracranial aneurysm. * Optimize control of blood pressure. * Check hemoglobin A1c * Close neurochecks. * DVT prophylaxis: Patient on Lovenox 40 mg subcu daily * Neurology will follow. Thank you for the consult. Time with Patient: Greater than 30
--- NOTE | 2024-02-10 11:22 | P.PN ---
Subjective Progress Note Date: 02/10/24 HISTORY OF PRESENT ILLNESS This is a 73-year-old female with past medical history of mild intermittent ast hma, ALLERGIC rhinitis, CVA, coronary arteriosclerosis, hyperlipidemia, pulmonary embolism, hypertension and hypertensive cardiovascular disease, patient recently was having issues with her blood pressure control has been visiting the emergency department at [facility] multiple times, as rosalio yi atter fact have seen in the office or twice and I adjusted her antihypertensive medication, she is currently on losartan 100 mg once every day, and she has been doing fine up till yesterday when she went home and she was sitting down also and developed to have a significant headache and all of a sudden had chest pressure across her chest radiating to the back of the neck associated with minimal shortness of breath, so she ended up coming to the emergency department at [facility], she was seen in the ER, she had her blood pressure checked and was around 200/110, she was given labetalol 20 mg IV push, she had a battery of testing including CT scan and chest x-ray and EKG and the blood work that came back all negative, patient blood pressure started to creep up again before the patient was going to be discharged and she was scared about getting discharged, stated that the patient does not have anybody at home and her friends are not available so she wanted to stay in the hospital for further evaluation, patient was admitted to the hospital for evaluation and recommendation by cardiology as well. 02/08: Patient has been complaining of increased nystagmus and double vision we have consulted neurology yesterday, this episode started yesterday, continues to be an issue today, her blood pressure appears to be better today, she has been taking her medication, will continue to monitor the patient very closely, awaiting neurology input to rule out any ischemic cerebrovascular accident, CT scan of the brain was negative, patient may need to go for CT angiography of the neck and the brain along with possible MRI of the brain with and without cyndi. 02/09: Patient had an episode of nystagmus as well as vertigo and she had a fainting episode she became unresponsive yesterday, initially 18 was called followed by a code stroke, patient underwent CT scan of the brain without cont rast that was negative for acute infarct or bleed, that was followed by CT angiography of the neck and the brain that was negative for acute dissection or significant carotid stenosis or brain aneurysm, she was seen in consultation by neurology her blood pressure continues to be an issue, increase amlodipine to 5 mg orally twice every day continue labetalol 20 mg IV push every 4 hours continue losartan 100 mg once every day, added spironolactone 25 mg orally once every day, monitor the patient blood pressure very closely. Today in the morning she had another episode of double vision, her blood pressure was quite elevated, she was given a dose of labetalol 20 mg IV push x 1, and she was star yo on spironolactone 25 mg once every day, her blood pressure is better today, she is scheduled to go for a transesophageal echocardiogram by cardiology she has been followed by cardiology as well as neurology. REVIEW OF SYSTEMS Constitutional: No fever, no chills, no night sweats. No weight change. No weakness, fatigue or lethargy. No daytime sleepiness. EENT: positive for headache. No blurred vision positive for double vision, no loss of vision. No loss of Hearing, no ringing in the ears, + dizziness. No nasal drainage or congestion. No epistaxis. No sore throat. Lungs: No shortness of breath, cough, no sputum production. No wheezing. Cardiovascular: + chest pain, no lower extremity edema. No palpitations. No paroxysmal nocturnal dyspnea. No orthopnea. + lightheadedness or dizziness. No syncopal episodes. Abdominal: No abdominal pain. + nausea, no vomiting. No diarrhea. No constipation. No bloody or tarry stools. No loss of appetite. Genitourinary: No dysuria, increased frequency, urgency. No urinary retention. Musculoskeletal: No myalgias. No muscle weakness, no gait dysfunction, no frequent falls. No back pain. No neck pain. Integumentary: No wounds, no lesions. No rash or pruritus. No unusual bruising. No change in hair or nails. Neurologic: No aphasia. No facial droop. No change in mentation. No head injury. No headache. No paralysis. No paresthesia. Psychiatric: No depression. No anxiety. No mood swings. Endocrine: No abnormal blood sugars. No weight change. No excessive sweating or thirst. No cold intolerance. PHYSICAL EXAMINATION Gen: This is a 73-year-old female. She is resting on ER stretcher and appears to be comfortable and in no acute distress. HEENT: Head is atraumatic, normocephalic. Pupils equal, round. Sclerae is anicteric. NECK: Supple. No JVD. No lymphadenopathy. No thyromegaly. LUNGS: Clear to auscultation. No wheezes or rhonchi. No intercostal retractions. HEART: Regular rate and rhythm. 2/6 systolic murmur at the left sternal border. ABDOMEN: Soft. Bowel sounds are present. No masses. No tenderness. EXTREMITIES: No pedal edema. No calf tenderness. dorsalis pedis +2 bilaterally. NEUROLOGICAL: Patient is awake, alert and oriented x3. Cranial nerves 2 through 12 are grossly intact. ASSESSMENT AND PLAN 1. Chest pain. Acute coronary syndrome has been ruled out. Cardiology consult is appreciated, this is likely due to uncontrolled hypertension, continue current cardiac medication including losartan 100 mg once every day, carvedilol 6.25 mg orally twice every day, monitor the patient blood pressure very closely. 2. Hypertension and hypertensive cardiovascular disease. Continue losartan 100 mg at bedtime, carvedilol 6.25 mg orally twice every day, patient has been getting labetalol 20 mg IV push as needed, added amlodipine 5 mg orally twice every day, added spironolactone 25 mg orally once every day. 3. Mild intermittent asthmastable without exacerbation. Stable at this time. 4. History of CVA. With recurrent diplopia and nystagmus status post code stroke that was completely negative. Continue patient on atorvastatin 40 mg once every day, patient was switched to Brilinta 90 mg orally twice every day, for secondary stroke prevention, patient is scheduled to go for a transesophageal echocardiogram today. Monitor the patient in the hospital for another 24 hours. 5. Coronary arteriosclerosis. Continue patient on atorvastatin 40 mg at bedtime, continue patient on carvedilol 6.25 mg orally twice every day.. 6. Hyperlipidemia. Continue atorvastatin 40 mg once every day, monitor lipid panel, keep LDL 55-70. 7. History of pulmonary embolism. CTA of the chest negative. 8. GI prophylaxis and GERD. Continue Protonix 40 mg at bedtime. 9. DVT prophylaxis. Lovenox 40 mg subcu daily. 10. Guarded prognosis. Objective - Vital Signs Vital signs: Vital Signs Temp 97.6 F 02/10/24 08:09 Pulse 65 03/23/24 08:09 Resp 16 02/10/24 08:09 BP 118/74 02/10/24 08:09 Pulse Ox 95 02/10/24 08:09 FiO2 Intake & Output 02/09/24 02/10/24 02/10/24 18:59 06:59 18:59 Intake Total 340 10 10 Balance 340 10 10 Intake: IV 10 10 Invasive Line 1 10 10 Oral 340 Other: # Voids 1 5 - Labs CBC & Chem 7: 02/09/24 14:49 02/07/24 18:23
[2024-02-10 11:39] LABS: Basophils % (A) 0 %; Eosinophils # (A) 0.2 k/uL (0-0.7); Eosinophils % (A) 3 %; HCT 41.2 % (34.0-46.0); HGB 13.3 gm/dL (11.4-16.0); Lymphocytes % (A) 30 %; MCH 30.3 pg (25.0-35.0); MCHC 32.4 g/dL (31.0-37.0); MCV 93.7 fL (80.0-100.0); Mean Platelet Volume 7.8; Monocytes # (A) 0.4 k/uL (0-1.0); Monocytes % (A) 6 %; Neutrophils # (A) 3.9 k/uL (1.3-7.7); Neutrophils % (A) 59 %; Platelet Count 172 k/uL (150-450); RDW 13.3 % (11.5-15.5); WBC 6.6 k/uL (3.8-10.6)
[2024-02-10 11:53] LABS: ALT 11 U/L (4-34); AST 23 U/L (14-36); African American GFR (CKD) >90 (>60 ml/min/1.73 sqM); Albumin 3.6 g/dL (3.5-5.0); Alkaline Phosphatase 72 U/L (38-126); Anion Gap 6 mmol/L; Blood Urea Nitrogen 21 mg/dL (7-17); Calcium 9.2 mg/dL (8.4-10.2); Carbon Dioxide 26 mmol/L (22-30); Chloride 108 mmol/L (98-107); Glucose 81 mg/dL (74-99); Non-African American GFR(CKD) 80 (>60 ml/min/1.73 sqM); Potassium 3.6 mmol/L (3.5-5.1); Sodium 140 mmol/L (137-145); Total Bilirubin 0.6 mg/dL (0.2-1.3); Total Protein 6.2 g/dL (6.3-8.2)
[2024-02-10] MEDS ORDERED: fentaNYL (PF) 50 MCG/ML 2 ML AMP ONE (12:04)
--- NOTE | 2024-02-10 12:15 | P.PN ---
Subjective HISTORY OF PRESENT ILLNESS: This is a 73-year-old female with a past medical history significant for hypertension, hyperlipidemia, prediabetes, carotid stenosis, CVA, pulmonary embolism, and minimal coronary artery disease. Patient follows in the office with Dr. Siddiqui. We have been asked to see the patient in consultation for hypertension. Patient examined at the bedside. Patient states yesterday at home she was having a severe headache. She states this occurred while she was just sitting down watching TV. She states that she took some Excedrin Migraine and went to lay down for a little bit. When she got up she took her blood pressure which was noted to be 189/73. She presented to the hospital for further evaluation. Blood pressure upon admission was 202/116. The patient was given labetalol and Ativan. Most recent blood pressure is 108/66. She currently denies any chest pain or pressure. She denies any shortness of breath. DIAGNOSTICS: - EKG reveals sinus mechanism with no signs of acute ischemia - Chest xray negative for acute process - Laboratory data: WBC 7.0. Hemoglobin 13.3. Platelet count 172. Sodium 138. Potassium 4.1. BUN 26. Creatinine 0.89. Magnesium 2.0. Troponin negative x 3 - Current home cardiac medications include carvedilol 6.25 mg twice a day, losartan 100 mg at night, Plavix 75 mg daily, Lipitor 40 mg at night, aspirin 81 mg daily. - Most recent echocardiogram obtained in 10/2023 revealing ejection fraction 55 to 60%, trace MR, trace TR - Cardiac catheterization history: November 2023 revealing mild nonobstructive disease involving the left circumflex artery, false positive stress test. 02/09/2024 Patient examined this morning at bedside. Patient denies chest pain or pressure. She denies shortness of breath. Blood pressure this morning is 124/85. She reports feeling dizzy upon standing and feels off balance. She states that she developed double vision yesterday around 1500 and she continues to have double vision this morning. She does have nystagmus upon examination. Cortisol level remains pending. 02/10/2024 Patient examined this morning at bedside. Patient currently denies chest pain or pressure. She denies shortness of breath. At the time of examination this morning, patient denies any visual disturbances. Yesterday code stroke was called on the patient secondary to lethargy, inability to answer questions, and elevated NIH stroke scale of 22. Her symptoms resolved within the hour. She underwent brain CT which was negative for acute process. CT of the brain was negative for dissection of the cervical internal carotid arteries or vertebral arteries. No evidence of significant stenosis at the carotid bifurcations. No evidence of intracranial high-grade stenosis or intracranial aneurysm. PHYSICAL EXAM: VITAL SIGNS: Reviewed. GENERAL: Well-developed in no acute distress. HEENT: Head is normocephalic. Pupils are equal, round. Sclerae anicteric. Mucous membranes of the mouth are moist. Neck supple. No JVD or thyromegaly LUNGS: Respirations even and unlabored. Lungs essentially clear to auscultation bilaterally. HEART: Regular rate and rhythm. S1 and S2 heard. ABDOMEN: Soft. Nondistended. Nontender. EXTREMITIES: Normal range of motion. No clubbing or cyanosis. Peripheral pulses intact. No lower extremity edema NEUROLOGIC: Awake and alert. Oriented x 3. ASSESSMENT: Hypertensive emergency, resolved Suspected TIA Mild nonobstructive CAD History of hypertension History of hyperlipidemia Prediabetes Carotid atherosclerosis History of CVA, with tPA administration, with residual left-sided weakness, on antiplatelet therapy History of pulmonary embolism Dizziness Double vision PLAN: Continue current cardiac medications No changes to blood pressure medication regimen at this time Continue to monitor blood pressure Discontinue PRN antihypertensive medications as this makes it difficult to determine appropriate oral antihypertensive regimen moving forward Obtain cortisol level. Patient was noted to have cortisol level of 5 in January 2022. If cortisol remains low, patient may require further evaluation for adrenal insufficiency Patient was previously on aspirin and Plavix. She has been switched to aspirin and Brilinta per neurology. Patient to undergo ROBERT this afternoon with Dr. Peng Further recommendations pending patient course Nurse practitioner note has been reviewed by physician. Signing provider agrees with the documented findings, assessment, and plan of care documented by BRICK SETTER OPERATOR as a scribe. Objective - Vital Signs Vital signs: Vital Signs Temp 97.6 F 02/10/24 08:09 Pulse 65 02/10/24 08:09 Resp 16 02/10/24 08:09 BP 118/74 02/10/24 08:09 Pulse Ox 95 02/10/24 08:09 FiO2 Intake & Output 02/09/24 02/10/24 02/10/24 18:59 06:59 18:59 Intake Total 340 10 10 Balance 340 10 10 Intake: IV 10 10 Invasive Line 1 10 10 Oral 340 Other: # Voids 1 5 - Labs CBC & Chem 7: 02/10/24 09:57 02/10/24 09:57
--- NOTE | 2024-02-10 12:56 | MR ---
EXAMINATION TYPE: MR brain wo/w con DATE OF EXAM: 02/10/2024 COMPARISON: 11/01/2023 HISTORY: Double Vision TECHNIQUE: Multiplanar, multisequence images of the brain and brainstem is performed without and with IV contras t, utilizing 8.5 mL intravenous Gadavist . Findings: On the T1-weighted sagittal images, the midline structures including the craniovertebral junction rel ationships appear normal. The ventricles, basal cisterns and sulci over the convexities are within normal limits and there is n o mass effect or shift of midline structures There are few stable small scattered foci of increased signal intensity on the FLAIR and T2-weighted images consistent with chronic ischemic white matter demyelination. Based on diffusion-weighted imaging, there is no diffusion restriction or acute ischemic event. Following contrast administration, there is no pathological enhancement. The posterior fossa including the brainstem, fourth ventricle and cerebellar pontine angles appear no rmal. Intraorbital contents are normal and symmetric. There is marked chronic inflammatory change in the ma xillary sinuses. The mastoid air cells are well aerated. IMPRESSION: 1. No acute ischemic event, mass or mass effect. 2. Stable mild chronic ischemic white matter change. 3. Marked inflammatory changes in the maxillary sinuses.
[2024-02-10] MEDS: SODIUM CHLORIDE 0.9% 500 ML 500 ML IV ONE (13:02)
[2024-02-10] MEDS: MIDAZOLAM 2 MG/2 ML VIAL IVP ONE (13:18)
[2024-02-10] MEDS: fentaNYL (PF) 50 MCG/ML 2 ML AMP IVP ONE (13:18)
[2024-02-10] MEDS: BENZOCAINE SPRAY 1 CAN TOPICAL ONE (13:21)
--- NOTE | 2024-02-10 14:19 | P.TEE ---
Description of Procedure(s): Procedure performed: Transesophageal Echocardiogram with color flow doppler, pulsed wave doppler and continuous wave doppler, moderate conscious sedation Moderate conscious sedation: Moderate conscious sedation was supplied with direct supervision of myself using Versed and Fentanyl. Complications: none Indications: Concern of TIA, cryptogenic stroke PROCEDURE: After the risks, benefits and alternatives of the above mentioned procedure was explained in detail with the patient, informed consent was obtained. Patient was brought to the lab in a fasting state. Patient was given IV Versed and Fentanyl for sedation. The throat was sprayed with Hurricane to anesthetize the throat. A lubricated Omni probe was then introduced into the esophagus and stomach and multiple views were obtained. 2D echo with color flow doppler, pulsed wave doppler and continuous wave doppler was utilized. Agitated saline bubbles were injected to assess for any intra-atrial shunt. The probe was then removed. Patient tolerated the procedure well. Patient was transferred to the post procedure area in stable and satisfactory condition. FINDINGS: 1. The aortic valve is tricuspid with normal function without significant aortic regurgitation. 2. The mitral valve appears be normal with trace mitral regurgitation. 3. Tricuspid valve is normal. 4. The interatrial septum is intact. No evidence of PFO. 5. Left atrial appendage is free of clot. 6. Left ventricular ejection fraction 55% 7. 3 mm atherosclerotic plaque of the descending aorta
[2024-02-11] MEDS: carvediloL 12.5 MG TAB PO SCH (09:38)
--- NOTE | 2024-02-11 11:28 | P.PN ---
Subjective Progress Note Date: 02/11/24 HISTORY OF PRESENT ILLNESS This is a 73-year-old female with past medical history of mild intermittent ast hma, ALLERGIC rhinitis, CVA, coronary arteriosclerosis, hyperlipidemia, pulmonary embolism, hypertension and hypertensive cardiovascular disease, patient recently was having issues with her blood pressure control has been visiting the emergency department at [facility] multiple times, as rosalio yi atter fact have seen in the office or twice and I adjusted her antihypertensive medication, she is currently on losartan 100 mg once every day, and she has been doing fine up till yesterday when she went home and she was sitting down also and developed to have a significant headache and all of a sudden had chest pressure across her chest radiating to the back of the neck associated with minimal shortness of breath, so she ended up coming to the emergency department at [facility], she was seen in the ER, she had her blood pressure checked and was around 200/110, she was given labetalol 20 mg IV push, she had a battery of testing including CT scan and chest x-ray and EKG and the blood work that came back all negative, patient blood pressure started to creep up again before the patient was going to be discharged and she was scared about getting discharged, stated that the patient does not have anybody at home and her friends are not available so she wanted to stay in the hospital for further evaluation, patient was admitted to the hospital for evaluation and recommendation by cardiology as well. 02/08: Patient has been complaining of increased nystagmus and double vision we have consulted neurology yesterday, this episode started yesterday, continues to be an issue today, her blood pressure appears to be better today, she has been taking her medication, will continue to monitor the patient very closely, awaiting neurology input to rule out any ischemic cerebrovascular accident, CT scan of the brain was negative, patient may need to go for CT angiography of the neck and the brain along with possible MRI of the brain with and without cyndi. 02/09: Patient had an episode of nystagmus as well as vertigo and she had a fainting episode she became unresponsive yesterday, initially 18 was called followed by a code stroke, patient underwent CT scan of the brain without cont rast that was negative for acute infarct or bleed, that was followed by CT angiography of the neck and the brain that was negative for acute dissection or significant carotid stenosis or brain aneurysm, she was seen in consultation by neurology her blood pressure continues to be an issue, increase amlodipine to 5 mg orally twice every day continue labetalol 20 mg IV push every 4 hours continue losartan 100 mg once every day, added spironolactone 25 mg orally once every day, monitor the patient blood pressure very closely. Today in the morning she had another episode of double vision, her blood pressure was quite elevated, she was given a dose of labetalol 20 mg IV push x 1, and she was star yo on spironolactone 25 mg once every day, her blood pressure is better today, she is scheduled to go for a transesophageal echocardiogram by cardiology she has been followed by cardiology as well as neurology. 02/10: Patient is lying down in bed in no apparent distress, she appears to be more drowsy today, her blood pressure continues to be elevated, I will increase her carvedilol to 12.5 mg orally twice every day, continue losartan 100 mg once every day, continue amlodipine 5 mg orally twice every day, also added yesterday spironolactone 25 mg once every day, encourage activity, patient underwent transesophageal echocardiogram by Dr. Peng yesterday that showed normal ejection fraction with trace mitral regurgitation normal interatrial septum without evidence of PFO, it did show 3 mm plaque in the descending aorta, the aortic valve appears to be normal without evidence of any stenosis or regurgitation patient was advised about increasing her activity monitor her blood pressure for another 24 hours, she can be discharged home in the next 24 hours she has been on Brilinta 90 mg orally twice every day along with a baby aspirin, since she continued to have a recurrent episode of diplopia. I will obtain myasthenia gravis panel just to complete the evaluation, neurology is following still. REVIEW OF SYSTEMS Constitutional: No fever, no chills, no night sweats. No weight change. No weakness, fatigue or lethargy. No daytime sleepiness. EENT: positive for headache. No blurred vision positive for double vision, no loss of vision. No loss of Hearing, no ringing in the ears, + dizziness. No nasal drainage or congestion. No epistaxis. No sore throat. Lungs: No shortness of breath, cough, no sputum production. No wheezing. Cardiovascular: + chest pain, no lower extremity edema. No palpitations. No paroxysmal nocturnal dyspnea. No orthopnea. + lightheadedness or dizziness. No syncopal episodes. Abdominal: No abdominal pain. + nausea, no vomiting. No diarrhea. No constipation. No bloody or tarry stools. No loss of appetite. Genitourinary: No dysuria, increased frequency, urgency. No urinary retention. Musculoskeletal: No myalgias. No muscle weakness, no gait dysfunction, no frequent falls. No back pain. No neck pain. Integumentary: No wounds, no lesions. No rash or pruritus. No unusual bruising. No change in hair or nails. Neurologic: No aphasia. No facial droop. No change in mentation. No head injury. No headache. No paralysis. No paresthesia. Psychiatric: No depression. No anxiety. No mood swings. Endocrine: No abnormal blood sugars. No weight change. No excessive sweating or thirst. No cold intolerance. PHYSICAL EXAMINATION Gen: This is a 73-year-old female. She is resting on ER stretcher and appears to be comfortable and in no acute distress. HEENT: Head is atraumatic, normocephalic. Pupils equal, round. Sclerae is anicteric. NECK: Supple. No JVD. No lymphadenopathy. No thyromegaly. LUNGS: Clear to auscultation. No wheezes or rhonchi. No intercostal retractions. HEART: Regular rate and rhythm. 2/6 systolic murmur at the left sternal border. ABDOMEN: Soft. Bowel sounds are present. No masses. No tenderness. EXTREMITIES: No pedal edema. No calf tenderness. dorsalis pedis +2 bilaterally. NEUROLOGICAL: Patient is awake, alert and oriented x3. Cranial nerves 2 through 12 are grossly intact. ASSESSMENT AND PLAN 1. Chest pain. Acute coronary syndrome has been ruled out. Cardiology consult is appreciated, this is likely due to uncontrolled hypertension, continue current cardiac medication including losartan 100 mg once every day, carvedilol 12.5 mg orally twice every day, also added spironolactone 25 mg orally once every day. Monitor the patient blood pressure very closely. 2. Hypertension and hypertensive cardiovascular disease. Continue losartan 100 mg once every day, increase carvedilol to 12.5 mg orally twice every day, continue patient on amlodipine 5 mg orally twice every day, continue spironolactone 25 mg once every day. Continue to monitor the patient blood pressure very closely. 3. Mild intermittent asthma stable without exacerbation. Stable at this time. 4. History of CVA. With recurrent diplopia and nystagmus status post code stroke that was completely negative. Continue patient on atorvastatin 40 mg once every day, patient was switched to Brilinta 90 mg orally twice every day, for secondary stroke prevention, patient also had a transesophageal echoc ardiogram that was negative, no evidence of PFO, normal ejection fraction, no evidence of left atrial appendage thrombus, I will obtain myasthenia gravis panel 5. Coronary arteriosclerosis. Continue patient on atorvastatin 40 mg at bedtime, continue patient on carvedilol 12.5 mg orally twice every day.. 6. Hyperlipidemia. Continue atorvastatin 40 mg once every day, monitor lipid panel, keep LDL 55-70. 7. History of pulmonary embolism. CTA of the chest negative. 8. GI prophylaxis and GERD. Continue Protonix 40 mg at bedtime. 9. DVT prophylaxis. Lovenox 40 mg subcu daily. 10. patient is able to be discharged home tomorrow morning if okay with cardiology and neurology. Objective - Vital Signs Vital signs: Vital Signs Temp 97.8 F 02/11/24 07:56 Pulse 67 02/11/24 07:56 Resp 16 02/11/24 07:56 BP 171/71 02/11/24 07:56 Pulse Ox 96 02/11/24 07:56 FiO2 21 02/10/24 12:42 Intake & Output 02/10/24 02/11/24 02/11/24 18:59 06:59 18:59 Intake Total 180 560 10 Balance 180 560 10 Intake: IV 70 20 10 Invasive Line 1 20 20 10 Oral 110 540 Other: Voiding Method Toilet Toilet # Voids 3 2 - Labs CBC & Chem 7: 02/10/24 09:57 02/10/24 09:57 Labs: Abnormal Lab Results - Last 24 Hours (Table) 02/10/24 Range/Units 09:57 Chloride 108 H (98-107) mmol/L BUN 21 H (7-17) mg/dL Total Protein 6.2 L (6.3-8.2) g/dL
[2024-02-11 11:37] LABS: Basophils % (A) 1 %; Eosinophils # (A) 0.2 k/uL (0-0.7); Eosinophils % (A) 3 %; HCT 39.4 % (34.0-46.0); Lymphocytes # (A) 2.3 k/uL (1.0-4.8); Lymphocytes % (A) 37 %; MCH 30.4 pg (25.0-35.0); MCHC 33.1 g/dL (31.0-37.0); MCV 91.8 fL (80.0-100.0); Monocytes # (A) 0.4 k/uL (0-1.0); Monocytes % (A) 6 %; Neutrophils # (A) 3.2 k/uL (1.3-7.7); Neutrophils % (A) 51 %; Platelet Count 166 k/uL (150-450); RBC 4.29 m/uL (3.80-5.40); RDW 13.4 % (11.5-15.5); WBC 6.3 k/uL (3.8-10.6)
[2024-02-11 11:53] LABS: ALT 12 U/L (4-34); AST 18 U/L (14-36); African American GFR (CKD) 79 (>60 ml/min/1.73 sqM); Albumin 3.5 g/dL (3.5-5.0); Alkaline Phosphatase 75 U/L (38-126); Anion Gap 5 mmol/L; Blood Urea Nitrogen 19 mg/dL (7-17); Calcium 9.1 mg/dL (8.4-10.2); Carbon Dioxide 26 mmol/L (22-30); Chloride 107 mmol/L (98-107); Glucose 85 mg/dL (74-99); Non-African American GFR(CKD) 68 (>60 ml/min/1.73 sqM); Potassium 3.9 mmol/L (3.5-5.1); Sodium 138 mmol/L (137-145); Total Bilirubin 0.5 mg/dL (0.2-1.3); Total Protein 5.9 g/dL (6.3-8.2)
--- NOTE | 2024-02-11 12:21 | P.PN ---
Subjective Progress Note Date: 02/10/24 Patient was seen for a follow-up. Patient is sleeping at this time. She still has diplopia. Objective - Vital Signs Vital signs: Vital Signs Temp 97.3 F L 02/10/24 16:12 Pulse 65 02/10/24 16:12 Resp 18 02/10/24 16:12 BP 112/73 02/10/24 16:12 Pulse Ox 98 02/10/24 16:12 FiO2 21 02/10/24 12:42 Intake & Output 02/09/24 02/10/24 02/10/24 18:59 06:59 18:59 Intake Total 340 10 70 Balance 340 10 70 Intake: IV 10 70 Invasive Line 1 10 20 Oral 340 Other: Voiding Method Toilet # Voids 1 5 3 - Exam Patient's somnolent, exam deferred. She did admit to still having diplopia. - Labs CBC & Chem 7: 02/11/24 10:48 02/11/24 10:48 Labs: Abnormal Lab Results - Last 24 Hours (Table) 02/10/24 Range/Units 09:57 Chloride 108 H (98-107) mmol/L BUN 21 H (7-17) mg/dL Total Protein 6.2 L (6.3-8.2) g/dL Assessment and Plan Assessment: * Patient presented with vague, numerous neurological symptoms including blurred vision, diplopia, left-sided paresthesias, headaches. Apparently she has been having the symptoms for quite some time and has been seen in the hospital twice before for similar symptomatology. Patient had a stroke code activated just now, and her initial NIH stroke scale was 22, then came back to 7, then 4. She does have some mild residual left-sided weakness, therefore probably back to baseline. Patient not a candidate for tPA or any thrombectomy. * Accelerated hypertension * Hyperlipidemia * Previous history of CVA 2017, with very minimal left-sided residual weakness * Prediabetes * History of folate deficiency Plan: * Patient keeps on having recurrent neurological symptoms. Exact cause remains uncertain. * Stat MRI of the brain was negative for any acute ischemic event, mass effect or CVA. Stable mild chronic ischemic white matter change. Marked inflammatory changes in the maxillary sinuses. I personally reviewed MRI, agree with the findings. * ROBERT revealed: * 1. The aortic valve is tricuspid with normal function without significant aortic regurgitation. 2. The mitral valve appears be normal with trace mitral regurgitation. 3. Tricuspid valve is normal. 4. The interatrial septum is intact. No evidence of PFO. 5. Left atrial appendage is free of clot. 6. Left ventricular ejection fraction 55% 7. 3 mm atherosclerotic plaque of the descending aorta * Patient is currently on aspirin and Plavix, compliant with medication. We will stop Plavix and start her on Brilinta 90 mg twice daily. Continue aspirin. For the evidence of 3 mm atherosclerotic plaque of the descending aorta will defer to IM and cardiology. * Lipid panel with cholesterol 158, LDL 76, HDL 47, triglycerides 170. Continue Lipitor 40 mg daily. * CTA of head and neck revealed no evidence of dissection of the cervical internal carotid arteries or vertebral arteries or any evidence of significant stenosis at the carotid bifurcations. No evidence of intracranial high-grade stenosis or intracranial aneurysm. * Optimize control of blood pressure. * Hemoglobin A1c 5.8 * RIC negative, homocystine 11.0, ESR 9. * Close neurochecks. * DVT prophylaxis: Patient on Lovenox 40 mg subcu daily
--- NOTE | 2024-02-11 14:53 | P.PN ---
Subjective Progress Note Date: 02/11/24 HISTORY OF PRESENT ILLNESS: This is a 73-year-old female with a past medical history significant for hy pertension, hyperlipidemia, prediabetes, carotid stenosis, CVA, pulmonary embolism, and minimal coronary artery disease. Patient follows in the office with Dr. Siddiqui. We have been asked to see the patient in consultation for hypertension. Patient examined at the bedside. Patient states yesterday at home she was having a severe headache. She states this occurred while she was just sitting down watching TV. She states that she took some Excedrin Migraine and went to lay down for a little bit. When she got up she took her blood pressure which was noted to be 189/73. She presented to the hospital for further evaluation. Blood pressure upon admission was 202/116. The patient was given labetalol and Ativan. Most recent blood pressure is 108/66. She currently denies any chest pain or pressure. She denies any shortness of breath. DIAGNOSTICS: - EKG reveals sinus mechanism with no signs of acute ischemia - Chest xray negative for acute process - Laboratory data: WBC 7.0. Hemoglobin 13.3. Platelet count 172. Sodium 138. Potassium 4.1. BUN 26. Creatinine 0.89. Magnesium 2.0. Troponin negative x 3 - Current home cardiac medications include carvedilol 6.25 mg twice a day, l osartan 100 mg at night, Plavix 75 mg daily, Lipitor 40 mg at night, aspirin 81 mg daily. - Most recent echocardiogram obtained in 10/2023 revealing ejection fraction 55 to 60%, trace MR, trace TR - Cardiac catheterization history: November 2023 revealing mild nonobstructive disease involving the left circumflex artery, false positive stress test. 02/09/2024 Patient examined this morning at bedside. Patient denies chest pain or pressure. She denies shortness of breath. Blood pressure this morning is 124/85. She reports feeling dizzy upon standing and feels off balance. She states that she developed double vision yesterday around 1500 and she continues to have double vision this morning. She does have nystagmus upon examination. Cortisol level remains pending. 02/11/2024 She is still having double vision. Did walk up in hallway today, does feel fatigue. ROBERT yesterday showed no evidence of PFO, EF 55% no left atrial appendage clot. MRI of the brain was negative for acute stroke. PHYSICAL EXAM: VITAL SIGNS: Reviewed. GENERAL: Well-developed in no acute distress. HEENT: Head is normocephalic. Pupils are equal, round. Sclerae anicteric. Mucous membranes of the mouth are moist. Neck supple. LUNGS: Respirations even and unlabored. Lungs essentially clear to auscultation bilaterally. HEART: Regular rate and rhythm. S1 and S2 heard. ABDOMEN: Soft. Nondistended. Nontender. EXTREMITIES: Normal range of motion. No clubbing or cyanosis. Peripheral pulses intact. No lower extremity edema NEUROLOGIC: Awake and alert. Oriented x 3. ASSESSMENT: Hypertensive emergency, resolved Mild nonobstructive CAD History of hypertension History of hyperlipidemia Prediabetes Carotid atherosclerosis History of CVA, with tPA administration, with residual left-sided weakness, on antiplatelet therapy History of pulmonary embolism Dizziness Double vision PLAN: Continue current cardiac medications Continue to monitor blood pressure Obtain cortisol level. Patient was noted to have cortisol level of 5 in January 2022. If cortisol remains low, patient may require further evaluation for adrenal insufficiency Neurology following Cardiology to sign off, recommend outpatient event monitor for 30 days. Follow- up in office in 1 to 2 weeks. Nurse practitioner note has been reviewed by physician. Signing provider agrees with the documented findings, assessment, and plan of care documented by ASSOCIATE SOFTWARE DEVELOPMENT ENGINEER as a scribe. Objective - Vital Signs Vital signs: Vital Signs Temp 98.1 F 02/11/24 12:15 Pulse 69 02/11/24 12:15 Resp 16 02/11/24 12:15 BP 138/81 02/11/24 12:15 Pulse Ox 96 02/11/24 12:15 FiO2 21 02/10/24 12:42 Intake & Output 02/10/24 02/11/24 02/11/24 18:59 06:59 18:59 Intake Total 180 560 342 Balance 180 560 342 Intake: IV 70 20 10 Invasive Line 1 20 20 10 Oral 110 540 332 Other: Voiding Method Toilet Toilet Toilet # Voids 3 2 2 - Labs CBC & Chem 7: 02/11/24 10:48 02/11/24 10:48 Labs: Abnormal Lab Results - Last 24 Hours (Table) 02/11/24 Range/Units 10:48 BUN 19 H (7-17) mg/dL Total Protein 5.9 L (6.3-8.2) g/dL
[2024-02-11] MEDS: CYANOCOBALAMIN 1,000 MCG/ML 1 ML VIAL IM ONE (15:49)
--- NOTE | 2024-02-12 00:47 | P.PN ---
Subjective Progress Note Date: 02/11/24 Patient was seen for a follow-up. He is alert and awake. Patient continues to have diplopia all the time. Patient has an appointment with Dr. Bourgeois with Dr. Leija in February 2024. Patient also complaining of numbness of the left side of the face. Patient admits to having some "small headaches" but not as bad as it was. Objective - Vital Signs Vital signs: Vital Signs Temp 98.1 F 02/11/24 12:15 Pulse 69 02/11/24 12:15 Resp 16 02/11/24 12:15 BP 138/81 02/11/24 12:15 Pulse Ox 96 02/11/24 12:15 FiO2 21 02/10/24 12:42 Intake & Output 02/10/24 02/11/24 02/11/24 18:59 06:59 18:59 Intake Total 180 560 352 Balance 180 560 352 Intake: IV 70 20 20 Invasive Line 1 20 20 20 Oral 110 540 332 Other: Voiding Method Toilet Toilet Toilet # Voids 3 2 2 - Exam Patient's somnolent, exam deferred. She did admit to still having diplopia. No other focal symptoms. Patient is walking stable to the bathroom. Pupils are equal, round and reactive to light. Extraocular muscles intact, no obvious nystagmus. Face is symmetric and tongue protrudes the midline. Speech and language functions are normal. Visual porras are full. - Labs CBC & Chem 7: 02/11/24 10:48 02/11/24 10:48 Labs: Abnormal Lab Results - Last 24 Hours (Table) 02/11/24 Range/Units 10:48 BUN 19 H (7-17) mg/dL Total Protein 5.9 L (6.3-8.2) g/dL Assessment and Plan Assessment: * Patient presented with vague, numerous neurological symptoms including blurred vision, diplopia, left-sided paresthesias, headaches. Apparently she has been having the symptoms for quite some time and has been seen in the hospital twice before for similar symptomatology. Patient had a stroke code activated just now, and her initial NIH stroke scale was 22, then came back to 7, then 4. She does have some mild residual left-sided weakness, therefore probably back to baseline. Patient not a candidate for tPA or any thrombectomy. * Accelerated hypertension * Hyperlipidemia * Previous history of CVA 2018, with very minimal left-sided residual weakness * B12 is lower limits of normal. * Prediabetes * History of folate deficiency Plan: * Patient keeps on having recurrent neurological symptoms. Exact cause remains uncertain. * Stat MRI of the brain was negative for any acute ischemic event, mass effect or CVA. Stable mild chronic ischemic white matter change. Marked inflammatory changes in the maxillary sinuses. I personally reviewed MRI, agree with the findings. * Patient continues to have diplopia. Primary has sent blood tests for myasthenia. * Patient has an appointment with record changer assembler in February 2024. * ROBERT revealed: * 1. The aortic valve is tricuspid with normal function without significant aortic regurgitation. 2. The mitral valve appears be normal with trace mitral regurgitation. 3. Tricuspid valve is normal. 4. The interatrial septum is intact. No evidence of PFO. 5. Left atrial appendage is free of clot. 6. Left ventricular ejection fraction 55% 7. 3 mm atherosclerotic plaque of the descending aorta * Patient is currently on aspirin and Plavix, compliant with medication. We will stop Plavix and start her on Brilinta 90 mg twice daily. Continue aspirin. For the evidence of 3 mm atherosclerotic plaque of the descending aorta will defer to IM and cardiology. * Lipid panel with cholesterol 158, LDL 76, HDL 47, triglycerides 170. Continue Lipitor 40 mg daily. * CTA of head and neck revealed no evidence of dissection of the cervical internal carotid arteries or vertebral arteries or any evidence of significant stenosis at the carotid bifurcations. No evidence of intracranial high-grade stenosis or intracranial aneurysm. * Optimize control of blood pressure. * Hemoglobin A1c 5.8 * B12 392, and folate 8.70. Patient given B12 injection 1, followed by B12 1000 g orally daily, and folate 1 mg daily. * RIC negative, homocystine 11.0, ESR 9. * Close neurochecks. * DVT prophylaxis: Patient on Lovenox 40 mg subcu daily * Dr. Lv Gong to start neurology service in the morning.
[2024-02-12 03:19] VITALS: RESP 16
[2024-02-12] MEDS: SEMAGLUTIDE SQ SCH (09:36)
[2024-02-12] MEDS: CYANOCOBALAMIN 500 MCG TAB PO SCH (09:36)
[2024-02-12 12:11] VITALS: BP 152/81; PULSE 56; TEMP 98
--- NOTE | 2024-02-12 17:51 | P.DS ---
Providers Date of admission: 02/07/24 20:29 Expected date of discharge: 02/12/24 Attending physician: Zoey Salazar Consults: 02/08/24 16:09 Consult Physician Routine Consulting Provider: Mildred Erazo Consult Reason/Comments: blurred vision Do you want consulting provider notified?: Yes 02/09/24 12:38 Consult Physician Routine Consulting Provider: Mildred Erazo Consult Reason/Comments: Double vision, history of CVA Do you want consulting provider notified?: Yes Primary care physician: Zoey Salazar [facility] Course: HISTORY OF PRESENT ILLNESS This is a 73-year-old female with past medical history of mild intermittent asthma, ALLERGIC rhinitis, CVA, coronary arteriosclerosis, hyperlipidemia, pulmonary embolism, hypertension and hypertensive cardiovascular disease, patient recently was having issues with her blood pressure control has been visiting the emergency department at [facility] multiple times, as a matter fact have seen in the office or twice and I adjusted her antihypertensive medication, she is currently on losartan 100 mg once every day, and she has been doing fine up till yesterday when she went home and she was sitting down also and developed to have a significant headache and all of a sudden had chest pressure across her chest radiating to the back of the neck associated with minimal shortness of breath, so she ended up coming to the emergency department at [facility], she was seen in the ER, she had her blood pressure checked and was around 200/110, she was given labetalol 20 mg IV push, she had a battery of testing including CT scan and chest x-ray and EKG and the blood work that came back all negative, patient blood pressure started to creep up again before the patient was going to be discharged and she was scared about getting discharged, stated that the patient does not have anybody at home and her friends are not available so she wanted to stay in the hospital for further evaluation, patient was admitted to the hospital for evaluation and recommendation by cardiology as well. 02/08: Patient has been complaining of increased nystagmus and double vision we have consulted neurology yesterday, this episode started yesterday, continues to be an issue today, her blood pressure appears to be better today, she has been taking her medication, will continue to monitor the patient very closely, awaiting neurology input to rule out any ischemic cerebrovascular accident, CT scan of the brain was negative, patient may need to go for CT angiography of the neck and the brain along with possible MRI of the brain with and without cyndi. 02/09: Patient had an episode of nystagmus as well as vertigo and she had a fainting episode she became unresponsive yesterday, initially 18 was called followed by a code stroke, patient underwent CT scan of the brain without contrast that was negative for acute infarct or bleed, that was followed by CT angiography of the neck and the brain that was negative for acute dissection or significant carotid stenosis or brain aneurysm, she was seen in consultation by neurology her blood pressure continues to be an issue, increase amlodipine to 5 mg orally twice every day continue labetalol 20 mg IV push every 4 hours continue losartan 100 mg once every day, added spironolactone 25 mg orally once every day, monitor the patient blood pressure very closely. Today in the morning she had another episode of double vision, her blood pressure was quite elevated, she was given a dose of labetalol 20 mg IV push x 1, and she was started on spironolactone 25 mg once every day, her blood pressure is better today, she is scheduled to go for a transesophageal echocardiogram by cardiology she has been followed by cardiology as well as neurology. 02/10: Patient is lying down in bed in no apparent distress, she appears to be more drowsy today, her blood pressure continues to be elevated, I will increase her carvedilol to 12.5 mg orally twice every day, continue losartan 100 mg once every day, continue amlodipine 5 mg orally twice every day, also added yesterday spironolactone 25 mg once every day, encourage activity, patient underwent transesophageal echocardiogram by Dr. Peng yesterday that showed normal ejection fraction with trace mitral regurgitation normal interatrial septum without evidence of PFO, it did show 3 mm plaque in the descending aorta, the aortic valve appears to be normal without evidence of any stenosis or regurgitation patient was advised about increasing her activity monitor her blood pressure for another 24 hours, she can be discharged home in the next 24 hours she has been on Brilinta 90 mg orally twice every day along with a baby aspirin, since she continued to have a recurrent episode of diplopia. I will obtain myasthenia gravis panel just to complete the evaluation, neurology is following still. 02/11: Patient is lying down in bed in no apparent distress, she has been ambulating very well, her blood pressure is much better today, after adjusting her doses, patient will be able to be discharged home today and follow-up with us as an outpatient, she is also to follow-up with cardiology per their recommendation, and neurology per the recommendation. Discharge diagnoses: 1. Chest pain. Acute coronary syndrome has been ruled out. 2. Hypertension and hypertensive cardiovascular disease. 3. Mild intermittent asthma stable without exacerbation. 4. History of CVA. With recurrent diplopia and nystagmus status post code stroke that was completely negative. 5. Coronary arteriosclerosis. 6. Hyperlipidemia. 7. History of pulmonary embolism. 8. Accelerated hypertension 9. TIA. 10. Diplopia with nystagmus. Workup is in progress. Patient Condition at Discharge: Good Plan - Discharge Summary Discharge Rx Participant: No New Discharge Prescriptions: New Spironolactone [Aldactone] 25 mg PO DAILY #30 tab Ticagrelor [Brilinta] 90 mg PO BID #60 tab carvediloL [Coreg*] 12.5 mg PO BID #60 tab Cyanocobalamin [Vitamin B-12] 1,000 mcg PO DAILY tab amLODIPine [Norvasc] 5 mg PO BID #60 tab Continue Clopidogrel [Plavix] 75 mg PO HS@1900 Semaglutide [Wegovy] 0.25 mg SQ MO Losartan Potassium 100 mg PO HS@1900 tiZANidine [Zanaflex] 4 mg PO DAILY PRN PRN Reason: Muscle Spasm Levothyroxine Sodium [Synthroid] 88 mcg PO DAILY Nitroglycerin Sl Tabs [Nitrostat] 0.4 mg SL Q5M PRN PRN Reason: Chest Pain Gabapentin [Neurontin] 300 mg PO TID Ascorbic Acid [Vitamin C] 500 mg PO DAILY Pantoprazole Sodium [Protonix] 20 mg PO HS@1900 Aspirin 81 mg PO MOWEFR@0800 Atorvastatin Calcium [Lipitor] 40 mg PO HS@1900 Albuterol Inhaler [Ventolin Hfa Inhaler] 2 puff INHALATION RT-Q4H PRN PRN Reason: Shortness Of Breath Citalopram Hydrobromide [CeleXA] 20 mg PO DAILY Folic Acid 0.4 mg PO DAILY Discontinued carvediloL [Coreg] 6.25 mg PO BID@0800,1900 Discharge Medication List Gabapentin [Neurontin] 300 mg PO TID 08/12/21 [History] Levothyroxine Sodium [Synthroid] 88 mcg PO DAILY 08/12/21 [History] Nitroglycerin Sl Tabs [Nitrostat] 0.4 mg SL Q5M PRN 08/12/21 [History] Ascorbic Acid [Vitamin C] 500 mg PO DAILY 02/02/22 [History] Clopidogrel [Plavix] 75 mg PO HS@0 02/02/22 [History] Pantoprazole Sodium [Protonix] 20 mg PO HS@189902/02/22 [History] Aspirin 81 mg PO MOWEFR@0800 12/11/23 [History] Albuterol Inhaler [Ventolin Hfa Inhaler] 2 puff INHALATION RT-Q4H PRN 02/07/24 [History] Atorvastatin Calcium [Lipitor] 40 mg PO HS@189902/07/24 [History] Citalopram Hydrobromide [CeleXA] 20 mg PO DAILY 02/07/24 [History] Folic Acid 0.4 mg PO DAILY 02/07/24 [History] Losartan Potassium 100 mg PO HS@1900 02/07/24 [History] Semaglutide [Wegovy] 0.25 mg SQ MO 02/07/24 [History] tiZANidine [Zanaflex] 4 mg PO DAILY PRN 02/07/24 [History] Cyanocobalamin [Vitamin B-12] 1,000 mcg PO DAILY tab 02/12/24 [Rx] Spironolactone [Aldactone] 25 mg PO DAILY #30 tab 02/12/24 [Rx] Ticagrelor [Brilinta] 90 mg PO BID #60 tab 02/12/24 [Rx] amLODIPine [Norvasc] 5 mg PO BID #60 tab 02/12/24 [Rx] carvediloL [Coreg*] 12.5 mg PO BID #60 tab 02/12/24 [Rx] Follow up Appointment(s)/Referral(s): Justus Siddiqui MD [STAFF PHYSICIAN] - 02/19/24 11:30 am Zoey Salazar MD [Primary Care Provider] - 02/19/24 10:00 am Patient Instructions/Handouts: Hypertension (DC) Discharge Disposition: HOME SELF-CARE
== END 2024-02-12 14:26 | disposition home or self-care (01) | DRG 313 ==
LOC: EC 16:23 → 3SCARD 20:29 → OBSVTOIN 20:30 → 3SCARD 21:11
PROVIDERS: ADMIT Internal Medicine; ATTEND Internal Medicine
PROC: B246ZZ4 Ultrasonography of Right and Left Heart, Transesophageal (ICD-10-PCS; principal; 2024-02-10 11:55)
DX: R07.9 Chest pain, unspecified (principal); I16.1 Hypertensive emergency; I69.354 Hemiplegia and hemiparesis following cerebral infarction affecting left non-dominant side; I10 Essential (primary) hypertension; E78.5 Hyperlipidemia, unspecified; F32.A Depression, unspecified; F41.9 Anxiety disorder, unspecified; F60.9 Personality disorder, unspecified; G25.81 Restless legs syndrome; H55.00 Unspecified nystagmus; I11.0 Hypertensive heart disease with heart failure; J45.20 Mild intermittent asthma, uncomplicated; I25.10 Atherosclerotic heart disease of native coronary artery without angina pectoris; R73.03 Prediabetes; I25.2 Old myocardial infarction; I50.9 Heart failure, unspecified; I65.29 Occlusion and stenosis of unspecified carotid artery; R01.1 Cardiac murmur, unspecified; K21.9 Gastro-esophageal reflux disease without esophagitis; I34.0 Nonrheumatic mitral (valve) insufficiency; Z79.02 Long term (current) use of antithrombotics/antiplatelets; Z79.82 Long term (current) use of aspirin; Z79.890 Hormone replacement therapy; Z79.899 Other long term (current) drug therapy; Z82.49 Family history of ischemic heart disease and other diseases of the circulatory system; Z85.41 Personal history of malignant neoplasm of cervix uteri; Z85.828 Personal history of other malignant neoplasm of skin; Z86.711 Personal history of pulmonary embolism; Z96.642 Presence of left artificial hip joint; Z98.42 Cataract extraction status, left eye; Z98.41 Cataract extraction status, right eye; Z91.018 Allergy to other foods
CPT/HCPCS: 36415; 70450; 70496; 70498; 70553; 71046; 80053; 80061; 82533; 83036; 83090; 83735; 84484; 85025; 85610; 85652; 85730; 86038; 86041; 86141; 93005; 93306; 93312; 93320; 93325; 94760; 96374; 96375; 99285

== ENCOUNTER 2024-03-15 01:04 | Emergency (ER) | payer MEDICARE, OTHER ==
[2024-03-15 01:48] VITALS: BP 97/64; PULSE 62; RESP 18; TEMP 97.7
--- NOTE | 2024-03-15 04:07 | ED ---
General Adult HPI - General Chief complaint: Recheck/Abnormal Lab/Rx Stated complaint: Abnormal BP Time Seen by Provider: 03/15/24 04:05 Source: patient Mode of arrival: ambulatory Limitations: no limitations - History of Present Illness Initial comments: Quick note: 73-year-old female presenting with chief complaint of low blood pressure. She was seen at her PCP Dr. Salazar's office today and had a low blood pressure, was told through return to the ER with any repeated drop in her blood pressure. She feels fatigued and " I just dont feel well". - Related Data Home Medications Medication Instructions Recorded Confirmed Gabapentin [Neurontin] 300 mg PO TID 08/12/21 02/07/24 Levothyroxine Sodium [Synthroid] 88 mcg PO DAILY 08/12/21 02/07/24 Nitroglycerin Sl Tabs [Nitrostat] 0.4 mg SL Q5M PRN 08/12/21 02/07/24 Ascorbic Acid [Vitamin C] 500 mg PO DAILY 02/02/22 02/07/24 Clopidogrel [Plavix] 75 mg PO HS@1900 02/02/22 02/07/24 Pantoprazole Sodium [Protonix] 20 mg PO HS@1900 02/02/22 02/07/24 Aspirin 81 mg PO MOWEFR@0800 12/11/23 02/07/24 Albuterol Inhaler [Ventolin Hfa 2 puff INHALATION RT-Q4H PRN 02/07/24 02/07/24 Inhaler] Atorvastatin Calcium [Lipitor] 40 mg PO HS@1900 02/07/24 02/07/24 Citalopram Hydrobromide [CeleXA] 20 mg PO DAILY 02/07/24 02/07/24 Folic Acid 0.4 mg PO DAILY 02/07/24 02/07/24 Losartan Potassium 100 mg PO HS@1900 02/07/24 02/07/24 Semaglutide [Wegovy] 0.25 mg SQ MO 02/07/24 02/07/24 tiZANidine [Zanaflex] 4 mg PO DAILY PRN 02/07/24 02/07/24 Previous Rx's Medication Instructions Recorded Cyanocobalamin [Vitamin B-12] 1,000 mcg PO DAILY tab 02/12/24 Spironolactone [Aldactone] 25 mg PO DAILY #30 tab 02/12/24 Ticagrelor [Brilinta] 90 mg PO BID #60 tab 02/12/24 amLODIPine [Norvasc] 5 mg PO BID #60 tab 02/12/24 carvediloL [Coreg*] 12.5 mg PO BID #60 tab 02/12/24 Allergies Allergy/AdvReac Type Severity Reaction Status Date / Time Kiswahili walnut Allergy Anaphylaxis Verified 03/15/24 01:32 walnut Allergy Anaphylaxis Verified 03/15/24 01:32 Sulfa (Sulfonamide AdvReac mouth sores Verified 03/15/24 01:32 Antibiotics) Review of Systems ROS Statement: Those systems with pertinent positive or pertinent negative responses have been documented in the HPI. ROS Other: All systems not noted in ROS Statement are negative. Past Medical History Past Medical History: Cancer, Heart Failure, COPD, CVA/TIA, GERD/Reflux, Hypertension, Myocardial Infarction ([place]), Pulmonary Embolus ([place]), Thyroid Disorder Additional Past Medical History / Comment(s): hx. cervical cancer, SOB w/activity, restless leg, TIA x 3 2012, tia 2014, personality disorder. CVA and PE 2017. Last Myocardial Infarction Date:: 2017 History of Any Multi-Drug Resistant Organisms: None Reported Past Surgical History: Section, Heart Catheterization, Tonsillectomy Additional Past Surgical History / Comment(s): cyst removed from ovary, left hip replacement 2020, bilateral catarct removal, cancer removed from chest in june 2022 Past Anesthesia/Blood Transfusion Reactions: Postoperative Nausea & Vomiting (PONV) Past Psychological History: Anxiety, Depression Smoking Status: Never smoker Past Alcohol Use History: None Reported Past Drug Use History: None Reported - Past Family History Mother Family Medical History: Cancer, Congestive Heart Failure (CHF), Vascular Disorder Additional Family Medical History / Comment(s): aneurysm General Exam - General Exam Comments Initial Comments: Visual Physical Exam Vital signs reviewed General: Well-appearing, nontoxic, no acute distress. Head: Normocephalic, atraumatic Eyes: PERRLA, EOMI ENT: Airway patent Chest: Nonlabored breathing Skin: No visual rash, normal skin tone Neuro: Alert and oriented 3 Musculoskeletal: No gross abnormalities Limitations: no limitations Course Vital Signs 03/15/24 01:29 Temperature 97.7 F Pulse Rate 62 Respiratory 18 Rate Blood Pressure 97/64 O2 Sat by Pulse 96 Oximetry Medical Decision Making - Medical Decision Making I performed the quick note portion of this visit, electronically signed Austin Mane PA-C Patient left AGAINST MEDICAL ADVICE from the waiting room prior to complete evaluation - Lab Data Lab Results 03/15/24 Range/Units 01:33 Influenza Type A (PCR) Not Detected (Not Detectd) Influenza Type B (PCR) Not Detected (Not Detectd) RSV (PCR) Not Detected (Not Detectd) SARS-CoV-2 (PCR) Not Detected (Not Detectd) Disposition Clinical Impression: Abnormal blood pressure Disposition: LEFT AGAINST MEDICAL ADVICE Condition: Undetermined Referrals: Zoey Salazar MD [Primary Care Provider] - 1-2 days
== END 2024-03-15 04:15 | disposition left against medical advice (07) ==
LOC: EC 01:04
DX: R03.1 Nonspecific low blood-pressure reading (principal); Z11.52 Encounter for screening for COVID-19; Z88.2 Allergy status to sulfonamides; Z88.8 Allergy status to other drugs, medicaments and biological substances; Z53.29 Procedure and treatment not carried out because of patient's decision for other reasons
CPT/HCPCS: 87636; 99284

== ENCOUNTER → 2024-05-15 | Outpatient (CLI) | payer MEDICARE, OTHER ==
--- NOTE | 2024-05-15 10:39 | XR ---
EXAMINATION TYPE: XR wrist complete LT DATE OF EXAM: 05/15/2024 CLINICAL HISTORY: pain TECHNIQUE: Frontal, lateral and oblique images of the left wrist are obtained. COMPARISON: None. FINDINGS: There is no acute fracture/dislocation evident. The joint spaces appear within normal ortiz its. The overlying soft tissue appears unremarkable. IMPRESSION: There is no acute fracture or dislocation seen. ICD 10 NO FRACTURE, INITIAL EVALUATION
== END | disposition home or self-care (01) ==
LOC: RADXRMAIN 10:17
PROVIDERS: ATTEND Registered Nurse
DX: S69.92XA Unspecified injury of left wrist, hand and finger(s), initial encounter (principal); M25.532 Pain in left wrist; X58.XXXA Exposure to other specified factors, initial encounter

== ENCOUNTER 2024-06-17 09:40 | Day surgery (SDC) | payer MEDICARE, OTHER ==
[2024-06-13 13:40] VITALS: BMI 32.9
[~2024-06-17 09:40] MED LIST changes: -ALPRAZolam 0.25 MG TAB PO PRN; -ALPRAZolam 0.5 MG TAB PO PRN; -ASPIRIN 325 MG TAB PO STA; -NITROGLYCERIN SL TABS 0.4 MG TAB SUBLINGUAL PRN; +SODIUM CHLORIDE 0.9% 1,000 ML IV SCH; -SODIUM CHLORIDE 0.9% 1,000 ML in EMPTY BAG 1 BAG IV SCH
[2024-06-17] MEDS: ceFAZolin 1,000 MG VIAL IVPB ONE (14:01)
[2024-06-17] MEDS: IV FLUID CONTINUATION 350 ML IV ONE (14:01)
[2024-06-17] MEDS: LIDOCAINE 1% INJ 10MG/ML (20 ML MDV) SQ ONE (14:02)
--- NOTE | 2024-06-17 16:49 | P.EPPROC ---
- EP Procedure Note Electrophysiology Procedure Note: Loop monitor implant Primary physicians: Dr. Salazar Agricultural Produce Washer: Dr. Siddiqui Indication: TIA, recurrent Patient was brought to the EP lab in a fasting state. Written informed consent was obtained prior to the procedure. The left pectoral area was prepped and draped per protocol. Intravenous antibiotic was administered preoperatively. A subcutaneous Loop monitor was implanted successfully and the wound was closed per protocol. The device was programmed to detect significant lee- arrhythmic and tachy-arrhythmic events, per protocol. Device and programming details: Cryptogenic stroke protocol
== END 2024-06-17 14:42 | disposition home or self-care (01) ==
LOC: CATHEP 09:40
PROVIDERS: ATTEND Internal Medicine Clinical Cardiac Electrophysiology
DX: I25.10 Atherosclerotic heart disease of native coronary artery without angina pectoris (principal); I10 Essential (primary) hypertension; E78.5 Hyperlipidemia, unspecified; Z86.73 Personal history of transient ischemic attack (TIA), and cerebral infarction without residual deficits; Z86.711 Personal history of pulmonary embolism; Z79.82 Long term (current) use of aspirin; Z79.899 Other long term (current) drug therapy
CPT/HCPCS: 33285; J0690; J2001

== ENCOUNTER 2024-09-10 11:08 | Emergency (ER) | payer MEDICARE, OTHER ==
--- NOTE | 2024-09-10 11:51 | ED ---
Back Pain HPI - General Chief Complaint: Back Pain/Injury Stated Complaint: Back Pain Time Seen by Provider: 09/10/24 11:25 Source: patient, RN notes reviewed Mode of arrival: EMS Limitations: no limitations - History of Present Illness Initial Comments: This is a 74-year-old female who presents to the emergency department for lower back pain. States that it started last night towards the evening. Denies any injuries. She applied a heating pad and pain started to improve. When she woke up this morning the pain got worse. Pain is in the center of her lower back and states that it radiates down both legs. Denies any loss of bowel/bladder control or saddle anesthesia. She has not taken any medication for her pain. States that she called EMS because she felt like she could not walk due to the pain. She was given Toradol en route with some improvement in symptoms. States that this feels like the pain she had 20 years ago when she strained her back. MD Complaint: back pain - Related Data Home Medications Medication Instructions Recorded Confirmed Gabapentin [Neurontin] 300 mg PO TID 08/12/21 09/10/24 Levothyroxine Sodium [Synthroid] 88 mcg PO DAILY 08/12/21 09/10/24 Nitroglycerin Sl Tabs [Nitrostat] 0.4 mg SL Q5M PRN 08/12/21 09/10/24 Aspirin 81 mg PO DAILY 12/11/23 09/10/24 Albuterol Inhaler [Ventolin Hfa 2 puff INHALATION RT-Q4H PRN 02/07/24 09/10/24 Inhaler] Atorvastatin Calcium [Lipitor] 40 mg PO DAILY 02/07/24 09/10/24 Citalopram Hydrobromide [CeleXA] 20 mg PO DAILY 02/07/24 09/10/24 Losartan Potassium 50 mg PO DAILY 02/07/24 09/10/24 amLODIPine [Norvasc] 5 mg PO DAILY 06/13/24 09/10/24 Ezetimibe [Zetia] 10 mg PO DAILY 06/17/24 09/10/24 Cyanocobalamin (Vitamin B-12) 2,000 mcg PO DAILY 09/10/24 09/10/24 [Vitamin B-12] Folic Acid 1 mg PO DAILY 09/10/24 09/10/24 Semaglutide [Wegovy] 2.4 mg SQ TU 09/10/24 09/10/24 Ticagrelor [Brilinta] 90 mg PO DIRECTED 09/10/24 09/10/24 carvediloL [Coreg*] 12.5 mg PO BID-W/MEALS 09/10/24 09/10/24 Previous Rx's Medication Instructions Recorded Spironolactone [Aldactone] 25 mg PO DAILY #30 tab 02/12/24 Ketorolac [Toradol] 10 mg PO Q6HR PRN #15 tab 09/10/24 Lidocaine 5% Patch [Lidoderm 5% 1 patch TOPICAL DAILY PRN #30 patch 09/10/24 Patch] methocarbamoL [Robaxin-750] 1,500 mg PO TID PRN #30 tab 09/10/24 Allergies Allergy/AdvReac Type Severity Reaction Status Date / Time Chinese walnut Allergy Anaphylaxis Verified 09/10/24 11:38 walnut Allergy Anaphylaxis Verified 09/10/24 11:38 Sulfa (Sulfonamide AdvReac mouth sores Verified 09/10/24 11:38 Antibiotics) Review of Systems ROS Statement: Those systems with pertinent positive or pertinent negative responses have been documented in the HPI. ROS Other: All systems not noted in ROS Statement are negative. Past Medical History Past Medical History: Cancer, Heart Failure, COPD, CVA/TIA, GERD/Reflux, Hypertension, Myocardial Infarction ([place]), Pulmonary Embolus ([place]), Thyroid Disorder Additional Past Medical History / Comment(s): hx. cervical cancer, SOB w/activity, restless leg, TIA x 3 2012, tia 2014, personality disorder. CVA and PE 2017. Last Myocardial Infarction Date:: 2017 History of Any Multi-Drug Resistant Organisms: None Reported Past Surgical History: Section, Heart Catheterization, Joint Replacement, Tonsillectomy Additional Past Surgical History / Comment(s): loop recorder Past Anesthesia/Blood Transfusion Reactions: Postoperative Nausea & Vomiting (PONV) Past Psychological History: Anxiety, Depression Smoking Status: Never smoker Past Alcohol Use History: Occasional Past Drug Use History: None Reported - Past Family History Mother Additional Family Medical History / Comment(s): aneurysm. maternal side of mom's family huge cancer hx General Exam Limitations: no limitations General appearance: alert, in no apparent distress Head exam: Present: atraumatic, normocephalic, normal inspection Respiratory exam: Present: normal lung sounds bilaterally. Absent: respiratory distress, wheezes, rales, rhonchi, stridor Cardiovascular Exam: Present: regular rate, normal rhythm, normal heart sounds. Absent: systolic murmur, diastolic murmur, rubs, gallop, clicks Back exam: Present: other (Tenderness to palpation over the lower lumbar spine) Neurological exam: Present: alert, oriented X3, CN II-XII intact Psychiatric exam: Present: normal affect, normal mood Skin exam: Present: warm, dry, intact, normal color. Absent: rash Course Vital Signs 09/10/24 09/10/24 09/10/24 11:13 11:18 13:55 Temperature 98 F 97.7 F Pulse Rate 75 68 67 Respiratory 14 20 14 Rate Blood Pressure 142/78 140/68 108/65 O2 Sat by Pulse 96 98 93 L Oximetry Medical Decision Making - Medical Decision Making This is a 74 year old female who presents to the emergency department for back pain. Was pt. sent in by a medical professional or institution? @ -No Did you speak to anyone other than the patient for history? @ -No Did you review nursing and triage notes? @ -Yes, and I agree, it is accurate with regards to the patient's symptoms. Were old charts reviewed? @ -No Differential Diagnosis? @ -Differential Back Pain: Strain, zoster, cauda equina syndrome, epidural abscess, vertebral osteomyelitis, discitis, fracture, subluxation, disc herniation, DJD, spinal stenosis, dissection, AAA, pancreatitis, peptic ulcer disease, pyelonephritis, kidney stone, this is not meant to be an all-inclusive list. EKG interpreted by me (3pts min.)? @ -Not obtained X-rays interpreted by me (1pt min.)? @ -X-ray of the lumbar spine obtained. My interpretation identifies no acute fractures. CT interpreted by me (1pt min.)? @ -Not obtained U/S interpreted by me (1pt. min.)? @ -Not obtained What testing was considered but not performed? (CT, X-rays, U/S, labs)? Why? @ -None What meds were considered but not given? Why? @ -None Did you discuss the management of the patient with other professionals? @ -No Did you reconcile home meds? @ -No Was smoking cessation discussed for >3mins.? @ -No Was critical care preformed (if so, how long)? @ -No Were there social determinants of health that impacted care today? How? (Homelessness, low income, unemployed, alcoholism, drug addiction, transportation, low edu. Level, literacy, decrease access to med. care, snf, rehab)? @ -No Was there de-escalation of care discussed even if they declined? (Discuss DNR or withdrawal of care, Hospice)? @ -No What co-morbidities impacted this encounter? (DM, HTN, Smoking, COPD, CAD, Cancer, CVA, Hep., AIDS, mental health diagnosis, sleep apnea, morbid obesity)? @ -None Was patient admitted / discharged? @ -Discharged. X-ray of the lumbar spine obtained revealing no acute process. Symptoms likely related to a muscular strain or sciatica given the location with radicular symptoms. Pain was managed in the emergency department and she was able to ambulate afterwards. Prescription for Toradol, Robaxin, lidocaine patches provided. Otherwise advised follow-up with her PCP. Patient discharged home in stable condition. Case discussed with ED attending, Dr. Young. Return precautions reviewed in depth, the patient is instructed to return to the emergency department with any new, worsening, or concerning symptoms. Patient verbalized understanding. Undiagnosed new problem with uncertain prognosis? @ -None Drug Therapy requiring intensive monitoring for toxicity (Heparin, Nitro, Insulin, Cardizem)? @ -None Were any procedures done? @ -None Diagnosis/symptom? @ -Lumbar strain, sciatica Acute, or Chronic, or Acute on Chronic? @ -Acute Uncomplicated (without systemic symptoms) or Complicated (systemic symptoms)? @ -Uncomplicated Side effects of treatment? @ -None Exacerbation, Progression, or Severe Exacerbation] @ -Not applicable Poses a threat to life or bodily function? @ -The pain may limit her ability to function. - Radiology Data Radiology results: report reviewed, image reviewed Disposition Clinical Impression: Strain of lumbar region, Sciatica Disposition: HOME SELF-CARE Instructions (If sedation given, give patient instructions): Low Back Strain (ED), Acute Low Back Pain (ED) Additional Instructions: Return to the emergency department with any new, worsening, or concerning symptoms. Take the Toradol with Tylenol as needed for pain relief. If you choose to take the Toradol, do not take any other anti-inflammatories such as ibuprofen, take one or the other. Take the Robaxin as 1 to 2 tablets up to 3-4 times daily. You can also apply the lidocaine patches daily. Follow up with your primary care provider in 1-2 days. Prescriptions: Lidocaine 5% Patch [Lidoderm 5% Patch] 1 patch TOPICAL DAILY PRN #30 patch PRN Reason: Pain methocarbamoL [Robaxin-750] 1,500 mg PO TID PRN #30 tab PRN Reason: Pain Ketorolac [Toradol] 10 mg PO Q6HR PRN #15 tab PRN Reason: Pain Is patient prescribed a controlled substance at d/c from ED?: No Referrals: Zoey Salazar MD [Primary Care Provider] - 1-2 days Time of Disposition: 14:46
[2024-09-10] MEDS: LIDOCAINE 4% PATCH TOPICAL ONE (12:07)
[2024-09-10] MEDS: DEXAMETHASONE SOD PHOSPHATE 10 MG/ML 1 ML VIAL IVP STA (12:09)
[2024-09-10] MEDS: ORPHENADRINE 30 MG/ML 2 ML VIAL IVP STA (12:09)
[2024-09-10] MEDS: MORPHINE SULFATE 2 MG/ML SYRINGE IVP STA (12:09)
[2024-09-10] MEDS: KETOROLAC 15 MG/ML 1 ML VIAL IVP STA (12:09)
--- NOTE | 2024-09-10 13:05 | XR ---
EXAMINATION TYPE: XR lumbar spine 2 or 3V DATE OF EXAM: 09/10/2024 CLINICAL HISTORY: pain TECHNIQUE: Three views of the lumbar spine are submitted. COMPARISON: 06/21/2021 FINDINGS: There are 5 lumbar type vertebral bodies identified. The lumbar spine shows satisfactory alignment w ithout evidence of acute fracture or dislocation. Vertebral body heights are within normal limits. Severe multilevel degenerative disc disease with vacuum changes at L5-S1. The overlying soft tissue appears unremarkable. IMPRESSION: No acute fracture or dislocation is seen in the lumbar spine. ICD 10 NO FRACTURE, INITIAL EVALUATION [facility], , 09/10/2024 1:03 PM
[2024-09-10] MEDS: MORPHINE SULFATE 4 MG/ML SYRINGE IVP STA (13:44)
[2024-09-10 13:57] VITALS: BP 108/65; PULSE 67; RESP 14; TEMP 97.7
[2024-09-10] MEDS ORDERED: ACET/COD 300 MG/30 MG STARTER PACK 6 TAB BTL PO STA (14:46)
== END 2024-09-10 15:48 | disposition home or self-care (01) ==
LOC: EC 11:08
CPT/HCPCS: 72100; 96374; 96375; 96376; 99284

== ENCOUNTER → 2024-09-13 | Day surgery (SDC) | payer MEDICARE, OTHER ==
[~2024-09-13] MED LIST changes: +LIDOCAINE 1% INJ 10MG/ML (20 ML MDV) ONE; +MIDAZOLAM 2 MG/2 ML VIAL ONE; +PROPOFOL 10 MG/ML 20 ML VIAL IV ONE; -SODIUM CHLORIDE 0.9% 1,000 ML IV SCH
[2024-09-13] MEDS: IV FLUID CONTINUATION 1,000 ML IV ONE (11:50)
[2024-09-13 12:05] VITALS: TEMP 97.8
[2024-09-13 12:21] VITALS: BMI 34.9
[2024-09-13] MEDS: BUPIVACAINE (PF) 0.5% 30 ML VIAL SQ ONE (13:16)
[2024-09-13] MEDS: LIDOCAINE 1% INJ 10MG/ML (20 ML MDV) SQ ONE (13:16)
[2024-09-13] MEDS: BACITRACIN ZINC 500 UNIT/GM OINT 28.4 GM TUBE TOPICAL ONE (13:36)
--- NOTE | 2024-09-13 13:58 | P.OP ---
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 These have caused her pain for quite some time. She has had multiple in office procedures performed without resolution. At this time she has elected to have the nails removed entirely. Preoperative H&P and lab studies were reviewed no apparent contraindications to the proposed surgery. Informed consent was obtained. Patient's questions were answered to their satisfaction. No guarantees were given or implied. Description of Procedure: Under mild sedation patient was brought into the operating room and remained on the operating table. While laying light sedation local injections were performed for local anesthesia to bilateral hallux nail and bilateral fifth digit. Magno tourniquet was applied to bilateral hallux. The foot was cleansed with Betadine bilaterally. At this time Rhinelander was used to elevate the nail matrix in bed from all 4 of these digits bilateral hallux digits as well as bilateral fifth toenails. These were easily able to be easily lifted and smooth resection was performed a hemostat was used to a dissect the nail in total. All 4 nails came off in 1 piece with no remaining spicules. Curette and rasp were used to assess the base of all of these nails. No residual spicules noted. Nail matrix was clean. Rasp was used along the matrix. Bacitracin was then applied to all surrounding tissue on all 4 nails. At that time 89% phenol was placed 4 times along the entire nail matrix for 30 seconds each. The sites were then flushed with dexamethasone. Toe digital tourniquet to hallux was removed. Hyperemic REMIC response was noted to all digits. Bacitracin, gauze, Coban applied to all 4 toes. Patient tolerated anesthesia well without complications. She will to be discharged home today per anesthesia. She will use to leave her dressings intact for 24 hours and then she can soak her feet in Epsom salt once daily. She was sent home with bacitracin ointment she is to apply this once daily with a Band-Aid.
[2024-09-13 14:14] VITALS: BP 109/72; PULSE 79; RESP 18
== END | disposition home or self-care (01) ==
LOC: OR 11:11
PROVIDERS: ATTEND Podiatrist Foot & Ankle Surgery
DX: B35.1 Tinea unguium (principal); L60.0 Ingrowing nail; L60.2 Onychogryphosis; I11.0 Hypertensive heart disease with heart failure; I50.9 Heart failure, unspecified; F41.9 Anxiety disorder, unspecified; J44.9 Chronic obstructive pulmonary disease, unspecified; R56.9 Unspecified convulsions; I25.10 Atherosclerotic heart disease of native coronary artery without angina pectoris; E78.5 Hyperlipidemia, unspecified; G47.33 Obstructive sleep apnea (adult) (pediatric)
CPT/HCPCS: 11750; J2250; J2003; J2704; J0665

== ENCOUNTER → 2024-09-25 | Outpatient (CLI) | payer MEDICARE, OTHER ==
--- NOTE | 2024-09-26 08:35 | MR ---
EXAMINATION TYPE: MR lumbar spine wo con DATE OF EXAM: 09/25/2024 1:14 PM COMPARISON: None. 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 IV Contrast: mL (None, if empty) FINDINGS: L5-S1: There is narrowing of the disc height. Mild disc bulge has epidural space impression. No theca l sac compression. Facet hypertrophy and ligamentum flavum laxity is present. There is some mild left posterior lateral thecal sac compression. No significant right posterior lateral thecal sac compress ion evident. There may be posterior displacement of the exiting nerve roots. Correlate with S1 radicu lar symptoms. L4-L5: There is left paracentral disc bulge with moderate anterior thecal sac impression and this may have left L5 nerve root contact or displacement. Correlate with radicular symptoms. No significant f oraminal narrowing is evident L3-L4: Degenerative disc changes are present through this level. There is some degenerative endplate changes evident. Some endplate spurring from L3 is present. Mild facet degenerative changes. There is mild left foraminal narrowing. Some left ligamentum flavum laxity is present. L2-L3: Broad-based disc bulge is moderate anterior thecal sac flattening. No AP spinal canal stenosis is present. Facet hypertrophy is present in the left. No preoperative there is present. Study is performed without intravenous contrast. If there is clinical concern for discitis at this le kailee, additional imaging with contrast MRI is recommended. There are endplate changes which may be Mod ic type I degenerative changes. Findings however could relate to discitis in the proper clinical sett ing. L1-L2: Minimal disc bulge is present with anterior thecal sac contact. No AP spinal canal stenosis is present. Neural foramen are patent T12-L1: No significant disc bulge or disc herniation. No spinal canal stenosis. No foraminal stenos is. IMPRESSION: 1. Endplate changes L2-3 with narrowing of disc height. Findings could be degenerative in nature. Cli nical evaluation for discitis is recommended. If there is clinical suspicion for discitis at the L2-3 level, additional imaging with contrast MRI would be recommended. 2. Left paracentral disc herniation L4-5 with moderate anterior thecal sac compression and left L5 ne rve root contact correlate with radicular symptoms. 3. There may be broad-based disc bulge with displacement of the S1 nerve roots at L5-S1. Correlate wi th S1 radicular symptoms. [facility], , 09/26/2024 8:32 AM
== END | disposition home or self-care (01) ==
LOC: RADMRIMAIN 12:43
PROVIDERS: ATTEND Internal Medicine
DX: M47.816 Spondylosis without myelopathy or radiculopathy, lumbar region (principal); M51.360 Other intervertebral disc degeneration, lumbar region with discogenic back pain only
CPT/HCPCS: 72148

== ENCOUNTER → 2024-10-24 | Outpatient (CLI) | payer MEDICARE, OTHER ==
--- NOTE | 2024-10-25 11:07 | XR ---
EXAMINATION TYPE: XR cervical spine 4 views DATE OF EXAM: 10/24/2024 3:48 PM COMPARISON: None CLINICAL INDICATION: Female, 74 years old with history of M62.838, , FINDINGS: Some degenerative change of the C1 dens articulation. No prevertebral soft tissue swelling. Moderate to severe degenerative disc disease and endplate spondylosis C5-C6. Moderate at C6-C7 and mild elsewh ere throughout the cervical spine. Alignment is maintained. Multilevel hypertrophic facet and uncover tebral joint arthropathy is present. Normal odontoid view. IMPRESSION: Moderate to advanced spondylotic change particularly at C5-C6. No prevertebral soft tissue swelling o r malalignment. [facility], , 10/25/2024 11:04 AM
== END | disposition home or self-care (01) ==
LOC: RADXRMAIN 15:26
PROVIDERS: ATTEND Internal Medicine
DX: M47.812 Spondylosis without myelopathy or radiculopathy, cervical region (principal); M62.838 Other muscle spasm
CPT/HCPCS: 72040

== ENCOUNTER → 2024-11-15 | Outpatient (CLI) | payer MEDICARE, OTHER ==
--- NOTE | 2024-11-16 22:33 | MR ---
INDICATION: Patient age:Female; 74 years old; Reason for study: M47.812 Spondylosis without myelopathy or radiculopathy, cer; [facility]. COMPARISON: Cervical spine radiograph 10/24/2024. TECHNIQUE: Multi planar, multi sequence imaging was performed of the cervical spine. No Gadolinium wa s given. FINDINGS: Alignment: The cervical vertebral bodies have preserved heights. No spondylolisthesis. Slight reversa l of normal cervical lordosis. Bones: Bone signal is within normal limits. Multilevel degenerative disc disease is noted. Cord: The spinal cord is unremarkable with regards to their signal intensity and morphology. Discs: Multilevel disc desiccation is present. C2-C3: No significant disc pathology. The spinal canal is patent. No neural foraminal stenosis. C3-C4: No significant disc pathology. The spinal canal is patent. Left facet arthropathy. No signific ant neural foraminal stenosis. C4-C5: Posterior disc osteophyte complex with mild effacement of the anterior thecal sac. There is cl ose approximation with the spinal cord. Uncovertebral joint hypertrophy with moderate right neural fe moral stenosis. The left neural foramen is patent. C5-C6: Posterior disc osteophyte complex with mild effacement of the anterior thecal sac in close carolyn roximation to the spinal cord. Uncovertebral joint hypertrophy with moderate left neural foraminal st enosis. The right neural foramen is patent. C6-C7: Broad-based disc bulge with mild effacement of the intrathecal sac. Uncovertebral joint hypert rophy with mild bilateral neural foraminal stenosis. C7-T1: No significant disc pathology. The spinal canal is patent. No neural foraminal stenosis. Other: None. IMPRESSION: Moderate multilevel disc degeneration with associated osteoarthritic changes as described above. [facility], , 11/16/2024 10:29 PM
== END | disposition home or self-care (01) ==
LOC: RADMRIMAIN 18:56
PROVIDERS: ATTEND Internal Medicine
DX: M50.30 Other cervical disc degeneration, unspecified cervical region (principal); M47.812 Spondylosis without myelopathy or radiculopathy, cervical region; M50.223 Other cervical disc displacement at C6-C7 level
CPT/HCPCS: 72141